=== PATIENT | female | born 1985 | race Caucasian/White ===

== ENCOUNTER → 2022-07-11 | Outpatient (CLI) | payer BC, SELFPAY ==
[2022-07-11 14:26] LABS: Hemoglobin A1c 5.3 % (3.8-5.6)
[2022-07-11 14:28] LABS: Prolactin 8.7 ng/mL; T4 Free Direct 1.02 ng/dL (0.76-1.46); Thyroid Stim Hormone (TSH) 1.12 uIU/mL (0.358-3.74)
[2022-07-17 22:07] LABS: DHEA Sulfate 89.4 ug/dL (57.3-279.2); Dilute Prothrombin Time (dPT) 40.4 sec (0.0-47.6); Dilute Russell Viper Venom 39.5 sec (0.0-47.0); Thrombin Time 16.8 sec (0.0-23.0); dPT Confirm Ratio 1.03 Ratio (0.00-1.34)
[2022-07-17 22:21] LABS: Anti-Cardiolipin Ab, IgA, Qn < 9 APL U/mL (0-11); Anti-Cardiolipin Ab, IgG, Qn < 9 GPL U/mL (0-14); Anti-Cardiolipin Ab, IgM, Qn 20 MPL U/mL (0-12); Beta-2-Glycoprotein I IgA <9 (0-25); Beta-2-Glycoprotein I IgG <9 (0-20); Beta-2-Glycoprotein I IgM <9 (0-32); Interpretation Comment: (.); PTT-LA 39.5 sec (0.0-43.5); Testosterone Free 0.4 pg/mL (0.0-4.2)
[2022-07-26 08:15] LABS: 17-Hydroxyprogesterone 20 ng/dL (.)
== END | disposition home or self-care (01) ==
PROVIDERS: PCP Family Medicine; Referring Provider Obstetrics & Gynecology; Visit Provider Obstetrics & Gynecology
DX: N97.9 Female infertility, unspecified (principal)
CPT/HCPCS: 36415; 82627; 83036; 83498; 84146; 84402; 84439; 84443; 86146; 86147; 82626

== ENCOUNTER → 2022-07-21 | Outpatient (CLI) | payer BC, SELFPAY ==
--- NOTE | 2022-07-21 15:35 | US_ITS ---
STUDY: ULTRASOUND OF THE FEMALE PELVIS - COMPLETE REASON FOR EXAM: Female, 37 years old. Infertility workup LMP: 07/08/22 TECHNIQUE: Transabdominal and Transvaginal TECHNICAL QUALITY: Adequate. COMPARISON: None. FINDINGS: The uterus is anteverted and is in a midline position. The uterus measures 8.5 x 5.3 x 3.7 cm. Normal uterine cervix. The endometrium measures 1.2 mm in thickness, and is hyperechoic. There is no demonstrated endometrial mass. There is no demonstrated myometrial mass. I.U.D. - The patient does not have an I.U.D. The right ovary is visualized. The right ovary measures 3.2 x 3.3 x 2.5 cm. There is no right ovarian cyst or ovarian mass. There is no visualized right adnexal mass or complex lesion. There is normal arterial and normal venous vascularity. The left ovary is visualized. The left ovary measures 3.1 x 2.0 x 2.2 cm. There is no left ovarian cyst or ovarian mass. There is no visualized left adnexal mass or complex lesion. There is normal arterial and normal venous vascularity. There is no fluid in the cul-de-sac. The bladder is sonographically normal US/Pelvic (Non ) IMPRESSION: No suspicious sonographic findings Electronically Signed: Ryan Bowens MD at 9:53 EDT ,
--- NOTE | 2022-07-21 15:36 | US_ITS ---
STUDY: ULTRASOUND OF THE FEMALE PELVIS - COMPLETE REASON FOR EXAM: Female, 37 years old. Infertility workup LMP: 07/08/22 TECHNIQUE: Transabdominal and Transvaginal TECHNICAL QUALITY: Adequate. COMPARISON: None. FINDINGS: The uterus is anteverted and is in a midline position. The uterus measures 8.5 x 5.3 x 3.7 cm. Normal uterine cervix. The endometrium measures 1.2 mm in thickness, and is hyperechoic. There is no demonstrated endometrial mass. There is no demonstrated myometrial mass. I.U.D. - The patient does not have an I.U.D. The right ovary is visualized. The right ovary measures 3.2 x 3.3 x 2.5 cm. There is no right ovarian cyst or ovarian mass. There is no visualized right adnexal mass or complex lesion. There is normal arterial and normal venous vascularity. The left ovary is visualized. The left ovary measures 3.1 x 2.0 x 2.2 cm. There is no left ovarian cyst or ovarian mass. There is no visualized left adnexal mass or complex lesion. There is normal arterial and normal venous vascularity. There is no fluid in the cul-de-sac. The bladder is sonographically normal US/Transvaginal Non- IMPRESSION: No suspicious sonographic findings Electronically Signed: Ryan Bowens MD at 9:53 EDT ,
== END | disposition home or self-care (01) ==
PROVIDERS: PCP Family Medicine; Visit Provider Obstetrics & Gynecology
DX: N97.9 Female infertility, unspecified (principal)
CPT/HCPCS: 76830; 76856

== ENCOUNTER → 2024-05-21 | Outpatient (CLI) | payer BC, SELFPAY ==
[2024-05-21 13:05] LABS: T4 Free Direct 1.21 ng/dL (0.76-1.46); Thyroid Stim Hormone (TSH) 0.572 uIU/mL (0.358-3.740)
[2024-05-21 13:14] LABS: Absolute Lymphocyte Count 1.52 X10^3/uL (0.83-4.51); Absolute Neutrophil Count 6.3 X10^3/uL (2.0-7.7); Basophil# 0.02 X10^3/uL; Basophil% 0.2 % (0-1); Eosinophil# 0.07 X10^3/uL; Eosinophils% 0.8 % (0-5); Hematocrit 39.3 % (37-47); Hemoglobin 12.2 g/dL (12.0-15.0); Lymphocyte # 1.52 X10^3/ul (0.83-4.51); Mean Corpuscular Hgb 27.5 pg (27.0-32.0); Mean Corpuscular Volume 88.5 fL (81-99); Mean Platelet Vol. 11.2 fl (6.2-12.0); Monocyte# 0.46 X10^3/uL; Monocyte% 5.5 % (0-10); NRBC Flagged by Analyzer 0 % (0-5); Neutrophil # 6.32 X10^3/uL (2.7-7.7); Platelet Count 263 K/mm3 (150-450); RBC Distribution Width CV 13.5 % (11.6-14.6); RBC Distribution Width SD 43.6 fl (35.1-43.9); Red Blood Count 4.44 M/mm3 (4.2-5.4); White Blood Count 8.4 K/mm3 (4.4-11.0)
[2024-05-21 13:28] LABS: HIV - WCH Non-Reactive (Nonreactive); Hepatitis B Surface Antigen Non-Reactive (Nonreactive); Hepatitis C Antibody Non-Reactive (Nonreactive); Rubella IgG Reactive (Nonreactive); Syphilis Antibodies Non-reactive
[2024-05-21 16:57] LABS: Hemoglobin A1c 5.4 % (3.8-5.6)
[2024-05-24 04:06] LABS: Chlamydia By Nucleic Acid AMP Negative (Negative); Gonococcus By Nucleic Acid AMP Negative (Negative)
[2024-05-27 11:07] LABS: HPV APTIMA, High Risk Negative (Negative)
== END | disposition home or self-care (01) ==
PROVIDERS: PCP Family Medicine; Referring Provider Obstetrics & Gynecology; Visit Provider Obstetrics & Gynecology
DX: O99.210 Obesity complicating pregnancy, unspecified trimester (principal); Z3A.00 Weeks of gestation of pregnancy not specified
CPT/HCPCS: 36415; 83021; 83036; 84439; 84443; 85025; 85660; 86703; 86762; 86780; 86803; 86850; 86900; 86901; 87086; 87340; 87491; 87591; 87624; 88175; G0145

== ENCOUNTER → 2024-08-21 | Outpatient (CLI) | payer BC, SELFPAY ==
[2024-08-21 10:53] LABS: Absolute Lymphocyte Count 1.85 X10^3/uL (0.83-4.51); Basophil# 0.01 X10^3/uL; Basophil% 0.1 % (0-1); Eosinophil# 0.09 X10^3/uL; Eosinophils% 0.9 % (0-5); Hematocrit 36.7 % (37-47); Hemoglobin 11.9 g/dL (12.0-15.0); Lymphocyte # 1.85 X10^3/ul (0.83-4.51); Lymphocyte % 19.4 % (19-41); Mean Corp Hgb Conc 32.4 g/dL (32-36); Mean Corpuscular Hgb 30.1 pg (27.0-32.0); Mean Corpuscular Volume 92.9 fL (81-99); Mean Platelet Vol. 11.8 fl (6.2-12.0); Monocyte# 0.49 X10^3/uL; Monocyte% 5.1 % (0-10); NRBC Flagged by Analyzer 0 % (0-5); Neutrophil % 73.7 % (47-70); Platelet Count 198 K/mm3 (150-450); RBC Distribution Width CV 14.1 % (11.6-14.6); RBC Distribution Width SD 47.9 fl (35.1-43.9); Red Blood Count 3.95 M/mm3 (4.2-5.4); White Blood Count 9.5 K/mm3 (4.4-11.0)
[2024-08-21 12:26] LABS: Glucose Challenge Gest 1H 50g 108 mg/dL (70-140); HIV Nonreactive (Nonreactive); Syphilis Antibodies Nonreactive (Nonreactive)
== END | disposition home or self-care (01) ==
PROVIDERS: PCP Family Medicine; Referring Provider Obstetrics & Gynecology; Visit Provider Obstetrics & Gynecology
DX: O09.92 Supervision of high risk pregnancy, unspecified, second trimester (principal); Z3A.00 Weeks of gestation of pregnancy not specified; Z13.1 Encounter for screening for diabetes mellitus
CPT/HCPCS: 36415; 82950; 85025; 86703; 86780

== ENCOUNTER → 2024-09-05 | Outpatient (CLI) | payer BC, SELFPAY ==
--- NOTE | 2024-09-05 12:15 | US_ITS ---
PROCEDURE: OB LIMITED WITH BIOMETRICS (USOBGROWTH), 09/05/2024 REASON FOR EXAM: GROWTH EVERY MONTH. Reportedly, 29 weeks 5 days with HILARY 11/16/2024 by previously established dates. TECHNIQUE: Grayscale and color/spectral doppler transabdominal pelvic ultrasound was performed with attention to the uterus and associated gestation. COMPARISON: None FINDINGS: A single intrauterine gestational is identified. Cardiac activity: Present, 135 bpm. position: Breech. Amniotic Fluid Index: 14.7 (normal 5-25), deepest vertical pocket 4 (normal 2-8). Placenta: Posterior without significant calcification. No visualized or definite previa. biometry: Biparietal diameter: 7.4 cm, corresponding to 29 weeks 5 days. Head circumference: 27.7 cm, corresponding to 30 weeks 2 days. Occipitofrontal diameter: 9.8 cm, corresponding to 30 weeks 1 day. Abdominal circumference: 26.3 cm, corresponding to 30 weeks 3 days. Femur length: 5.9 cm, corresponding to 30 weeks 4 days. Composite gestational age: 30 weeks 1 day Estimated Weight (EFW): 1575 g +/-236 g, 63.2 percentile. Estimated delivery date (HILARY): 11/13/2024. Maternal anatomy: Cervix: Closed, 3.5 cm in length.. Right ovary: Nonvisualized likely due to the gravid uterus. Left ovary: Nonvisualized likely due to the gravid uterus. US/OB Limited With Biometrics IMPRESSION: 1. Single live intrauterine at 30 weeks 1 day with HILARY 11/13/2024 by today's measurements, compatible with previously established dates. 2. Estimated weight 1575 g +/-236 g, 63.2 percentile based on provided pr eviously established dates. biometry as above. 3. Additional description as above. Reading Location: [id number]
== END | disposition home or self-care (01) ==
LOC: US 12:13
PROVIDERS: PCP Family Medicine; Referring Provider Obstetrics & Gynecology; Visit Provider Obstetrics & Gynecology
DX: O99.212 Obesity complicating pregnancy, second trimester (principal); Z3A.00 Weeks of gestation of pregnancy not specified
CPT/HCPCS: 76816

== ENCOUNTER → 2024-10-03 | Outpatient (CLI) | payer BC, SELFPAY ==
--- NOTE | 2024-10-03 12:04 | US_ITS ---
PROCEDURE: OB LIMITED WITH BIOMETRICS 10/03/2024 REASON FOR EXAM: GROWTH EVERY MONTH TECHNIQUE: High resolution obstetric ultrasound performed using a 2D transducer. Standard views obtained, including biometry. FINDINGS Transabdominal imaging Single live intrauterine cardiac activity 158 beats per minute. Presentation is cephalic. Cervix not visualized. SHAMAR 12.6 cm, maximum vertical pocket 3.8 cm Posterior grade 1 placenta appears within limits, not low-lying. DIMENSIONS: Biparietal Diameter: 8.3 cm/33 weeks 2 days, 32% Head Circumference: 30.6 cm/34 weeks 0 day, 21% Abdominal Circumference: 29.7 cm/33 weeks 4 days, 50% Femur Length: 6.7 cm/34 weeks 2 days, 54% FL/AC 22%, FL/BPD 81%, FL/HC 22%, CI 76%, HC/AC 1.0 ESTIMATED WEIGHT: 2292 g +/-344 g ESTIMATED WEIGHT PERCENTILE (24+ weeks): 46.9% Estimated age by current ultrasound 34 weeks 0 days, HILARY 11/14/2024 Estimated age by prior ultrasound 34 weeks 1 day, HILARY 11/13/2024 age by LMP 33 weeks 5 days, HILARY 11/16/2024 US/OB Limited With Biometrics IMPRESSION: Single live intrauterine with biometry as above. Reading Location: [id number]
== END | disposition home or self-care (01) ==
LOC: US 12:02
PROVIDERS: PCP Family Medicine; Referring Provider Obstetrics & Gynecology; Visit Provider Obstetrics & Gynecology
DX: O99.212 Obesity complicating pregnancy, second trimester (principal); Z3A.00 Weeks of gestation of pregnancy not specified
CPT/HCPCS: 76816

== ENCOUNTER → 2024-10-24 | Outpatient (CLI) | payer BC, SELFPAY | END | disposition home or self-care (01) | LOC: LABSPEC 16:31 | PROVIDERS: PCP Family Medicine; Referring Provider Obstetrics & Gynecology; Visit Provider Obstetrics & Gynecology | DX: O09.93 Supervision of high risk pregnancy, unspecified, third trimester (principal); Z3A.00 Weeks of gestation of pregnancy not specified | CPT/HCPCS: 87081 ==

== ENCOUNTER → 2024-10-31 | Outpatient (CLI) | payer BC, SELFPAY ==
--- NOTE | 2024-10-31 11:26 | US_ITS ---
PROCEDURE: OB LIMITED WITH BIOMETRICS 10/31/2024 REASON FOR EXAM: GROWTH EVERY MONTH TECHNIQUE: OB LIMITED WITH BIOMETRICS COMPARISON: Ob ultrasound October 03, 2024 FINDINGS Number: [place] Position: Cephalic Placental Position: Posterior, grade 2 Placental Abnormalities: None DIMENSIONS: Biparietal Diameter: 8.9 cm/35 weeks, 6 days Head Circumference: 32.5 cm 36 weeks, 5 days/ Abdominal Circumference: 33.5 cm/37 weeks, 3 days Femur Length: 7.4 cm/38 weeks 0 days ESTIMATED WEIGHT: 3195+/-479 g ESTIMATED WEIGHT PERCENTILE (24+ weeks): 52 % ESTIMATED GESTATIONAL AGE: Baseline: 37 weeks, 5 days By Ultrasound: 37 weeks 2 days ESTIMATED DATE OF DELIVERY: Baseline: November 16, 2024 By Ultrasound: November 19, 2024 4.2 cm largest vertical pocket BIOPHYSICAL ASSESSMENT: Amniotic Fluid Volume: 4.2 cm (largest vertical pocket) Amniotic Fluid Index: 11.3 (8-24 cm normal range) Cardiac Motion: 141 (average) Trunk and Limb Motion: Present. MATERNAL ANATOMY: Adnexa: Neither maternal ovary is successfully identified. Cervical Length (if measured): US/OB Limited With Biometrics IMPRESSION: Single intrauterine fetus with heart rate of 141 beats per minute. Gestational age 37 weeks, 2 days. Estimated due date November 19, 2024. EFW 3190. Percentile rank: 52% Reading Location[facility]
--- OUTSIDE RECORDS SUMMARY | 2024-10-31 17:26 | XMS RPT_ITS | CCD ---
[facility] Organization [facility] Providers Care Hands Assembler Name Role Phone Ingrid Mckinney Unavailable Unavailable Ingrid Mckinney Unavailable Unavailable Ingrid Mckinney Unavailable Unavailable Unavailable Dr. Ingrid Mckinney Primary Care Provider Dr. Ingrid Mckinney Referring Provider [phone] Dr. Alison Guerra Attending Provider [phone] Dr. Ingrid Mckinney Primary Care Provider Dr. Ingrid Mckinney Referring Provider [phone] Dr. Alison Guerra Attending Provider [phone] Ingrid Mckinney MD Primary Care Provider INGRID MCKINNEY Primary Care Unavailable MANISH ROACH Attending Unavailable RAYMOND LARSON Attending Unavailable KAEL MCKINNEY Primary Care Unavailable ALISON GUERRA Referring UnavailDr. Ingrid Tavera MD Primary Care Provider Dr. Ingrid Mckinney MD Referring Provider Dr. Alison Guerra MD Attending Provider [phone] Dr. Alison Guerra MD Referring Provider Chayo Powell Attending Provider Dr. Ingrid Mckinney MD Primary Care Provider [phone] Dr. Ingrid Mckinney MD Referring Provider Dr. Alison Guerra MD Attending Provider Dr. Alison Guerra MD Referring Provider Param Gant DO, Dr. Kearney Attending Provider Param Gant DO, Dr. Kearney Referring Provider Shannon Ingram CNM Attending Provider Hank MIRANDA, Dr. Lira Primary Care Provider Hank MIRANDA, Dr. Lira Referring Provider [phone] Du Quoin [employer] RO[employer]ER HELPER-CChayo Attending Provider Hank, Ingrid Primary Care Unavailable Marcanthony Alison Referring Unavailable Alison Guerra Attending Unavailable Vande Velde Christel Referring Unavailabl e Vande Velde, Christel Attending Unavailabl e Hank, Ingrid Primary Care Unavailable Alison Guerra Attending Unavailable Hank, Ingrid Primary Care Unavailable Smithanthony Alison Referring Unavailable Vande Velde, Christel Referring Unavailabl e Vande Velde, Christel Attending Unavailabl e Hank, Ingrid Primary Care Unavailable Vande VeldeKieshaChristel Referring Unavailabl e Vande Velde, Christel Attending Unavailabl e Hank, Ingrid Primary Care Unavailable Hank, Ingrid Primary Care Unavailable Vande Velde, Christel Attending Unavailabl e Vande Velde, Christel Referring Unavailabl e Hank, Ingrid Referring Unavailable Olamide [employer] BE[employer] ROASTER HELPER, Chayo Attending Unavailable Hank, Ingrid Primary Care Unavailable Hank, Ingrid Referring Unavailable Vande Velde, Christel Attending Unavailabl e Hank, Ingrid Primary Care Unavailable Hank, Ingrid Referring Unavailable Du Quoin [employer] ROASTER HELPER, Chayo Attending Unavailable Hank, Ingrid Primary Care Unavailable Hank, Ingrid Referring Unavailable Du Quoin [employer] BEAN ROASTER HELPER, Chayo Attending Unavailable Hank, Ingrid Primary Care Unavailable Hank, Ingrid Primary Care Unavailable Shannon Ingram Attending Unavailable Hank, Ingrid Referring Unavailable Hank, Ingrid Primary Care Unavailable Vande Velde, Christel Attending Unavailabl e Hank, Ingrid Referring Unavailable Hank, Ingrid Primary Care Unavailable Alison Guerra Attending Unavailable Hank, Ingrid Referring Unavailable Vande Velde, Christel Attending Unavailabl e Hank, Ingrid Primary Care Unavailable Hank, Ingrid Referring Unavailable Hank, Ingrid Referring Unavailable Hank, Ingrid Primary Care Unavailable Marcanthony, Alison Attending Unavailable Ingrid Mckinney Referring Unavailable Chayo Quiñonez NP Attending Unavailable Ingrid Mckinney Primary Care Unavailable Ingrid Mckinney Referring Unavailable Ingrid Mckinney Primary Care Unavailable Alison Guerra Attending Unavailable Allergies Allergy Classification Reported Allergen(s) Allergy Type Date of Onset Reaction(s) Facility (9 sources) Food Allergies: Uncoded; Translations: [Food Allergies: Uncoded] Allergy to substance 08-21-2024 Anaphylaxis [facility] Comment on above: cool whip preservati ve Medications Current Medications Medication Drug Class(es) Dates Sig (Normalized) Sig (Original) ofloxacin 3 mg/ml ophthalmic solution (1 source) Quinolone Antimicrobial Start: 07-03-2023 End: 07-10-2023 take 1 drop(s) into the eye(s) three times daily ofloxacin (Ocuflox) 0.3 % ophthalmic solution Indications: Acute bacterial conjunctivitis of right eye Administer 1 drop into the right eye 3 times a day for 7 days. 5 mL 0 07/03/2023 07/10/2023 Active Pnv No.400-Sx-Nq0-Dha -Epa-Fish 400 mcg-35 mg- 25 mg-5 mg tablet,chewable (8 sources) Start: 05-20-2024 Pnv No.621-Lv-Mg1-Dha-Ep a-Fish 400 mcg-35 mg- 25 mg-5 mg tablet,chewable Active {tbl} PO May 20, 2024 1:00am Completed/Discontinued Medications Medication Drug Class(es) Dates Sig (Normalized) Sig (Original) phentermine hydrochloride 37.5 mg oral tablet (2 sources) Sympathomimetic Amine Anorectic Start: 05-29-2019 take 1 tablet by mouth once daily Phentermine HCl - 37.5 MG Oral Tablet Take 1 tablet daily Quantity: 28 Refills: 0 Ordered: 24-Jul-2019 Ingrid Mckinney MD Start : 29-May-2019 Active topiramate 25 mg oral tablet (2 sources) take 1 tablet by mouth once daily Topiramate 25 MG Oral Tablet Take 1 tablet daily Quantity: 30 Refills: 5 Ordered: 26-Jun-2019 Ingrid Mckinney MD Active Problems Active Problems Problem Classification Problem Date Documented Da te Episodic/Chronic Contraceptive and procreative management (2 sources) Patient encounter status; Translations: [Other procreative management counseling and advice] Episodic Female infertility (12 sources) Female infertility; Translations: [Female infertility, unspecified] 04-21-2020 Chronic Comment on above: OAR good egg supply, borderline egg quality Immunizations and screening for infectious disease (1 source) Encounter for immunization; Translations: [Encounter for immunization] Onset: 09-12-2024 Episodic Inflammation; infection of eye (except that caused by tuberculosis or sexually transmitteddisease) (3 sources) Acute infectious conjunctivitis; Translations: [Unspecified acute conjunctivitis, right eye] Onset: 07-03-2023 07-03-2023 Episodic Malaise and fatigue (2 sources) Fatigue; Translations: [Other malaise and fatigue] Episodic Menstrual disorders (12 sources) Irregular periods; Translations: [Irregular menstruation, unspecified] 07-11-2022 Chronic Comment on above: pcos and inferitlity fisher ordered, reprosource made 4 attempts to contact pt with unsuccess Other complications of (20 sources) Maternal obesity complicating , childbirth and the puerperium, antepartum; Translations: [Obesity complicating , unspecified trimester] 07-23-2024 Chronic Comment on above: HgbA1c bmi 40 weekly nsts 34 on Other complications of (2 sources) Obesity complicating , second trimester; Translations: [Obesity complicating , second trimester] Onset: 10-24-2024 Chronic Other complications of (1 source) Obesity complicating , unspecified trimester; Translations: [Obesity complicating , unspecified trimester] Onset: 05-21-2024 Chronic Other complications of (20 sources) High risk ; Translations: [Supervision of high risk , unspecified, unspecified trimester] 07-23-2024 Episodic Comment on above: [id number], HILARY 11/16/24, girl Juan David GBS negative [id number] , HILARY 11/16/24, girl Juan David Other complications of (20 sources) Advanced maternal age ; Translations: [Elderly multigravida, unspecified as to episode of care or not applicable] 07-23-2024 Episodic Comment on above: NIPT low risk Girl. discussed IOL 39-40 weeks. NIPT low risk Girl. discussed IOL 39-40 weeks. plan for iOL sunday prior to 39 weeks for cervical ripening Other complications of (1 source) Supervision of high risk , unspecified, third trimester; Translations: [Supervision of high risk , unspecified, third trimester] Onset: 10-24-2024 Episodic Other complications of (1 source) Supervision of high risk , unspecified, second trimester; Translations: [Supervision of high risk , unspecified, second trimester] Onset: 08-27-2024 Episodic Other female genital disorders (2 sources) H/O: miscarriage; Translations: [Recurrent loss] 07-11-2022 Episodic Other female genital disorders (20 sources) Recurrent loss; Translations: [Recurrent loss without current ] Onset: 10-24-2024 07-11-2022 Episodic Comment on above: APL panel neg in pas t Other nutritional; endocrine; and metabolic disorders (2 sources) Obesity; Translations: [Obesity, unspecified] Chronic Other nutritional; endocrine; and metabolic disorders (2 sources) Body mass index 40+ - severely obese; Translations: [Body Mass Index 40.0-44.9, adult] Chronic Other and delivery including normal (20 sources) ; Translations: [Encounter for supervision of normal , unspecified, unspecified trimester] 08-21-2024 Episodic Comment on above: low risk NIPT & decl ined Carrier testing Residual codes; unclassified (1 source) 36 weeks gestation of ; Translations: [36 weeks gestation of ] Onset: 10-24-2024 Episodic Syncope (20 sources) Vasovagal syncope; Translations: [Syncope and collapse] Onset: 10-24-2024 10-08-2024 Episodic Comment on above: DO NOT lay flat for NSTs Thyroid disorders (2 sources) Multinodular goiter; Translations: [Nontoxic multinodular goiter] Chronic Past or Other Problems Problem Classification Problem Date Documented Da te Episodic/Chronic Other complications of (1 source) Supervision of high risk , unspecified, unspecified trimester; Translations: [Supervision of high risk , unspecified, unspecified trimester] Onset: 06-19-2024 Episodic Residual codes; unclassified (1 source) 23 weeks gestation of ; Translations: [23 weeks gestation of ] Onset: 03-12-2025 Episodic Unclassified (1 source) Finding of menstrual bleeding; Translations: [Menstruation] Comment on above: Onset age 14 years; NEGATED: Highlighted row has not occurred!Residual codes; unclassified (3 sources) Disease Episodic Results Test Name Value Interpretation Reference Range Facility Rule out Beta Strep (Grp. B) on 10-26-2024 ANT Group B Beta Streptococcus is not isolated. Normal [facility] Comment on above: Performed By: #### M [id number] #### [facility] [address] [place], [address] Laboratory - Chemistry and C hemistry - challengeOrdered By: Christel Gant on 10-24-2024 Glucose Ql (U) Negative [facility] - UrinalysisOrder ed By: Christel Gant on 10-24-2024 Protein Ql (U) Negative [facility] Visit Reporton 10-24-2024 [facility] Visit Report [facility] [address], [address] [place] [address] OFFICE VISIT Date of Service: 10/24/24 MR#: [id number] Acct: [id number] Name: REMEDIOS NEAL Rep #: [id number] : 1985 Provider: Dr. Christel Dang DO Age/Sex: 39/F [place] [facility] [place]: Signed Intake Vital Signs 05/21/24 10:26 10/17/24 13:19 10/24/24 10:28 10/24/24 10:30 Height 5 ft 6.5 in 5 ft 6.5 in 5 ft 6.5 in 5 ft 6.5 in Weight: 245 lb 4 oz BMI 38.9 BP 110/76 Intake Visit Reasons: 36 wk ob/nst Theoretical Physicist Required: No Is patient in pain?: No Allergies Food Allergies: Uncoded Allergy (Severe, Verified 10/24/24 10:27) Anaphylaxis Medications ???Medication ???Instructions ???Recorded ???Confirmed ???Type PNV 153-FA 400 mcg-om3 35 mg-dha tab PO 05/20/24 10/24/24 History 25 mg-epa 5 mg-fish oil chew tablet Last Menstrual Period: 02/10/24 Zika: Zika virus screening: Negative : No PFSH PFSH Medical History Adopted person Seasonal allergies Enlarged thyroid Hypothyroidism Depression Abnormal thyroid blood test Abnormal Pap smear of cervix Surgical History H/O oral surgery Status post colposcopy Social History adopted: Yes household members: spouse and other details: neice part of the time current occupational status: employed 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) pets and animals: Yes (Avoid litterbox) pets and animals: cat(s) and dog(s) history of recent travel: Yes ([place]) out of state: Yes out of country: No sexually active: Yes Smoking Status: Never smoker alcohol intake: current details: occasionally- not while substance use type: does not use well-balanced diet: daily or most days caffeine: No eating out: 4 or more times/week during the past year weight has: increased > 10 lbs what type of physical activity 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 Date Name GA/Weeks Outcome Route Bth Weight Infant Gen Labor Lgth Anesthesia Del Locatn Provider FOB Unknown Delivery Date: Last Updated by: Alison Guerra MD all losses were 9 weeks of less, had 1 d and c all others spontaneous HPI 36 wk ob/nst Details: REMEDIOS CROWE is a 39 year old who presents for routine OB visit. OB Visit HILARY Calculator Estimated Delivery Date Method Current WG Current Estimate 11/16/24 LMP (Certain) 36w 5d Other Estimates 11/12/24 Ultrasound #1 37w 2d Expected Delivery Route/Plan Labor Preferences- CB/BF classes: encouraged labor support person: Juan David labor intervention preferences: [] pain management options preferred: epidural cut cord/dad catch: yes : yes PP control planned: discussed discussed possible routes of delivery and associated risks: [] special requests: [] Specific Issue/Plans Covid status: [] Flu vaccine: [] Tdap vaccine: given Rhogam: na LARC form signed: yes Problem list reviewed and updated with the most current plan of care details and appropriate orders placed. Relevant counseling for the gestational age provided. Continue routine care and follow up unless otherwise noted in visit notes/problem list details Initial Weight: Not Recorded Date -???-???-???-???-???-??? -???-???-???-???-???-??? - EGA Weight BP Urine Prot -???-???-???-???-???-??? -???-???-???-???-???-??? - Glucose FHR FuHt Pres Dilation -???-???-???-???-???-??? -???-???-???-???-???-??? - Effaced St Visit Note 05/21/24 -???-???-???-???-???-??? -???-???-???-???-???-??? - 14w 3d 252 lb 123/87 -???-???-???-???-???-??? -???-???-???-???-???-??? - 150 -???-???-???-???-???-??? -???-???-???-???-???-??? - SM- CRL cons with LMP 06/25/24 -???-???-???-???-???-??? -???-???-???-???-???-??? - 19w 3d 253 lb 8 oz 124/72 Negative -???-???-???-???-???-??? -???-???-???-???-???-??? - Negative 151 -???-???-???-???-???-??? -???-???-???-???-???-??? - No VB. No mo vement yet. Feels well. MFM anatomy tomorrow 07/23/24 -???-???-???-???-???-??? -???-???-???-???-???-??? - 23w 3d 252 lb 8 oz 119/73 Negative -???-???-???-???-???-??? -???-???-???-???-???-??? - Negative 145 -???-???-???-???-???-??? -???-?? (more content not included)... Normal [facility] Screening beta-hemolytic Str eptococcus cultureOrdered By: Christel Gant on 10-24-2024 Beta-hemolytic Streptococcus culture Group B Beta Streptococcus is not isolated. [facility] Laboratory - Chemistry and C hemistry - challengeOrdered By: Shannon Ingram on 10-17-2024 Glucose Ql (U) Negative [facility] Laboratory - UrinalysisOrder ed By: Shannon Ingram on 10-17-2024 Protein Ql (U) Negative [facility] Visit Reporton 10-17-2024 [facility] Visit Report [facility], [address] [place] [address] OFFICE VISIT Date of Service: 10/17/24 MR#: [id number] Acct: [id number] Name: REMEDIOS NEAL Rep #: [id number] : 1985 Provider: MARYCARMEN tolentino Age/Sex: 39/F [place] [facility] [place]: Signed with Addenda ADDENDUM by MARYCARMEN Ingram on 10/17/24 at 1646 Office Procedure Documentation entered by Shannon Ingram CNM 10/17/24 16:46: Non-stress Test Non-Stress Test Heart Rate Baseline: 135 Heart Rate Variability: moderate Movement: Present Heart Rate Accelerations: Present Decelerations: Absent Contractions: Present Impression: Yes Reactive Non-Stress Test 10/17/24 1646 Date Shannon Ingram CNM cc: * Signed ADDENDUM by MARYCARMEN Ingram on 10/17/24 at 1638 Assessment and Plan Assessment and Plan (1) Vasovagal episode: Status: Acute Comment: DO NOT lay flat for NSTs (2) Obesity affecting : Status: Acute Qualifiers: Trimester: second trimester Obesity type affecting : unspecified obesity Qualified Code(s): O99.212 - Obesity complicating , second trimester Comment: HgbA1c bmi 40 weekly nsts 34 on (3) Advanced maternal age (AMA), 40 years or greater: Status: Acute Comment: NIPT low risk Girl. discussed IOL 39-40 weeks. Plan: tentative scheduled 11/09/2024 to send iol paper/consent (4) Supervision of high-risk : Status: Acute Qualifiers: Trimester: third trimester Qualified Code(s): O09.93 - Supervision of high risk , unspecified, third trimester Comment: [id number], HILARY 11/16/24, girl Juan David (5) : Status: Acute Qualifiers: Weeks of gestation: 35 weeks Qualified Code(s): Z3A.35 - 35 weeks gestation of Comment: low risk NIPT declined Carrier testing (6) History of recurrent miscarriages: Status: Acute Comment: APL panel neg in past Orders: Orders POC Urinalysis 2 Dip (Clinic) Today OB NST Today O99.212 - Obesity complicating , second trimester 10/17/24 1638 Date Shannon Ingram CNM cc: * Signed Intake Vital Signs 10/08/24 08:56 10/17/24 13:18 10/17/24 13:19 Height 5 ft 6.5 in 5 ft 6.5 in 5 ft 6.5 in Weight: 245 lb BMI 38.9 BP 120/79 Intake Visit Reasons: 35 wk ob/nst Theoretical Physicist Required: No Is patient in pain?: No Allergies Food Allergies: Uncoded Allergy (Severe, Verified 10/17/24 13:18) Anaphylaxis Medications ???Medication ???Instructions ???Recorded ???Confirmed ???Type PNV 153-FA 400 mcg-om3 35 mg-dha tab PO 05/20/24 10/17/24 History 25 mg-epa 5 mg-fish oil chew tablet Last Menstrual Period: 02/10/24 Zika: Zika virus screening: Negative : No PFSH PFSH Medical History Adopted person Seasonal allergies Enlarged thyroid Hypothyroidism Depression Abnormal thyroid blood test Abnormal Pap smear of cervix Surgical History H/O oral surgery Status post colposcopy Social History adopted: Yes household members: spouse and other details: neice part of the time current occupational status: employed 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) pets and animals: Yes (Avoid litterbox) pets and animals: cat(s) and dog(s) history of recent travel: Yes ([place]) out of state: Yes out of country: No sexually active: Yes Smoking Status: Never smoker alcohol intake: current details: occasionally- not while substance use type: does not use well-balanced diet: daily or most days caffeine: No eating out: 4 or more times/week during the past year weight has: increased > 10 lbs what type of 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 Date Name GA/Weeks Outcome Route Bth Weight Gen Labor Lgth Anesthesia Del [facility] Provider FOB Unknown Delivery Date: Last Updated by: Alison Guerra MD all losses were 9 weeks of less, had 1 d and c all others spontaneous HPI 35 wk ob/nst Details: REMEDIOS CROWE is a 39 year old who presents for routine OB visit. OB Visi (more content not included)... Normal [facility] Laboratory - Chemistry and C hemistry - challengeOrdered By: Chayo Quiñonez on 10-08-2024 Glucose Ql (U) Negative [facility] Laboratory - UrinalysisOrder ed By: Chayo Quiñonez on 10-08-2024 Protein Ql (U) Negative [facility] Visit Reporton 10-08-2024 [facility] Visit Report [facility] [address], [address] [place] [address] OFFICE VISIT Date of Service: 10/08/24 MR#: [id number] Acct: [id number] Name: REMEDIOS NEAL Rep #: [id number] : 1985 Provider: RAMIREZ will Age/Sex: 39/F [place] [facility] [place]: Signed Intake Vital Signs 05/21/24 10:26 09/24/24 08:41 10/08/24 08:56 Height 5 ft 6.5 in 5 ft 6.5 in 5 ft 6.5 in Weight: 244 lb 8 oz BMI 38.8 BP 104/72 Intake Visit Reasons: 34 wk ob/nst Chief Complaint: 34 Week OB/NST Theoretical Physicist Required: No Is patient in pain?: No Allergies Food Allergies: Uncoded Allergy (Severe, Verified 10/08/24 08:57) Anaphylaxis Medications ???Medication ???Instructions ???Recorded ???Confirmed ???Type PNV 153-FA 400 mcg-om3 35 mg-dha tab PO 05/20/24 10/08/24 History 25 mg-epa 5 mg-fish oil chew tablet Last Menstrual Period: 02/10/24 Zika: Zika virus screening: Negative : No PFSH PFSH Medical History Adopted person Seasonal allergies Enlarged thyroid Hypothyroidism Depression Abnormal thyroid blood test Abnormal Pap smear of cervix Surgical History H/O oral surgery Status post colposcopy Social History adopted: Yes household members: spouse and other details: neice part of the time current occupational status: employed 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) pets and animals: Yes (Avoid litterbox) pets and animals: cat(s) and dog(s) history of recent travel: Yes ([place]) out of state: Yes out of country: No sexually active: Yes Smoking Status: Never smoker alcohol intake: current details: occasionally- not while substance use type: does not use well-balanced diet: daily or most days caffeine: No eating out: 4 or more times/week during the past year weight has: increased > 10 lbs what type of physical activity 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 Date Name GA/Weeks Outcome Route Bth Weight Infant Gen Labor Lgth Anesthesia Del Locatn Provider FOB Unknown Delivery Date: Last Updated by: Alison Guerra MD all losses were 9 weeks of less, had 1 d and c all others spontaneous HPI 34 wk ob/nst Details: REMEDIOS CROWE is a 39 year old who presents for routine OB visit. OB Visit HILARY Calculator Estimated Delivery Date Method Current WG Current Estimate 11/16/24 LMP (Certain) 34w 3d Other Estimates 11/12/24 Ultrasound #1 35w 0d Expected Delivery Route/Plan Labor Preferences- CB/BF classes: encouraged labor support person: Juan David labor intervention preferences: [] pain management options preferred: epidural cut cord/dad catch: yes : yes PP control planned: discussed discussed possible routes of delivery and associated risks: [] special requests: [] Specific Issue/Plans Covid status: [] Flu vaccine: [] Tdap vaccine: given Rhogam: na LARC form signed: yes Problem list reviewed and updated with the most current plan of care details and appropriate orders placed. Relevant counseling for the gestational age provided. Continue routine care and follow up unless otherwise noted in visit notes/problem list details Initial Weight: Not Recorded Date -???-???-???-???-???-??? -???-???-???-???-???-??? - EGA Weight BP Urine Prot -???-???-???-???-???-??? -???-???-???-???-???-??? - Glucose FHR FuHt Pres Dilation -???-???-???-???-???-??? -???-???-???-???-???-??? - Effaced St Visit Note 05/21/24 -???-???-???-???-???-??? -???-???-???-???-???-??? - 14w 3d 252 lb 123/87 -???-???-???-???-???-??? -???-???-???-???-???-??? - 150 -???-???-???-???-???-??? -???-???-???-???-???-??? - SM- CRL cons with LMP 06/25/24 -???-???-???-???-???-??? -???-???-???-???-???-??? - 19w 3d 253 lb 8 oz 124/72 Negative -???-???-???-???-???-??? -???-???-???-???-???-??? - Negative 151 -???-???-???-???-???-??? -???-???-???-???-???-??? - No VB. No mo vement yet. Feels well. MFM anatomy tomorrow 07/23/24 -???-???-???-???-???-??? -???-???-???-???-???-??? - 23w 3d 252 lb 8 oz 119/73 Negative -???-???-???-???-???-??? -???-???-???-???-???-??? - Negative 145 -???-???-???-???-???-??? -???-??? (more content not included)... Normal [facility] OB Limited With Biometricson 10-03-2024 OB Limited With Biometrics [facility] Imaging Services [address] [place] [id number] OB Limited With Biometrics MR#: [id number] Acct: [id number] Name: LEOVNDEVORA CROWEREMEDIOS Rep #: [id number] : 1985 F 39 From: Miguel Angel Levy MD PCP: Dr. Ingrid Mckinney MD Status: REG CLI Study: OB Limited With Biometrics Date of Exam: 10/03 Exam# [id number] Ordering Dr: Christel Chen DO PROCEDURE: OB LIMITED WITH BIOMETRICS 10/03/2024 REASON FOR EXAM: GROWTH EVERY MONTH TECHNIQUE: High resolution obstetric ultrasound performed using a 2D transducer. Standard views obtained, including biometry. FINDINGS Transabdominal imaging Single live intrauterine cardiac activity 158 beats per minute. Presentation is cephalic. Cervix not visualized. SHAMAR 12.6 cm, maximum vertical pocket 3.8 cm Posterior grade 1 placenta appears within limits, not low-lying. DIMENSIONS: Biparietal Diameter: 8.3 cm/33 weeks 2 days, 32% Head Circumference: 30.6 cm/34 weeks 0 day, 21% Abdominal Circumference: 29.7 cm/33 weeks 4 days, 50% Femur Length: 6.7 cm/34 weeks 2 days, 54% FL/AC 22%, FL/BPD 81%, FL/HC 22%, CI 76%, HC/AC 1.0 ESTIMATED WEIGHT: 2292 g +/-344 g ESTIMATED WEIGHT PERCENTILE (24+ weeks): 46.9% Estimated age by current ultrasound 34 weeks 0 days, HILARY 11/14/2024 Estimated age by prior ultrasound 34 weeks 1 day, HILARY 11/13/2024 age by LMP 33 weeks 5 days, HILARY 11/16/2024 US/OB Limited With Biometrics IMPRESSION: Single live intrauterine with biometry as above. Reading Location: [id number] CC: Dr. Ingrid Mckinney MD; Dr. Christel Chen DO Manager French: Signed Normal [facility] Laboratory - Chemistry and C hemistry - challengeOrdered By: Chayo Quiñonez on 09-24-2024 Glucose Ql (U) Negative [facility] Laboratory - UrinalysisOrder ed By: Chayo Quiñonez on 09-24-2024 Protein Ql (U) Negative [facility] Visit Reporton 09-24-2024 [facility] Visit Report [facility]'s [address], [address] [place] [address] OFFICE VISIT Date of Service: 09/24/24 MR#: [id number] Acct: [id number] Name: RICHARD CROWEREMEDIOS BARNETT Suman Rep #: [id number] : 1985 Provider: RAMIREZ will Age/Sex: 39/F Location: [facility] Status: Signed Intake Vital Signs 05/21/24 10:26 09/12/24 10:15 09/24/24 08:41 Height 5 ft 6.5 in 5 ft 6.5 in 5 ft 6.5 in Weight: 246 lb 4 oz BMI 39.1 BP 110/72 Intake Visit Reasons: 32 wk ob Chief Complaint: 32 Week OB Theoretical Physicist Required: No Is patient in pain?: No Allergies Food Allergies: Uncoded Allergy (Severe, Verified 09/24/24 08:43) Anaphylaxis Medications ???Medication ???Instructions ???Recorded ???Confirmed ???Type PNV 153-FA 400 mcg-om3 35 mg-dha tab PO 05/20/24 09/24/24 History 25 mg-epa 5 mg-fish oil chew tablet Last Menstrual Period: 02/10/24 Zika: Zika virus screening: Negative : No PFSH PFSH Medical History Adopted person Seasonal allergies Enlarged thyroid Hypothyroidism Depression Abnormal thyroid blood test Abnormal Pap smear of cervix Surgical History H/O oral surgery Status post colposcopy Social History adopted: Yes household members: spouse and other details: neice part of the time current occupational status: employed 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) pets and animals: Yes (Avoid litterbox) pets and animals: cat(s) and dog(s) history of recent travel: Yes ([place]) out of state: Yes out of country: No sexually active: Yes Smoking Status: Never smoker alcohol intake: current details: occasionally- not while substance use type: does not use well-balanced diet: daily or most days caffeine: No eating out: 4 or more times/week during the past year weight has: increased > 10 lbs what type of physical activity do you participate 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 Date Name GA/Weeks Outcome Route Bth Weight Gen Labor Lgth Anesthesia Del Yannickatn Provider FOB Unknown Delivery Date: Last Updated by: Alison Guerra MD all losses were 9 weeks of less, had 1 d and c all others spontaneous HPI 32 wk ob Details: REMEDIOS CROWE is a 39 year old who presents for routine OB visit. OB Visit HILARY Calculator Estimated Delivery Date Method Current WG Current Estimate 11/16/24 LMP (Certain) 32w 3d Other Estimates 11/12/24 Ultrasound #1 33w 0d Expected Delivery Route/Plan Labor Preferences- CB/BF classes: encouraged labor support person: Juan David labor intervention preferences: [] pain management options preferred: epidural cut cord/dad catch: yes : yes PP control planned: discussed discussed possible routes of delivery and associated risks: [] special requests: [] Specific Issue/Plans Covid status: [] Flu vaccine: [] Tdap vaccine: given Rhogam: na LARC form signed: yes Problem list reviewed and updated with the most current plan of care details and appropriate orders placed. Relevant counseling for the gestational age provided. Continue routine care and follow up unless otherwise noted in visit notes/problem list details Initial Weight: Not Recorded Date -???-???-???-???-???-??? -???-???-???-???-???-??? - EGA Weight BP Urine Prot -???-???-???-???-???-??? -???-???-???-???-???-??? - Glucose FHR FuHt Pres Dilation -???-???-???-???-???-??? -???-???-???-???-???-??? - Effaced St Visit Note 05/21/24 -???-???-???-???-???-??? -???-???-???-???-???-??? - 14w 3d 252 lb 123/87 -???-???-???-???-???-??? -???-???-???-???-???-??? - 150 -???-???-???-???-???-??? -???-???-???-???-???-??? - SM- CRL cons with LMP 06/25/24 -???-???-???-???-???-??? -???-???-???-???-???-??? - 19w 3d 253 lb 8 oz 124/72 Negative -???-???-???-???-???-??? -???-???-???-???-???-??? - Negative 151 -???-???-???-???-???-??? -???-???-???-???-???-??? - No VB. No mo vement yet. Feels well. MFM anatomy tomorrow 07/23/24 -???-???-???-???-???-??? -???-???-???-???-???-??? - 23w 3d 252 lb 8 oz 119/73 Negative -???-???-???-???-???-??? -???-???-???-???-???-??? - Negative 145 -???-???-???-???-???-??? -???-???-???-???-??? (more content not included)... Normal [facility] Laboratory - Chemistry and C hemistry - challengeOrdered By: Christel Gant on 09-12-2024 Glucose Ql (U) Negative [facility] Laboratory - UrinalysisOrder ed By: Christel Gant on 09-12-2024 Protein Ql (U) Negative [facility] Visit Reporton 09-12-2024 [facility] Visit Report [facility] [address], [address] [place] [address] OFFICE VISIT Date of Service: 09/12/24 MR#: [id number] Acct: [id number] Name: REMEDIOS NEAL Rep #: [id number] : 1985 Provider: Dr. Christel Dang DO Age/Sex: 39/F [place] [facility]: Signed Intake Vital Signs 05/21/24 10:26 08/21/24 09:59 09/12/24 10:15 Height 5 ft 6.5 in 5 ft 6.5 in 5 ft 6.5 in Weight: 247 lb 2 oz BMI 39.2 BP 113/75 Intake Visit Reasons: 30 wk ob Chief Complaint: 30 Week OB Theoretical Physicist Required: No Is patient in pain?: No Allergies Food Allergies: Uncoded Allergy (Severe, Verified 09/12/24 10:15) Anaphylaxis Medications ???Medication ???Instructions ???Recorded ???Confirmed ???Type PNV 153-FA 400 mcg-om3 35 mg-dha tab PO 05/20/24 09/12/24 History 25 mg-epa 5 mg-fish oil chew tablet Last Menstrual Period: 02/10/24 Zika: Zika virus screening: Negative : No PFSH PFSH Medical History Adopted person Seasonal allergies Enlarged thyroid Hypothyroidism Depression Abnormal thyroid blood test Abnormal Pap smear of cervix Surgical History H/O oral surgery Status post colposcopy Social History adopted: Yes household members: spouse and other details: neice part of the time current occupational status: employed 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) pets and animals: Yes (Avoid litterbox) pets and animals: cat(s) and dog(s) history of recent travel: Yes ([place]) out of state: Yes out of country: No sexually active: Yes Smoking Status: Never smoker alcohol intake: current details: occasionally- not while substance use type: does not use well-balanced diet: daily or most days caffeine: No eating out: 4 or more times/week during the past year weight has: increased > 10 lbs what type of 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 Date Name GA/Weeks Outcome Route Bth Weight Infant Gen Labor Lgth Anesthesia Del Locatn Provider FOB Unknown Delivery Date: Last Updated by: Alison Guerra MD all losses were 9 weeks of less, had 1 d and c all others spontaneous HPI 30 wk ob Details: REMEDIOS CROWE is a 39 year old who presents for routine OB visit. OB Visit HILARY Calculator Estimated Delivery Date Method Current WG Current Estimate 11/16/24 LMP (Certain) 30w 5d Other Estimates 11/12/24 Ultrasound #1 31w 2d Expected Delivery Route/Plan Labor Preferences- CB/BF classes: encouraged labor support person: Juan David labor intervention preferences: [] pain management options preferred: epidural cut cord/dad catch: yes : yes PP control planned: discussed discussed possible routes of delivery and associated risks: [] special requests: [] Specific Issue/Plans Covid status: [] Flu vaccine: [] Tdap vaccine: [] Rhogam: na LARC form signed: yes Problem list reviewed and updated with the most current plan of care details and appropriate orders placed. Relevant counseling for the gestational age provided. Continue routine care and follow up unless otherwise noted in visit notes/problem list details Initial Weight: Not Recorded Date -???-???-???-???-???-??? -???-???-???-???-???-??? - EGA Weight BP Urine Prot -???-???-???-???-???-??? -???-???-???-???-???-??? - Glucose FHR FuHt Pres Dilation -???-???-???-???-???-??? -???-???-???-???-???-??? - Effaced St Visit Note 05/21/24 -???-???-???-???-???-??? -???-???-???-???-???-??? - 14w 3d 252 lb 123/87 -???-???-???-???-???-??? -???-???-???-???-???-??? - 150 -???-???-???-???-???-??? -???-???-???-???-???-??? - SM- CRL cons with LMP 06/25/24 -???-???-???-???-???-??? -???-???-???-???-???-??? - 19w 3d 253 lb 8 oz 124/72 Negative -???-???-???-???-???-??? -???-???-???-???-???-??? - Negative 151 -???-???-???-???-???-??? -???-???-???-???-???-??? - No VB. No mo vement yet. Feels well. [facility] anatomy tomorrow 07/23/24 -???-???-???-???-???-??? -???-???-???-???-???-??? - 23w 3d 252 lb 8 oz 119/73 Negative -???-???-???-???-???-??? -???-???-???-???-???-??? - Negative 145 -???-???-???-???-???-??? -???-???-???-? (more content not included)... Normal [facility] OB Limited With Biometricson 09-05-2024 OB Limited With Biometrics [facility] Imaging Services [address] [place], [place] [address] OB Limited With Biometrics MR#: [id number] Acct: [id number] Name: REMEDIOS NEAL Rep #: [id number] : 1985 F 39 From: Terrence Carreon MD PCP: Dr. Ingrid Mckinney MD Status: REG CLI Study: OB Limited With Biometrics Date of Exam: 09/05 Exam# [id number] Ordering Dr: Christel Chen DO PROCEDURE: OB LIMITED WITH BIOMETRICS (USOBGROWTH), 09/05/2024 REASON FOR EXAM: GROWTH EVERY MONTH. Reportedly, 29 weeks 5 days with HILARY 11/16/2024 by previously established dates. TECHNIQUE: Grayscale and color/spectral doppler transabdominal pelvic ultrasound was performed with attention to the uterus and associated gestation. COMPARISON: None FINDINGS: A single intrauterine gestational is identified. Cardiac activity: Present, 135 bpm. position: Breech. Amniotic Fluid Index: 14.7 (normal 5-25), deepest vertical pocket 4 (normal 2-8). Placenta: Posterior without significant calcification. No visualized or definite previa. biometry: Biparietal diameter: 7.4 cm, corresponding to 29 weeks 5 days. Head circumference: 27.7 cm, corresponding to 30 weeks 2 days. Occipitofrontal diameter: 9.8 cm, corresponding to 30 weeks 1 day. Abdominal circumference: 26.3 cm, corresponding to 30 weeks 3 days. Femur length: 5.9 cm, corresponding to 30 weeks 4 days. Composite gestational age: 30 weeks 1 day Estimated Weight (EFW): 1575 g +/-236 g, 63.2 percentile. Estimated delivery date (HILARY): 11/13/2024. Maternal anatomy: Cervix: Closed, 3.5 cm in length.. Right ovary: Nonvisualized likely due to the gravid uterus. Left ovary: Nonvisualized likely due to the gravid uterus. US/OB Limited With Biometrics IMPRESSION: 1. Single live intrauterine at 30 weeks 1 day with HILARY 11/13/2024 by today's measurements, compatible with previously established dates. 2. Estimated weight 1575 g +/-236 g, 63.2 percentile based on provided previously established dates. biometry as above. 3. Additional description as above. Reading Location: [id number] CC: Dr. Ingrid Mckinney MD; Dr. Christel Chen DO Manager French: Signed Normal [facility] Absolute lymphocyte countOrd ered By: Alison Guerra on 08-21-2024 Lymphocytes Auto (Unsp spec) [#/Vol] 1.85 10*3/uL 0.83-4.51 [facility] Absolute neutrophil countOrd ered By: Alison Guerra on 08-21-2024 Neutrophils (Bld) [#/Vol] 7.0 10*3/uL 2.0-7.7 [facility] Automated lymphocyte count a s percentage of total leukocytesOrdered By: Alison Guerra on 08-21-2024 Lymphocytes/100 WBC Auto (Unsp spec) 19.4 % 19-41 [facility] Basophil percentageOrdered B y: Alison Guerra on 08-21-2024 Basophils/100 WBC (Bld) 0.1 % 0-1 [facility] CBC W/Diff, Automatedon 08-12 Absolute Lymph 1.85 X10 3/uL Normal 0.83-4.51 [facility] Comment on above: Performed By: #### L 3890.6006, L100.0100, L501.0250, L509.8002 ####[facility] [address] [place], [address] Absolute Neut 7.0 X10 3/uL Normal 2.0-7.7 [facility] Comment on above: Performed By: #### L 3890.6006, L100.0100, L501.0250, L509.8002 ####[facility] [address] [place], [address] Basophils/100 WBC (Bld) 0.1 % Normal 0-1 [facility] Comment on above: Performed By: #### L 3890.6006, L100.0100, L501.0250, L509.8002 ####[facility] [address] [place], [address] Eosinophils/100 WBC (Bld) 0.9 % Normal 0-5 [facility] Comment on above: Performed By: #### L 3890.6006, L100.0100, L501.0250, L509.8002 ####[facility] [address] [place], [address] Erythrocyte distribution width (RBC) [Ratio] 14.1 % Normal 11.6-14.6 [facility] Comment on above: Performed By: #### L 3890.6006, L100.0100, L501.0250, L509.8002 ####[facility] [address] [place], [address] Hematocrit (Bld) [Volume fraction] 36.7 % Low 37-47 [facility] Comment on above: Performed By: #### L 3890.6006, L100.0100, L501.0250, L509.8002 ####[facility] [address] [place], [address] Hemoglobin (Bld) [Mass/Vol] 11.9 g/dL Low 12.0-15.0 [facility] Comment on above: Performed By: #### L 3890.6006, L100.0100, L501.0250, L509.8002 ####[facility] [address] [place], [address] IG% 0.800 Normal 0.0-0.9 [facility] Comment on above: Result Comment: IG% - Immature Granulocytes (promyelocytes, myelocytes and metamyelocytes) > 1% indicates that a LEFT SHIFT is Present. Performed By: #### L 3890.6006, L100.0100, L501.0250, L509.8002 ####[facility] [address] [place], [address] Lymphocytes/100 WBC (Bld) 19.4 % Normal 19-41 [facility] Comment on above: Performed By: #### L 3890.6006, L100.0100, L501.0250, L509.8002 ####[facility] [address] [place], [address] MCH (RBC) [Entitic mass] 30.1 pg Normal 27.0-32.0 [facility] Comment on above: Performed By: #### L 3890.6006, L100.0100, L501.0250, L509.8002 ####[facility] [address] [place], [address] MCHC (RBC) [Mass/Vol] 32.4 g/dL Normal 32-36 [facility] Comment on above: Performed By: #### L 3890.6006, L100.0100, L501.0250, L509.8002 ####[facility] [address] [place], [address] MCV (RBC) [Entitic vol] 92.9 fL Normal 81-99 [facility] Comment on above: Performed By: #### L 3890.6006, L100.0100, L501.0250, L509.8002 ####[facility] [address] [place], [address] Monocytes/100 WBC (Bld) 5.1 % Normal 0-10 [facility] Comment on above: Performed By: #### L 3890.6006, L100.0100, L501.0250, L509.8002 ####[facility] [address] [place], [address] Neutrophils/100 WBC (Bld) 73.7 % High 47-70 [facility] Comment on above: Performed By: #### L 3890.6006, L100.0100, L501.0250, L509.8002 ####[facility] [address] [place], [address] Nucleated RBC (Bld) [#/Vol] 0 10*3/uL Normal 0-5 [facility] Comment on above: Performed By: #### L 3890.6006, L100.0100, L501.0250, L509.8002 ####[facility] [address] [place], [address] Platelet mean volume (Bld) [Entitic vol] 11.8 fL Normal 6.2-12.0 [facility] Comment on above: Performed By: #### L 3890.6006, L100.0100, L501.0250, L509.8002 ####[facility] [address] [place], [address] Platelets (Bld) [#/Vol] 198 10*3/uL Normal 150-450 [facility] Comment on above: Performed By: #### L 3890.6006, L100.0100, L501.0250, L509.8002 ####[facility] [address] [place], [address] RBC (Bld) [#/Vol] 3.95 10*6/uL Low 4.2-5.4 [facility] Comment on above: Performed By: #### L 3890.6006, L100.0100, L501.0250, L509.8002 ####[facility] [address] [place], [address] RDW SD 47.9 fl High 35.1-43.9 [facility] Comment on above: Performed By: #### L 3890.6006, L100.0100, L501.0250, L509.8002 ####[facility] [address] [place], [address] WBC (Bld) [#/Vol] 9.5 10*3/uL Normal 4.4-11.0 [facility] Comment on above: Performed By: #### L 3890.6006, L100.0100, L501.0250, L509.8002 ####[facility] [address] [place], [place], [id number] Eosinophil percentageOrdered By: Alison Guerra on 08-21-2024 Eosinophils/100 WBC (Bld) 0.9 % 0-5 [facility] Erythrocyte distribution wid th (RBC) [Ratio]Ordered By: Alison Guerra on 08-21-2024 Erythrocyte distribution width (RBC) [Entitic vol] 47.9 fL High 35.1-43.9 [facility] Erythrocyte distribution wid th ratioOrdered By: Alison Guerra on 08-21-2024 Erythrocyte distribution width (RBC) [Ratio] 14.1 % 11.6-14.6 [facility] Erythrocyte distribution wid th standard deviationOrdered By: Alison Guerra on 08-21-2024 Erythrocyte distribution width (RBC) [Ratio] 47.9 fl High 35.1-43.9 [facility] Glucose Challenge Gest 1H 50 florin 08-21-2024 GLU GEST 50g 1H 108 mg/dL Normal 70-140 [facility] Comment on above: Performed By: #### L 3890.6006, L100.0100, L501.0250, L509.8002 ####[facility] [address] [place], [place], [address] Glucose measurement at 2 selene rs post-dose gestational glucose tolerance testOrdered By: Alison Guerra on 08-21-2024 Glucose [Mass/Vol] 108 mg/dL 70-140 [facility] HIVon 08-21-2024 HIV Non-Reactive Normal Nonreactive [facility] Comment on above: Result Comment: Non- Reactive Reactive Repeatedly reactive samples must be confirmed according to CDC recommended confirmatory algorithms. The subresults for either HIVAG or AHIV can be used as an aid in the selection of the confirmation algorithm for reactive samples. Send out specimens with Reactive results to [facility] for confirmation. Order the HIV antibody detection and differentiation: lc#[id number] Performed By: #### L 3890.6006, L100.0100, L501.0250, L509.8002 ####[facility] [address] [place], [place], [address] Hematocrit Auto (Bld) [Volum e fraction]Ordered By: Alison Guerra on 08-21-2024 Hematocrit (Bld) [Volume fraction] 36.7 % Low 37-47 [facility] Hemoglobin measurementOrdere d By: Alison Guerra on 08-21-2024 Hemoglobin (Bld) [Mass/Vol] 11.9 g/dL Low 12.0-15.0 [facility] Immature granulocytes/100 WB C Auto (Bld)Ordered By: Alison Guerra on 08-21-2024 Immature granulocytes/100 WBC (Bld) 0.800 % 0.0-0.9 [facility] Comment on above: IG% - Immature Granu locytes (promyelocytes, myelocytes and metamyelocytes) > 1% indicates that a LEFT SHIFT is Present. Laboratory - Chemistry and C hemistry - challengeOrdered By: Chayo Quiñonez on 08-21-2024 Glucose Ql (U) Negative [facility] Laboratory - UrinalysisOrder ed By: Chayo Quiñonez on 08-21-2024 Protein Ql (U) Negative [facility] Lymphocytes Auto (Unsp spec) [#/Vol]Ordered By: Alison Guerra on 08-21-2024 Lymphocytes (Bld) [#/Vol] 1.85 10*3/uL 0.83-4.51 [facility] Lymphocytes/100 WBC Auto (Un sp spec)Ordered By: Alison Guerra on 08-21-2024 Lymphocytes/100 WBC (Bld) 19.4 % 19-41 [facility] MCV (mean corpuscular volume ) determinationOrdered By: Alison Guerra on 08-21-2024 MCV (RBC) [Entitic vol] 92.9 fL 81-99 [facility] Mean corpuscular hemoglobin (MCH) determinationOrdered By: Alison Guerra on 08-21-2024 MCH (RBC) [Entitic mass] 30.1 pg 27.0-32.0 [facility] Mean corpuscular hemoglobin concentration (MCHC) determinationOrdered By: Alison Guerra on 08-21-2024 MCHC (RBC) [Mass/Vol] 32.4 g/dL 32-36 [facility] Mean platelet volume determi nationOrdered By: Alison Guerra on 08-21-2024 Platelet mean volume (Bld) [Entitic vol] 11.8 fL 6.2-12.0 [facility] Monocyte percentageOrdered B y: Alison Guerra on 08-21-2024 Monocytes/100 WBC (Bld) 5.1 % 0-10 [facility] Neutrophil percentageOrdered By: Alison Guerra on 08-21-2024 Neutrophils/100 WBC (Bld) 73.7 % High 47-70 [facility] No Panel InformationOrdered By: Alison Guerra on 08-21-2024 HIV (1&2) Antibody Non-Reactive Nonreactive [facility] Comment on above: Non-ReactiveReactive Repeatedly reactive samples must be confirmed according to CDC recommended confirmatory algorithms. The subresults for either HIVAG or AHIV can be used as an aid in the selection of the confirmation algorithm for reactive samples.Send out specimens with Reactive results to [facility] for confirmation.Order the HIV antibody detection and differentiation: #[id number] Nucleated red blood cell per centageOrdered By: Alison Guerra on 08-21-2024 Nucleated RBC/100 WBC (Bld) [Ratio] 0 % 0-5 [facility] Visit Reporton 08-21-2024 [facility] Visit Report [facility] [address], [address] [place] [address] OFFICE VISIT Date of Service: 08/21/24 MR#: [id number] Acct: [id number] Name: REMEDIOS NEAL Rep #: [id number] : 1985 Provider: RAMIREZ will Age/Sex: 39/F [place] [facility] [place]: Signed Intake Vital Signs 05/21/24 10:26 07/23/24 09:58 08/21/24 09:59 Height 5 ft 6.5 in 5 ft 6.5 in 5 ft 6.5 in Weight: 249 lb 8 oz BMI 39.6 BP 117/76 Intake Visit Reasons: 27 wk ob/glucose Theoretical Physicist Required: No Is patient in pain?: No Allergies Food Allergies: Uncoded Allergy (Severe, Verified 08/21/24 09:58) Anaphylaxis Medications ???Medication ???Instructions ???Recorded ???Confirmed ???Type PNV 153-FA 400 mcg-om3 35 mg-dha tab PO 05/20/24 08/21/24 History 25 mg-epa 5 mg-fish oil chew tablet Last Menstrual Period: 02/10/24 Zika: Zika virus screening: Negative : Yes Have you fallen in the past year?: No PFSH PFSH Medical History Adopted person Seasonal allergies Enlarged thyroid Hypothyroidism Depression Abnormal thyroid blood test Abnormal Pap smear of cervix Surgical History H/O oral surgery Status post colposcopy Social History adopted: Yes household members: spouse and other details: neice part of the time current occupational status: employed 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) pets and animals: Yes (Avoid litterbox) pets and animals: cat(s) and dog(s) history of recent travel: Yes ([place]) out of state: Yes out of country: No sexually active: Yes Smoking Status: Never smoker alcohol intake: current details: occasionally- not while substance use type: does not use well-balanced diet: daily or most days caffeine: No eating out: 4 or more times/week during the past year weight has: increased > 10 lbs what type of 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 Date Name GA/Weeks Outcome Route Bth Weight Infant Gen Labor Lgth Anesthesia Del Locatn Provider FOB Unknown Delivery Date: Last Updated by: Alison Guerra MD all losses were 9 weeks of less, had 1 d and c all others spontaneous HPI 27 wk ob/glucose Details: REMEDIOS CROWE is a 39 year old who presents for routine OB visit. OB Visit HILARY Calculator Estimated Delivery Date Method Current WG Current Estimate 11/16/24 LMP (Certain) 27w 4d Other Estimates 11/12/24 Ultrasound #1 28w 1d Expected Delivery Route/Plan Labor Preferences- CB/BF classes: encouraged labor support person: Juan David labor intervention preferences: [] pain management options preferred: epidural cut cord/dad catch: yes : yes PP control planned: discussed discussed possible routes of delivery and associated risks: [] special requests: [] Specific Issue/Plans Covid status: [] Flu vaccine: [] Tdap vaccine: [] Rhogam: na LARC form signed: yes Problem list reviewed and updated with the most current plan of care details and appropriate orders placed. Relevant counseling for the gestational age provided. Continue routine care and follow up unless otherwise noted in visit notes/problem list details Initial Weight: Not Recorded Date -???-???-???-???-???-??? -???-???-???-???-???-??? - EGA Weight BP Urine Prot -???-???-???-???-???-??? -???-???-???-???-???-??? - Glucose FHR FuHt Pres Dilation -???-???-???-???-???-??? -???-???-???-???-???-??? - Effaced St Visit Note 05/21/24 -???-???-???-???-???-??? -???-???-???-???-???-??? - 14w 3d 252 lb 123/87 -???-???-???-???-???-??? -???-???-???-???-???-??? - 150 -???-???-???-???-???-??? -???-???-???-???-???-??? - SM- CRL cons with LMP 06/25/24 -???-???-???-???-???-??? -???-???-???-???-???-??? - 19w 3d 253 lb 8 oz 124/72 Negative -???-???-???-???-???-??? -???-???-???-???-???-??? - Negative 151 -???-???-???-???-???-??? -???-???-???-???-???-??? - No VB. No mo vement yet. Feels well. MFM anatomy tomorrow 07/23/24 -???-???-???-???-???-??? -???-???-???-???-???-??? - 23w 3d 252 lb 8 oz 119/73 Negative -???-???-???-???-???-??? -???-???-???-???-???-??? - Negative 145 -???-???-???-???-???-??? -???-???-?? (more content not included)... Normal [facility] Platelet countOrdered By: Argenis Guerra on 08-21-2024 Platelets (Bld) [#/Vol] 198 10*3/uL 150-450 [facility] RBC Auto (Bld) [#/Vol]Ordere d By: Alison Guerra on 08-21-2024 RBC (Bld) [#/Vol] 3.95 10*6/uL Low 4.2-5.4 [facility] Syphilis Antibodieson 2024 Syphilis Abs Non-Reactive Normal Nonreactive [facility] Comment on above: Performed By: #### L 3890.6006, L100.0100, L501.0250, L509.8002 ####[facility] [address] [place], [address] T. pallidum abOrdered By: Argenis Guerra on 08-21-2024 Syphilis Total Antibody Non-Reactive Nonreactiv e [facility] White blood cell (WBC) count Ordered By: Alison Guerra on 08-21-2024 WBC (Bld) [#/Vol] 9.5 10*3/uL 4.4-11.0 [facility] Laboratory - Chemistry and C hemistry - challengeOrdered By: Alison Guerra on 07-23-2024 Glucose Ql (U) Negative [facility] Laboratory - UrinalysisOrder ed By: Alison Guerra on 07-23-2024 Protein Ql (U) Negative [facility] Visit Reporton 07-23-2024 [facility] Visit Report [facility] [address], [address] [place] [address] OFFICE VISIT Date of Service: 07/23/24 MR#: [id number] Acct: [id number] Name: ARACELI NEAL Rep #: [id number] : 1985 Provider: Dr. Alison wright MD Age/Sex: 39/F [place] [facility] [place]: Signed Intake Vital Signs 07/11/22 12:46 06/25/24 08:37 07/23/24 09:58 Height 5 ft 6.5 in 5 ft 6.5 in 5 ft 6.5 in Weight: 252 lb 8 oz BMI 40.1 BP 119/73 Intake Visit Reasons: 23wk OB Theoretical Physicist Required: No Is patient in pain?: No Allergies Food Allergies: Uncoded Allergy (Severe, Verified 07/23/24 09:58) Anaphylaxis Medications ???Medication ???Instructions ???Recorded ???Confirmed ???Type PNV 153-FA 400 mcg-om3 35 mg-dha tab PO 05/20/24 07/23/24 History 25 mg-epa 5 mg-fish oil chew tablet Last Menstrual Period: 02/10/24 Zika: Zika virus screening: Negative : No PFSH PFSH Medical History Adopted person Seasonal allergies Enlarged thyroid Hypothyroidism Depression Abnormal thyroid blood test Abnormal Pap smear of cervix Surgical History H/O oral surgery Status post colposcopy Social History adopted: Yes household members: spouse and other details: neice part of the time current occupational status: employed 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) pets and animals: Yes (Avoid litterbox) pets and animals: cat(s) and dog(s) history of recent travel: Yes ([place]) out of state: Yes out of country: No sexually active: Yes Smoking Status: Never smoker alcohol intake: current details: occasionally- not while substance use type: does not use well-balanced diet: daily or most days caffeine: No eating out: 4 or more times/week during the past year weight has: increased > 10 lbs what type of 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 Date Name GA/Weeks Outcome Route Bth Weight Gen Labor Lgth Anesthesia Del Locatn Provider FOB Unknown Delivery Date: Last Updated by: Alison Guerra MD all losses were 9 weeks of less, had 1 d and c all others spontaneous HPI 23wk OB Details: ARACELI CROWE is a 39 year old who presents for routine OB visit. OB Visit HILARY Calculator Estimated Delivery Date Method Current WG Current Estimate 11/16/24 LMP (Certain) 23w 3d Other Estimates 11/12/24 Ultrasound #1 24w 0d Expected Delivery Route/Plan Labor Preferences- CB/BF classes: [] labor support person: [] labor intervention preferences: [] pain management options preferred: [] cut cord/dad catch: [] : [] PP control planned: [] discussed possible routes of delivery and associated risks: [] special requests: [] Specific Issue/Plans Covid status: [] Flu vaccine: [] Tdap vaccine: [] Rhogam: [] LARC form signed: [] Problem list reviewed and updated with the most current plan of care details and appropriate orders placed. Relevant counseling for the gestational age provided. Continue routine care and follow up unless otherwise noted in visit notes/problem list details Initial Weight: Not Recorded Date -???-???-???-???-???-??? -???-???-???-???-???-??? - EGA Weight BP Urine Prot -???-???-???-???-???-??? -???-???-???-???-???-??? - Glucose FHR FuHt Pres Dilation -???-???-???-???-???-??? -???-???-???-???-???-??? - Effaced St Visit Note 05/21/24 -???-???-???-???-???-??? -???-???-???-???-???-??? - 14w 3d 252 lb 123/87 -???-???-???-???-???-??? -???-???-???-???-???-??? - 150 -???-???-???-???-???-??? -???-???-???-???-???-??? - SM- CRL cons with LMP 06/25/24 -???-???-???-???-???-??? -???-???-???-???-???-??? - 19w 3d 253 lb 8 oz 124/72 Negative -???-???-???-???-???-??? -???-???-???-???-???-??? - Negative 151 -???-???-???-???-???-??? -???-???-???-???-???-??? - No VB. No mo vement yet. Feels well. MFM anatomy tomorrow 07/23/24 -???-???-???-???-???-??? -???-???-???-???-???-??? - 23w 3d 252 lb 8 oz 119/73 Negative -???-???-???-???-???-??? -???-???-???-???-???-??? - Negative 145 -???-???-???-???-???-??? -???-???-???-???-???-??? - SM- no vb lo f gct next time ACOG First Trimeste (more content not included)... Normal [facility] Laboratory - Chemistry and C hemistry - challengeOrdered By: Chayo Quiñonez on 06-25-2024 Glucose Ql (U) Negative [facility] Laboratory - UrinalysisOrder ed By: Chayo Quiñonez on 06-25-2024 Protein Ql (U) Negative [facility] Visit Reporton 06-25-2024 [facility] Visit Report [facility] [address], [address] [place] [address] OFFICE VISIT Date of Service: 06/25/24 MR#: [id number] Acct: [id number] Name: ARACELI NEAL Rep #: [id number] : 1985 Provider: RAMIREZ will Age/Sex: 39/F [place] [facility] [place]: Signed Intake Vital Signs 07/11/22 12:46 05/21/24 10:26 06/25/24 08:37 Height 5 ft 6.5 in 5 ft 6.5 in 5 ft 6.5 in Weight: 253 lb 8 oz BMI 40.3 BP 124/72 H Intake Visit Reasons: 19wk OB Chief Complaint: 19 Week OB Theoretical Physicist Required: No Is patient in pain?: No Allergies Food Allergies: Uncoded Allergy (Severe, Verified 06/25/24 08:38) Anaphylaxis Medications ???Medication ???Instructions ???Recorded ???Confirmed ???Type PNV 153-FA 400 mcg-om3 35 mg-dha tab PO 05/20/24 06/25/24 History 25 mg-epa 5 mg-fish oil chew tablet Last Menstrual Period: 02/10/24 Zika: Zika virus screening: Negative : Yes PFSH PFSH Medical History Adopted person Seasonal allergies Enlarged thyroid Hypothyroidism Depression Abnormal thyroid blood test Abnormal Pap smear of cervix Surgical History H/O oral surgery Status post colposcopy Social History adopted: Yes household members: spouse and other details: neice part of the time current occupational status: employed 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) pets and animals: Yes (Avoid litterbox) pets and animals: cat(s) and dog(s) history of recent travel: Yes ([place]) out of state: Yes out of country: No sexually active: Yes Smoking Status: Never smoker alcohol intake: current details: occasionally- not while substance use type: does not use well-balanced diet: daily or most days caffeine: No eating out: 4 or more times/week during the past year weight has: increased > 10 lbs 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 Date Name GA/Weeks Outcome Route Bth Weight Gen Labor Lgth Anesthesia Del Locatn Provider FOB Unknown Delivery Date: Last Updated by: Alison Guerra MD all losses were 9 weeks of less, had 1 d and c all others spontaneous HPI 19wk OB Details: ARACELI CROWE is a 39 year old who presents for routine OB visit. OB Visit HILARY Calculator Estimated Delivery Date Method Current WG Current Estimate 11/16/24 LMP (Certain) 19w 3d Other Estimates 11/12/24 Ultrasound #1 20w 0d Expected Delivery Route/Plan Labor Preferences- CB/BF classes: [] labor support person: [] labor intervention preferences: [] pain management options preferred: [] cut cord/dad catch: [] : [] PP control planned: [] discussed possible routes of delivery and associated risks: [] special requests: [] Specific Issue/Plans Covid status: [] Flu vaccine: [] Tdap vaccine: [] Rhogam: [] LARC form signed: [] Problem list reviewed and updated with the most current plan of care details and appropriate orders placed. Relevant counseling for the gestational age provided. Continue routine care and follow up unless otherwise noted in visit notes/problem list details Initial Weight: Not Recorded Date -???-???-???-???-???-??? -???-???-???-???-???-??? - EGA Weight BP Urine Prot -???-???-???-???-???-??? -???-???-???-???-???-??? - Glucose FHR FuHt Pres Dilation -???-???-???-???-???-??? -???-???-???-???-???-??? - Effaced St Visit Note 05/21/24 -???-???-???-???-???-??? -???-???-???-???-???-??? - 14w 3d 252 lb 123/87 -???-???-???-???-???-??? -???-???-???-???-???-??? - 150 -???-???-???-???-???-??? -???-???-???-???-???-??? - SM- CRL cons with LMP 06/25/24 -???-???-???-???-???-??? -???-???-???-???-???-??? - 19w 3d 253 lb 8 oz 124/72 Negative -???-???-???-???-???-??? -???-???-???-???-???-??? - Negative 151 -???-???-???-???-???-??? -???-???-???-???-???-??? - No VB. No mo vement yet. Feels well. MFM anatomy tomorrow ACOG First Trimester First Trimester: Desire for , Alcohol, Tobacco Cessation, Illicit/Recreational Drug/Substance Use, Intimate Partner Violence, Barriers to care, Unstable Housing, Communication Barriers, Environmental/Work (more content not included)... Normal [facility] PAP IG HPV APTIMA 16/18,45on 05-27-2024 ADEQ Comment Normal . [facility] Comment on above: Order Comment: Speci men Comment: [id number] Comment: Source.............Cervix;EndocervixSpecimen Comment: LMP / Prev Treat...[id number] Comment: No. of containers..01 ThinPrep Vial Result Comment: Sati sfactory for evaluation. Endocervical and/or squamous metaplastic cells (endocervical component) are present. Performed By: #### L 3300.2202, BTS, L501.9985, L3890.6300, L3890.6100, L900.0098, L100.0100, L501.9520, L509.4005, L509.8000, L3410.9999, L506.0400, L3890.6005 #### [facility] [address] [place], [place], [id number] COMM . Normal . [facility] Comment on above: Order Comment: Speci men Comment: [id number] Comment: Source.............Cervix;EndocervixSpecimen Comment: LMP / Prev Treat...[id number] Comment: No. of containers..01 ThinPrep Vial Performed By: #### L 3300.2202, BTS, L501.9985, L3890.6300, L3890.6100, L900.0098, L100.0100, L501.9520, L509.4005, L509.8000, L3410.9999, L506.0400, L3890.6005 #### [facility] [address] [place], [place], [id number] COMMENT Comment Normal . [facility] Comment on above: Order Comment: Speci men Comment: [id number] Comment: Source.............Cervix;EndocervixSpecimen Comment: LMP / Prev Treat...[id number] Comment: No. of containers..01 ThinPrep Vial Result Comment: This liquid based ThinPrep(R) pap test was screened with the use of an image guided system. Performed By: #### L 3300.2202, BTS, L501.9985, L3890.6300, L3890.6100, L900.0098, L100.0100, L501.9520, L509.4005, L509.8000, L3410.9999, L506.0400, L3890.6005 #### [facility] [address] [place], [place], [id number] DIAG Comment Normal . [facility] Comment on above: Order Comment: Speci men Comment: [id number] Comment: Source.............Cervix;EndocervixSpecimen Comment: LMP / Prev Treat...[id number] Comment: No. of containers..01 ThinPrep Vial Result Comment: NEGA TIVE FOR INTRAEPITHELIAL LESION OR MALIGNANCY. Performed By: #### L 3300.2202, BTS, L501.9985, L3890.6300, L3890.6100, L900.0098, L100.0100, L501.9520, L509.4005, L509.8000, L3410.9999, L506.0400, L3890.6005 #### [facility] [address] [place], [place], [id number] HPV APTIMA, HR Negative Normal Negative [facility] Comment on above: Order Comment: Speci men Comment: [id number] Comment: Source.............Cervix;EndocervixSpecimen Comment: LMP / Prev Treat...[id number] Comment: No. of containers..01 ThinPrep Vial Result Comment: This nucleic acid amplification test detects fourteen high- risk HPV types (16,18,31,33,35,39,45,51,52,56,58,59,66,68) without differentiation. Performed By: #### L 3300.2202, BTS, L501.9985, L3890.6300, L3890.6100, L900.0098, L100.0100, L501.9520, L509.4005, L509.8000, L3410.9999, L506.0400, L3890.6005 #### [facility] [place], [address] HPV Kiya Rfx Comment Normal . [facility] Comment on above: Order Comment: Speci men Comment: [id number] Comment: Source.............Cervix;EndocervixSpecimen Comment: LMP / Prev Treat...[id number] Comment: No. of containers..01 ThinPrep Vial Result Comment: Crit ergaviota not met, HPV Genotype not performed. Performed at: [facility] [address] [place] [id number] Psychological Examiner: Bry Garcia MD, Phone: [phone] Performed at: [address] [id number] Psychological Examiner: Shana Leon MD, Phone: [phone] Performed at: =[address] [id number] Psychological Examiner: Shana Leon MD, Phone: [phone] Performed By: #### L 3300.2202, BTS, L501.9985, L3890.6300, L3890.6100, L900.0098, L100.0100, L501.9520, L509.4005, L509.8000, L3410.9999, L506.0400, L3890.6005 #### [facility] [address] [place], [place], [id number] PAPSMR Comment Normal . [facility] Comment on above: Order Comment: Speci men Comment: [id number] Comment: Source.............Cervix;EndocervixSpecimen Comment: LMP / Prev Treat...[id number] Comment: No. of containers..01 ThinPrep Vial Result Comment: The Pap smear is a screening test designed to aid in the detection of premalignant and malignant conditions of the uterine cervix. It is not a diagnostic procedure and should not be used as the sole means of detecting cervical cancer. Both false-positive and false-negative reports do occur. Performed By: #### L 3300.2202, BTS, L501.9985, L3890.6300, L3890.6100, L900.0098, L100.0100, L501.9520, L509.4005, L509.8000, L3410.9999, L506.0400, L3890.6005 #### [facility] [address] [place], [place], [id number] PERFORM Comment Normal . [facility] Comment on above: Order Comment: Speci men Comment: [id number] Comment: Source.............Cervix;EndocervixSpecimen Comment: LMP / Prev Treat...[id number] Comment: No. of containers..01 ThinPrep Vial Result Comment: Ashley Dickson Small Business Consultant (ASCP) Performed By: #### L 3300.2202, BTS, L501.9985, L3890.6300, L3890.6100, L900.0098, L100.0100, L501.9520, L509.4005, L509.8000, L3410.9999, L506.0400, L3890.6005 #### [facility] [address] [place], [address] Chlamydia/GC ROMEO aptimaon CHLAMY,NUC ACID Negative Normal Negative [facility] Comment on above: Performed By: #### L 3300.2202, BTS, L501.9985, L3890.6300, L3890.6100, L900.0098, L100.0100, L501.9520, L509.4005, L509.8000, L3410.9999, L506.0400, L3890.6005 #### [facility] [address] [place], [address] GC BY NUC ACID Negative Normal Negative [facility] Comment on above: Result Comment: Perf ormed at: = - [facility] [id number] Psychological Examiner: Shana Leon MD, Phone: [phone] Performed By: #### L 3300.2202, BTS, L501.9985, L3890.6300, L3890.6100, L900.0098, L100.0100, L501.9520, L509.4005, L509.8000, L3410.9999, L506.0400, L3890.6005 #### [facility] [address] [place], [address] L3410.9999on 05-24-2024 [facility] Misc. COMMENT Normal . [facility] Comment on above: Order Comment: [id number] 4TSH RECEPTOR AB Result Comment: Test Ordered: [id number] Thyrotropin Receptor Ab, Serum Thyrotropin Receptor Ab, Serum <1.10 IU/L Reference Range: 0.00-1.75 Performed at: [facility] [address] [id number] Psychological Examiner: Lawrence Amanda MD, Phone: [phone] Performed at: [facility] [address] [id number] Psychological Examiner: Blas Samuel PhD, Phone: [phone] Performed By: #### L 117.2201, BTS, L501.9985, L3890.6300, L3890.6100, L900.0098, L100.0100, L501.9520, L509.4005, L509.8000, L3410.9999, L506.0400, L3890.6005 ####[facility] [address] [place], [address] Hemoglobinopathy Profileon 0 05-23-2024 Hgb Solubility Normal [facility] Comment on above: Result Comment: TEST RESULTS LIMITS Hgb Fractionation [place] Hgb Fractionation by CE: Hgb F 0.0 % 0.0-2.0 Hgb A 97.6 % 96.4-98.8 Hgb A2 2.4 % 1.8-3.2 Hgb S 0.0 % 0.0 Interpretation: Normal hemoglobin present; no hemoglobin variant or beta thalassemia identified. Note: Alpha thalassemia may not be detected by the Hgb Fractionation [place] panel. If alpha thalassemia is suspected, [facility] offers Alpha-Thalassemia DNA Analysis (#[id number]). TESTING PERFORMED AT [facility]. ORIGINAL REPORT ON FILE IN LAB CONTAINS ADDITIONAL TEST SITE INFORMATION. Performed By: #### L 330.2, BTS, L501.9985, L3890.6300, L3890.6100, L900.0098, L100.0100, L501.9520, L509.4005, L509.8000, L3410.9999, L506.0400, L3890.6005 ####[facility] [address] [place], [address] Urine Cultureon 05-22-2024 [facility] Culture exhibits no growth. Normal [facility] Comment on above: Performed By: #### M 100.2200, L7000.1800, L7400.0280 ####[facility] [address] [place], [address] Absolute neutrophil countOrd ered By: Alison Mtzjahaira on 05-21-2024 Neutrophils (Bld) [#/Vol] 6.3 10*3/uL 2.0-7.7 [facility] [facility] Basophil percentageOrdered B y: Alison Guerra on 05-21-2024 Basophils/100 WBC (Bld) 0.2 % 0-1 [facility] C. trachomatis rRNA ORMEO+prob e Ql (Unsp spec)Ordered By: Alison Guerra on 05-21-2024 Chlamydia DNA (ROMEO) Negative Negative [facility] CBC W/Diff, Automatedon Absolute Lymph 1.52 X10 3/uL Normal 0.83-4.51 [facility] Comment on above: Performed By: #### L 330.2201, BTS, L501.9985, L3890.6300, L3890.6100, L900.0098, L100.0100, L501.9520, L509.4005, L509.8000, L3410.9999, L506.0400, L3890.6005 #### [facility] [address] [place], [address] Absolute Neut 6.3 X10 3/uL Normal 2.0-7.7 [facility] Comment on above: Performed By: #### L 330.2202, BTS, L501.9985, L3890.6300, L3890.6100, L900.0098, L100.0100, L501.9520, L509.4005, L509.8000, L3410.9999, L506.0400, L3890.6005 #### [facility] [address] [place], [address] Basophils/100 WBC (Bld) 0.2 % Normal 0-1 [facility] Comment on above: Performed By: #### L 3300.2202, BTS, L501.9985, L3890.6300, L3890.6100, L900.0098, L100.0100, L501.9520, L509.4005, L509.8000, L3410.9999, L506.0400, L3890.6005 #### [facility] [address] [facility] [place], [address] Eosinophils/100 WBC (Bld) 0.8 % Normal 0-5 [facility] Comment on above: Performed By: #### L 3300.2202, BTS, L501.9985, L3890.6300, L3890.6100, L900.0098, L100.0100, L501.9520, L509.4005, L509.8000, L3410.9999, L506.0400, L3890.6005 #### [facility] [address] [facility] [place], [address] Erythrocyte distribution width (RBC) [Ratio] 13.5 % Normal 11.6-14.6 [facility] Comment on above: Performed By: #### L 3300.2202, BTS, L501.9985, L3890.6300, L3890.6100, L900.0098, L100.0100, L501.9520, L509.4005, L509.8000, L3410.9999, L506.0400, L3890.6005 #### [facility] [address] [place], [address] Hematocrit (Bld) [Volume fraction] 39.3 % Normal 37-47 [facility] Comment on above: Performed By: #### L 3300.2202, BTS, L501.9985, L3890.6300, L3890.6100, L900.0098, L100.0100, L501.9520, L509.4005, L509.8000, L3410.9999, L506.0400, L3890.6005 #### [facility] [address] [place], [address] Hemoglobin (Bld) [Mass/Vol] 12.2 g/dL Normal 12.0-15.0 [facility] Comment on above: Performed By: #### L 3300.2202, BTS, L501.9985, L3890.6300, L3890.6100, L900.0098, L100.0100, L501.9520, L509.4005, L509.8000, L3410.9999, L506.0400, L3890.6005 #### [facility] [address] [place], [address] IG% 0.500 Normal 0.0-0.9 [facility] Comment on above: Result Comment: IG% - Immature Granulocytes (promyelocytes, myelocytes and metamyelocytes) > 1% indicates that a LEFT SHIFT is Present. Performed By: #### L 3300.2202, BTS, L501.9985, L3890.6300, L3890.6100, L900.0098, L100.0100, L501.9520, L509.4005, L509.8000, L3410.9999, L506.0400, L3890.6005 #### [facility] [address] [place], [address] Lymphocytes/100 WBC (Bld) 18.0 % Low 19-41 [facility] Comment on above: Performed By: #### L 3300.2202, BTS, L501.9985, L3890.6300, L3890.6100, L900.0098, L100.0100, L501.9520, L509.4005, L509.8000, L3410.9999, L506.0400, L3890.6005 #### [facility] [address] [place], [address] MCH (RBC) [Entitic mass] 27.5 pg Normal 27.0-32.0 [facility] Comment on above: Performed By: #### L 3300.2202, BTS, L501.9985, L3890.6300, L3890.6100, L900.0098, L100.0100, L501.9520, L509.4005, L509.8000, L3410.9999, L506.0400, L3890.6005 #### [facility] [address] [place], [address] MCHC (RBC) [Mass/Vol] 31.0 g/dL Low 32-36 [facility] Comment on above: Performed By: #### L 3300.2202, BTS, L501.9985, L3890.6300, L3890.6100, L900.0098, L100.0100, L501.9520, L509.4005, L509.8000, L3410.9999, L506.0400, L3890.6005 #### [facility] [address] [place], [address] MCV (RBC) [Entitic vol] 88.5 fL Normal 81-99 [facility] Comment on above: Performed By: #### L 3300.2202, BTS, L501.9985, L3890.6300, L3890.6100, L900.0098, L100.0100, L501.9520, L509.4005, L509.8000, L3410.9999, L506.0400, L3890.6005 #### [facility] [address] [place], [address] Monocytes/100 WBC (Bld) 5.5 % Normal 0-10 [facility] Comment on above: Performed By: #### L 3300.2202, BTS, L501.9985, L3890.6300, L3890.6100, L900.0098, L100.0100, L501.9520, L509.4005, L509.8000, L3410.9999, L506.0400, L3890.6005 #### [facility] [address] [place], [address] Neutrophils/100 WBC (Bld) 75.0 % High 47-70 [facility] Comment on above: Performed By: #### L 3300.2202, BTS, L501.9985, L3890.6300, L3890.6100, L900.0098, L100.0100, L501.9520, L509.4005, L509.8000, L3410.9999, L506.0400, L3890.6005 #### [facility] [address] [place], [address] Nucleated RBC (Bld) [#/Vol] 0 10*3/uL Normal 0-5 [facility] Comment on above: Performed By: #### L 3300.2202, BTS, L501.9985, L3890.6300, L3890.6100, L900.0098, L100.0100, L501.9520, L509.4005, L509.8000, L3410.9999, L506.0400, L3890.6005 #### [facility] [address] [place], [address] Platelet mean volume (Bld) [Entitic vol] 11.2 fL Normal 6.2-12.0 [facility] Comment on above: Performed By: #### L 3300.2202, BTS, L501.9985, L3890.6300, L3890.6100, L900.0098, L100.0100, L501.9520, L509.4005, L509.8000, L3410.9999, L506.0400, L3890.6005 #### [facility] [address] [place], [place], [phone] (765) Platelets (Bld) [#/Vol] 263 10*3/uL Normal 150-450 [facility] Comment on above: Performed By: #### L 3300.2202, BTS, L501.9985, L3890.6300, L3890.6100, L900.0098, L100.0100, L501.9520, L509.4005, L509.8000, L3410.9999, L506.0400, L3890.6005 #### [facility] [address] [facility] [place], [place], [phone] (973) RBC (Bld) [#/Vol] 4.44 10*6/uL Normal 4.2-5.4 [facility] Comment on above: Performed By: #### L 3300.2202, BTS, L501.9985, L3890.6300, L3890.6100, L900.0098, L100.0100, L501.9520, L509.4005, L509.8000, L3410.9999, L506.0400, L3890.6005 #### [facility] [address] [place], [place], [phone] (056) RDW SD 43.6 fl Normal 35.1-43.9 [facility] Comment on above: Performed By: #### L 3300.2202, BTS, L501.9985, L3890.6300, L3890.6100, L900.0098, L100.0100, L501.9520, L509.4005, L509.8000, L3410.9999, L506.0400, L3890.6005 #### [facility] [address] [place], [address] WBC (Bld) [#/Vol] 8.4 10*3/uL Normal 4.4-11.0 [facility] Comment on above: Performed By: #### L 3300.2202, BTS, L501.9985, L3890.6300, L3890.6100, L900.0098, L100.0100, L501.9520, L509.4005, L509.8000, L3410.9999, L506.0400, L3890.6005 #### [facility] [address] [place], [place], [address] [employer] Cyto stain Nom (C vx/Vag) [ID]Ordered By: Alison Guerra on 05-21-2024 Pap Smear Performed By Comment . [facility] Comment on above: Joelle Dickson, Godwin otechnologist (ASCP) Cytology report Cyto stain D oc (Cvx/Vag)Ordered By: Alison Guerra on 05-21-2024 Thin Prep Pap Smear Comment . [facility] Comment on above: The Pap smear is a s creening test designed to aid in thedetection of premalignant and malignant conditions of theuterine cervix. It is not a diagnostic procedure andshould not be used as the sole means of detecting cervicalcancer. Both false-positive and false-negative reports dooccur. Cytology report Cyto stain.t hin prep Doc (Cvx/Vag)Ordered By: Alison Guerra on 05-21-2024 HPV Genotype Special Info Comment . [facility] Comment on above: Criteria not met, HP V Genotype not performed.Performed at: [facility] - [facility] Cyto [address] [place], [place] [id number] Director: Bry Garcia MD, Phone: [phone] at: [address] [id number] Director: Shana Leon MD, Phone: [phone] at: =[facility] Lab[address] [id number] Director: Shana Leon MD, Phone: [phone] Direct serum free thyroxine (FT4) measurementOrdered By: Alison Guerra on 05-21-2024 Free T4 [Mass/Vol] 1.21 ng/dL 0.76-1.46 [facility] Eosinophil percentageOrdered By: Alison Guerra on 05-21-2024 Eosinophils/100 WBC (Bld) 0.8 % 0-5 [facility] Erythrocyte distribution wid th (RBC) [Ratio]Ordered By: Alison Guerra on 05-21-2024 Erythrocyte distribution width (RBC) [Entitic vol] 43.6 fL 35.1-43.9 [facility] Erythrocyte distribution wid th ratioOrdered By: Alison Guerra on 05-21-2024 Erythrocyte distribution width (RBC) [Ratio] 13.5 % 11.6-14.6 [facility] HIV - WCHon 05-21-2024 HIV Non-Reactive Normal Nonreactive [facility] Comment on above: Order Comment: Reaso n for Exam: Performed By: #### L 3300.2202, BTS, L501.9985, L3890.6300, L3890.6100, L900.0098, L100.0100, L501.9520, L509.4005, L509.8000, L3410.9999, L506.0400, L3890.6005 ####[facility] [address] [place], [place], [id number] HIV 1+2 Ab+HIV1 p24 Ag IA Ql Ordered By: Alison Guerra on 05-21-2024 HIV (1&2) Antibody Non-Reactive Nonreactive [facility] HPV 16+18+31+33+35+39+45+51+ 52+56+58+59+66+68 DNA Probe+sig amp Ql (Cvx)Ordered By: Alison Guerra on 05-21-2024 Human Papillomavirus High Risk Negative Negative [facility] Comment on above: This nucleic acid am plification test detects fourteen high-risk HPV types (16,18,31,33,35,39,45,51,52,56,58,59,66,68)without differentiation. Hematocrit Auto (Bld) [Volum e fraction]Ordered By: Alison Guerra on 05-21-2024 Hematocrit (Bld) [Volume fraction] 39.3 % 37-47 [facility] Hemoglobin A measurementOrde red By: Alison Guerra on 05-21-2024 Hemoglobin A Not Reportable [facility] Hemoglobin A1con 05-21-2024 HbA1c (Bld) [Mass fraction] 5.4 % Normal 3.8-5.6 [facility] Comment on above: Result Comment: Norm al < 5.7 % Prediabetic 5.7 - 6.4 % Diabetic >or= 6.5 % Please note range changes. Performed By: #### L 3300.2202, BTS, L501.9985, L3890.6300, L3890.6100, L900.0098, L100.0100, L501.9520, L509.4005, L509.8000, L3410.9999, L506.0400, L3890.6005 ####[facility] [address] [place], [address] Hemoglobin A1c percentageOrd ered By: Alison Guerra on 05-21-2024 HbA1c (Bld) [Mass fraction] 5.4 % 3.8-5.6 [facility] Comment on above: Normal < 5.7 % Predi abetic 5.7 - 6.4 % Diabetic >or= 6.5 % Please note range changes. Hemoglobin A2 Chromatography column (Bld) [Mass fraction]Ordered By: Alison Guerra on 05-21-2024 Hemoglobin A2 Not Reportable [facility] Hemoglobin C (Bld) [Mass fra ction]Ordered By: Alison Guerra on 05-21-2024 Hemoglobin C Not Reportable [facility] Hemoglobin F measurementOrde red By: Alison Guerra on 05-21-2024 Hemoglobin F () Not Reportable [facility] Hemoglobin S (Bld) [Mass fra ction]Ordered By: Alison Guerra on 05-21-2024 Hemoglobin S Ql (Bld) Not Reportable [facility] Hemoglobin S Solubility test Ql (Bld)Ordered By: Alison Guerra on 05-21-2024 Hemoglobin Solubility See comment [facility] Comment on above: TEST RESULTS [facility] gb Fractionation [place] Hgb Fractionation by CE: Hgb F 0.0 % 0.0-2.0 Hgb A 97.6 % 96.4-98.8 Hgb A2 2.4 % 1.8-3.2 Hgb S 0.0 % 0.0Interpretation: Normal hemoglobin present; no hemoglobin variant or beta thalassemia identified.Note: Alpha thalassemia may not be detected by the Hgb Fractionation [place] panel. If alpha thalassemia is suspected, [facility] offers Alpha-Thalassemia DNA Analysis (#[id number]). TESTING PERFORMED AT [facility]. ORIGINAL REPORT ON FILE IN LAB CONTAINS ADDITIONAL TEST SITE INFORMATION. Hemoglobin measurementOrdere d By: Alison Guerra on 05-21-2024 Hemoglobin (Bld) [Mass/Vol] 12.2 g/dL 12.0-15.0 [facility] Hepatitis B Surface Antigeno n 05-21-2024 HEP B Surf Ag Non-Reactive Normal Nonreactive [facility] Comment on above: Order Comment: Reaso n for Exam: Performed By: #### L 3300.2202, BTS, L501.9985, L3890.6300, L3890.6100, L900.0098, L100.0100, L501.9520, L509.4005, L509.8000, L3410.9999, L506.0400, L3890.6005 ####[facility] [address] [place], [address] Hepatitis B surface antigen detectionOrdered By: Alison Guerra on 01-08-2025 Hepatitis B Surface Antigen Non-Reactive Nonreactive [facility] Hepatitis C Antibodyon 05-21 Hepatitis C AB Non-Reactive Normal Nonreactive [facility] Comment on above: Order Comment: Reaso n for Exam: Result Comment: Non Reactive: < 0.8 Equivocal: >/= 0.8 to < 1.0 Reactive: >/= 1.0 The [facility] requires that a reactive/equivocal HCV antibody result be sent out for confirmation. HCV Quant by PCR testing. Performed By: #### L 3300.2202, BTS, L501.9985, L3890.6300, L3890.6100, L900.0098, L100.0100, L501.9520, L509.4005, L509.8000, L3410.9999, L506.0400, L3890.6005 ####[facility] [address] [place], [address] Hepatitis C virus antibody a ssayOrdered By: Alison Guerra on 05-21-2024 Hepatitis C Antibody Non-Reactive Nonreactive [facility] Comment on above: Non Reactive: < 0.8 Equivocal: >/= 0.8 to < 1.0 Reactive: >/= 1.0The CDC requires that a reactive/equivocal HCV antibody result be sent out for confirmation. HCV Quant by PCR testing. Hgb variant detection HPLCOr dered By: Alison Guerra on 05-21-2024 Variant Hemoglobin Not Reportable [facility] Image-guided ThinPrep PapOrd ered By: Alison Guerra on 05-21-2024 Pap Smear Note Comment . [facility] Comment on above: This liquid based Th inPrep(R) pap test was screened withthe use of an image guided system. Image-guided liquid-based Pa pOrdered By: Alison Guerra on 05-21-2024 Pap Smear Diagnosis Comment . [facility] Comment on above: NEGATIVE FOR INTRAEP ITHELIAL LESION OR MALIGNANCY. Immature granulocytes/100 WB C Auto (Bld)Ordered By: Alison Guerra on 05-21-2024 Immature granulocytes/100 WBC (Bld) 0.500 % 0.0-0.9 [facility] Comment on above: IG% - Immature Granu locytes (promyelocytes, myelocytes and metamyelocytes) > 1% indicates that a LEFT SHIFT is Present. L509.8000on 05-21-2024 Syphilis Abs Non-Reactive Normal [facility] Comment on above: Order Comment: Reaso n for Exam: Performed By: #### L 3300.2202, BTS, L501.9985, L3890.6300, L3890.6100, L900.0098, L100.0100, L501.9520, L509.4005, L509.8000, L3410.9999, L506.0400, L3890.6005 #### [facility] [address] [place], [place], [address] Lymphocytes Auto (Unsp spec) [#/Vol]Ordered By: Alison Guerra on 05-21-2024 Lymphocytes (Bld) [#/Vol] 1.52 10*3/uL 0.83-4.51 [facility] Lymphocytes/100 WBC Auto (Un sp spec)Ordered By: Alison Guerra on 05-21-2024 Lymphocytes/100 WBC (Bld) 18.0 % Low 19-41 [facility] MCV (mean corpuscular volume ) determinationOrdered By: Alison Guerra on 05-21-2024 MCV (RBC) [Entitic vol] 88.5 fL 81-99 [facility] Mean corpuscular hemoglobin (MCH) determinationOrdered By: Alison Guerra on 05-21-2024 MCH (RBC) [Entitic mass] 27.5 pg 27.0-32.0 [facility] Mean corpuscular hemoglobin concentration (MCHC) determinationOrdered By: Alison Guerra on 05-21-2024 MCHC (RBC) [Mass/Vol] 31.0 g/dL Low 32-36 [facility] Mean platelet volume determi nationOrdered By: Alison Guerra on 05-21-2024 Platelet mean volume (Bld) [Entitic vol] 11.2 fL 6.2-12.0 [facility] Miscellaneous procedureOrder ed By: Alison Guerra on 05-21-2024 Miscellaneous Test Comment SEE SCANNED REPORT [facility] Monocyte percentageOrdered B y: Alison Guerra on 05-21-2024 Monocytes/100 WBC (Bld) 5.5 % 0-10 [facility] NATERAon 05-21-2024 NATURA SEE SCANNED REPORT Normal [facility] Comment on above: Performed By: #### L 3300.2202, BTS, L501.9985, L3890.6300, L3890.6100, L900.0098, L100.0100, L501.9520, L509.4005, L509.8000, L3410.9999, L506.0400, L3890.6005 #### [facility] [address] [place], [address] Neisseria gonorrhoeae nuclei c acid detection by amplified probe techniqueOrdered By: Alison Guerra on 05-21-2024 N. gonorrhoeae DNA ROMEO+probe Ql (Unsp spec) Negative Negative [facility] Comment on above: Performed at: =[address] [id number] Director: Shana Leon MD, Phone: [phone] Neutrophil percentageOrdered By: Alison Guerra on 05-21-2024 Neutrophils/100 WBC (Bld) 75.0 % High 47-70 [facility] No Panel InformationOrdered By: Alison Guerra on 05-21-2024 Miscellaneous Test COMMENT . [facility] Comment on above: Test Ordered: [id number] Thyrotropin Receptor Ab, SerumThyrotropin Receptor Ab, Serum <1.10 IU/L Reference Range: 0.00-1.75Performed at: - [facility] [id number] Director: Lawrence Amanda MD, Phone: [phone] at: - [facility] [address] [place], [place] [id number] Director: Blas Samuel PhD, Phone: [phone] Nucleated red blood cell per centageOrdered By: Alison Guerra on 05-21-2024 Nucleated RBC/100 WBC (Bld) [Ratio] 0 % 0-5 [facility] Visit Reporton 05-21-2024 [facility] Visit Report [facility] [address], [address] [place] [address] OFFICE VISIT Date of Service: 05/21/24 MR#: [id number] Acct: [id number] Name: ARACELI NEAL Rep #: [id number] : 1985 Provider: Dr. Alison wright MD Age/Sex: 38/F [place] [facility] [place]: Signed Intake Vital Signs 07/11/22 12:46 05/21/24 10:26 Height 5 ft 6.5 in 5 ft 6.5 in Weight: 252 lb BMI 40.0 BP 123/87 H Intake Visit Reasons: New OB, LMP 02/09, ED 11/16/24 Theoretical Physicist Required: No Is patient in pain?: No Feel stressed/tense/nervous/a nxious/difficulty sleeping: not at all Allergies Food Allergies: Uncoded Allergy (Severe, Verified 05/21/24 10:40) Anaphylaxis Medications ???Medication ???Instructions ???Recorded ???Confirmed ???Type PNV 153-FA 400 mcg-om3 35 mg-dha tab PO 05/20/24 History 25 mg-epa 5 mg-fish oil chew tablet Last Menstrual Period: 02/10/24 Zika: Zika virus screening: Negative : Yes Have you fallen in the past year?: No PFSH PFSH Medical History Adopted person Seasonal allergies Enlarged thyroid Hypothyroidism Depression Abnormal thyroid blood test Abnormal Pap smear of cervix Surgical History H/O oral surgery Status post colposcopy Social History adopted: Yes household members: spouse and other details: neice part of the time current occupational status: employed 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) pets and animals: Yes (Avoid litterbox) pets and animals: cat(s) and dog(s) history of recent travel: Yes ([place]) out of state: Yes out of country: No sexually active: Yes Smoking Status: Never smoker alcohol intake: current details: occasionally- not while substance use type: does not use well-balanced diet: daily or most days caffeine: No eating out: 4 or more times/week during the past year weight has: increased > 10 lbs 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 Date Name GA/Weeks Outcome Route Bth Weight Gen Labor Lgth Anesthesia Del Locatn Provider FOB Unknown Delivery Date: Last Updated by: Alison Guerra MD all losses were 9 weeks of less, had 1 d and c all others spontaneous HPI New OB, LMP 02/09, ED 11/16/24 Details: ARACELI CROWE is a 38 year old who presents for New OB visit. OB Visit HILARY Calculator Estimated Delivery Date Method Current WG Current Estimate 11/16/24 LMP (Certain) 15w 0d Other Estimates 11/12/24 Ultrasound #1 15w 4d Comments: HIV: Urine Culture: Sequential Screen: NIPT Screen: Estimated Due Date: 11/16/24 Expected Delivery Route/Plan Labor Preferences- CB/BF classes: [] labor support person: [] labor intervention preferences: [] pain management options preferred: [] cut cord/dad catch: [] : [] PP control planned: [] discussed possible routes of delivery and associated risks: [] special requests: [] Specific Issue/Plans Covid status: [] Flu vaccine: [] Tdap vaccine: [] Rhogam: [] LARC form signed: [] Problem list reviewed and updated with the most current plan of care details and appropriate orders placed. Relevant counseling for the gestational age provided. Continue routine care and follow up unless otherwise noted in visit notes/problem list details Initial Weight: Not Recorded Date -???-???-???-???-???-??? -???-???-???-???-???-??? - EGA Weight BP Urine Prot -???-???-???-???-???-??? -???-???-???-???-???-??? - Glucose FHR FuHt Pres Dilation -???-???-???-???-???-??? -???-???-???-???-???-??? - Effaced St Visit Note 05/21/24 -???-???-???-???-???-??? -???-???-???-???-???-??? - 14w 3d 252 lb 123/87 -???-???-???-???-???-??? -???-???-???-???-???-??? - 150 -???-???-???-???-???-??? -???-???-???-???-???-??? - SM- CRL cons with LMP Menstrual History Last Menstrual Period: 02/10/24 Reported LMP: definite Normal amount/duration: Yes Frequency in days: 28 On hormonal BC at conception: No hCG+: 05/03/24 Antepartum Record Genetic Screening: Congenital Heart Defect: Other, Neural Tube Defect: Other, Hemoglobinopathy Or Carrier: Other, Cystic Fibrosis: Other, Chromoso (more content not included)... Normal [facility] Platelet countOrdered By: Argenis Guerra on 05-21-2024 Platelets (Bld) [#/Vol] 263 10*3/uL 150-450 [facility] RBC Auto (Bld) [#/Vol]Ordere d By: Alison Guerra on 05-21-2024 RBC (Bld) [#/Vol] 4.44 10*6/uL 4.2-5.4 [facility] Rubella IgGon 05-21-2024 Rubella IgG Reactive Normal Nonreactive [facility] Comment on above: Order Comment: Reaso n for Exam: Result Comment: Anti body Results Interpretation of Immune Status Non Reactive Presumed Non-Immune Equivocal Equivocal Reactive Presumed Immune Performed By: #### L 3300.2202, BTS, L501.9985, L3890.6300, L3890.6100, L900.0098, L100.0100, L501.9520, L509.4005, L509.8000, L3410.9999, L506.0400, L3890.6005 #### [facility] [address] [place], [address] Rubella immune status IgGOrd ered By: Alison Guerra on 05-21-2024 Rubella IgG Antibody Reactive Nonreactive [facility] Comment on above: Antibody Results Int erpretation of Immune Status Non Reactive Presumed Non-Immune Equivocal Equivocal Reactive Presumed Immune Service comment (Unsp spec) [Interp]Ordered By: Alison Guerra on 05-21-2024 Pap Smear Comment (3) . . [facility] T4 Free Directon 05-21-2024 T4 FREE DIRECT 1.21 ng/dL Normal 0.76-1.46 [facility] Comment on above: Performed By: #### L 3300.2202, BTS, L501.9985, L3890.6300, L3890.6100, L900.0098, L100.0100, L501.9520, L509.4005, L509.8000, L3410.9999, L506.0400, L3890.6005 #### [facility] [address] [place], [address] TSH QnOrdered By: Alison brooks on 05-21-2024 Thyroid Stimulating Hormone (TSH) 0.572 uIU/mL 0.358-3.740 [facility] Thyroid Stim Hormone (TSH)on 05-21-2024 TSH 0.572 uIU/mL Normal 0.358-3.740 [facility] Comment on above: Performed By: #### L 3300.2202, BTS, L501.9985, L3890.6300, L3890.6100, L900.0098, L100.0100, L501.9520, L509.4005, L509.8000, L3410.9999, L506.0400, L3890.6005 #### [facility] [address] [place], [place], [id number] Treponema sp Ab Ql (S)Ordere d By: Alison Guerra on 05-21-2024 Syphilis Total Antibody Non-Reactive [facility] Type AND Screenon 05-21-2024 ABO and Rh group Nom (Bld) Blood group B Rh(D) positive Normal [facility] Comment on above: Order Comment: PN Performed By: #### L 3300.2202, BTS, L501.9985, L3890.6300, L3890.6100, L900.0098, L100.0100, L501.9520, L509.4005, L509.8000, L3410.9999, L506.0400, L3890.6005 #### [facility] [address] [place], [place], [id number] Urine cultureOrdered By: Jose Daniel Guerra on 05-21-2024 Bacteria identified Cx Nom (U) Culture exhibits no growth. [facility] White blood cell (WBC) count Ordered By: Alison Guerra on 05-21-2024 WBC (Bld) [#/Vol] 8.4 10*3/uL 4.4-11.0 [facility] Dilute Rashad's viper venom timeOrdered By: Dr. Guerra on 07-11-2022 dRVVT Coag (PPP) [Time] 39.5 s 0.0-47.0 W [facility] - Chemistry and C hemistry - challengeOrdered By: Dr. Guerra on 07-11-2022 Free T4 [Mass/Vol] 1.02 ng/dL 0.76-1.46 [facility] No Panel InformationOrdered By: Dr. Guerra on 07-11-2022 Anti-Cardiolipin IgM Antibody 20 MPL U/mL 0-12 [facility] Comment on above: Negative: <13 Indete rminate: 13 - 20 Low-Med Positive: >20 - 80 High Positive: >80 Dehydroepiandrosterone Sulfate 89.4 ug/dL 57.3-279.2 [facility] Thyroid Stimulating Hormone (TSH) 1.12 uIU/mL 0.358-3.74 [facility] Serum beta 2 glycoprotein 1 IgA antibody detectionOrdered By: Dr. Guerra on 07-11-2022 Beta 2 glycoprotein 1 IgA Ql (S) <9 0-25 [facility] Comment on above: Result Units: GPI Ig A unitsThe reference interval reflects a 3SD or 99th percentileinterval, which is thought to represent a potentiallyclinically significant result in accordance with theInternational Consensus Statement on the classificationcriteria for definitive antiphospholipid syndrome (APS). JThromb Haem 2006;4:295-306. Serum beta 2 glycoprotein 1 IgG antibody detectionOrdered By: Dr. Guerra on 07-11-2022 Beta 2 glycoprotein 1 IgG Ql (S) <9 0-20 [facility] Comment on above: Result Units: GPI Ig G unitsThe reference interval reflects a 3SD or 99th percentileinterval, which is thought to represent a potentiallyclinically significant result in accordance with theInternational Consensus Statement on the classificationcriteria for definitive antiphospholipid syndrome (APS). JThromb Haem 2006;4:295-306. Serum beta 2 glycoprotein 1 IgM antibody detectionOrdered By: Dr. Guerra on 07-11-2022 Beta 2 glycoprotein 1 IgM Ql (S) <9 0-32 [facility] Comment on above: Result Units: GPI Ig M unitsThe reference interval reflects a 3SD or 99th percentileinterval, which is thought to represent a potentiallyclinically significant result in accordance with theInternational Consensus Statement on the classificationcriteria for definitive antiphospholipid syndrome (APS). JThromb Haem 2006;4:295-306. Serum cardiolipin IgG antibo dy assay by immunoassay (units/volume)Ordered By: Dr. Guerra on 07-11-2022 Cardiolipin IgG IA Qn (S) < 9 GPL U/mL 0-14 [facility] Comment on above: Negative: <15 Indete rminate: 15 - 20 Low-Med Positive: >20 - 80 High Positive: >80 Serum or plasma 17-hydroxypr ogesterone measurement (mass/volume)Ordered By: Dr. Guerra on 07-11-2022 17-Hydroxyprogesterone [Mass/Vol] 20 ng/dL . [facility] Comment on above: Adult Female Follicu lar 15 - 70 Luteal 35 - 290Performed at: [facility] [address] [id number] Director: Lawrence Amanda MD, Phone: [phone] Serum or plasma cardiolipin IgA antibody assay (units/volume)Ordered By: Dr. Guerra on 07-11-2022 Cardiolipin IgA Qn < 9 APL U/mL 0-11 [facility] Comment on above: Negative: <12 Indete rminate: 12 - 20 Low-Med Positive: >20 - 80 High Positive: >80 Serum or plasma prolactin me asurement (mass/volume)Ordered By: Dr. Guerra on 07-11-2022 Prolactin [Mass/Vol] 8.7 ng/mL [facility] Comment on above: NORMAL REFERENCE RAN GES FEMALE NON- 2.2 - 30.3 ng/mL 8.1 - 347.6 ng/mL POST-MENOPAUSAL 0.7 - 31.5 ng/mL MALE 2.5 - 17.4 ng/mL Serum or plasma testosterone free measurement (mass/volume)Ordered By: Dr. Guerra on 07-11-2022 Testosterone Free [Mass/Vol] 0.4 pg/mL 0.0-4.2 [facility] Comment on above: Performed at: [facility] [address] [id number] Director: Lawrence Amanda MD, Phone: [phone] at: [facility] [address] [id number] Director: Blas Samuel PhD, Phone: [phone] Thin prep Papanicolaou smear with manual screeningOrdered By: Dr. Guerra on 07-11-2022 Thin prep Papanicolaou smear with manual screening 40.4 sec 0.0-47.6 [facility] Thin prep Papanicolaou smear with manual screening 1.03 Ratio 0.00-1.34 [facility] Thin prep Papanicolaou smear with manual screening 39.5 sec 0.0-43.5 [facility] Comment on above: Please note refere nce interval change Thin prep Papanicolaou smear with manual screening Comment: . [facility] Comment on above: No lupus anticoagula nt was detected. Thrombin time in platelet po or plasmaOrdered By: Dr. Guerra on 07-11-2022 Thrombin time Coag (PPP) [Time] 16.8 sec 0.0-23.0 [facility] Whole blood hemoglobin A1c/t otal hemoglobin ratio (mass fraction)Ordered By: Dr. Guerra on 07-11-2022 HbA1c (Bld) [Mass fraction] 5.3 % 3.8-5.6 [facility] Comment on above: Normal < 5.7 % Predi abetic 5.7 - 6.4 % Diabetic >or= 6.5 % Please note range changes. 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 Disc. that pt. meets diagnostic criteria for infertility and recc. RE. Pt. desires to f/u at RE. Referral placed. Disc. that imaging that will likely be done as part of RE workup can also visualize fibroids or endometrial abnormalities, but that if pt. desires not to pursue this I recommend following up here to further investigate mid-cycle spotting. Chief Complaint Patient is here today for yearly visit. Her last pap was 12/08/2019 Cotest negative. She has concerns of spotting between periods for the past 3 to 4 months. She states it is bright red blood. They are also trying to conceive for that last 2 years and no luck. LMP:10/24/2021 History of Present IllnessPt. presents for annual exam. Had negative pap and co-testing in 2019, next pap due 2024. Pt. has been trying to conceive x 2 + years. States that she has+ LH predictor tests and has monthly menses. Pt. c/o mid-cycle spotting x 3-4 mos. Pt. denies any other c/o or concerns. Review of Systems Constitutional: no fever and no chills. Respiratory: no shortness of breath. Genitourinary: as noted in HPI. Active Problems Problems Body mass index (BMI) of 40.0 to 44.9 in adult (V85.41) (Z68.41) Encounter for preconception consultation (V26.49) (Z31.69) Encounter for screening for cervical cancer (V76.2) (Z12.4) Fatigue (780.79) (R53.83) Multinodular goiter (241.1) (E04.2) Obesity (278.00) (E66.9) Past Medical History Problems History of Menstruation Onset age 14 years History of Pap test, as part of routine gynecological examination (V76.2) (Z01.419) 12/08/2019; WNL, HPV NEG 10/30/2018: ASC-US, HPV negative Surgical History Problems No history of surgery Family History Mother No pertinent family history Social History Problems Consumes alcohol occasionally (V49.89) (Z78.9) Never a smoker No illicit drug use No recent foreign travel Sexually active Allergies Medication No Known Drug Allergies Recorded By: Saira Nielsen; 05/26/2019 4:31:52 PM Current Meds Medication NameInstruction Phentermine HCl - 37.5 MG Oral TabletTake 1 tablet daily Topiramate 25 MG Oral TabletTake 1 tablet daily Vitals Vital Signs Recorded: 03Nov2021 01:18PM [id number] Gwfdjtzgc55 Height5 ft 6.5 in Nkelrs517 lb BMI Nljbtejxzr95.56 kg/m2 BSA Calculated2.3 [id number] Physical Exam Constitutional: Alert and in no acute distress. Well developed, well nourished Pulmonary: No respiratory distress Chest: Breasts: normal appearance, no nipple discharge and no skin changes, palpation of breasts and axillae: no palpable mass and no axillary lymphadenopathy and sexual maturation normal Genitourinary: external genitalia: normal and sexual maturation: normal Vagina: normal. Cervix: Normal. Psychiatric: alert and oriented x 3., affect normal to patient baseline, mood: appropriate and judgment and insight: intact Signatures Electronically signed by : RUBÉN Johansen; Nov 03 2021 2:01PM EST (Author) Normal [facility] Cytologyon 12-08-2019 [facility] Cytology 16 Date of Procedure: 12/08/2019 Pathologist: [facility], Cytology Date Reported: 12/24/2019 Date Received: 12/09/2019 Submitting Physician: DARIEL ORDONEZ CNM CNP Attending Physician: DARIEL ORDONEZ CNM CNP FINAL CYTOLOGICAL INTERPRETATION A. THINPREP PAP CERVICAL: Specimen adequacy: SATISFACTORY FOR EVALUATION. Quality Indicator: Endocervical/transformat ion zone component is present. General Categorization: NEGATIVE FOR INTRAEPITHELIAL LESION OR MALIGNANCY. HIGH RISK HPV TEST RESULT: HPV GENOTYPE 16 NEGATIVE HPV GENOTYPE 18 NEGATIVE HPV GENOTYPE OTHER NEGATIVE Reference Range: Negative Testing for high-risk (HR) type of human papilloma virus (HPV) is performed by the Jessica yadiel HPV Test. The yadiel HPV Test is a qualitative polymerase chain reaction that amplifies DNA of HPV16, HPV18 and 12 other high-risk HPV types (31, 33, 35, 39, 45, 51, 52, 56, 58, 59, 66, and 68) associated with cervical cancer and its precursor lesions. A positive result indicates the presence of HPV DNA due to one or more of the 14 genotypes: 16, 18, 31, 33, 35, 39, 45, 51, 52, 56, 58, 59, 66, and 68. Negative results indicate HPV DNA concentrations are undetectable or below the pre-set threshold for detection. False negative results may be associated with unoptimized sampling. A negative HR HPV result does not exclude the possibility of future cytologic HSIL or underlying CIN2-3 or cancer. This test is approved for cervical specimens by the [place] Food and Drug Administration. Results of this test should be interpreted in conjunction with the patient?s Pap test results. Please refer to ASCCP current guidelines for the use of HPV DNA testing, result interpretation, and patient management. The performance of this test was verified by the Molecular Diagnostic Laboratory at [facility]. The lab is certified under the Clinical Laboratory Amendments of 1988 (CLIA 88) as qualified to perform high complexity clinical laboratory testing. This specimen has been analyzed by the E-DuctionPrep Imaging System ([employer] an automated imaging and review system, which assists the laboratory in evaluating cells on ThinPrep Pap tests. Following automated imaging, selected silva from every slide were reviewed by a district commercial superintendent and/or pathologist. Electronically Signed Out By [facility], Cytology//ELC/PWM By the signature on this report, the individual or group listed as making the Final Interpretation/Diagnosis certifies that they have reviewed this case. Educational Note: Cervical cytology is a screening procedure primarily for squamous cancers and precursors and has associated false-negative and false-positive results as evidenced by published data. Your patient?s test should be interpreted in this context, together with patient?s history and clinical findings. Regular sampling and follow-up of unexplained clinical signs and symptoms are recommended to minimize false negative results. Clinical History Date of Last Menstrual Period: 12/01/2019 Other Clinical Conditions: COTEST HPV(Genotype) except for ASC-H, HSIL, Carcinoma - Include HPV Genotype testing Annual Clinical Diagnosis History: Encounter for screening for cervical cancer - (Z12.4) Z11.51 Source of Specimen A: THINPREP PAP CERVICAL Normal [facility] Comment on above: Performed By: #### C #### [facility] Cytology [address] [facility] [address] Auto Diffon 09-20-2018 Basophils #/vol (Bld) 0.0 E3/mcL Normal 0.0-0.2 [facility] Comment on above: Order Comment: Order Added by Discern Expert. Performed By: #### 2 [id number] #### [facility] [address] [place] [address] Basophils/100 WBC (Bld) 0.7 % Normal 0.0-2.0 [facility] Comment on above: Order Comment: Order Added by Discern Expert. Performed By: #### 2 [id number] #### [facility] [address] [place] [address] Eos Absolute 0.1 E3/mcL Normal 0.0-0.7 [facility] Comment on above: Order Comment: Order Added by Discern Expert. Performed By: #### 2 [id number] #### [facility] [address] [place] [address] Eosinophils/100 WBC (Bld) 1.4 % Normal 0.0-11.0 [facility] Comment on above: Order Comment: Order Added by Discern Expert. Performed By: #### 2 [id number] #### [facility] [address] [place] [address] Lymphocytes #/vol (Bld) 2.0 E3/mcL Normal 1.2-3.4 [facility] Comment on above: Order Comment: Order Added by Discern Expert. Performed By: #### 2 [id number] #### [facility] [address] [place] [address] Lymphocytes/100 WBC (Bld) 37.0 % Normal 20.0-55.0 [facility] Comment on above: Order Comment: Order Added by Discern Expert. Performed By: #### 2 [id number] #### [facility] [address] [place] [address] [place] Absolute 0.3 E3/mcL Normal 0.0-0.7 [facility] Comment on above: Order Comment: Order Added by Discern Expert. Performed By: #### 2 [id number] #### [facility] [address] [place] [address] Monocytes/100 WBC (Bld) 6.1 % Normal 0.0-10.0 [facility] Comment on above: Order Comment: Order Added by Discern Expert. Performed By: #### 2 [id number] #### [facility] [address] [place] [address] Neutro Absolute 2.9 E3/mcL Normal 1.4-6.5 [facility] Comment on above: Order Comment: Order Added by Discern Expert. Performed By: #### 2 [id number] #### [facility] [address] [place] [address] Neutro Auto 54.8 % Normal 37.0-75.0 [facility] Comment on above: Order Comment: Order Added by Discern Expert. Performed By: #### 2 [id number] #### [facility] [address] [place] [address] BMPon 09-20-2018 Anion gap molar conc 10 mmol/L Normal 10-20 [facility] Comment on above: Performed By: #### 2 198853 #### [facility] [employer] [address] [place] [address] Calcium mass conc 8.9 mg/dL Normal 8.6-10.3 [facility] Comment on above: Performed By: #### 2 780212 #### [facility] [employer] [address] [place] [address] Chloride molar conc 109 mmol/L High 98-107 [facility] Comment on above: Performed By: #### 2 673309 #### [facility] [employer] [address] [place] [address] CO2 molar conc 25.0 mmol/L Normal 21.0-32.0 [facility] Comment on above: Performed By: #### 2 081726 #### [facility] [employer] [address] [place] [address] Creatinine mass conc 0.9 mg/dL Normal 0.5-1.1 [facility] Comment on above: Performed By: #### 2 487188 #### [facility] [address] [place] [address] Glucose mass conc 108 mg/dL High 70-99 [facility] Comment on above: Performed By: #### 2 786406 #### [facility] [employer] [address] [place] [address] Potassium molar conc 4.0 mmol/L Normal 3.5-5.3 [facility] Comment on above: Performed By: #### 2 957757 #### [facility] [employer] [address] [place] [address] Sodium molar conc 140 mmol/L Normal 136-145 [facility] Comment on above: Performed By: #### 2 771989 #### [facility] [address] [place] [address] Urea nitrogen mass conc 8 mg/dL Normal 6-23 [facility] Comment on above: Performed By: #### 2 297376 #### [facility] [address] [place] [address] Urea nitrogen/Creatinine mass ratio 8.9 ratio Normal 5.4-30.0 [facility] Comment on above: Performed By: #### 2 [id number] #### [facility] [employer] [address] [place] [address] CBC w/ Auto Diffon 9 Erythrocyte distribution width Ratio (RBC) 13.7 % Normal 11.5-14.5 [facility] Comment on above: Performed By: #### 2 [id number] #### [facility] [address] [place] [address] Hematocrit Volume Fraction (Bld) 40.3 % Normal 36.0-48.0 [facility] Comment on above: Performed By: #### 2 245315 #### [facility] [address] [place] [id number] Hemoglobin mass conc (Bld) 13.0 g/dL Normal 12.0-16.0 [facility] Comment on above: Performed By: #### 2 687111 #### [facility] [employer] [address] [place] [address] MCH Entitic mass (RBC) 28.8 pg Normal 27.0-31.0 [facility] Comment on above: Performed By: #### 2 475668 #### [facility] [employer] [address] [place] [id number] MCHC mass conc (RBC) 32.2 g/dL Low 33.0-37.0 [facility] Comment on above: Performed By: #### 2 888779 #### [facility] [address] [place] [address] MCV Entitic volume (RBC) 89.5 fL Normal 78.0-100.0 [facility] Comment on above: Performed By: #### 2 [id number] #### [facility] [employer] [address] [place] [address] Platelet mean volume Entitic volume (Bld) 10.5 fL Normal 7.4-11.0 [facility] Comment on above: Performed By: #### 2 633952 #### [facility] [employer] [address] [place] [address] Platelets #/vol (Bld) 236 E3/mcL Normal 130-400 [facility] Comment on above: Performed By: #### 2 090890 #### [facility] [employer] [address] [place] [address] RBC #/vol (Bld) 4.51 E6/mcL Normal 3.90-5.40 [facility] Comment on above: Performed By: #### 2 622854 #### [facility] [employer] [place] [address] WBC #/vol (Bld) 5.3 E3/mcL Normal 3.6-11.0 [facility] Comment on above: Performed By: #### 2 893568 #### [facility] [employer] [facility] [place] [address] TSHon 09-20-2018 Thyrotropin Qn 1.00 mcIU/mL Normal 0.30-5.60 [facility] Comment on above: Performed By: #### 2 464607 #### [facility] [employer] [address] [place] [address] eGFRon 09-20-2018 GFR/1.73 sq M predicted among non-blacks MDRD vol rate/area (S/P/Bld) mL/min/{1.73_m2} Normal [facility] Comment on above: Order Comment: Order added by Discern Expert. Performed By: #### 1 [id number] #### [facility] [employer] [address] [place] [address] IGP W/hpv Rfx [id number] 11-07 Diagnosis: See Ref Lab Report Normal [facility] Comment on above: Order Comment: LMP: 10/21/17 Performed By: #### 1 [id number] #### [facility] [employer] [address] [place] [address] Pathology ([facility])on 10-30-2017 Pathology ([facility]) FINAL GYNECOLOGIC CYTOLOGY [id number] ADEQUACYSatisfactory for Evaluation. Endocervical cells/transformation zone componentpresent.GENERAL CATEGORIZATIONEpithelial Cell AbnormalityDESCRIPTIVE DIAGNOSISAtypical squamous cells of undetermined significance.COMMENTHigh Risk HPV testing was ordered and performed at [facility] Laboratory for thefollowing high risk genotypes: 16/18/31/33/35/39/45/51/ 52/56/58/59/66/68. Anegative result is a normal result. A positive result is an abnormal result.Genotype-specific testing for high risk HPV types 16/18/45 is available uponrequest dependent upon a positive high risk HPV result. RELATED LABORATORY RESULTSOrdered by: Brennen Date: 10/30/2017 Ord Time: 20:57Test Collected Result Abnormal Range Units SpecimenName D&T TypeHPV Negative NA MSCRNA, 8HighRiskThe HPV test detects E6/E7 viral messenger RNA (mRNA) high-risk HPV ,18,31,33,35, 39,45,51,55,58,59,66, and 68 which are associated with cervicalcancer and its precursor lesions. However, cross-reactions with othergenotypes may occur. Results should be correlated with cytologic andhistologic findings. Sensitivity may be affected by cellularity of specimen.CLINICAL HISTORYLMP: 10/21/2017SPECIMEN(A) SCREENING CERVICAL/ENDOCERVICAL THIN PREP VIALPerformed at [facility], [address] [place], [place] [address]Screened by: ADITI MADRIGAL Small Business Consultant Signed Out by: GLORIA TRINH M.D. Reported: 11/06/2017 Normal [facility] Comment on above: Performed By: #### G YN ####[facility] [address] [place] [address] Vital Signs Date Time Vital Sign Value Performing Clinician Facility 10-31-2024 10: Body height 168.[address] Ingrid Mckinney MD Work Phone: [facility] 10-31-2024 10:040 Body mass index (BMI) [Ratio] 38.7 kg/m2 Dr. Ingrid Mckinney MD Work Phone: [facility] 10-31-2024 10: Body weight 110.[address] Ingrid Mckinney MD Work Phone: [facility] 10-31-2024 10: Diastolic blood pressure 84 mm[Hg] Dr. Ingrid Mckinney MD Work Phone: [facility] 10-31-2024 10:21-0400 Systolic blood pressure 120 mm[Hg] Dr. Ingrid Mckinney MD Work Phone: [facility] 10-24-2024 10:30-0400 Body height 168.[address] Ingrid Mckinney MD Work Phone: [phone] [place] [address] 10-24-2024 10:28-0400 Body mass index (BMI) [Ratio] 38.9 kg/m2 Dr. Ingrid Mckinney MD Work Phone: [phone] [place] [address] 10-24-2024 10:28-0400 Body weight 111.[address] Ingrid Mckinney MD Work Phone: 8([phone] [place] [address] 10-24-2024 10:28-0400 Diastolic blood pressure 76 mm[Hg] Dr. Ingrid Mckinney MD Work Phone: [phone] [address] 10-24-2024 10:28-0400 Systolic blood pressure 110 mm[Hg] Dr. Ingrid Mckinney MD Work Phone: [phone])[phone] [place] [address] 10-17-2024 13:19-0400 Body height 168.[address] Ingrid Mckinney MD Work Phone: [facility] 10-17-2024 13:18-0400 Body mass index (BMI) [Ratio] 38.9 kg/m2 Dr. Ingrid Mckinney MD Work Phone: [phone] [place] [address] 10-17-2024 13:18-0400 Body weight 111.[address] Ingrid Mckinney MD Work Phone: [phone] [place] [address] 10-17-2024 13:18-0400 Diastolic blood pressure 79 mm[Hg] Dr. Ingrid Mckinney MD Work Phone: [facility] 10-17-2024 13:18-0400 Systolic blood pressure 120 mm[Hg] Dr. Ingrid Mckinney MD Work Phone: [facility] 10-08-2024 08:56-0400 Body height 168.[address] Ingrid Mckinney MD Work Phone: 2(420)848-341956 [place] [address] 10-08-2024 08:56-0400 Body mass index (BMI) [Ratio] 38.8 kg/m2 Dr. Ingrid Mckinney MD Work Phone: [facility] 10-08-2024 08:56-0400 Body weight 110.[address] Ingrid Mckinney MD Work Phone: 1(028)442-887267 [address] 10-08-2024 08:56-0400 Diastolic blood pressure 72 mm[Hg] Dr. Ingrid Mckinney MD Work Phone: 8(234)942-992656 [place] [address] 10-08-2024 08:56-0400 Systolic blood pressure 104 mm[Hg] Dr. Ingrid Mckinney MD Work Phone: 0(011)733-791281 [place] [address] 09-24-2024 08:41-0400 Body height 168.[address] Ingrid Mckinney MD Work Phone: 3(001)994-806481 [place] [address] 09-24-2024 08:41-0400 Body mass index (BMI) [Ratio] 39.1 kg/m2 Dr. Ingrid Mckinney MD Work Phone: 5(792)302-387267 [address] 09-24-2024 08:41-0400 Body weight 111.[address] Ingrid Mckinney MD Work Phone: 8(905)524-251656 [place] [address] 09-24-2024 08:41-0400 Diastolic blood pressure 72 mm[Hg] Dr. Ingrid Mckinney MD Work Phone: 9(391)444-279056 [place] [address] 09-24-2024 08:41-0400 Systolic blood pressure 110 mm[Hg] Dr. Ingrid Mckinney MD Work Phone: 9(844)900-104167 [address] 09-12-2024 10:15-0400 Body mass index (BMI) [Ratio] 39.2 kg/m2 Dr. Ingrid Mckinney MD Work Phone: 6(008)924-449756 [place] [address] 09-12-2024 10:15-0400 Body weight 112.[address] Ingrid Mckinney MD Work Phone: 0(923)862-006656 [place] [address] 09-12-2024 10:15-0400 Diastolic blood pressure 75 mm[Hg] Dr. Ingrid Mckinney MD Work Phone: [facility] 09-12-2024 10:15-0400 Systolic blood pressure 113 mm[Hg] Dr. Ingrid Mckinney MD Work Phone: 0(632)083-927756 [place] [address] 08-21-2024 09:59-0400 Body height 168.[address] Ingrid Mckinney MD Work Phone: 1(093)825-768581 [place] [address] 08-21-2024 09:59-0400 Body mass index (BMI) [Ratio] 39.6 kg/m2 Dr. Ingrid Mckinney MD Work Phone: 6(768)777-880481 [place] [address] 08-21-2024 09:59-0400 Body weight 113.[address] Ingrid Mckinney MD Work Phone: 9(489)411-205781 [place] [address] 08-21-2024 09:59-0400 Diastolic blood pressure 76 mm[Hg] Dr. Ingrid Mckinney MD Work Phone: 7(900)724-513381 [place] [address] 08-21-2024 09:59-0400 Systolic blood pressure 117 mm[Hg] Dr. Ingrid Mckinney MD Work Phone: 3(511)869-892481 [place] [address] 07-23-2024 09:58-0400 Body mass index (BMI) [Ratio] 40.1 kg/m2 Dr. Ingrid Mckinney MD Work Phone: 0(225)728-840081 [place] [address] 07-23-2024 09:58-0400 Body weight 114.[address] Ingrid Mckinney MD Work Phone: 1(742)454-815481 [place] [address] 07-23-2024 09:58-0400 Diastolic blood pressure 73 mm[Hg] Dr. Ingrid Mckinney MD Work Phone: 8(017)704-719381 [place] [address] 07-23-2024 09:58-0400 Systolic blood pressure 119 mm[Hg] Dr. Ingrid Mckinney MD Work Phone: 0(354)800-812481 [place] [address] 06-25-2024 08:37-0500 Body mass index (BMI) [Ratio] 40.3 kg/m2 Dr. Ingrid Mckinney MD Work Phone: 1(797)194-956881 [place] [address] 06-25-2024 08:37-0500 Body weight 114.[address] Ingrid Mckinney MD Work Phone: [facility] 06-25-2024 08:37-0500 Diastolic blood pressure 72 mm[Hg] Dr. Ingird Mckinney MD Work Phone: [facility] 06-25-2024 08:37-0500 Systolic blood pressure 124 mm[Hg] Dr. Ingrid Mckinney MD Work Phone: [facility] 05-21-2024 10:26-0500 Body mass index (BMI) [Ratio] 40 kg/m2 Dr. Ingrid Mckinney MD Work Phone: [facility] 05-21-2024 10:26-0500 Body weight 114.[address] Ingrid Mckinney MD Work Phone: [facility] 05-21-2024 10:26-0500 Diastolic blood pressure 87 mm[Hg] Dr. Ingrid Mckinney MD Work Phone: [facility] 05-21-2024 10:26-0500 Systolic blood pressure 123 mm[Hg] Dr. Ingrid Mckinney MD Work Phone: [facility] 07-03-2023 12:48-0500 Body height 168.9 cm Manish Roach NETWORK OPERATIONS MANAGER-TITLE I ASSISTANT Work Phone: [facility] 07-03-2023 12:48-0500 Body mass index (BMI) [Ratio] 31 kg/m2 Manish Roach NETWORK OPERATIONS MANAGER-TITLE I ASSISTANT Work Phone: [facility] 07-03-2023 12:48-0500 Body temperature 98.1 [degF] Manish Roach NETWORK OPERATIONS MANAGER-TITLE I ASSISTANT Work Phone: [facility] 07-03-2023 12:48-0500 Body weight 88.45 kg Manish Roach NETWORK OPERATIONS MANAGER-TITLE I ASSISTANT Work Phone: [facility] 07-03-2023 12:48-0500 Diastolic blood pressure 79 mm[Hg] Manish Roach NETWORK OPERATIONS MANAGER-TITLE I ASSISTANT Work Phone: [facility] 07-03-2023 12:48-0500 Heart rate 70 /min Manish Roach NETWORK OPERATIONS MANAGER-TITLE I ASSISTANT Work Phone: [facility] 07-03-2023 12:48-0500 Respiratory rate 16 /min Manish Roach NETWORK OPERATIONS MANAGER-TITLE I ASSISTANT Work Phone: [facility] 07-03-2023 12:48-0500 SaO2% (BldA) [Mass fraction] 100 % Manish Roach NETWORK OPERATIONS MANAGER-TITLE I ASSISTANT Work Phone: [facility] 07-03-2023 12:48-0500 Systolic blood pressure 122 mm[Hg] Manish Roach NETWORK OPERATIONS MANAGER-TITLE I ASSISTANT Work Phone: [facility] 07-11-2022 12:46-0500 Body height 168.[address] Ingrid Mckinney Work Phone: [facility] 07-11-2022 12:45-0500 Body mass index (BMI) [Ratio] 42.5 kg/m2 Dr. Ingrid Mckinney Work Phone: [facility] 07-11-2022 12:45-0500 Body weight 119.[address] Ingrid Mckinney Work Phone: [facility] 07-11-2022 12:45-0500 Diastolic blood pressure 82 mm[Hg] Dr. Ingrid Mckinney Work Phone: [facility] 07-11-2022 12:45-0500 Systolic blood pressure 116 mm[Hg] Dr. Ingrid Mckinney Work Phone: [facility] 11-03-2021 13:18-0400 Body height 168.91 cm Ingrid Mckinney Work Phone: [place] [address] [address] Work Phone: 11-03-2021 13:18-0400 Body mass index (BMI) [Ratio] 43.56 kg/m2 Ingrid Mckinney Work Phone: [address] Work Phone: 11-03-2021 13:18-0400 Body surface area Derived from formula 2.3 m2 Ingrid Mckinney Work Phone: [address] Work Phone: 11-03-2021 13:18-0400 Body weight 124.29 kg Ingrid Mckinney Work Phone: [address] Work Phone: 11-03-2021 13:18-0400 Diastolic blood pressure 72 mm[Hg] Ingrid Kocher Work Phone: [address] Work Phone: 11-03-2021 13:18-0400 Systolic blood pressure 114 mm[Hg] Ingrid Kocher Work Phone: [address] Work Phone: 07-24-2019 10:29-0400 BMI (Body Mass Index) 44.12 kg/m2 Ingrid Kocher -[facility] Work Phone: 07-24-2019 10:29-0400 Body weight 125.87 kg Ingrid Kocher [facility] Work Phone: 07-24-2019 10:29-0400 BP Diastolic 88 mm[Hg] Ingrid Kocher [facility] Work Phone: Comment on above: Location: [facility]; 07-24-2019 10:29-0400 BP Systolic 122 mm[Hg] Ingrid Kocher [facility] Work Phone: Comment on above: Location: [facility]; 07-24-2019 10:29-0400 BSA (Body Surface Area) 2.31 m2 Ingrid Kocher [facility] Work Phone: 07-24-2019 10:29-0400 Height 168.91 cm Ingrid Kocher [facility] Work Phone: 07-24-2019 10:29-0400 Pulse (Heart Rate) 88 /min Ingrid [facility] Work Phone: 06-26-2019 10:38-0500 BMI (Body Mass Index) 44.23 kg/m2 [facility] Work Phone: 06-26-2019 10:38-0500 Body weight 126.19 kg [facility] Work Phone: 06-26-2019 10:38-0500 BP Diastolic 80 mm[Hg] Ingrid [facility]ckinney [facility] Work Phone: 06-26-2019 10:38-0500 BP Systolic 118 mm[Hg] [facility] Work Phone: 06-26-2019 10:38-0500 BSA (Body Surface Area) 2.31 m2 [facility] Work Phone: 06-26-2019 10:38-0500 Height 168.91 cm [facility] Work Phone: 06-26-2019 10:38-0500 Pulse (Heart Rate) 63 /min [facility] Work Phone: Encounters Encounter Date Encounter Type Care Provider Facility Start: 11-07-2024 ambulatory Christel Orellana cility:[facility] Start: 10-31-2024 End: 10-31-2024 ambulatory Christel Chen Facility:[facility] Start: 10-31-2024 End: 10-31-[address] Alison Guerra MD -[facility] Work Phone: Start: 10-24-2024 End: 10-24-[address] Christel Chen DO -Laboratory Specimen Work Phone: Start: 10-24-2024 End: 10-24-2024 ambulatory Ingrid Mckinney Facility:[facility] Start: 10-24-2024 End: 10-24-[address] Christel Chen DO -[facility] Work Phone: Start: 10-24-2024 End: 10-24-[address] Ingrid Mckinney MD Work Phone: [facility] Work Phone: Start: 10-17-2024 End: 10-17-2024 Patient encounter procedure Shannon Ingram LETIM -[facility] Work Phone: Start: 10-17-2024 End: 10-17-[address] Ingrid Mckinney MD Work Phone: [facility] Work Phone: Start: 10-08-2024 End: 10-08-2024 Patient encounter procedure Chayo Quiñonez [employer]-C -[facility] Work Phone: Start: 10-08-2024 End: 10-08-[address] Ingrid Mckinney MD Work Phone: [facility] Work Phone: Start: 10-03-2024 End: 10-03-[address] Ingrid Mckinney MD Work Phone: [facility] Work Phone: Start: 10-03-2024 End: 10-03-[address] Christel Chen DO -[facility] Work Phone: Start: 10-03-2024 End: 10-03-2024 ambulatory Christel Chen Facility:[facility] Start: 09-24-2024 End: 09-24-2024 Patient encounter procedure Chayo Quiñonez [employer] HELPER-C -[facility] Work Phone: Start: 09-24-2024 End: 09-24-[address] Ingrid Mckinney MD Work Phone: [facility] Work Phone: Start: 09-12-2024 End: 09-12-[address] Christel Chen DO -[facility] Work Phone: Start: 09-12-2024 End: 09-12-2024 ambulatory Ingrid Hank Facility:[facility] Start: 09-05-2024 End: 09-05-[address] Christel Chen DO -[facility] Work Phone: Start: 09-05-2024 End: 09-05-2024 ambulatory Christel Chen Facility:[facility] Start: 08-21-2024 End: 08-21-[address] Ignrid Mckinney MD Work Phone: [facility] Work Phone: Start: 08-21-2024 End: 08-21-2024 Patient encounter procedure Chayo GUZMÁN -[facility] Work Phone: Start: 08-21-2024 End: 08-21-2024 ambulatory Alison Guerra Facility:[facility] Start: 07-23-2024 End: 07-23-[address] Alison Guerra MD -[facility] Work Phone: Start: 07-23-2024 End: 07-23-2024 ambulatory Ingrid Hank Facility:[facility] Start: 06-26-2024 End: 06-26-2024 [facility] Start: 06-25-2024 End: 06-25-2024 ambulatory [facility] Facility:[facility] Start: 06-25-2024 End: 06-25-2024 Patient encounter procedure Chayo GUZMÁN -[facility] Work Phone: Start: 05-21-2024 End: 05-21-[address] Alison Guerra MD -Lab, [facility] Start: 05-21-2024 End: 05-21-[address] Alison Guerra MD -[facility] Work Phone: Start: 05-21-2024 End: 05-21-2024 ambulatory Ingrid Mckinney Facility:[facility] Start: 05-21-2024 End: 05-21-2024 ambulatory Ingrid Mckinney Facility:[facility] Start: 07-03-2023 End: 07-03-2023 ambulatory INGRID MCKINNEY [facility] Start: 07-03-2023 End: 07-03-2023 Patient encounter procedure Manish Roach NETWORK OPERATIONS MANAGER-TITLE I ASSISTANT Work Phone: [facility] Comment on above: Acute bacterial conj unctivitis of right eye (Primary Dx) Start: 07-21-2022 End: 07-21-[address] Ingrid Mckinney Work Phone: [facility] Work Phone: Start: 07-21-2022 End: 07-21-[address] Ingrid Mckinney Work Phone: [facility] Start: 07-11-2022 End: 07-11-[address] Ingrid Mckinney Work Phone: [facility] Work Phone: Start: 07-11-2022 End: 07-11-[address] Ingrid Mckinney Work Phone: [facility] Start: 11-03-2021 Periodic preventive med est patient 18-39 yrs Ingrid Mckinney Work Phone: [address] Work Phone: Start: 07-24-2019 Patient encounter procedure Ingrid Mckinney [facility] Work Phone: Start: 06-26-2019 Patient encounter procedure Ingrid Mckinney [facility] Work Phone: Start: 05-29-2019 Patient encounter procedure Ingrid Mckinney [facility] Work Phone: Start: 10-30-2017 Patient encounter Facil [id number] Encounter for gynecological examination (general) (routine) without abnormal findings Ingrid Mckinney Work Phone: [address] Work Phone: Comment on above: 12/08/2019; WNL, HPV NEG10/30/2018: ASC-US, HPV negative; Procedures Date Procedure Procedure Detail Performing Clinician Start: 10-24-2024 Beta-hemolytic Streptococcus culture Dr. Ingrid Mckinney MD Work Phone: Start: 10-03-2024 Ultrasound scan for growth Dr. Ingrid Mckinney MD Work Phone: Start: 09-05-2024 Ultrasound scan for growth Dr. Ingrid Mckinney MD Work Phone: Start: 08-21-2024 Serologic test for syphilis Dr. Ingrid Mckinney MD Work Phone: Start: 05-21-[address] Radha Mckinney MD Work Phone: Start: 07-21-[address] Ingrid Mckinney Work Phone: Start: 07-21-[address] Heydi Mckinney Work Phone: Start: 12-08-2019 Microscopic observat ion [Identifier] in Cervix by Cyto stain Manish OLEARY Work Phone: History of No histor y of surgery Ingrid Mckinney No history of surgery Luis Enrique Mckinney Work Phone: Plan of Treatment Date Care Activity Detail Author Start: 2034 Zoster Vaccines (1 of 2) Zoster Vaccines (1 of 2) [facility] Start: 01-12-2023 Influenza vaccination Influenza Vaccine (#1) [facility] Start: 12-07-2022 Screening for malignant neoplasm of cervix [facility] Start: 07-11-2022 17-Hydroxyprogesterone [Mass/volume] in Serum or Plasma [facility] Start: 07-11-2022 Beta 2 glycoprotein 1 Ab IgA and IgG and IgM panel - Serum [facility] Start: 07-11-2022 Cardiolipin IgA and IgG and IgM panel - Serum [facility] Start: 07-11-2022 Cardiolipin IgG and IgM panel - Serum [facility] Start: 07-11-2022 Dehydroepiandrosterone sulfate (DHEA-S) [Mass/volume] in Serum or Plasma [facility] Start: 07-11-2022 Hemoglobin A1c/Hemoglobin.total in Blood [facility] Start: 07-11-2022 Lupus anticoagulant assay [facility] Start: 07-11-2022 Procedure [facility] Start: 07-11-2022 Prolactin [Mass/volume] in Serum or Plasma [facility] Start: 07-11-2022 T4 free measurement [facility] Start: 07-11-2022 Testosterone Free [Mass/volume] in Serum or Plasma [facility] Start: 07-11-2022 Thyroid stimulating hormone measurement [facility] Start: 2006 DTaP/Tdap/Td Vaccines (1 - Tdap) DTaP/Tdap/Td Vaccines (1 - Tdap) [facility] Start: 2005 Screening for malignant neoplasm of cervix HPV/Cotest [facility] Start: 2002 Diabetes mellitus screening Diabetes Screening [facility] Start: 2002 Hepatitis C screening Hepatitis C Screening [facility] Start: 1985 MMR Vaccines (1 of 1 - Standard series) MMR Vaccines (1 of 1 - Standard series) [facility] Start: 1985 Varicella vaccination Varicella Vaccines (1 of 2 - 2-dose childhood series) [facility] Start: 1984 COVID-19 Vaccine (#1) COVID-19 Vaccine (#1) [facility] Start: 1984 Hepatitis B Vaccines (1 of 3 - 3-dose series) Hepatitis B Vaccines (1 of 3 - 3-dose series) [facility] Start: 1984 HIV screening HIV Screening [facility] Start: 1984 Lipid panel Lipid Panel [facility] Start: 1984 Yearly Adult Physical Yearly Adult Physical [facility] Beta 2 glycoprotein 1 IgA Ab [Presence] in Serum [facility] Beta 2 glycoprotein 1 IgG Ab [Presence] in Serum [facility] Beta 2 glycoprotein 1 IgM Ab [Presence] in Serum [facility] Cardiolipin IgA Ab [Units/volume] in Serum by Immunoassay [facility] Cardiolipin IgG Ab [Units/volume] in Serum or Plasma [facility] Cardiolipin IgM Ab [Units/volume] in Serum or Plasma [facility] Lupus anticoagulant neutralization platelet [Time] in Platelet poor plasma by Coagulation assay [facility] Partial thromboplast in time ratio [facility] Streptococcus agalac tiae [Presence] in Unspecified specimen by Organism specific culture [facility] Thrombin time [facility] US Pel[facility] [place] Pelvis transvaginal [facility] Immunizations Immunization Date Immunization Notes Care Provider Fa cility 09-12-2024 tetanus toxoid, redu sandie diphtheria toxoid, and acellular pertussis vaccine, adsorbed Dr. Ingrid Mckinney MD Work Phone: [facility] Payers Date Payer Category Payer Self-pay [id number] 2023 Unknown 2023 Unknown [id number] 1985 Unknown [id number] 2.16.84 [id number] 1985 Unknown [id number] 2.16. [id number] Unknown [id number] Unknown [id number] 2.16.8 [id number] Unknown [id number] 2.16.8 [id number] Unknown [id number] 2.16.8 [id number] Unknown [id number] 2.16.8 [id number] Unknown [id number] 2.16.8 [id number] Unknown [id number] 2.16.8 [id number] Unknown [id number] 2.16.8 [id number] Unknown [id number] 2.16.8 [id number] Unknown [id number] 2.16.8 [id number] Unknown [id number] 2.16.8 [id number] Unknown [id number] 2.16.8 [id number] Unknown [id number] 2.16.8 [id number] Unknown [id number] 2.16.8 [id number] Unknown [id number] 2.16.8 [id number] Unknown [id number] 2.16.8 [id number] Unknown [id number] 2.16.8 [id number] Unknown [id number] 2.16.8 [id number] Social History Date Type Detail Facility Never a smoker Never a smoker [address] Work Phone: Start: 07-11-2022 End: 07-11-2022 Tobacco smoking status [facility] Unknown if ever smoked [facility] Start: 1985 Sex Assigned At Female [facility] Start: 07-03-2023 End: 05-20-2024 Tobacco smoking status [facility] Never smoked tobacco [facility] Work Phone: Start: 07-03-2023 Tobacco use and exposure Smokeless tobacco non-user [facility] Work Phone: Start: 07-03-2023 Alcohol intake Current drinke r of alcohol (finding) [facility] Work Phone: Start: 1985 Sex Assigned At Not on file [facility] Work Phone: Gender identity Not on file [facility] Work Phone: Start: 06-23-2023 End: 07-03-2023 Exposure to SARS-CoV-2 (event) Not sure [facility] Start: 08-27-2024 Sex Female (finding) [facility] NEGATED: Highlighted row - - [facility] Work Phone: Functional Status Date Assessment Result Facility NEGATED: Highlighted row Functional performance Functional status health issues are not documented Disease [facility] Work Phone: Mental Status Date Assessment Result Facility NEGATED: Highlighted row Cognitive function [Interpretation] Cognitive status health issues are not documented Disease [facility] Work Phone: Clinical Notes 11-03-2021 to 10-24-2024 Note Date & Type Note Facility 10-24-2024 Progress note [facility] 10-04-2024 Radiology Diagnostic study note [facility] Imaging Services [address] [place], [place] [id number] OB Limited With Biometrics MR#: [id number] Acct: [id number] Name: REMEDIOS NEAL Rep #: [id number] : 1985 F 39 From: Ant Levy MD PCP: Dr. Ingrid Mckinney MD Status: REG CLI Study:OB Limited With Biometrics Date of Exam : 10/03/24 Exam# [id number] Ordering Dr: Christel Beltran DO PROCEDURE: OB LIMITED WITH BIOMETRICS 10/03/2024 REASON FOR EXAM: GROWTH EVERY MONTH TECHNIQUE: High resolution obstetric ultrasound performed using a 2D transducer. Standard views obtained, including biometry. FINDINGS Transabdominal imaging Single live intrauterine cardiac activity 158 beats per minute. Presentation is cephalic. Cervix not visualized. SHAMAR 12.6 cm, maximum vertical pocket 3.8 cm Posterior grade 1 placenta appears within limits, not low-lying. DIMENSIONS: Biparietal Diameter: 8.3 cm/33 weeks 2 days, 32% Head Circumference: 30.6 cm/34 weeks 0 day, 21% Abdominal Circumference: 29.7 cm/33 weeks 4 days, 50% Femur Length: 6.7 cm/34 weeks 2 days, 54% FL/AC 22%, FL/BPD 81%, FL/HC 22%, CI 76%, HC/AC 1.0 ESTIMATED WEIGHT: 2292 g +/-344 g ESTIMATED WEIGHT PERCENTILE (24+ weeks): 46.9% Estimated age by current ultrasound 34 weeks 0 days, [facility]ILARY 11/14/2024 Estimated age by prior ultrasound 34 weeks 1 day, [facility]ILARY 11/13/2024 age by LMP 33 weeks 5 days, [facility]IL[facility] 11/16/2024 US/OB Limited With Biometrics IMPRESSION: Single live intrauterine with biometry as above. Reading Location: [id number] CC: Dr. Ingrid Mckinney MD; Dr. Christel Chen DO ~ Manager French: Signed [facility] 07-23-2024 Evaluation note Diagnosis Onset Date Resolution Advanced maternal age (AMA), 40 years or greater acute July 23, 2024 9:48am History of recurrent miscarriages acute July 23, 2024 9:48am Obesity affecting acute July 23, 2024 9:48am acute July 23 9:48am Supervision of high-risk acute July 23, 2024 9:48am Advanced maternal age (AMA), 40 years or greater acute August 21, 2024 9:57am History of recurrent miscarriages acute August 21, 2024 9:57am Obesity affecting acute August 21, 2024 9:57am acute August 21 9:57am Supervision of high-risk acute August 21, 2024 9:57am Advanced maternal age (AMA), 40 years or greater acute September 12, 2024 10 :11am History of recurrent miscarriages acute September 12, 2024 10 :11am Obesity affecting acute September 12, 2024 10 :11am acute September 12, 2024 10:11am Supervision of high-risk acute September 12 10:11am Advanced maternal age (AMA), 40 years or greater acute September 24, 2024 8 :36am History of recurrent miscarriages acute September 24, 2024 8 :36am Obesity affecting acute September 24, 2024 8 :36am acute September 24, 2024 8:36am Supervision of high-risk acute September 24 8:36am Advanced maternal age (AMA), 40 years or greater acute October 08, 2024 8 :46am History of recurrent miscarriages acute October 08, 2024 8 :46am Obesity affecting acute October 08, 2024 8 :46am acute October 08, 2024 8:46am Supervision of high-risk acute October 08 8:46am Vasovagal episode acute September 8:46am Advanced maternal age (AMA), 40 years or greater acute October 17, 2024 1 :13pm History of recurrent miscarriages acute October 17, 2024 1 :13pm Obesity affecting acute October 17, 2024 1 :13pm acute October 17, 2024 1:13pm Supervision of high-risk acute October 17 1:13pm Vasovagal episode acute October 1:13pm Advanced maternal age (AMA), 40 years or greater acute October 24, 2024 10:25am History of recurrent miscarriages acute October 24, 2024 10:25am Obesity affecting acute October 24, 2024 10:25am acute October 24 10:25am Supervision of high-risk acute October 24, 025 10:25am Vasovagal episode acute October 242024 10:25am [facility] Work Phone: 1([phone]) 937-575503-12-2025 Evaluation note* Diagnosis Onset Date Resolution Status Admit Date Advanced maternal age (AMA), 40 years or greater acute July 23 9:48am History of recurrent miscarriages acute July 23, 2024 9:48am Obesity affecting acute July 23, 2024 9:48am acute July 23 9:48am Supervision of high-risk acute July 23, 2024 9:48am Advanced maternal age (AMA), 40 years or greater acute August 21 9:57am History of recurrent miscarriages acute August 21, 2024 9:57am Obesity affecting acute August 21, 2024 9:57am acute August 21 9:57am Supervision of high-risk acute August 21, 2024 9:57am Advanced maternal age (AMA), 40 years or greater acute September 12, 2024 1 0:11am History of recurrent miscarriages acute September 12, 2024 10 :11am Obesity affecting acute September 12, 2024 10:11am acute September 12, 2024 10:11am Supervision of high-risk acute September 12, 2024 10 :11am Advanced maternal age (AMA), 40 years or greater acute September 24, 2024 8:36am History of recurrent miscarriages acute September 24, 2024 8 :36am Obesity affecting acute September 24, 2024 8:36am acute September 24, 2024 8:36am Supervision of high-risk acute September 24, 2024 8 :36am Advanced maternal age (AMA), 40 years or greater acute October 08, 2024 8:46am History of recurrent miscarriages acute October 08, 2024 8 :46am Obesity affecting acute October 08, 2024 8:46am acute October 08, 2024 8:46am Supervision of high-risk acute October 08, 2024 8 :46am Vasovagal episode acute September 8:46am Advanced maternal age (AMA), 40 years or greater acute October 17, 2024 1:13pm History of recurrent miscarriages acute October 17, 2024 1 :13pm Obesity affecting acute October 17, 2024 1:13pm acute October 17, 2024 1:13pm Supervision of high-risk acute October 17, 2024 1 :13pm Vasovagal episode acute October 1:13pm Advanced maternal age (AMA), 40 years or greater acute October 24, 2024 10:25am History of recurrent miscarriages acute October 24, 2024 10:25am Obesity affecting acute October 24, 2024 10:25am acute October 24 10:25am Supervision of high-risk acute October 24, 2024 10:25am Vasovagal episode acute October 242024 10:25am Advanced maternal age (AMA), 40 years or greater acute October 31, 2024 10:18am History of recurrent miscarriages acute October 31, 2024 10:18am Obesity affecting acute October 31, 2024 10:18am acute October 31 10:18am Supervision of high-risk acute October 31, 2024 10:18am Vasovagal episode acute October 312024 10:18am [facility] Work Phone: 1([phone]) 386-556902-12-2025 Evaluation note* Diagnosis Onset Date Resolution Status Admit Date Advanced maternal age (AMA), 40 years or greater acute June 8:33am History of recurrent miscarriages acute June 25 8:33am Obesity affecting acute June 25, 2024 8:33am acute June 25, 2024 8:33am Supervision of high-risk acute June 25 8:33am Advanced maternal age (AMA), 40 years or greater acute July 23, 2024 9:48am History of recurrent miscarriages acute July 23, 2024 9:48am Obesity affecting acute July 23, 2024 9:48am acute July 23 9:48am Supervision of high-risk acute July 23, 2024 9:48am Advanced maternal age (AMA), 40 years or greater acute August 21, 2024 9:57am History of recurrent miscarriages acute August 21, 2024 9:57am Obesity affecting acute August 21, 2024 9:57am acute August 21 9:57am Supervision of high-risk acute August 21, 2024 9:57am Advanced maternal age (AMA), 40 years or greater acute September 12 10:11am History of recurrent miscarriages acute September 12, 2024 10 :11am Obesity affecting acute September 12, 2024 10:11am acute September 12, 2024 10:11am Supervision of high-risk acute September 12, 2024 10 :11am [facility] Work Phone: 1([phone]) 466-680002-12-2025 Evaluation note* Diagnosis Onset Date Resolution Status Admit Date Advanced maternal age (AMA), 40 years or greater acute June 8:33am History of recurrent miscarriages acute June 25 8:33am Obesity affecting acute June 25, 2024 8:33am acute June 25, 2024 8:33am Supervision of high-risk acute June 25 8:33am Advanced maternal age (AMA), 40 years or greater acute July 23, 2024 9:48am History of recurrent miscarriages acute July 23, 2024 9:48am Obesity affecting acute July 23, 2024 9:48am acute July 23 9:48am Supervision of high-risk acute July 23, 2024 9:48am Advanced maternal age (AMA), 40 years or greater acute August 21, 2024 9:57am History of recurrent miscarriages acute August 21, 2024 9:57am Obesity affecting acute August 21, 2024 9:57am acute August 21 9:57am Supervision of high-risk acute August 21, 2024 9:57am Advanced maternal age (AMA), 40 years or greater acute September 12 10:11am History of recurrent miscarriages acute September 12, 2024 10 :11am Obesity affecting acute September 12, 2024 10:11am acute September 12, 2024 10:11am Supervision of high-risk acute September 12, 2024 10 :11am Advanced maternal age (AMA), 40 years or greater acute September 24 8:36am History of recurrent miscarriages acute September 24, 2024 8 :36am Obesity affecting acute September 24, 2024 8:36am acute September 24, 2024 8:36am Supervision of high-risk acute September 24, 2024 8 :36am Advanced maternal age (AMA), 40 years or greater acute October 08 8:46am History of recurrent miscarriages acute October 08, 2024 8 :46am Obesity affecting acute October 08, 2024 8:46am acute October 08, 2024 8:46am Supervision of high-risk acute October 08, 2024 8 :46am Vasovagal episode acute September 8:46am [facility] Work Phone: 1([phone]) 310-878302-12-2025 Evaluation note* Diagnosis Onset Date Resolution Status Admit Date Advanced maternal age (AMA), 40 years or greater acute June 8:33am History of recurrent miscarriages acute June 25 8:33am Obesity affecting acute June 25, 2024 8:33am acute June 25, 2024 8:33am Supervision of high-risk acute June 25 8:33am Advanced maternal age (AMA), 40 years or greater acute July 23, 2024 9:48am History of recurrent miscarriages acute July 23, 2024 9:48am Obesity affecting acute July 23, 2024 9:48am acute July 23 9:48am Supervision of high-risk acute July 23, 2024 9:48am Advanced maternal age (AMA), 40 years or greater acute August 21, 2024 9:57am History of recurrent miscarriages acute August 21, 2024 9:57am Obesity affecting acute August 21, 2024 9:57am acute August 21 9:57am Supervision of high-risk acute August 21, 2024 9:57am Advanced maternal age (AMA), 40 years or greater acute September 12 10:11am History of recurrent miscarriages acute September 12, 2024 10 :11am Obesity affecting acute September 12, 2024 10:11am acute September 12, 2024 10:11am Supervision of high-risk acute September 12, 2024 10 :11am Advanced maternal age (AMA), 40 years or greater acute September 24 8:36am History of recurrent miscarriages acute September 24, 2024 8 :36am Obesity affecting acute September 24, 2024 8:36am acute September 24, 2024 8:36am Supervision of high-risk acute September 24, 2024 8 :36am Advanced maternal age (AMA), 40 years or greater acute October 08 8:46am History of recurrent miscarriages acute October 08, 2024 8 :46am Obesity affecting acute October 08, 2024 8:46am acute October 08, 2024 8:46am Supervision of high-risk acute October 08, 2024 8 :46am Vasovagal episode acute September 8:46am Advanced maternal age (AMA), 40 years or greater acute October 17 1:13pm History of recurrent miscarriages acute October 17, 2024 1 :13pm Obesity affecting acute October 17, 2024 1:13pm acute October 17, 2024 1:13pm Supervision of high-risk acute October 17, 2024 1 :13pm Vasovagal episode acute October 1:13pm [facility] [employer] Work Phone: 1([phone] 266-118501-08-2025 NotePap Smear Specimen AdequacyJanuary 2024 12:59amComment.Satisfactory for evaluation. Endocervical and/or squamous metaplasticcells (endocervical component)are present.[facility] INTER[facility]ACED A#[id number] Health Atrium Medical CenterComment on above:Satisfactory for evaluation. Endocervical and/or squamous metaplasticcells (endocervical component)are present.05-21-2024 Evaluation note* Diagnosis Onset Date Resolution Status Admit Date Advanced maternal age (AMA), 40 years or greater acute May 21, 2024 10:24am History of recurrent miscarriages acute May 21 10:24am Obesity affecting acute May 21, 2024 10:24am acute May 21, 10:24am Supervision of high-risk acute May 21 10:24am Advanced maternal age (AMA), 40 years or greater acute June 8:33am History of recurrent miscarriages acute June 25 8:33am Obesity affecting acute June 25, 2024 8:33am acute June 25, 2024 8:33am Supervision of high-risk acute June 25 025 8:33am Advanced maternal age (AMA), 40 years or greater acute July 23, 2024 9:48am History of recurrent miscarriages acute July 23, 2024 9:48am Obesity affecting acute July 23, 2024 9:48am acute July 23 9:48am Supervision of high-risk acute July 23, 2024 9:48am Advanced maternal age (AMA), 40 years or greater acute August 21, 2024 9:57am History of recurrent miscarriages acute August 21, 2024 9:57am Obesity affecting acute August 21, 2024 9:57am acute August 21 9:57am Supervision of high-risk acute August 21, 2024 9:57am [facility] Work Phone: 1([phone]) 578-509702-20-2024 History of Present illness Narrative* Manish Roach, NETWORK OPERATIONS MANAGER-TITLE I ASSISTANT - 07/03/2023 12:40 PM EST 38 y.o. female presents for evaluation of right eye redness, drainage and irritation that began today. No known exposures. Denies fever, nasal congestion, cough, ear pains, or any other associated symptoms. No otc meds for symptoms. No other complaints. Vitals: 07/03/23 1248 BP: 122/79 Pulse: 70 Resp: 16 Temp: 36.7 C (98.1 F) SpO2: 100% No Known Allergies Medication Documentation Review Audit Reviewed by Mindy Enriquez MA (College Tutor) on 07/03/23 at 1248 Medication Order Taking? Sig Documenting Provider Last Dose Status No Medications to Display Past Medical History: Diagnosis Date Encounter for gynecological examination (general) (routine) without abnormal findings Pap test, as part of routine gynecological examination Other conditions influencing health status Menstruation Past Surgical History: Procedure Laterality Date OTHER SURGICAL HISTORY 05/24/2019 No history of surgery ROS See HPI Physical Exam Vitals and nursing note reviewed. Constitutional: Appearance: Normal appearance. HENT: Head: Normocephalic and atraumatic. Right Ear: Tympanic membrane, ear canal and external ear normal. Left Ear: Tympanic membrane, ear canal and external ear normal. Nose: Nose normal. Eyes: General: Right eye: Discharge (erythematous conjunctiva) present. Pupils: Pupils are equal, round, and reactive to light. Cardiovascular: Rate and Rhythm: Normal rate and regular rhythm. Lymphadenopathy: Cervical: No cervical adenopathy. Skin: General: Skin is warm and dry. Neurological: General: No focal deficit present. Mental Status: She is alert and oriented to person, place, and time. Psychiatric: Mood and Affect: Mood normal. Behavior: Behavior normal. Assessment/Plan/MDM Araceli was seen today for conjunctivitis. Diagnoses and all orders for this visit: Acute bacterial conjunctivitis of right eye (Primary) - ofloxacin (Ocuflox) 0.3 % ophthalmic solution; Administer 1 drop into the right eye 3 times a dayfor 7 days. Patient's clinical presentation is otherwise unremarkable at this time. Patient is discharged with instructions to follow-up with primary care or seek emergency medical attention for worsening symptoms or any new concerns. Manish Roach CNP [facility] [phone] documented [facility] [place] Work Phone: 1(491) 242-970906-23-2022 History of Present illness NarrativePt. presents for annual exam. Had negative pap and co-testing in 2019, next pap due 2024. Pt. has been trying to conceive x 2 + years. States that she has+ LH predictor tests and has monthly menses. Pt. c/o mid-cycle spotting x 3-4 mos. Pt. denies any other c/o or concerns.[place] [address] [employer] Work Phone: Evaluation note* Diagnosis Onset Date Resolution Status History of recurrent miscarriages acute Infertility, female acute Irregular menstrual bleeding acute [facility] Work Phone: Evaluation note* Diagnosis Acute bacterial conjunctivitis of right eye- Primary documented in this encounter [facility] Work Phone: Progress note Author Christel Gant [facility] Note Date/Time October 24, 2024 11:4 5am [facility] [address] [place] [address], [address] [place] [address] OFFICE VISIT Date of Service: 10/24/24 MR#: [id number] Acct: [id number] Name: REMEDIOS NEAL Rep #: [id number] : 1985 Provider: Dr. Annalisa Chen DO Age/Sex: 39/F [place] [facility] [place]: Signed Intake Vital Signs 05/21/24 10:26 10/17/24 13:19 10/24/24 10:28 10/24/24 10:30 Height 5 ft 6.5 in 5 ft 6.5 in 5 ft 6.5 in 5 ft 6.5 in Weight: 245 lb 4 oz BMI 38.9 BP 110/76 Intake Visit Reasons: 36 wk ob/nst Theoretical Physicist Required: No Is patient in pain?: No Allergies Food Allergies: Uncoded Allergy (Severe, Verified 10/24/24 10:27) Anaphylaxis Medications ?Medication ?Instructions ?Recorded ?Confirmed ?Type PNV 153-FA 400 mcg-om3 35 mg-dha tab PO 05/20/2410/24 History 25 mg-epa 5 mg-fish oil chew tablet Last Menstrual Period: 02/10/24 Zika: Zika virus screening: Negative : No PFSH PFSH Medical History Adopted person Seasonal allergies Enlarged thyroid Hypothyroidism Depression Abnormal thyroid blood test Abnormal Pap smear of cervix Surgical History H/O oral surgery Status post colposcopy Social History adopted: Yes household members: spouse and other details: neice part of the time current occupational status: employed 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[employer]) pets and animals: Yes (Avoid litterbox) pets and animals: cat(s) and dog(s) history of recent travel: Yes ([place]) out of state: Yes out of country: No sexually active: Yes Smoking Status: Never smoker alcohol intake: current details: occasionally- not while substance use type: does not use well-balanced diet: daily or most days caffeine: No eating out: 4 or more times/week during the past year weight has: increased > 10 lbs what type of physical activity do you participate in: 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 Date Name GA/Weeks Outcome Route Bth Weight Gen Labor Lgth Anesthesia Del Locatn Provider FOB Unknown Delivery Date: Last Updated by: Alison Guerra MD all losses were 9 weeks of less, had 1 d and c all others spontaneous HPI 36 wk ob/nst Details: REMEDIOS CROWE is a 39 year old who presents for routine OB visit. OB Visit HILARY Calculator Estimated Delivery Date Method Current WG Current Estimate 11/16/24 LMP (Certain) 36w 5d Other Estimates 11/12/24 Ultrasound #1 37w 2d Expected Delivery Route/Plan Labor Preferences- CB/BF classes: encouraged labor support person: Juan David labor intervention preferences: [] pain management options preferred: epidural cut cord/dad catch: yes : yes PP control planned: discussed discussed possible routes of delivery and associated risks: [] special requests: [] Specific Issue/Plans Covid status: [] Flu vaccine: [] Tdap vaccine: given Rhogam: na LARC form signed: yes Problem list reviewed and updated with the most current plan of care details and appropriate orders placed. Relevant counseling for the gestational age provided. Continue routine care and follow up unless otherwise noted in visit notes/problem list details Initial Weight: Not Recorded Date -?-?-?-?-?-?-?-?-?-?-?-?- EGA Weight BP Urine Prot -?-?-?-?-?-?-?-?-?-?-?-?- Glucose FHR FuHt Pres Dilation -?-?-?-?-?-?-?-?-?-?-?-?- Effaced St Visit Note 05/21/24 -?-?-?-?-?-?-?-?-?-?-?-?- 14w 3d 252 lb 123/87 -?-?-?-?-?-?-?-?-?-?-?-?- 150 -?-?-?-?-?-?-?-?-?-?-?-?- SM- CRL cons wit h LMP 06/25/24 -?-?-?-?-?-?-?-?-?-?-?-?- 19w 3d 253 lb 8 oz 124/72 Nega tive -?-?-?-?-?-?-?-?-?-?-?-?- Negative 151 -?-?-?-?-?-?-?-?-?-?-?-?- No VB. No moveme nt yet. Feels well. [facility] anatomy tomorrow 07/23/24 -?-?-?-?-?-?-?-?--?-?-?-?- 23w 3d 252 lb 8 oz 119/73 Nega tive -?-?-?-?-?-?-?-?-?-?-?-?- Negative 145 -?-?-?-?-?-?-?-?-?-?-?-?- SM- no vb lof gc t next time 08/21/24 -?-?-?-?-?-?-?-?-?-?-?-?- 27w 4d 249 lb 8 oz 117/76 Nega tive -?-?-?-?-?-?-?-?-?-?-?-?- Negative 142 27 -?-?-?-?-?-?-?-?-?-?-?-?- -No VB, LOF. [place] FM. [facility]. 28wk labs pending 09/12/24 -?-?-?-?-?-?-?-?-?-?-?-?- 30w 5d 247 lb 2 oz 113/75 Nega tive -?-?-?-?-?-?-?-?-?-?-?-?- Negative 135 32 -?-?-?-?-?-?-?-?-?-?-?-?- JV- no lof, vagi nal bleeding, or dec fm. has some nasal drainage. 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 doing well overall. normal growth scan. nsts start 34 weeks. 09/24/24 -?-?-?-?-?-?-?-?-?-?-?-?- 32w 3d 246 lb 4 oz 110/72 Nega tive -?-?-?-?-?-?-?-?-?-?-?-?- Negative 146 33 -?-?-?-?-?-?-?-?-?-?-?-?- MH-No VB, LOF. G ood FM. Denies concerns. 10/08/24 -?-?-?-?-?-?-?-?-?-?-?-?- 34w 3d 244 lb 8 oz 104/72 Nega tive -?-?-?-?-?-?-?-?-?-?-?-?- Negative 140 35 -?-?-?-?-?-?-?-?-?-?-?-?- MH-No VB, LOF. G ood FM. Reactive NST. [place] nauseous/dizzy laying flat. Resolved with position change/water. 10/17/24 -?-?-?-?-?-?-?-?-?-?-?-?- 35w 5d 245 lb 120/79 Negative -?-?-?-?-?-?-?-?-?-?-?-?- Negative 135 36 -?-?-?-?-?-?-?-?-?-?-?-?- LC- reactive nst . no vb/ctx/lof. good fm. questions answered on labor/. 10/24/24 -?-?-?-?-?-?-?-?-?-?-?-?- 36w 5d 245 lb 4 oz 110/76 Nega tive -?-?-?-?-?-?-?-?-?-?-?-?- Negative 140 3 Cephalic 0 -?-?-?-?-?-?-?-?-?-?-?-?- JV- NST reactive . GBS today. no complaints. JV- NST reactive. GBS today. no complaints. normal growth 2 weeks ago. ACOG First Trimester First Trimester: Desire for , Alcohol, Tobacco Cessation, Illicit/Recreational Drug/Substance Use, Intimate Partner Violence, Barriers to care, Unstable Housing, Communication Barriers, Environmental/Work Hazards, Anticipated Course of Care, Toxoplasmosis Precations, Use of Any medications, Sexual activity, Exercise, Dental Care, Sauna/Hot tub use, Seat Belt use, Childbirth classes/Hospital facilities, Travel, Indications for Ultrasound and Screening for Aneuploidy; Discussed Second Trimester Second Trimester: Signs and Symptoms of Labor, Selecting a care provider, Reproductive Life Planning & Contreception and Intimate Partner Violence; Discussed Tobacco Cessation and Discussed Depression/Anxiety Third Trimester Third Trimester: Pain Management Plans, Labor support person(s), Immediate Larc, Signs and Symptoms of Preeclampsia, Feeding No and Family Medical Leave or Disability Forms; Discussed Circumcision preference Office Procedures Non-stress Test Non-Stress Test Indications for Monitoring: Yes Advanced maternal age Heart Rate Baseline: 140 Heart Rate Variability: moderate Movement: Present Heart Rate Accelerations: Present Decelerations: Absent Contractions: Absent Impression: Yes Reactive Non-Stress Test Results POC Urinalysis 2 Dip (Clinic) Office Urine Glucose Negative Last Edit by Nia Mueller on 10/24/24 10: 42 Office Urine Protein Negative Last Edit by Nia Mueller on 10/24/24 10: 42 Coding Level of Care Code OB Routine Diagnoses Vasovagal episode R55 Obesity affecting in second trimester, unspecified obesity type O99.212 Obesity type affecting : unspecified obesity Trimester: second trimester Advanced maternal age (AMA), 40 years or greater Supervision of high risk in third trimester O09.93 Trimester: third trimester 36 weeks gestation of Z3A.36 Weeks of gestation: 36 weeks History of recurrent miscarriages N96 CPT Codes Non-Stress Test (30956) Assessment and Plan Assessment and Plan (1) Vasovagal episode: Status: Acute Comment: DO NOT lay flat for NSTs (2) Obesity affecting : Status: Acute Qualifiers: Obesity type affecting : unspecified obesity Trimester: second trimester Qualified Code(s): O99.212 - Obesity complicating , second trimester Comment: HgbA1c bmi 40 weekly nsts 34 on (3) Advanced maternal age (AMA), 40 years or greater: Status: Acute Comment: NIPT low risk Girl. discussed IOL 39-40 weeks. (4) Supervision of high-risk : Status: Acute Qualifiers: Trimester: third trimester Qualified Code(s): O09.93 - Supervision of high risk , unspecified, third trimester Comment: [id number], HILARY 11/16/24, girl Juan David (5) : Status: Acute Qualifiers: Weeks of gestation: 36 weeks Qualified Code(s): Z3A.36 - 36 weeks gestation of Comment: low risk NIPT & declined Carrier testing (6) History of recurrent miscarriages: Status: Acute Comment: APL panel neg in past Orders: Orders POC Urinalysis 2 Dip (Clinic) Today OB NST Today O99.212 - Obesity complicating , second trimester Culture, Group B Streptococcus Today O09.93 - Supervision of high risk , unspecified, third trimester 10/24/24 1145 <Electronically signed by Christel Larry DO> Date _ Christel Chen DO Cosigner Signature: Date (if applicable) CC: ~ [facility] Work Phone: Reason for referral (narrative)No reason for referral information availableWThe [facility] System Work Phone: Summary Purpose Family History Mother Name Dates Details No pertinent family history( V49.89, Z78.9) Status:Active Unknown Family Member Name Dates Details No pertinent family history: Mother(V49.89, Z78.9) Status:Active Advance Directives No Advanced Directives Records FoundNo Advanced Directives Records FoundNo Advanced Directives Records FoundNo Advanced Directives Records FoundNo Advanced Directives Records FoundNo Advanced Directives Records FoundNo Advanced Directives Records FoundNo Advanced Directives Records Found Chief Complaint Patient is here today for yearly visit. Her last pap was 12/08/2019 Cotest negative. She has concerns of spotting between periods for the past 3 to 4 months. She states it is bright red blood. They are also trying to conceive for that last 2 years and no luck. LMP:10/24/2021 Chief Complaint and Reason for Visit Chief Complaint Fertility consult Reason for Visit History of recurrent miscarriages Infertility, female Irregular menstrual bleeding Chief Complaint Fertility consult INFERTILITY Reason for Visit History of recurrent miscarriages Infertility, female Irregular menstrual bleeding Chief Complaint Admit Date New OB, LMP 02/09, ED 11/16/24 May 21, 2024 10:24am 19wk OB June 25, 2024 8:33am 23wk OB July 23, 2024 9:4 8am ONE HOUR DRAW AT 9:48AM August 21, 2024 9:42am 27 wk ob/glucose August 21, 2024 9:5 7am Reason for Visit Admit Date Advanced maternal age (AMA), 40 years or greater May 21, 2024 10:24am History of recurrent miscarriages Januar y 2024 10:24am Obesity affecting May 21, 2024 10:24am May 21, 2024 10 :24am Supervision of high-risk Mayua ry 2024 10:24am Advanced maternal age (AMA), 40 years or greater June 25, 2024 8:33am History of recurrent miscarriages 2024 8:33am Obesity affecting June 8:33am June 25, 2024 8:33am Supervision of high-risk u lovely2024 8:33am Advanced maternal age (AMA), 40 years or greater July 23, 2024 9:48am History of recurrent miscarriages July 23, 2024 9:48am Obesity affecting July 23, 2024 9:48am July 23, 2024 9:4 8am Supervision of high-risk July 23, 2024 9:48am Advanced maternal age (AMA), 40 years or greater August 21, 2024 9:57am History of recurrent miscarriages August 21, 2024 9:57am Obesity affecting August 21, 2024 9:57am August 21, 2024 9:5 7am Supervision of high-risk August 21, 2024 9:57am Chief Complaint Admit Date 19wk OB June 25, 2024 8:33am 23wk OB July 23, 2024 9:4 8am ONE HOUR DRAW AT 9:48AM August 21, 2024 9:42am 27 wk ob/glucose August 21, 2024 9:5 7am GROWTH September 05, 2024 12: 12pm 30 wk ob September 12, 2024 10:11a m 32 wk ob September 24, 2024 8:36a m Reason for Visit Admit Date Advanced maternal age (AMA), 40 years or greater June 25, 2024 8:33am History of recurrent miscarriages 2024 8:33am Obesity affecting June 8:33am June 25, 2024 8:33am Supervision of high-risk 2024 8:33am Advanced maternal age (AMA), 40 years or greater July 23, 2024 9:48am History of recurrent miscarriages July 23, 2024 9:48am Obesity affecting July 23, 2024 9:48am July 23, 2024 9:4 8am Supervision of high-risk July 23, 2024 9:48am Advanced maternal age (AMA), 40 years or greater August 21, 2024 9:57am History of recurrent miscarriages August 21, 2024 9:57am Obesity affecting August 21, 2024 9:57am August 21, 2024 9:5 7am Supervision of high-risk August 21, 2024 9:57am Advanced maternal age (AMA), 40 years or greater September 12, 2024 10:11am History of recurrent miscarriages September 10:11am Obesity affecting September 12 10:11am September 12, 2024 10:11a m Supervision of high-risk September 122024 10:11am Chief Complaint Admit Date 19wk OB June 25, 2024 8:33am 23wk OB July 23, 2024 9:4 8am ONE HOUR DRAW AT 9:48AM August 21, 2024 9:42am 27 wk ob/glucose August 21, 2024 9:5 7am GROWTH September 05, 2024 12: 12pm 30 wk ob September 12, 2024 10:11a m 32 wk ob September 24, 2024 8:36a m GROWTH October 03, 2024 12:01 pm 34 wk ob/nst October 08, 2024 8:46a m Reason for Visit Admit Date Advanced maternal age (AMA), 40 years or greater June 25, 2024 8:33am History of recurrent miscarriages 2024 8:33am Obesity affecting June 8:33am June 25, 2024 8:33am Supervision of high-risk 2024 8:33am Advanced maternal age (AMA), 40 years or greater July 23, 2024 9:48am History of recurrent miscarriages July 23, 2024 9:48am Obesity affecting July 23, 2024 9:48am July 23, 2024 9:4 8am Supervision of high-risk July 23, 2024 9:48am Advanced maternal age (AMA), 40 years or greater August 21, 2024 9:57am History of recurrent miscarriages August 21, 2024 9:57am Obesity affecting August 21, 2024 9:57am August 21, 2024 9:5 7am Supervision of high-risk August 21, 2024 9:57am Advanced maternal age (AMA), 40 years or greater September 12, 2024 10:11am History of recurrent miscarriages September 10:11am Obesity affecting September 12 10:11am September 12, 2024 10:11a m Supervision of high-risk September 122024 10:11am Advanced maternal age (AMA), 40 years or greater September 24, 2024 8:36am History of recurrent miscarriages September 242024 8:36am Obesity affecting September 24 8:36am September 24, 2024 8:36a m Supervision of high-risk September 112024 8:36am Advanced maternal age (AMA), 40 years or greater October 08, 2024 8:46am History of recurrent miscarriages October 082024 8:46am Obesity affecting October 08 8:46am October 08, 2024 8:46a m Supervision of high-risk September 122024 8:46am Vasovagal episode October 08, 2024 8:46a m Chief Complaint Admit Date 19wk OB June 25, 2024 8:33am 23wk OB July 23, 2024 9:4 8am ONE HOUR DRAW AT 9:48AM August 21, 2024 9:42am 27 wk ob/glucose August 21, 2024 9:5 7am GROWTH September 05, 2024 12: 12pm 30 wk ob September 12, 2024 10:11a m 32 wk ob September 24, 2024 8:36a m GROWTH October 03, 2024 12:01 pm 34 wk ob/nst October 08, 2024 8:46a m 35 wk ob/nst October 17, 2024 1:13p m Reason for Visit Admit Date Advanced maternal age (AMA), 40 years or greater June 25, 2024 8:33am History of recurrent miscarriages Februa 2024 8:33am Obesity affecting June 8:33am June 25, 2024 8:33am Supervision of high-risk Febru lovely2024 8:33am Advanced maternal age (AMA), 40 years or greater July 23, 2024 9:48am History of recurrent miscarriages July 23, 2024 9:48am Obesity affecting July 23, 2024 9:48am July 23, 2024 9:4 8am Supervision of high-risk July 23, 2024 9:48am Advanced maternal age (AMA), 40 years or greater August 21, 2024 9:57am History of recurrent miscarriages August 21, 2024 9:57am Obesity affecting August 21, 2024 9:57am August 21, 2024 9:5 7am Supervision of high-risk August 21, 2024 9:57am Advanced maternal age (AMA), 40 years or greater September 12, 2024 10:11am History of recurrent miscarriages September 10:11am Obesity affecting September 12 10:11am September 12, 2024 10:11a m Supervision of high-risk September 122024 10:11am Advanced maternal age (AMA), 40 years or greater September 24, 2024 8:36am History of recurrent miscarriages September 242024 8:36am Obesity affecting September 24 8:36am September 24, 2024 8:36a m Supervision of high-risk September 112024 8:36am Advanced maternal age (AMA), 40 years or greater October 08, 2024 8:46am History of recurrent miscarriages October 082024 8:46am Obesity affecting October 08 8:46am October 08, 2024 8:46a m Supervision of high-risk September 122024 8:46am Vasovagal episode October 08, 2024 8:46a m Advanced maternal age (AMA), 40 years or greater October 17, 2024 1:13pm History of recurrent miscarriages October 172024 1:13pm Obesity affecting October 17 1:13pm October 17, 2024 1:13p m Supervision of high-risk October 17, 2024 1:13pm Vasovagal episode October 17, 2024 1:13p m Chief Complaint Admit Date 23wk OB July 23, 2024 9:4 8am ONE HOUR DRAW AT 9:48AM August 21, 2024 9:42am 27 wk ob/glucose August 21, 2024 9:5 7am GROWTH September 05, 2024 12: 12pm 30 wk ob September 12, 2024 10:11a m 32 wk ob September 24, 2024 8:36a m GROWTH October 03, 2024 12:01 pm 34 wk ob/nst October 08, 2024 8:46a m 35 wk ob/nst October 17, 2024 1:13p m 36 wk ob/nst October 24, 2024 10:2 5am Reason for Visit Admit Date Advanced maternal age (AMA), 40 years or greater July 23, 2024 9:48am History of recurrent miscarriages July 23, 2024 9:48am Obesity affecting July 23, 2024 9:48am July 23, 2024 9:4 8am Supervision of high-risk July 23, 2024 9:48am Advanced maternal age (AMA), 40 years or greater August 21, 2024 9:57am History of recurrent miscarriages August 21, 2024 9:57am Obesity affecting August 21, 2024 9:57am August 21, 2024 9:5 7am Supervision of high-risk August 21, 2024 9:57am Advanced maternal age (AMA), 40 years or greater September 12, 2024 10:11am History of recurrent miscarriages September 10:11am Obesity affecting September 12 10:11am September 12, 2024 10:11a m Supervision of high-risk September 122024 10:11am Advanced maternal age (AMA), 40 years or greater September 24, 2024 8:36am History of recurrent miscarriages September 242024 8:36am Obesity affecting September 24 8:36am September 24, 2024 8:36a m Supervision of high-risk September 112024 8:36am Advanced maternal age (AMA), 40 years or greater October 08, 2024 8:46am History of recurrent miscarriages October 082024 8:46am Obesity affecting October 08 8:46am October 08, 2024 8:46a m Supervision of high-risk September 122024 8:46am Vasovagal episode October 08, 2024 8:46a m Advanced maternal age (AMA), 40 years or greater October 17, 2024 1:13pm History of recurrent miscarriages October 172024 1:13pm Obesity affecting October 17 1:13pm October 17, 2024 1:13p m Supervision of high-risk October 17, 2024 1:13pm Vasovagal episode October 17, 2024 1:13p m Advanced maternal age (AMA), 40 years or greater October 24, 2024 10:25am History of recurrent miscarriages October 122024 10:25am Obesity affecting October 24 025 10:25am October 24, 2024 10:2 5am Supervision of high-risk October 24, 2024 10:25am Vasovagal episode October 24, 2024 10:2 5am Chief Complaint Admit Date 23wk OB July 23, 2024 9:4 8am ONE HOUR DRAW AT 9:48AM August 21, 2024 9:42am 27 wk ob/glucose August 21, 2024 9:5 7am GROWTH September 05, 2024 12: 12pm 30 wk ob September 12, 2024 10:11a m 32 wk ob September 24, 2024 8:36a m GROWTH October 03, 2024 12:01 pm 34 wk ob/nst October 08, 2024 8:46a m 35 wk ob/nst October 17, 2024 1:13p m 36 wk ob/nst October 24, 2024 10:2 5am 37 wk ob/nst October 31, 2024 10:1 8am Reason for Visit Admit Date Advanced maternal age (AMA), 40 years or greater July 23, 2024 9:48am History of recurrent miscarriages July 23, 2024 9:48am Obesity affecting July 23, 2024 9:48am July 23, 2024 9:4 8am Supervision of high-risk July 23, 2024 9:48am Advanced maternal age (AMA), 40 years or greater August 21, 2024 9:57am History of recurrent miscarriages August 21, 2024 9:57am Obesity affecting August 21, 2024 9:57am August 21, 2024 9:5 7am Supervision of high-risk August 21, 2024 9:57am Advanced maternal age (AMA), 40 years or greater September 12, 2024 10:11am History of recurrent miscarriages September 10:11am Obesity affecting September 12 10:11am September 12, 2024 10:11a m Supervision of high-risk September 122024 10:11am Advanced maternal age (AMA), 40 years or greater September 24, 2024 8:36am History of recurrent miscarriages September 242024 8:36am Obesity affecting September 24 8:36am September 24, 2024 8:36a m Supervision of high-risk September 112024 8:36am Advanced maternal age (AMA), 40 years or greater October 08, 2024 8:46am History of recurrent miscarriages October 082024 8:46am Obesity affecting October 08 8:46am October 08, 2024 8:46a m Supervision of high-risk September 122024 8:46am Vasovagal episode October 08, 2024 8:46a m Advanced maternal age (AMA), 40 years or greater October 17, 2024 1:13pm History of recurrent miscarriages October 172024 1:13pm Obesity affecting October 17 1:13pm October 17, 2024 1:13p m Supervision of high-risk October 17, 2024 1:13pm Vasovagal episode October 17, 2024 1:13p m Advanced maternal age (AMA), 40 years or greater October 24, 2024 10:25am History of recurrent miscarriages October 122024 10:25am Obesity affecting October 24, 2 025 10:25am October 24, 2024 10:2 5am Supervision of high-risk October 24, 2024 10:25am Vasovagal episode October 24, 2024 10:2 5am Advanced maternal age (AMA), 40 years or greater October 31, 2024 10:18am History of recurrent miscarriages October 132024 10:18am Obesity affecting October 31 10:18am October 31, 2024 10:1 8am Supervision of high-risk October 31, 2024 10:18am Vasovagal episode October 31, 2024 10:1 8am Additional Source Comments INFORMATION SOURCE (unrecogn ized section and content) DATE CREATED AUTHOR 11/06/2017 [facility] DATE CREATED AUTHOR AUTHOR'S ORGANIZ ATION 01/04/2018 [facility] DATE CREATED AUTHOR AUTHOR'S ORGANIZ ATION 10/04/2018 [facility] DATE CREATED AUTHOR AUTHOR'S ORGANIZ ATION 12/25/2019 [facility] DATE CREATED AUTHOR AUTHOR'S ORGANIZ ATION 11/04/2021 [facility] DATE CREATED AUTHOR AUTHOR'S ORGANIZ ATION 07/10/2023 [facility] DATE CREATED AUTHOR AUTHOR'S ORGANIZ ATION 06/28/2024 [facility] DATE CREATED AUTHOR AUTHOR'S ORGANIZ ATION 10/30/2024 [facility] Care Teams (unrecognized sec tion and content) Team Status: Active Member Role Status Dates Dr. Ingrid Mckinney MD Primary Care Provider Active Team Status: Inactive Member Role Status Dates Dr. Ingrid Mckinney MD Primary Care Provider, Referrin g Provider Active Dr. Alison Guerra MD Attending Provider Active Team Status: Inactive Member Role Status Dates Dr. Ingrid Mckinney MD Primary Care Provider Active Dr. Alison Guerra MD Attending Provider, Referr ing Provider Active Team Status: Inactive Member Role Status Dates Dr. Ingrid Mckinney MD Primary Care Provider Active Dr. Alison Guerra MD Attending Provider Active Hands Assembler Relationship Specialty Start Date End Date Ingrid Mckinney MD [address] [facility] [address] [place] [address] PCP - General 05/14/19 Team Status: Inactive Member Role Status Dates Dr. Ingrid Mckinney MD Primary Care Provider Active Start: May 21, 2024 End: May 21, 2024 Dr. Ingrid Mckinney MD Referring Provider Active Start: May 21, 2024 End: May 21, 2024 Dr. Alison Guerra MD Attending Provider Active Start: May 21, 2024 End: May 21, 2024 Team Status: Inactive Member Role Status Dates Dr. Ingrid Mckinney MD Primary Care Provider Active Start: May 21, 2024 End: May 21, 2024 Dr. Alison Guerra MD Attending Provider Active Start: May 21, 2024 End: May 21, 2024 Dr. Alison Guerra MD Referring Provider Active Start: May 21, 2024 End: May 21, 2024 Team Status: Inactive Member Role Status Dates Dr. Ingrid Mckinney MD Primary Care Provider Active Start: June 25, 2024 End: June 25, 2024 Dr. Ingrid Mckinney MD Referring Provider Active Start: June 25, 2024 End: June 25, 2024 Chayo Quiñonez [employer], [employer]-C Attending Provider Active Start: June 25, 2024 End: June 25, 2024 Team Status: Inactive Member Role Status Dates Dr. Ingrid Mckinney MD Primary Care Provider Active Start: July 23, 2024 End: July 23, 2024 Dr. Ingrid Mckinney MD Referring Provider Active Start: July 23, 2024 End: July 23, 2024 Dr. Alison Guerra MD Attending Provider Active Start: July 23, 2024 End: July 23, 2024 Team Status: Inactive Member Role Status Dates Dr. Ingrid Mckinney MD Primary Care Provider Active Start: August 21, 2024 End: August 21, 2024 Dr. Alison Guerra MD Attending Provider Active Start: August 21, 2024 End: August 21, 2024 Dr. Alison Guerra MD Referring Provider Active Start: August 21, 2024 End: August 21, 2024 Team Status: Inactive Member Role Status Dates Dr. Ingrid Mckinney MD Primary Care Provider Active Start: August 21, 2024 End: August 21, 2024 Dr. Ingrid Mckinney MD Referring Provider Active Start: August 21, 2024 End: August 21, 2024 Chayo Quiñonez [employer] HEL[employer], [employer]-C Attending Provider Active Start: August 21, 2024 End: August 21, 2024 Team Status: Inactive Member Role Status Dates Dr. Ingrid Mckinney MD Primary Care Provider Active Start: September 05, 2024 End: September 05, 2024 Dr. Christel Chen , DO Attending Provider Activ e Start: September 05, 2024 End: September 05, 2024 Dr. Christel Chen DO Referring Provider Activ e Start: September 05, 2024 End: September 05, 2024 Team Status: Inactive Member Role Status Dates Dr. Ingrid Mckinney MD Primary Care Provider Active Start: September 12, 2024 End: September 12, 2024 Dr. Ingrid Mckinney MD Referring Provider Active Start: September 12, 2024 End: September 12, 2024 Dr. Christel Chen DO Attending Provider Activ e Start: September 12, 2024 End: September 12, 2024 Team Status: Inactive Member Role Status Dates Dr. Ingrid Mckinney MD Primary Care Provider Active Start: September 24, 2024 End: September 24, 2024 Dr. Ingrid Mckinney MD Referring Provider Active Start: September 24, 2024 End: September 24, 2024 Chayo Quiñonez [employer] HELPER, [employer] HELPER-C Attending Provider Active Start: September 24, 2024 End: September 24, 2024 Team Status: Active Member Role Status Dates Dr. Ingrid Mckinney MD Primary Care Provider Active Start: October 03, 2024 Dr. Christel Chen , DO Attending Provider Activ e Start: October 03, 2024 Dr. Christel Chen , DO Referring Provider Activ e Start: October 03, 2024 Team Status: Inactive Member Role Status Dates Dr. Ingrid Mckinney MD Primary Care Provider Active Start: October 08, 2024 End: October 08, 2024 Dr. 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 Ingrid Mckinney MD Primary Care Provider Active Start: October 03, 2024 End: October 03, 2024 Dr. Christel Chen DO Attending Provider Activ e Start: October 03, 2024 End: October 03, 2024 Dr. Christel Chen DO Referring Provider Activ e Start: October 03, 2024 End: October 03, 2024 Team Status: Inactive Member Role Status Dates Dr. Ingrid Mckinney MD Primary Care Provider Active Start: October 17, 2024 End: October 17, 2024 Dr. Ingrid Mckinney MD Referring Provider Active Start: October 17, 2024 End: October 17, 2024 Shannon Ingram CNM Attending Provider Active Start: October 17, 2024 End: October 17, 2024 Team Status: Inactive Member Role Status Dates Dr. Ingrid Mckinney MD Primary Care Provider Active Start: October 24, 2024 End: October 24, 2024 Dr. Ingrid Mckinney MD Referring Provider Active Start: October 24, 2024 End: October 24, 2024 Dr. Christel Chen DO Attending Provider Activ e Start: October 24, 2024 End: October 24, 2024 Team Status: Inactive Member Role Status Dates Dr. Ingrid Mckinney MD Primary Care Provider Active Start: October 24, 2024 End: October 24, 2024 Dr. Christel Chen DO Attending Provider Activ e Start: October 24, 2024 End: October 24, 2024 Dr. Christel Chen DO Referring Provider Activ e Start: October 24, 2024 End: October 24, 2024 Team Status: Inactive Member Role Status Dates Dr. Ingrid Mckinney MD Primary Care Provider Active Start: October 31, 2024 End: October 31, 2024 Dr. Ingrid Mckinney MD Referring Provider Active Start: October 31, 2024 End: October 31, 2024 Dr. Alison Guerra MD Attending Provider Active Start: October 31, 2024 End: October 31, 2024 Goals (unrecognized section and content) Goals may be documented in a n alternate sectionGoals may be documented in an alternate sectionGoals may be documented in an alternate sectionGoals may be documented in an alternate sectionGoals may be documented in an alternate sectionGoals may be documented in an alternate sectionGoals may be documented in an alternate sectionGoals may be documented in an alternate sectionGoals may be documented in an alternate sectionGoals may be documented in an alternate section Reason for Visit (unrecogniz ed section and content) Reason Comments Conjunctivitis RIGHT EYE IRRITATION X TODAY FOR RECORDS PERTAINING TO PATIENTS WHO ARE OR HAVE BEEN ENROLLED IN A CHEMICAL DEPENDENCY/SUBSTANCEABUSE PROGRAM, SOME INFORMATION MAY BE OMITTED. This clinical summary was aggregated from multiple sources. Caution should be exercised in using it in the provision of clinical care. This summary normalizes information from multiple sources, and as a consequence, information in this document may materially change the coding, format and clinical context of patient data. In addition, data may be omitted in some cases. CLINICAL DECISIONS SHOULD BE BASED ON THE PRIMARY CLINICAL RECORDS. General Specific [facility]. provides no warranty or guarantee of the accuracy or completeness of information in this document.
== END | disposition home or self-care (01) ==
LOC: US 11:20
PROVIDERS: PCP Family Medicine; Referring Provider Obstetrics & Gynecology; Visit Provider Obstetrics & Gynecology
DX: O99.212 Obesity complicating pregnancy, second trimester (principal); Z3A.00 Weeks of gestation of pregnancy not specified
CPT/HCPCS: 76816

== ENCOUNTER 2024-11-07 12:15 | Outpatient (CLI) | payer BC, SELFPAY ==
--- NOTE | 2024-11-07 12:17 | US_ITS ---
PROCEDURE: OB BIOPHYSICAL PROF W/O NST 11/07/2024 REASON FOR EXAM: INDUCTION OF LABOR TECHNIQUE: OB BIOPHYSICAL PROF W/O NST COMPARISON: Prior study dated October 31, 2024. FINDINGS Number: 1 Position: Breech Placental Position: Posterior and not low-lying Placental Abnormalities: No evidence of previa. ESTIMATED GESTATIONAL AGE: Baseline: 38 weeks and 5 days ESTIMATED DATE OF DELIVERY: Baseline: November 16, 2024. BIOPHYSICAL ASSESSMENT: Amniotic Fluid Volume: 4.6 cm x 5 cm Amniotic Fluid Index: 15.9 (8-24 cm normal range) Cardiac Motion: 136 beats per minute (average) Trunk and Limb Motion: Present. Biophysical profile: Breathing movements: 2 Gross body movements: 2 tone: 2 Amniotic fluid volume: 2 Total score: 8/8 US/OB Biophysical Prof W/O NST IMPRESSION: Normal biophysical profile. Reading Location: [id number]
[2024-11-07 12:42] VITALS: BMI 39.4
[2024-11-07 12:53] VITALS: BP 117/59; PULSE 89; PULSE 91; RESP 16; TEMP 37.2; O2SAT 97
--- NOTE | 2024-11-07 21:41 | OB.TRI.HP_ITS ---
HPI - General General Date of Admission: 11/07/24 HPI Narrative REMEDIOS CROWE, is a 39 y/o who presents to L&D for a scheduled nst and bpp. IOL is planned for sunday. Maternal Data Information HILARY Calculator Estimated Delivery Date Method Current WG Current Estimate 11/16/24 LMP (Certain) 38w 6d Other Estimates 11/12/24 Ultrasound #1 39w 3d PFSH PFSH Medical History Adopted person Seasonal allergies Enlarged thyroid Hypothyroidism Depression Abnormal thyroid blood test Abnormal Pap smear of cervix Home Medications ?Medication ?Instructions ?Recorded ?Last Taken ?Type PNV 153-FA 400 mcg-om3 35 mg-dha 1 tab PO DAILY 11/06/24 21:00 History 25 mg-epa 5 mg-fish oil chew tablet 1 TAB valacyclovir 500 mg tablet 500 mg PO DAILY 11/07/24 21:00 History (Valtrex) 500 mg Allergy/AdvReac Type Severity Reaction Status Date / Time Food Allergies: Uncoded Allergy Severe Anaphylaxis Verified 11/07/24 12:45 Surgical History H/O oral surgery Status post colposcopy Social History adopted: Yes household members: spouse and other details: neice part of the time current occupational status: employed 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) pets and animals: Yes (Avoid litterbox) pets and animals: cat(s) and dog(s) history of recent travel: Yes ([place]) out of state: Yes out of country: No sexually active: Yes Smoking Status: Never smoker alcohol intake: current details: occasionally- not while substance use type: does not use well-balanced diet: daily or most days caffeine: No eating out: 4 or more times/week during the past year weight has: increased > 10 lbs what type of physical activity do you participate in: 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 Date Name GA/Weeks Outcome Route Bth Weight Gen Labor Lgth Anesthesia Del Locatn Provider FOB Unknown Delivery Date: Last Updated by: Alison Patton MD all losses were 9 weeks of less, had 1 d and c all others spontaneous Visit Details Expected Delivery Route/Plan labor Preferences- CB/BF classes: encouraged labor support person: Juan David labor intervention preferences: [] pain management options preferred: epidural cut cord/dad catch: yes : yes PP control planned: discussed discussed possible routes of delivery and associated risks: [] special requests: [] Plans Covid status: [] Flu vaccine: [] Tdap vaccine: given Rhogam: na LARC form signed: yes Problem list reviewed and updated with the most current plan of care details and appropriate orders placed. Relevant counseling for the gestational age provided. Continue routine care and follow up unless otherwise noted in visit notes/problem list details OB Flowsheet Initial Weight: Not Recorded Date -?-?-?-?-?-?-?-?-?-?-?-?- EGA Weight BP Urine Prot -?-?-?-?-?-?-?-?-?-?-?-?- Glucose FHR FuHt Pres Dilation -?-?-?-?-?-?-?-?-?-?-?-?- Effaced St Visit Note 05/21/24 -?-?-?-?-?-?-?-?-?-?-?-?- 14w 3d 252 lb 123/87 -?-?-?-?-?-?-?-?-?-?-?-?- 150 -?-?-?-?-?-?-?-?-?-?-?-?- SM- CRL cons wit h LMP 06/25/24 -?-?-?-?-?-?-?-?-?-?-?-?- 19w 3d 253 lb 8 oz 124/72 Nega tive -?-?-?-?-?-?-?-?-?-?-?-?- Negative 151 -?-?--?-?-?-?-?-?-?-?-?-?- No VB. No moveme nt yet. Feels well. MFM anatomy tomorrow 07/23/24 -?-?-?-?-?-?-?-?-?-?-?-?- 23w 3d 252 lb 8 oz 119/73 Nega tive -?-?-?-?-?-?-?-?-?-?-?-?- Negative 145 -?-?-?-?-?-?-?-?-?-?-?-?- SM- no vb lof gc t next time 08/21/24 -?-?-?-?-?-?-?-?-?-?-?-?- 27w 4d 249 lb 8 oz 117/76 Nega tive -?-?-?-?-?-?-?-?-?-?-?-?- Negative 142 27 -?-?-?-?-?-?-?-?-?-?-?-?- MH-No VB, LOF. g ood FM. [facility]. 28wk labs pending 09/12/24 -?-?-?-?-?-?-?-?-?-?-?-?- 30w 5d 247 lb 2 oz 113/75 Nega tive -?-?-?-?-?-?-?-?-?-?-?-?- Negative 135 32 -?-?-?-?-?-?-?-?-?-?-?-?- JV- no lof, vagi nal bleeding, or dec fm. has some nasal drainage. 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 doing well overall. normal growth scan. nsts start 34 weeks. 09/24/24 -?-?-?-?-?-?-?-?-?-?-?-?- 32w 3d 246 lb 4 oz 110/72 Nega tive -?-?-?-?-?-?-?-?-?-?-?-?- Negative 146 33 -?-?-?-?-?-?-?-?-?-?-?-?- MH-No VB, LOF. G ood FM. Denies concerns. 10/08/24 -?-?-?-?-?-?-?-?-?-?-?-?- 34w 3d 244 lb 8 oz 104/72 Nega tive -?-?-?-?-?-?-?-?-?-?-?-?- Negative 140 35 -?-?-?-?-?-?-?-?-?-?-?-?- -No VB, LOF. G ood FM. Reactive NST. [place] nauseous/dizzy laying flat. Resolved with position change/water. 10/17/24 -?-?-?-?-?--?-?-?-?-?-?-?- 35w 5d 245 lb 120/79 Negative -?-?-?-?-?-?-?-?-?-?-?-?- Negative 135 36 -?-?-?-?-?-?-?-?-?-?-?-?- LC- reactive nst . no vb/ctx/lof. good fm. questions answered on labor/. 10/24/24 -?-?-?-?-?-?-?-?-?-?-?-?- 36w 5d 245 lb 4 oz 110/76 Nega tive -?-?-?-?-?-?-?-?-?-?-?-?- Negative 140 3 Cephalic 0 -?-?-?-?-?-?-?-?-?-?-?-?- JV- NST reactive . GBS today. no complaints. JV- NST reactive. GBS today. no complaints. normal growth 2 weeks ago. 10/31/24 -?-?-?-?-?-?-?-?-?-?-?-?- 37w 5d 243 lb 8 oz 120/84 Nega tive -?-?-?-?-?-?-?-?-?-?-?-?- Negative 130 Cephalic 0 -?-?-?-?-?-?-?-?-?-?-?-?- SM- no vb lof go od fm no reuglar ctx ROS Constitutional Constitutional: Reports systems reviewed and no addt'l complaints, except as documented Gastrointestinal Gastrointestinal: Denies bloating, constipation, cramping, diarrhea, nausea or vomiting Genitourinary Genitourinary: Reports other Details: Denies vaginal odor, vaginal bleeding, or vaginal discharge ; Denies difficulty urinating or flank pain NST FHR Rate Baby A Baseline: 140 Variability:: Moderate Accelerations:: 15 x 15 Decelerations:: None NST Reactive:: Yes FHR Category:: Category I Assessment & Plan (1) Vasovagal episode: COMMENT: DO NOT lay flat for NSTs (2) Obesity affecting : QUALIFIERS: Trimester: second trimester Obesity type affecting : unspecified obesity Qualified Code(s): O99.212 - Obesity complicating , second trimester COMMENT: HgbA1c bmi 40 weekly nsts 34 on (3) Advanced maternal age (AMA), 40 years or greater: COMMENT: NIPT low risk Girl. discussed IOL 39-40 weeks. plan for iOL sunday prior to 39 weeks for cervical ripening (4) Supervision of high-risk : QUALIFIERS: Trimester: third trimester Qualified Code(s): O09.93 - Supervision of high risk , unspecified, third trimester COMMENT: GBS negative [id number], HILARY 11/16/24, girl Juan David (5) : QUALIFIERS: Weeks of gestation: 37 weeks Qualified Code(s): Z3A.37 - 37 weeks gestation of COMMENT: low risk NIPT & declined Carrier testing, normal growth 37wks (6) History of recurrent miscarriages: COMMENT: APL panel neg in past PLAN: Plan nst reactive bpp 12/19 ok to dc to home return sunday night for IOL Charges/Coding Multi Select Codes Visit Charges Office Visit/Consults: 56642 OV L3 Est 20min Urinary/Genital Urinary/Genital CPT Codes: 60018-66 non-stress test Interp
== END 2024-11-07 14:25 | disposition home or self-care (01) ==
LOC: WPOUT 12:15 → WP 12:15
PROVIDERS: PCP Family Medicine; Referring Provider Obstetrics & Gynecology; Visit Provider Obstetrics & Gynecology
DX: O99.891 Other specified diseases and conditions complicating pregnancy (principal); O99.213 Obesity complicating pregnancy, third trimester; N96 Recurrent pregnancy loss; Z3A.37 37 weeks gestation of pregnancy; R55 Syncope and collapse
CPT/HCPCS: 59025; 59050; 76819; 99221; G0378

== ENCOUNTER 2024-11-09 19:05 | Inpatient (IN) | payer BC, SELFPAY ==
[2024-11-09 19:18] VITALS: BMI 39.1
--- OUTSIDE RECORDS SUMMARY | 2024-11-09 19:18 | XMS RPT_ITS | CCD ---
Author Organization [facility] Care Team Providers Care Protein Purification Scientist Name Role Phone Ingrid Mckinney Unavailable Unavailable Ingrid Mckinney Unavailable Unavailable Ingrid Mckinney Unavailable Unavailable Unavailable Dr. Ingrid Mckinney Primary Care Provider Dr. Ingrid Mckinney Referring Provider Dr. Alison Guerra Attending Provider Dr. Ingrid Mckinney Primary Care Provider Dr. Ingrid Mckinney Referring Provider Dr. Alison Guerra Attending Provider Ingrid Mckinney MD Primary Care Provider NIGRID MCKINNEY Primary Care Unavailable MANISH ROACH Attending Unavailable RAYMOND LARSON Attending Unavailable KAEL MCKINNEY Primary Care Unavailable ALISON GUERRA Referring UnavailDr. Ingrid Tavera MD Primary Care Provider Dr. Ingrid Mckinney MD Referring Provider Dr. Alison Guerra MD Attending Provider Dr. Alison Guerra MD Referring Provider Chayo Powell Attending Provider [phone] Ingrid Mckinney MD Primary Care Provider [phone] Dr. Ingrid Mckinney MD Referring Provider Dr. Alison Guerra MD Attending Provider Dr. Alison Guerra MD Referring Provider Param Gant DO, Dr. Kearney Attending Provider Dr. Christel Chen DO Referring Provider Shannon Ingram CNM Attending Provider Dr. Ingrid Mckinney MD Primary Care Provider Dr. Ingrid Mckinney MD Referring Provider Olamide PRODUCT DEVELOPMENT DIRECTOR-C, Chayo Attending Provider Alison Guerra Attending Unavailable Hank, Ingrid Primary Care Unavailable Hank, Ingrid Referring Unavailable VandChristel Robert Attending Unavailabl e Vande Velde, Christel Consulting Unavailabl e Hank, Ingrid Primary Care Unavailable Vande Stalin, Christel Referring Unavailabl e Vande Velde, Christel Attending Unavailabl e Hank, Ingrid Primary Care Unavailable Hank, Ingrid Referring Unavailable Shannon Ingram Attending Unavailable Hank, Ingrid Primary Care Unavailable Hank, Ingrid Referring Unavailable Hank, Ingrid Primary Care Unavailable Vande Velde, Christel Attending Unavailabl e Hank, Ingrid Referring Unavailable Hank, Ingrid Referring Unavailable Hank, Ingrid Primary Care Unavailable Alison Guerra Attending Unavailable Hank, Ingrid Primary Care Unavailable Hank, Ingrid Referring Unavailable Chayo Quiñonez NP Attending Unavailable Hank, Ingrid Primary Care Unavailable Hank, Ingrid Referring Unavailable Alison Guerra Attending Unavailable Hank, Ingrid Primary Care Unavailable Alison Guerra Attending Unavailable Alison Guerra Referring Unavailable Hank, Ingrid Primary Care Unavailable Vande Velde, Christel Attending Unavailabl e Vande Velde, Christel Referring Unavailabl e Hank, Ingrid Primary Care Unavailable Alison Guerra Referring Unavailable Alison Guerra Attending Unavailable Vande Velde, Christel Referring Unavailabl e Hank, Ingrid Primary Care Unavailable Vande Velde, Christel Attending Unavailabl e Vande Velde, Christel Referring Unavailabl e Vande Velde, Christel Attending Unavailabl e Hank, Ingrid Primary Care Unavailable Vande Velde, Christel Attending Unavailabl e Hank, Ingrid Primary Care Unavailable Vande Stalin, Christel Referring Unavailabl e Vande Velde, Christel Attending Unavailabl e Vande VeldeChristel Admitting Unavailabl e Hank, Ingrid Primary Care Unavailable Vande Velde, Christel Referring Unavailabl e Vande Velde, Christel Attending Unavailabl e Hank, Ingrid Primary Care Unavailable Hank, Ingrid Primary Care Unavailable Hank, Ingrid Referring Unavailable Olamide PRODUCT DEVELOPMENT DIRECTORChayo Attending Unavailable Hank, Ingrid Primary Care Unavailable Hank, Ingrid Referring Unavailable Vande Velde, Christel Attending Unavailabl e Hank, Ingrid Primary Care Unavailable Hank, Ingrid Referring Unavailable Olamide PRODUCT DEVELOPMENT DIRECTORChayo Attending Unavailable Hank, Ingrid Primary Care Unavailable Hnak, Ingrid Referring Unavailable Bainbridge PRODUCT DEVELOPMENT DIRECTORChayo Attending Unavailable Allergies Allergy Classification Reported Allergen(s) Allergy Type Date of Onset Reaction(s) Facility (11 sources) Food Allergies: Uncoded; Translations: [Food Allergies: Uncoded] Allergy to substance 08-21-2024 Anaphylaxis [facility] Comment on above: cool whip preservati ve [...] 5 mL 0 07/03/2023 07/10/2023 Active Pnv No.116-Nf-St9-Dha -Epa-Fish 400 mcg-35 mg- 25 mg-5 mg tablet,chewable (10 sources) Start: 05-20-2024 Pnv No.906-Cb-Ry9-Dha-Ep a-Fish 400 mcg-35 mg- 25 mg-5 mg tablet,chewable Active 1 {tbl} PO DAILY May 20, 2024 1:00am Start: 05-20-2024 Pnv No.153-Fa- Bv1-Bhu-Jhn-Fish 400 mcg-35 mg- 25 mg-5 mg tablet,chewable Active {tbl} PO May 20, 2024 1:00am valACYclovir 500 mg oral tablet (1 source) Herpesvirus Nucleoside Analog DNA Polymerase Inhibitor, Herpes Simplex Virus Nucleoside Analog DNA Polymerase Inhibitor, Herpes Zoster Virus Nucleoside Analog DNA Polymerase Inhibitor Start: 11-07-2024 take 1 tablet by mouth once daily Valacyclovir (Valtrex) 500 mg tablet Active 500 mg PO DAILY November 07, 2024 12:00am Completed/Discontinued Medications Medication Drug Class(es) Dates Sig [...] management counseling and advice] Episodic Female infertility (14 sources) Female infertility; Translations: [Female infertility, unspecified] [...] [Other malaise and fatigue] Episodic Menstrual disorders (14 sources) Irregular periods; Translations: [Irregular menstruation, unspecified] [...] Translations: [Obesity complicating , second trimester] Onset: 11-08-2024 Chronic Other complications of (1 source) Obesity complicating , unspecified trimester; Translations: [Obesity complicating , unspecified trimester] Onset: 05-21-2024 Chronic Other complications of (20 sources) High risk ; Translations: [Supervision of high risk , unspecified, unspecified trimester] 07-23-2024 Episodic Comment on above: [id number], HILARY 11/16/24, girl Juan David GBS negative [id number] , HILARY 11/16/24, girl Juan David Other complications of (20 sources) Advanced maternal age ; Translations: [Elderly multigravida, unspecified as to episode of care or not applicable] 07-23-2024 Episodic Comment on above: NIPT low risk Girl. discussed IOL 39-40 weeks. NIPT low risk Girl. discussed IOL 39-40 weeks. plan for iOL sunday prior to 39 weeks for cervical ripening Other complications of (2 sources) Supervision of high risk , unspecified, third trimester; Translations: [Supervision of high risk , unspecified, third trimester] Onset: 11-08-2024 Episodic Other complications of (1 source) Supervision of high risk , unspecified, second trimester; Translations: [Supervision of high risk , unspecified, second trimester] Onset: 08-27-2024 Episodic Other female genital disorders (2 sources) H/O: miscarriage; Translations: [Recurrent loss] 07-11-2022 Episodic Other female genital disorders (20 sources) Recurrent loss; Translations: [Recurrent loss without current ] Onset: 11-08-2024 07-11-2022 Episodic Comment on above: APL panel [...] risk NIPT & decl ined Carrier testing low risk NIPT & decl ined Carrier testing, normal growth 37wks Residual codes; unclassified (2 sources) 37 weeks gestation of ; Translations: [37 weeks gestation of ] Onset: 11-08-2024 Episodic Residual codes; unclassified (1 source) 36 weeks gestation of ; Translations: [36 weeks gestation of ] Onset: 10-24-2024 Episodic Syncope (20 sources) Vasovagal syncope; Translations: [Syncope and collapse] Onset: 11-08-2024 10-08-2024 Episodic Comment on above: DO NOT [...] Translations: [23 weeks gestation of ] Onset: 07-23-2024 Episodic Unclassified (1 source) Finding of menstrual bleeding; Translations: [Menstruation] Comment on above: Onset age 14 years; NEGATED: Highlighted row has not occurred!Residual codes; unclassified (3 sources) Disease Episodic Results Test Name Value Interpretation Reference Range Facility OB Biophysical Prof W/O NSTo n 11-07-2024 OB Biophysical Prof W/O NST [facility] Imaging Services [address] [place] [address] OB Biophysical Prof W/O NST MR#: [id number] Acct: [id number] Name: REMEDIOS NEAL Rep #: [id number] : 1985 F 39 From: Hector maynard MD PCP: Dr. Ingrid Mckinney MD Status: DEP CLI Study: OB Biophysical Prof W/O NST Date of Exam: 10/13 12/05 Exam# [id number] Ordering Dr: Christel Chen DO PROCEDURE: OB BIOPHYSICAL PROF W/O NST 11/07/2024 REASON FOR EXAM: INDUCTION OF LABOR TECHNIQUE: OB BIOPHYSICAL PROF W/O NST COMPARISON: Prior study dated October 31, 2024. FINDINGS Number: 1 Position: Breech Placental Position: Posterior and not low-lying Placental Abnormalities: No evidence of previa. ESTIMATED GESTATIONAL AGE: Baseline: 38 weeks and 5 days ESTIMATED DATE OF DELIVERY: Baseline: November 16, 2024. BIOPHYSICAL ASSESSMENT: Amniotic Fluid Volume: 4.6 cm x 5 cm Amniotic Fluid Index: 15.9 (8-24 cm normal range) Cardiac Motion: 136 beats per minute (average) Trunk and Limb Motion: Present. Biophysical profile: Breathing movements: 2 Gross body movements: 2 tone: 2 Amniotic fluid volume: 2 Total score: 8/8 US/OB Biophysical Prof W/O NST IMPRESSION: Normal biophysical profile. Reading Location: [id number] CC: Dr. Ingrid Mckinney MD; Dr. Christel Chen DO Fur Trapper: Signed Normal [facility] OB Triage Physician Noteon 0 11-07-2024 OB Triage Physician Note [facility] Medical Records Department [address] [place] [address] OB Triage Physician Note 11/07/24 2141 MR#: [id number] Acct: [id number] Name: KERIARGENISDEVORA CROWEREMEDIOSDANIELA Suman Rep #: [id number] : 1985 39 From: Christel Chen DO PCP: Dr. Ingrid Mckinney MD Status:DEP CLI Y Location: [facility] HPI - General General Date of Admission: 11/07/24 HPI Narrative REMEDIOS CROWE, is a 39 y/o who presents to [facility] for a scheduled nst and bpp. IOL is planned for sunday. Maternal Data Information HILARY Calculator Estimated Delivery Date Method Current WG Current Estimate 11/16/24 LMP (Certain) 38w 6d Other Estimates 11/12/24 Ultrasound #1 39w 3d PFSH PFSH Medical History Adopted person Seasonal allergies Enlarged thyroid Hypothyroidism Depression Abnormal thyroid blood test Abnormal Pap smear of cervix Home Medications ???Medication ???Instructions ???Recorded ???Last Taken ???Type PNV 153-FA 400 mcg-om3 35 mg-dha 1 tab PO DAILY 05/20/24 11/06/24 2 1:00 History 25 mg-epa 5 mg-fish oil chew tablet 1 TAB valacyclovir 500 mg tablet 500 mg PO DAILY 11/07/24 11/06/24 21:00 History (Valtrex) 500 mg Allergy/AdvReac Type Severity Reaction Status Date / Time Food Allergies: Uncoded Allergy Severe Anaphylaxis Verified 11/07/24 12:45 Surgical History H/O oral surgery Status post colposcopy Social History adopted: Yes household members: spouse and other details: neice part of the time current occupational status: employed 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) pets and animals: Yes (Avoid litterbox) [...] activity do you participate in: other details: gandy dancer nicolle/yazdanism: Lutheran seatbelt use: always do you feel safe at home: Yes additional social history: -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 [employer] History 5 Elective abortions Hx Para 0 [...] 1 d and c all others spontaneous Visit Details Expected Delivery Route/Plan labor Preferences- CB/BF classes: encouraged labor support person: Juan David labor intervention preferences: [] pain management options preferred: epidural cut cord/dad catch: yes : yes PP control planned: discussed discussed possible routes of delivery and associated risks: [] special requests: [] Plans Covid status: [] Flu vaccine: [] Tdap vaccine: given Rhogam: na LARC form signed: yes Problem list reviewed and updated with the most current plan of care details and appropriate orders placed. Relevant counseling for the gestational age provided. Continue routine care and follow up unless otherwise noted in visit notes/problem list details OB Flowsheet Initial Weight: Not Recorded Date -???-???-???-???-???-??? -???-???-???-???-???-??? [...] no vb lo f gct next time 08/21/24 -???-???-???-???-???-??? -???-???-???-???-???-??? - 27w 4d 249 (more content not included)... Normal [facility] Laboratory - Chemistry and C hemistry - challengeOrdered By: Alison Guerra on 10-31-2024 Glucose Ql (U) Negative [facility] Laboratory - UrinalysisOrder ed By: Alison Guerra on 10-31-2024 Protein Ql (U) Negative [facility] OB Limited With Biometricson 10-31-2024 OB Limited With Biometrics [facility] Imaging Services [address] [place], [place] [id number] OB Limited With Biometrics MR#: [id number] Acct: [id number] Name: REMEDIOS NEAL Rep #: [id number] : 1985 F 39 From: Chris Dunn DO PCP: Dr. Ingrid Mckinney MD Status: REG CLI Study: OB Limited With Biometrics Date of Exam: 10/31 Exam# [id number] Ordering Dr: Christel Chen DO PROCEDURE: OB LIMITED WITH BIOMETRICS 10/31/2024 REASON FOR EXAM: GROWTH EVERY MONTH TECHNIQUE: OB LIMITED WITH BIOMETRICS COMPARISON: Ob ultrasound October 03, 2024 FINDINGS Number: Cota Position: Cephalic Placental Position: Posterior, grade 2 Placental Abnormalities: None DIMENSIONS: Biparietal Diameter: 8.9 cm/35 weeks, 6 days Head Circumference: 32.5 cm 36 weeks, 5 days/ Abdominal Circumference: 33.5 cm/37 weeks, 3 days Femur Length: 7.4 cm/38 weeks 0 days ESTIMATED WEIGHT: 3195+/-479 g ESTIMATED WEIGHT PERCENTILE (24+ weeks): 52 % ESTIMATED GESTATIONAL AGE: Baseline: 37 weeks, 5 days By Ultrasound: 37 weeks 2 days ESTIMATED DATE OF DELIVERY: Baseline: November 16, 2024 By Ultrasound: November 19, 2024 4.2 cm largest vertical pocket BIOPHYSICAL ASSESSMENT: Amniotic Fluid Volume: 4.2 cm (largest vertical pocket) Amniotic Fluid Index: 11.3 (8-24 cm normal range) Cardiac Motion: 141 (average) Trunk and Limb Motion: Present. MATERNAL ANATOMY: Adnexa: Neither maternal ovary is successfully identified. Cervical Length (if measured): US/OB Limited With Biometrics IMPRESSION: Single intrauterine fetus with heart rate of 141 beats per minute. Gestational age 37 weeks, 2 days. Estimated due date November 19, 2024. EFW 3190. Percentile rank: 52% Reading Location: [facility] CC: Dr. Ingrid Mckinney MD; Dr. Christel Chen DO Fur Trapper: Signed Normal [facility] Upholstery Bundler Office Visit Reporton 10-31-2024 Upholstery Bundler Office Visit Report [facility] [address], [address] [place] [address] OFFICE VISIT Date of Service: 10/31/24 MR#: [id number] Acct: [id number] Name: REMEDIOS NEAL Rep #: [id number] : 1985 Provider: Dr. Alison wright MD Age/Sex: 39/F [place] [facility] [place]: Signed Intake Vital Signs 05/21/24 10:26 10/24/24 10:30 10/31/24 10:21 Height 5 ft 6.5 in 5 ft 6.5 in 5 ft 6.5 in Weight: 243 lb 8 oz BMI 38.7 BP 120/84 H Intake Visit Reasons: 37 wk ob/nst Security Team Lead Required: No Is patient in pain?: No Allergies Food Allergies: Uncoded Allergy (Severe, Verified 10/31/24 10:22) Anaphylaxis Medications ???Medication ???Instructions ???Recorded ???Confirmed ???Type PNV 153-FA 400 mcg-om3 35 mg-dha tab PO 05/20/24 10/31/24 History 25 mg-epa 5 mg-fish oil chew [...] time current occupational status: employed 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 OB Visit HILARY Calculator Estimated Delivery Date Method Current WG Current Estimate 11/16/24 LMP (Certain) 37w 5d Other Estimates 11/12/24 Ultrasound #1 38w 2d Expected Delivery Route/Plan labor Preferences- CB/BF classes: encouraged labor support person: [...] Negative 145 -???-???-???-???-???-??? -???-???-???-???-???-??? - SM- no v (more content not included)... Normal [facility] Rule out Beta Strep (Grp. B) on 10-26-2024 ANT Group B Beta Streptococcus is not isolated. Normal [facility] Comment on above: Performed By: #### M 100.3400 #### [facility] Laboratory [address] [place], [address] Laboratory - Chemistry and C hemistry - challengeOrdered By: Christel Gant on 10-24-2024 Glucose Ql (U) Negative [facility] Laboratory - UrinalysisOrder ed By: Christel Gant on 10-24-2024 Protein Ql (U) Negative [facility] Upholstery Bundler Office Visit Reporton 10-24-2024 Upholstery Bundler Office Visit Report [facility]'[address], [address] [place] [address] OFFICE VISIT Date of Service: 10/24/24 MR#: [id number] Acct: [id number] Name: REMEDIOS NEAL Rep #: [id number] : 1985 Provider: Dr. 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 No mo vement yet. Feels well. [employer] anatomy tomorrow 07/23/24 -???-???-???-???-???-??? -???-???-???-???-???-??? - 23w 3d 252 lb 8 oz 119/73 Negative -???-???-???-???-???-??? -???-???-???-???-???-??? - Negative 145 -???-???-???-???-???-??? -???-?? (more content not included)... Normal [facility] Screening beta-hemolytic Str eptococcus cultureOrdered By: Christel Gant on 10-24-2024 Beta-hemolytic Streptococcus culture Group B Beta Streptococcus is not isolated. [facility] Laboratory - Chemistry and C hemistry - challengeOrdered By: Shannon Ingram on 10-17-2024 Glucose Ql (U) Negative [facility] Laboratory - UrinalysisOrder ed By: Shannon Ingram on 10-17-2024 Protein Ql (U) Negative [facility] Upholstery Bundler Office Visit Reporton 10-17-2024 Upholstery Bundler Office Visit Report [address], [address] [place] [address] OFFICE VISIT Date of Service: 10/17/24 MR#: [id number] Acct: [id number] Name: REMEDIOS NEAL Rep #: [id number] : 1985 Provider: MARYCARMEN tolentino Age/Sex: 39/F [place] [facility] [place]: Signed with Addenda ADDENDUM by MARYCARMEN [...] high risk , unspecified, third trimester Comment: [id number], HILARY 11/16/24, girl Juan David (5) : [...] complicating , second trimester 10/17/24 1638 Date Ellis Ingramdeana CONROY cc: * Signed Intake Vital Signs 10/08/24 08:56 10/17/24 13:18 10/17/24 13:19 Height 5 ft 6.5 in 5 ft 6.5 in 5 ft 6.5 in Weight: 245 lb BMI 38.9 BP 120/79 Intake Visit Reasons: 35 wk ob/nst Security Team Lead Required: No Is patient in pain?: No [...] time current occupational status: employed 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 Normal [facility] Laboratory - Chemistry and C hemistry - challengeOrdered By: Chayo Quiñonez on 10-08-2024 Glucose Ql (U) Negative [facility] Laboratory - UrinalysisOrder ed By: Chayo Quiñonez on 10-08-2024 Protein Ql (U) Negative [facility] Upholstery Bundler Office Visit Reporton 10-08-2024 Upholstery Bundler Office Visit Report [facility] [address], [address] [place] [address] OFFICE VISIT Date of Service: 10/08/24 MR#: [id number] Acct: [id number] Name: REMEDIOS NEAL Rep #: [id number] : 1985 Provider: RAMIREZ will Age/Sex: 39/F [place] [facility] [place]: Signed Intake Vital Signs 05/21/24 10:26 09/24/24 08:41 10/08/24 08:56 Height 5 ft 6.5 in 5 ft 6.5 in 5 ft 6.5 in Weight: 244 lb 8 oz BMI 38.8 BP 104/72 Intake Visit Reasons: 34 wk ob/nst Chief Complaint: 34 Week OB/NST Security Team Lead Required: No Is patient in pain?: No [...] time current occupational status: employed 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 No mo vement yet. Feels well. M anatomy tomorrow 07/23/24 -???-???-???-???-???-??? -???-???-???-???-???-??? - 23w 3d 252 lb 8 oz 119/73 Negative -???-???-???-???-???-??? -???-???-???-???-???-??? - Negative 145 -???-???-???-???-???-??? -???-??? (more content not included)... Normal [facility] OB Limited With Biometricson 10-03-2024 OB Limited With Biometrics [facility] Imaging Services [address] [place] [address] OB Limited With Biometrics MR#: [id number] Acct: [id number] Name: RICHARD CROWEREMEDIOS Will Rep #: [id number] : 1985 F 39 From: Miguel Angel Levy MD PCP: Dr. Ingrid Mckinney MD Status: [facility] Study: OB Limited With Biometrics Date of Exam: 10/03 Exam# [id number] Ordering Dr: Christel Chen DO PROCEDURE: OB [...] intrauterine with biometry as above. Reading Location: [id number] CC: Dr. Ingrid Mckinney MD; Dr. Christel Chen DO Fur Trapper: Signed Normal [facility] Laboratory - Chemistry and C hemistry - challengeOrdered By: Chayo Quiñonez on 09-24-2024 Glucose Ql (U) Negative [facility] Laboratory - UrinalysisOrder ed By: Chayo Quiñonez on 09-24-2024 Protein Ql (U) Negative [facility] Upholstery Bundler Office Visit Reporton 09-24-2024 Upholstery Bundler Office Visit Report [facility] [address], [address] [place] [address] OFFICE VISIT Date of Service: 09/24/24 MR#: [id number] Acct: [id number] Name: REMEDIOS NEAL Rep #: [id number] : 1985 Provider: RAMIREZ will Age/Sex: 39/F [place] [facility] [place]: Signed Intake Vital Signs 05/21/24 10:26 09/12/24 10:15 09/24/24 08:41 Height 5 ft 6.5 in 5 ft 6.5 in 5 ft 6.5 in Weight: 246 lb 4 oz BMI 39.1 BP 110/72 Intake Visit Reasons: 32 wk ob Chief Complaint: 32 Week OB Security Team Lead Required: No Is patient in pain?: No [...] time current occupational status: employed 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 No mo vement yet. Feels well. M anatomy tomorrow 07/23/24 -???-???-???-???-???-??? -???-???-???-???-???-??? - 23w 3d 252 lb 8 oz 119/73 Negative -???-???-???-???-???-??? -???-???-???-???-???-??? - Negative 145 -???-???-???-???-???-??? -???-???-???-???-??? (more content not included)... Normal [facility] - Chemistry and C hemistry - challengeOrdered By: Christel Gant on 09-12-2024 Glucose Ql (U) Negative [facility] - UrinalysisOrder ed By: Christel Stalin on 09-12-2024 Protein Ql (U) Negative [facility] Upholstery Bundler Office Visit Reporton 09-12-2024 Upholstery Bundler Office Visit Report [facility] [address], [address] [place] [address] OFFICE VISIT Date of Service: 09/12/24 MR#: [id number] Acct: [id number] Name: REMEDIOS NEAL Rep #: [id number] : 1985 Provider: Dr. 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 -???-???-???-? (more content not included)... Normal [facility] OB Limited With Biometricson 09-05-2024 OB Limited With Biometrics [facility] Imaging Services [address] [place] [address] OB Limited With Biometrics MR#: [id number] Acct: [id number] Name: REMEDIOS NEAL Rep #: [id number] : 1985 F 39 From: Terrence Carreon MD PCP: Dr. Ingrid Mckinney MD Status: [facility] Study: OB Limited With Biometrics Date of Exam: 09/05 Exam# [id number] Ordering Dr: Christel Chen DO PROCEDURE: OB [...] 3. Additional description as above. Reading Location: [id number] CC: Dr. Ingrid Mckinney MD; Dr. Christel Chen DO Fur Trapper: Signed Normal [facility] Absolute lymphocyte countOrd ered By: Alison Guerra on 08-21-2024 Lymphocytes Auto (Unsp spec) [#/Vol] 1.85 10*3/uL 0.83-4.51 [facility] Absolute neutrophil countOrd ered By: Alison Guerra on 08-21-2024 Neutrophils (Bld) [#/Vol] 7.0 10*3/uL 2.0-7.7 [facility] Automated lymphocyte count a s percentage of total leukocytesOrdered By: Alison Guerra on 08-21-2024 Lymphocytes/100 WBC Auto (Unsp spec) 19.4 % 19-41 [facility] Basophil percentageOrdered B y: Alison Guerra on 08-21-2024 Basophils/100 WBC (Bld) 0.1 % 0-1 [facility] CBC W/Diff, Automatedon 08-12 Absolute Lymph 1.85 X10 3/uL Normal 0.83-4.51 [facility] Comment on above: Performed By: #### L 3890.6006, L100.0100, L501.0250, L509.8002 #### [facility] [address] [place], [address] Absolute Neut 7.0 X10 3/uL Normal 2.0-7.7 [facility] Comment on above: Performed By: #### L 3890.6006, L100.0100, L501.0250, L509.8002 #### [facility] [address] [place], [address] Basophils/100 WBC (Bld) 0.1 % Normal 0-1 [facility] Comment on above: Performed By: #### L 3890.6006, L100.0100, L501.0250, L509.8002 #### [facility] [address] [place], [address] Eosinophils/100 WBC (Bld) 0.9 % Normal 0-5 [facility] Comment on above: Performed By: #### L 3890.6006, L100.0100, L501.0250, L509.8002 #### [facility] [address] [place], [address] Erythrocyte distribution width (RBC) [Ratio] 14.1 % Normal 11.6-14.6 [facility] Comment on above: Performed By: #### L 3890.6006, L100.0100, L501.0250, L509.8002 #### [facility] [address] [place], [address] Hematocrit (Bld) [Volume fraction] 36.7 % Low 37-47 [facility] Comment on above: Performed By: #### L 3890.6006, L100.0100, L501.0250, L509.8002 #### [facility] [address] [place], [address] Hemoglobin (Bld) [Mass/Vol] 11.9 g/dL Low 12.0-15.0 [facility] Comment on above: Performed By: #### L 3890.6006, L100.0100, L501.0250, L509.8002 #### [facility] [address] [place], [address] IG% 0.800 Normal 0.0-0.9 [facility] Comment on above: Result Comment: IG% - Immature Granulocytes (promyelocytes, myelocytes and metamyelocytes) > 1% indicates that a LEFT SHIFT is Present. Performed By: #### L 3890.6006, L100.0100, L501.0250, L509.8002 #### [facility] [address] [place], [address] Lymphocytes/100 WBC (Bld) 19.4 % Normal 19-41 [facility] Comment on above: Performed By: #### L 3890.6006, L100.0100, L501.0250, L509.8002 #### [facility] [address] [place], [address] MCH (RBC) [Entitic mass] 30.1 pg Normal 27.0-32.0 [facility] Comment on above: Performed By: #### L 3890.6006, L100.0100, L501.0250, L509.8002 #### [facility] [address] [place], [address] MCHC (RBC) [Mass/Vol] 32.4 g/dL Normal 32-36 [facility] Comment on above: Performed By: #### L 3890.6006, L100.0100, L501.0250, L509.8002 #### [facility] [address] [place], [address] MCV (RBC) [Entitic vol] 92.9 fL Normal 81-99 [facility] Comment on above: Performed By: #### L 3890.6006, L100.0100, L501.0250, L509.8002 #### [facility] [address] [place], [address] Monocytes/100 WBC (Bld) 5.1 % Normal 0-10 [facility] Comment on above: Performed By: #### L 3890.6006, L100.0100, L501.0250, L509.8002 #### [facility] [address] [place], [address] Neutrophils/100 WBC (Bld) 73.7 % High 47-70 [facility] Comment on above: Performed By: #### L 3890.6006, L100.0100, L501.0250, L509.8002 #### [facility] [address] [place], [address] Nucleated RBC (Bld) [#/Vol] 0 10*3/uL Normal 0-5 [facility] Comment on above: Performed By: #### L 3890.6006, L100.0100, L501.0250, L509.8002 #### [facility] [address] [place], [address] Platelet mean volume (Bld) [Entitic vol] 11.8 fL Normal 6.2-12.0 [facility] Comment on above: Performed By: #### L 3890.6006, L100.0100, L501.0250, L509.8002 #### [facility] [address] [place], [address] Platelets (Bld) [#/Vol] 198 10*3/uL Normal 150-450 [facility] Comment on above: Performed By: #### L 3890.6006, L100.0100, L501.0250, L509.8002 #### [facility] [address] [place], [address] RBC (Bld) [#/Vol] 3.95 10*6/uL Low 4.2-5.4 [facility] Comment on above: Performed By: #### L 3890.6006, L100.0100, L501.0250, L509.8002 #### [facility] [address] [place], [address] RDW SD 47.9 fl High 35.1-43.9 [facility] Comment on above: Performed By: #### L 3890.6006, L100.0100, L501.0250, L509.8002 #### [facility] [address] [place], [address] WBC (Bld) [#/Vol] 9.5 10*3/uL Normal 4.4-11.0 [facility] Comment on above: Performed By: #### L 3890.6006, L100.0100, L501.0250, L509.8002 #### [facility] [address] [place], [address] Eosinophil percentageOrdered By: Alison Guerra on 08-21-2024 Eosinophils/100 WBC (Bld) 0.9 % 0-5 [facility] Erythrocyte distribution wid th (RBC) [Ratio]Ordered By: Alison Guerra on 08-21-2024 Erythrocyte distribution width (RBC) [Entitic vol] 47.9 fL High 35.1-43.9 [facility] Erythrocyte distribution wid th ratioOrdered By: Alison Guerra on 08-21-2024 Erythrocyte distribution width (RBC) [Ratio] 14.1 % 11.6-14.6 [facility] Erythrocyte distribution wid th standard deviationOrdered By: Alison Guerra on 08-21-2024 Erythrocyte distribution width (RBC) [Ratio] 47.9 fl High 35.1-43.9 [facility] Glucose Challenge Gest 1H 50 florin 08-21-2024 GLU GEST 50g 1H 108 mg/dL Normal 70-140 [facility] Comment on above: Performed By: #### L 3890.6006, L100.0100, L501.0250, L509.8002 ####[facility] [address] [place], [address] Glucose measurement at 2 selene rs post-dose gestational glucose tolerance testOrdered By: Alison Guerra on 08-21-2024 Glucose [Mass/Vol] 108 mg/dL 70-140 [facility] HIVon 08-21-2024 HIV Non-Reactive Normal Nonreactive [facility] Comment on above: Result Comment: Non- Reactive Reactive Repeatedly reactive samples must be confirmed according to CDC recommended confirmatory algorithms. The subresults for either HIVAG or AHIV can be used as an aid in the selection of the confirmation algorithm for reactive samples. Send out specimens with Reactive results to [facility] for confirmation. Order the HIV antibody detection and differentiation: lc#[id number] Performed By: #### L 3890.6006, L100.0100, L501.0250, L509.8002 ####[facility] [address] [place], [place], [address] Hematocrit Auto (Bld) [Volum e fraction]Ordered By: Alison Guerra on 08-21-2024 Hematocrit (Bld) [Volume fraction] 36.7 % Low 37-47 [facility] Hemoglobin measurementOrdere d By: Alison Guerra on 08-21-2024 Hemoglobin (Bld) [Mass/Vol] 11.9 g/dL Low 12.0-15.0 [facility] Immature granulocytes/100 WB C Auto (Bld)Ordered By: Alison Guerra on 08-21-2024 Immature granulocytes/100 WBC (Bld) 0.800 % 0.0-0.9 [facility] Comment on above: IG% - Immature Granu locytes (promyelocytes, myelocytes and metamyelocytes) > 1% indicates that a LEFT SHIFT is Present. Laboratory - Chemistry and C hemistry - challengeOrdered By: Chayo Quiñonez on 08-21-2024 Glucose Ql (U) Negative [facility] - UrinalysisOrder ed By: Chayo Quiñonez on 08-21-2024 Protein Ql (U) Negative [facility] Lymphocytes Auto (Unsp spec) [#/Vol]Ordered By: Alison Guerra on 08-21-2024 Lymphocytes (Bld) [#/Vol] 1.85 10*3/uL 0.83-4.51 [facility] Lymphocytes/100 WBC Auto (Un sp spec)Ordered By: Alison Guerra on 08-21-2024 Lymphocytes/100 WBC (Bld) 19.4 % 19-41 [facility] MCV (mean corpuscular volume ) determinationOrdered By: Alison Guerra on 08-21-2024 MCV (RBC) [Entitic vol] 92.9 fL 81-99 [facility] Mean corpuscular hemoglobin (MCH) determinationOrdered By: Alison Guerra on 08-21-2024 MCH (RBC) [Entitic mass] 30.1 pg 27.0-32.0 [facility] Mean corpuscular hemoglobin concentration (MCHC) determinationOrdered By: Alison Guerra on 08-21-2024 MCHC (RBC) [Mass/Vol] 32.4 g/dL 32-36 [facility] Mean platelet volume determi nationOrdered By: Alison Guerra on 08-21-2024 Platelet mean volume (Bld) [Entitic vol] 11.8 fL 6.2-12.0 [facility] Monocyte percentageOrdered B y: Alison Guerra on 08-21-2024 Monocytes/100 WBC (Bld) 5.1 % 0-10 [facility] Neutrophil percentageOrdered By: Alison Guerra on 08-21-2024 Neutrophils/100 WBC (Bld) 73.7 % High 47-70 [facility] No Panel InformationOrdered By: Alison Guerra on 08-21-2024 HIV (1&2) Antibody Non-Reactive Nonreactive [facility] Comment on above: Non-ReactiveReactive Repeatedly reactive samples must be confirmed according to CDC recommended confirmatory algorithms. The subresults for either HIVAG or AHIV can be used as an aid in the selection of the confirmation algorithm for reactive samples.Send out specimens with Reactive results to [facility] for confirmation.Order the HIV antibody detection and differentiation: #[id number] Nucleated red blood cell per centageOrdered By: Alison Guerra on 08-21-2024 Nucleated RBC/100 WBC (Bld) [Ratio] 0 % 0-5 [facility] Upholstery Bundler Office Visit Reporton 08-21-2024 Upholstery Bundler Office Visit Report [facility] [address], [address] [place] [address] OFFICE VISIT Date of Service: 08/21/24 MR#: [id number] Acct: [id number] Name: REMEDIOS NEAL Rep #: [id number] : 1985 Provider: RAMIREZ will Age/Sex: 39/F [place] [facility] [place]: Signed Intake Vital Signs 05/21/24 10:26 07/23/24 09:58 08/21/24 09:59 Height 5 ft 6.5 in 5 ft 6.5 in 5 ft 6.5 in Weight: 249 lb 8 oz BMI 39.6 BP 117/76 Intake Visit Reasons: 27 wk ob/glucose Security Team Lead Required: No Is patient in pain?: No [...] time current occupational status: employed 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 No mo vement yet. Feels well. [employer] anatomy tomorrow 07/23/24 -???-???-???-???-???-??? -???-???-???-???-???-??? - 23w 3d 252 lb 8 oz 119/73 Negative -???-???-???-???-???-??? -???-???-???-???-???-??? - Negative 145 -???-???-???-???-???-??? -???-???-?? (more content not included)... Normal [facility] Platelet countOrdered By: Argenis Guerra on 08-21-2024 Platelets (Bld) [#/Vol] 198 10*3/uL 150-450 [facility] RBC Auto (Bld) [#/Vol]Ordere d By: Alison Guerra on 08-21-2024 RBC (Bld) [#/Vol] 3.95 10*6/uL Low 4.2-5.4 [facility] Syphilis Antibodieson 2024 Syphilis Abs Non-Reactive Normal Nonreactive [facility] Comment on above: Performed By: #### L 3890.6006, L100.0100, L501.0250, L509.8002 ####[facility] [address] [place], [address] T. pallidum abOrdered By: Argenis Guerra on 08-21-2024 Syphilis Total Antibody Non-Reactive Nonreactiv e [facility] White blood cell (WBC) count Ordered By: Alison Guerra on 08-21-2024 WBC (Bld) [#/Vol] 9.5 10*3/uL 4.4-11.0 [facility] Laboratory - Chemistry and C hemistry - challengeOrdered By: Alison Guerra on 07-23-2024 Glucose Ql (U) Negative [facility] - UrinalysisOrder ed By: Alison Guerra on 07-23-2024 Protein Ql (U) Negative [facility] Upholstery Bundler Office Visit Reporton 07-23-2024 Upholstery Bundler Office Visit Report [facility] [address], [address] [place] [address] OFFICE VISIT Date of Service: 07/23/24 MR#: [id number] Acct: [id number] Name: ARACELI NEAL Rep #: [id number] : 1985 Provider: Dr. 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 No mo vement yet. Feels well. M anatomy tomorrow 07/23/24 -???-???-???-???-???-??? -???-???-???-???-???-??? - 23w 3d 252 lb 8 oz 119/73 Negative -???-???-???-???-???-??? -???-???-???-???-???-??? - Negative 145 -???-???-???-???-???-??? -???-???-???-???-???-??? - SM- no vb lo f gct next time [facility] (more content not included)... Normal [facility] - Chemistry and C hemistry - challengeOrdered By: Chayo Quiñonez on 06-25-2024 Glucose Ql (U) Negative [facility] - UrinalysisOrder ed By: Chayo Quiñonez on 06-25-2024 Protein Ql (U) Negative [facility] Upholstery Bundler Office Visit Reporton 06-25-2024 Upholstery Bundler Office Visit Report [facility] [address], [address] [place] [address] OFFICE VISIT Date of Service: 06/25/24 MR#: [id number] Acct: [id number] Name: ARACELI NEAL Rep #: [id number] : 1985 Provider: RAMIREZ will Age/Sex: 39/F [place] [facility] [place]: Signed Intake Vital Signs 07/11/22 12:46 05/21/24 10:26 06/25/24 08:37 Height 5 ft 6.5 in 5 ft 6.5 in 5 ft 6.5 in Weight: 253 lb 8 oz BMI 40.3 BP 124/72 H Intake Visit Reasons: 19wk OB Chief Complaint: 19 Week OB Security Team Lead Required: No Is patient in pain?: No [...] time current occupational status: employed 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 Normal [facility] PAP IG HPV APTIMA 16/18,45on 05-27-2024 ADEQ Comment Normal . [facility] Comment on above: Order Comment: Speci men Comment: [id number] Comment: Source.............Cervix;EndocervixSpecimen Comment: LMP / Prev Treat...[id number] Comment: No. of containers..01 ThinPrep Vial Result Comment: Sati sfactory for evaluation. Endocervical and/or squamous metaplastic cells (endocervical component) are present. Performed By: #### M 100.2200, L7000.1800, L7400.0280 ####[facility] [address] [place], [place], [id number] COMM . Normal . [facility] Comment on above: Order Comment: Speci men Comment: [id number] Comment: Source.............Cervix;EndocervixSpecimen Comment: LMP / Prev Treat...[id number] Comment: No. of containers..01 ThinPrep Vial Performed By: #### M 100.2200, L7000.1800, L7400.0280 ####[facility] [address] [place], [place], [id number] COMMENT Comment Normal . [facility] Comment on above: Order Comment: Speci men Comment: [id number] Comment: Source.............Cervix;EndocervixSpecimen Comment: LMP / Prev Treat...[id number] Comment: No. of containers..01 ThinPrep Vial Result Comment: This liquid based ThinPrep(R) pap test was screened with the use of an image guided system. Performed By: #### M 100.2200, L7000.1800, L7400.0280 ####[facility] [address] [place], [address] DIAG Comment Normal . [facility] Comment on above: Order Comment: Speci men Comment: [id number] Comment: Source.............Cervix;EndocervixSpecimen Comment: LMP / Prev Treat...[id number] Comment: No. of containers..01 ThinPrep Vial Result Comment: NEGA TIVE FOR INTRAEPITHELIAL LESION OR MALIGNANCY. Performed By: #### M 100.2200, L7000.1800, L7400.0280 ####[facility] [address] [place], [place], [id number] HPV APTIMA, HR Negative Normal Negative [facility] Comment on above: Order Comment: Speci men Comment: [id number] Comment: Source.............Cervix;EndocervixSpecimen Comment: LMP / Prev Treat...[id number] Comment: No. of containers..01 ThinPrep Vial Result Comment: This nucleic acid amplification test detects fourteen high- risk HPV types (16,18,31,33,35,39,45,51,52,56,58,59,66,68) without differentiation. Performed By: #### M 100.2200, L7000.1800, L7400.0280 ####[facility] [address] [place], [address] HPV Kiya Rfx Comment Normal . [facility] Comment on above: Order Comment: Speci men Comment: [id number] Comment: Source.............Cervix;EndocervixSpecimen Comment: LMP / Prev Treat...[id number] Comment: No. of containers..01 ThinPrep Vial Result Comment: Crit alexi not met, HPV Genotype not performed. Performed at: [facility] [address] [address] [place], [place] [id number] Item Processing Clerk: Bry Garcia MD, Phone: [phone] Performed at: - [address] [id number] Item Processing Clerk: Shana Leon MD, Phone: [phone] Performed at: = - [address] [id number] Item Processing Clerk: Shana Leon MD, Phone: [phone] Performed By: #### M 100.2200, L7000.1800, L7400.0280 ####[facility] [address] [place], [place], [id number] PAPSMR Comment Normal . [facility] Comment on above: Order Comment: Speci men Comment: [id number] Comment: Source.............Cervix;EndocervixSpecimen Comment: LMP / Prev Treat...[id number] Comment: No. of containers..01 ThinPrep Vial Result Comment: The Pap smear is a screening test designed to aid in the detection of premalignant and malignant conditions of the uterine cervix. It is not a diagnostic procedure and should not be used as the sole means of detecting cervical cancer. Both false-positive and false-negative reports do occur. Performed By: #### M 100.2200, L7000.1800, L7400.0280 ####[facility] [address] [place], [address] PERFORM Comment Normal . [facility] Comment on above: Order Comment: Speci men Comment: [id number] Comment: Source.............Cervix;EndocervixSpecimen Comment: LMP / Prev Treat...[id number] Comment: No. of containers..01 ThinPrep Vial Result Comment: Ashley Dickson, Assistant Manager/Embalmer (ASCP) Performed By: #### M 100.2200, L7000.1800, L7400.0280 ####[facility] [address] [place], [address] Chlamydia/GC ROMEO aptimaon CHLAMY,NUC ACID Negative Normal Negative [facility] Comment on above: Performed By: #### M 100.2200, L7000.1800, L7400.0280 ####[facility] [address] [place], [address] GC BY NUC ACID Negative Normal Negative [facility] Comment on above: Result Comment: Perf ormed at: = - [facility] [id number] Item Processing Clerk: Shana Leon MD, Phone: [phone] Performed By: #### M 100.2200, L7000.1800, L7400.0280 ####[facility] [address] [place], [address] L3410.9999on 05-24-2024 [facility] Misc. COMMENT Normal . [facility] Comment on above: Order Comment: [id number] 4TSH RECEPTOR AB Result Comment: Test Ordered: [id number] Thyrotropin Receptor Ab, Serum Thyrotropin Receptor Ab, Serum <1.10 IU/L Reference Range: 0.00-1.75 Performed at: [facility] [address] [id number] Item Processing Clerk: Lawrence Amanda MD, Phone: [phone] Performed at: [facility] [address] [id number] Item Processing Clerk: Blas Samuel PhD, Phone: [phone] Performed By: #### L 3300.2202, BTS, L501.9985, L3890.6300, L3890.6100, L900.0098, L100.0100, L501.9520, L509.4005, L509.8000, L3410.9999, L506.0400, L3890.6005 ####[facility] [address] [place], [place], [id number] Hemoglobinopathy Profileon 0 05-23-2024 Hgb Solubility Normal [facility] Comment on above: Result Comment: TEST RESULTS LIMITS Hgb Fractionation [place] Hgb Fractionation by CE: Hgb F 0.0 % 0.0-2.0 Hgb A 97.6 % 96.4-98.8 Hgb A2 2.4 % 1.8-3.2 Hgb S 0.0 % 0.0 Interpretation: Normal hemoglobin present; no hemoglobin variant or beta thalassemia identified. Note: Alpha thalassemia may not be detected by the Hgb Fractionation [place] panel. If alpha thalassemia is suspected, [facility] offers Alpha-Thalassemia DNA Analysis (#[id number]). TESTING PERFORMED AT [facility]. ORIGINAL REPORT ON FILE IN LAB CONTAINS ADDITIONAL TEST SITE INFORMATION. Performed By: #### L 3300.2202, BTS, L501.9985, L3890.6300, L3890.6100, L900.0098, L100.0100, L501.9520, L509.4005, L509.8000, L3410.9999, L506.0400, L3890.6005 ####[facility] [address] [place], [place], [phone] Urine Cultureon 05-22-2024 [facility] Culture exhibits no growth. Normal [facility] Comment on above: Performed By: #### M 100.2200, L7000.1800, L7400.0280 ####[facility] [address] [place], [place], [phone] Absolute neutrophil countOrd ered By: Alison Guerra on 05-21-2024 Neutrophils (Bld) [#/Vol] 6.3 10*3/uL 2.0-7.7 [facility] Basophil percentageOrdered B y: Alison Guerra on 05-21-2024 Basophils/100 WBC (Bld) 0.2 % 0-1 [facility] C. trachomatis rRNA ROMEO+prob e Ql (Unsp spec)Ordered By: Alison Guerra on 05-21-2024 Chlamydia DNA (ROMEO) Negative Negative [facility] CBC W/Diff, Automatedon Absolute Lymph 1.52 X10 3/uL Normal 0.83-4.51 [facility] Comment on above: Performed By: #### L 3300.2202, BTS, L501.9985, L3890.6300, L3890.6100, L900.0098, L100.0100, L501.9520, L509.4005, L509.8000, L3410.9999, L506.0400, L3890.6005 ####[facility] [address] [place], [address] Absolute Neut 6.3 X10 3/uL Normal 2.0-7.7 [facility] Comment on above: Performed By: #### L 3300.2202, BTS, L501.9985, L3890.6300, L3890.6100, L900.0098, L100.0100, L501.9520, L509.4005, L509.8000, L3410.9999, L506.0400, L3890.6005 ####[facility] [address] [place], [place], [phone] Basophils/100 WBC (Bld) 0.2 % Normal 0-1 [facility] Comment on above: Performed By: #### L 3300.2202, BTS, L501.9985, L3890.6300, L3890.6100, L900.0098, L100.0100, L501.9520, L509.4005, L509.8000, L3410.9999, L506.0400, L3890.6005 ####[facility] [address] [place], [place], [phone]) Eosinophils/100 WBC (Bld) 0.8 % Normal 0-5 [facility] Comment on above: Performed By: #### L 3300.2202, BTS, L501.9985, L3890.6300, L3890.6100, L900.0098, L100.0100, L501.9520, L509.4005, L509.8000, L3410.9999, L506.0400, L3890.6005 ####[facility] [address] [place], [address] Erythrocyte distribution width (RBC) [Ratio] 13.5 % Normal 11.6-14.6 [facility] Comment on above: Performed By: #### L 3299.2202, BTS, L501.9985, L3890.6300, L3890.6100, L900.0098, L100.0100, L501.9520, L509.4005, L509.8000, L3410.9999, L506.0400, L3890.6005 ####[facility] [address] [place], [address] Hematocrit (Bld) [Volume fraction] 39.3 % Normal 37-47 [facility] Comment on above: Performed By: #### L 3299.2202, BTS, L501.9985, L3890.6300, L3890.6100, L900.0098, L100.0100, L501.9520, L509.4005, L509.8000, L3410.9999, L506.0400, L3890.6005 ####[facility] [address] [place], [address] Hemoglobin (Bld) [Mass/Vol] 12.2 g/dL Normal 12.0-15.0 [facility] Comment on above: Performed By: #### L 3300.2202, BTS, L501.9985, L3890.6300, L3890.6100, L900.0098, L100.0100, L501.9520, L509.4005, L509.8000, L3410.9999, L506.0400, L3890.6005 ####[facility] [address] [facility] [place], [address] IG% 0.500 Normal 0.0-0.9 [facility] Comment on above: Result Comment: IG% - Immature Granulocytes (promyelocytes, myelocytes and metamyelocytes) > 1% indicates that a LEFT SHIFT is Present. Performed By: #### L 3300.2202, BTS, L501.9985, L3890.6300, L3890.6100, L900.0098, L100.0100, L501.9520, L509.4005, L509.8000, L3410.9999, L506.0400, L3890.6005 ####[facility] [address] [facility] [place], [address] Lymphocytes/100 WBC (Bld) 18.0 % Low 19-41 [facility] Comment on above: Performed By: #### L 3300.2202, BTS, L501.9985, L3890.6300, L3890.6100, L900.0098, L100.0100, L501.9520, L509.4005, L509.8000, L3410.9999, L506.0400, L3890.6005 ####[facility] [address] [place], [address] MCH (RBC) [Entitic mass] 27.5 pg Normal 27.0-32.0 [facility] Comment on above: Performed By: #### L 3300.2202, BTS, L501.9985, L3890.6300, L3890.6100, L900.0098, L100.0100, L501.9520, L509.4005, L509.8000, L3410.9999, L506.0400, L3890.6005 ####[facility] [address] [place], [address] MCHC (RBC) [Mass/Vol] 31.0 g/dL Low 32-36 [facility] Comment on above: Performed By: #### L 3300.2202, BTS, L501.9985, L3890.6300, L3890.6100, L900.0098, L100.0100, L501.9520, L509.4005, L509.8000, L3410.9999, L506.0400, L3890.6005 ####[facility] [address] [place], [address] MCV (RBC) [Entitic vol] 88.5 fL Normal 81-99 [facility] Comment on above: Performed By: #### L 3300.2202, BTS, L501.9985, L3890.6300, L3890.6100, L900.0098, L100.0100, L501.9520, L509.4005, L509.8000, L3410.9999, L506.0400, L3890.6005 ####[facility] [address] [place], [address] Monocytes/100 WBC (Bld) 5.5 % Normal 0-10 [facility] Comment on above: Performed By: #### L 3300.2202, BTS, L501.9985, L3890.6300, L3890.6100, L900.0098, L100.0100, L501.9520, L509.4005, L509.8000, L3410.9999, L506.0400, L3890.6005 ####[facility] [address] [place], [address] Neutrophils/100 WBC (Bld) 75.0 % High 47-70 [facility] Comment on above: Performed By: #### L 3300.2202, BTS, L501.9985, L3890.6300, L3890.6100, L900.0098, L100.0100, L501.9520, L509.4005, L509.8000, L3410.9999, L506.0400, L3890.6005 ####[facility] [address] [place], [place], [phone] Nucleated RBC (Bld) [#/Vol] 0 10*3/uL Normal 0-5 [facility] Comment on above: Performed By: #### L 3300.2202, BTS, L501.9985, L3890.6300, L3890.6100, L900.0098, L100.0100, L501.9520, L509.4005, L509.8000, L3410.9999, L506.0400, L3890.6005 ####[facility] [address] [place], [place], [phone] Platelet mean volume (Bld) [Entitic vol] 11.2 fL Normal 6.2-12.0 [facility] Comment on above: Performed By: #### L 3300.2202, BTS, L501.9985, L3890.6300, L3890.6100, L900.0098, L100.0100, L501.9520, L509.4005, L509.8000, L3410.9999, L506.0400, L3890.6005 ####[facility] [address] [place], [address] Platelets (Bld) [#/Vol] 263 10*3/uL Normal 150-450 [facility] Comment on above: Performed By: #### L 3300.2202, BTS, L501.9985, L3890.6300, L3890.6100, L900.0098, L100.0100, L501.9520, L509.4005, L509.8000, L3410.9999, L506.0400, L3890.6005 ####[facility] [address] [place], [address] RBC (Bld) [#/Vol] 4.44 10*6/uL Normal 4.2-5.4 [facility] Comment on above: Performed By: #### L 0.2202, BTS, L501.9985, L3890.6300, L3890.6100, L900.0098, L100.0100, L501.9520, L509.4005, L509.8000, L3410.9999, L506.0400, L3890.6005 ####[facility] [address] [place], [address] RDW SD 43.6 fl Normal 35.1-43.9 [facility] Comment on above: Performed By: #### L 0.2202, BTS, L501.9985, L3890.6300, L3890.6100, L900.0098, L100.0100, L501.9520, L509.4005, L509.8000, L3410.9999, L506.0400, L3890.6005 ####[facility] [address] [place], [address] WBC (Bld) [#/Vol] 8.4 10*3/uL Normal 4.4-11.0 [facility] Comment on above: Performed By: #### L 3300.2202, BTS, L501.9985, L3890.6300, L3890.6100, L900.0098, L100.0100, L501.9520, L509.4005, L509.8000, L3410.9999, L506.0400, L3890.6005 ####[facility] [address] [place], [place], [address] Ship Joiner Cyto stain Nom (C vx/Vag) [ID]Ordered By: Alison Guerra on 05-21-2024 Pap Smear Performed By Comment . [facility] Comment on above: Joelle Dickson [facility] otechnologist (ASCP) Cytology report Cyto stain D oc (Cvx/Vag)Ordered By: Alison Guerra on 05-21-2024 Thin Prep Pap Smear Comment . [facility] Comment on above: The Pap smear is [...] 05-21-2024 HPV Genotype Special Info Comment . [facility] Comment on above: Criteria not met, HP V Genotype not performed.Performed at: [facility] Cyto [address] [place], [place] [id number] Director: Bry Garcia MD, Phone: [phone] at: [facility] [address] [id number] Director: Shana Leon MD, Phone: [phone] at: [facility] [address] [id number] Director: Shana Leon MD, Phone: [phone] Direct serum free thyroxine (FT4) measurementOrdered By: Alison Guerra on 05-21-2024 Free T4 [Mass/Vol] 1.21 ng/dL 0.76-1.46 [facility] Eosinophil percentageOrdered By: Alison Guerra on 05-21-2024 Eosinophils/100 WBC (Bld) 0.8 % 0-5 [facility] Erythrocyte distribution wid th (RBC) [Ratio]Ordered By: Alison Guerra on 05-21-2024 Erythrocyte distribution width (RBC) [Entitic vol] 43.6 fL 35.1-43.9 [facility] Erythrocyte distribution wid th ratioOrdered By: Alison Guerra on 05-21-2024 Erythrocyte distribution width (RBC) [Ratio] 13.5 % 11.6-14.6 [facility] HIV - WCHon 05-21-2024 HIV Non-Reactive Normal Nonreactive [facility] Comment on above: Order Comment: Reaso n for Exam: Performed By: #### L 3300.2202, BTS, L501.9985, L3890.6300, L3890.6100, L900.0098, L100.0100, L501.9520, L509.4005, L509.8000, L3410.9999, L506.0400, L3890.6005 ####[facility] [address] [place], [address] HIV 1+2 Ab+HIV1 p24 Ag IA Ql Ordered By: Alison Guerra on 05-21-2024 HIV (1&2) Antibody Non-Reactive Nonreactive [facility] HPV 16+18+31+33+35+39+45+51+ 52+56+58+59+66+68 DNA Probe+sig amp Ql (Cvx)Ordered By: Alison Guerra on 05-21-2024 Human Papillomavirus High Risk Negative Negative [facility] Comment on above: This nucleic acid am plification test detects fourteen high-risk HPV types (16,18,31,33,35,39,45,51,52,56,58,59,66,68)without differentiation. Hematocrit Auto (Bld) [Volum e fraction]Ordered By: Alison Guerra on 05-21-2024 Hematocrit (Bld) [Volume fraction] 39.3 % 37-47 [facility] Hemoglobin A measurementOrde red By: Alison Guerra on 05-21-2024 Hemoglobin A Not Reportable [facility] Hemoglobin A1con 05-21-2024 HbA1c (Bld) [Mass fraction] 5.4 % Normal 3.8-5.6 [facility] Comment on above: Result Comment: Norm al < 5.7 % Prediabetic 5.7 - 6.4 % Diabetic >or= 6.5 % Please note range changes. Performed By: #### L 3300.2202, BTS, L501.9985, L3890.6300, L3890.6100, L900.0098, L100.0100, L501.9520, L509.4005, L509.8000, L3410.9999, L506.0400, L3890.6005 ####[facility] [address] [place], [address] Hemoglobin A1c percentageOrd ered By: Alison Guerra on 05-21-2024 HbA1c (Bld) [Mass fraction] 5.4 % 3.8-5.6 [facility] Comment on above: Normal < 5.7 % Predi abetic 5.7 - 6.4 % Diabetic >or= 6.5 % Please note range changes. Hemoglobin A2 Chromatography column (Bld) [Mass fraction]Ordered By: Alison Guerra on 05-21-2024 Hemoglobin A2 Not Reportable [facility] Hemoglobin C (Bld) [Mass fra ction]Ordered By: Alison Guerra on 05-21-2024 Hemoglobin C Not Reportable [facility] Hemoglobin F measurementOrde red By: Alison Guerra on 05-21-2024 Hemoglobin F () Not Reportable [facility] Hemoglobin S (Bld) [Mass fra ction]Ordered By: Alison Guerra on 05-21-2024 Hemoglobin S Ql (Bld) Not Reportable [facility] Hemoglobin S Solubility test Ql (Bld)Ordered By: Alison Guerra on 05-21-2024 Hemoglobin Solubility See comment [facility] Comment on above: TEST RESULTS LIMITSH gb Fractionation [place] Hgb Fractionation by CE: Hgb F 0.0 % 0.0-2.0 Hgb A 97.6 % 96.4-98.8 Hgb A2 2.4 % 1.8-3.2 Hgb S 0.0 % 0.0Interpretation: Normal hemoglobin present; no hemoglobin variant or beta thalassemia identified.Note: Alpha thalassemia may not be detected by the Hgb Fractionation [place] panel. If alpha thalassemia is suspected, [facility] offers Alpha-Thalassemia DNA Analysis (#[id number]). TESTING PERFORMED AT [facility]. ORIGINAL REPORT ON FILE IN LAB CONTAINS ADDITIONAL TEST SITE INFORMATION. Hemoglobin measurementOrdere d By: Alison Guerra on 05-21-2024 Hemoglobin (Bld) [Mass/Vol] 12.2 g/dL 12.0-15.0 [facility] Hepatitis B Surface Antigeno n 05-21-2024 HEP B Surf Ag Non-Reactive Normal Nonreactive [facility] Comment on above: Order Comment: Reaso n for Exam: Performed By: #### L 3300.2202, BTS, L501.9985, L3890.6300, L3890.6100, L900.0098, L100.0100, L501.9520, L509.4005, L509.8000, L3410.9999, L506.0400, L3890.6005 ####[facility] [address] [place], [address] Hepatitis B surface antigen detectionOrdered By: Alison Guerra on 05-21-2024 Hepatitis B Surface Antigen Non-Reactive Nonreactive [facility] Hepatitis C Antibodyon 05-21 Hepatitis C AB Non-Reactive Normal Nonreactive [facility] Comment on above: Order Comment: Reaso n for Exam: Result Comment: Non Reactive: < 0.8 Equivocal: >/= 0.8 to < 1.0 Reactive: >/= 1.0 The CDC requires that a reactive/equivocal HCV antibody result be sent out for confirmation. HCV Quant by PCR testing. Performed By: #### L 3300.2202, BTS, L501.9985, L3890.6300, L3890.6100, L900.0098, L100.0100, L501.9520, L509.4005, L509.8000, L3410.9999, L506.0400, L3890.6005 ####[facility] [address] [place], [address] Hepatitis C virus antibody a ssayOrdered By: Alison Guerra on 05-21-2024 Hepatitis C Antibody Non-Reactive Nonreactive [facility] Comment on above: Non Reactive: < 0.8 Equivocal: >/= 0.8 to < 1.0 Reactive: >/= 1.0The [facility] requires that a reactive/equivocal HCV antibody result be sent out for confirmation. HCV Quant by PCR testing. Hgb variant detection HPLCOr dered By: Alison Guerra on 05-21-2024 Variant Hemoglobin Not Reportable [facility] Image-guided ThinPrep PapOrd ered By: Alison Guerra on 05-21-2024 Pap Smear Note Comment . [facility] Comment on above: This liquid based Th inPrep(R) pap test was screened withthe use of an image guided system. Image-guided liquid-based Pa pOrdered By: Alison Guerra on 05-21-2024 Pap Smear Diagnosis Comment . [facility] Comment on above: NEGATIVE FOR INTRAEP ITHELIAL LESION OR MALIGNANCY. Immature granulocytes/100 WB C Auto (Bld)Ordered By: Alison Guerra on 05-21-2024 Immature granulocytes/100 WBC (Bld) 0.500 % 0.0-0.9 [facility] Comment on above: IG% - Immature Granu locytes (promyelocytes, myelocytes and metamyelocytes) > 1% indicates that a LEFT SHIFT is Present. L509.8000on 05-21-2024 Syphilis Abs Non-Reactive Normal [facility] Comment on above: Order Comment: Reaso n for Exam: Performed By: #### L 3300.2202, BTS, L501.9985, L3890.6300, L3890.6100, L900.0098, L100.0100, L501.9520, L509.4005, L509.8000, L3410.9999, L506.0400, L3890.6005 ####[facility] [address] [place], [address] Lymphocytes Auto (Unsp spec) [#/Vol]Ordered By: Alison Guerra on 05-21-2024 Lymphocytes (Bld) [#/Vol] 1.52 10*3/uL 0.83-4.51 [facility] Lymphocytes/100 WBC Auto (Un sp spec)Ordered By: Alison Guerra on 05-21-2024 Lymphocytes/100 WBC (Bld) 18.0 % Low 19-41 [facility] MCV (mean corpuscular volume ) determinationOrdered By: Alison Guerra on 05-21-2024 MCV (RBC) [Entitic vol] 88.5 fL 81-99 [facility] Mean corpuscular hemoglobin (MCH) determinationOrdered By: Alison Guerra on 05-21-2024 MCH (RBC) [Entitic mass] 27.5 pg 27.0-32.0 [facility] Mean corpuscular hemoglobin concentration (MCHC) determinationOrdered By: Alison Guerra on 05-21-2024 MCHC (RBC) [Mass/Vol] 31.0 g/dL Low 32-36 [facility] Mean platelet volume determi nationOrdered By: Alison Guerra on 05-21-2024 Platelet mean volume (Bld) [Entitic vol] 11.2 fL 6.2-12.0 [facility] Miscellaneous procedureOrder ed By: Alison Guerra on 05-21-2024 Miscellaneous Test Comment SEE SCANNED REPORT [facility] Monocyte percentageOrdered B y: Alison Guerra on 05-21-2024 Monocytes/100 WBC (Bld) 5.5 % 0-10 [facility] NATERAon 05-21-2024 NATURA SEE SCANNED REPORT Normal [facility] Comment on above: Performed By: #### L 3300.2202, BTS, L501.9985, L3890.6300, L3890.6100, L900.0098, L100.0100, L501.9520, L509.4005, L509.8000, L3410.9999, L506.0400, L3890.6005 ####[facility] [address] [place], [address] Neisseria gonorrhoeae nuclei c acid detection by amplified probe techniqueOrdered By: Alison Guerra on 05-21-2024 N. gonorrhoeae DNA ROMEO+probe Ql (Unsp spec) Negative Negative [facility] Comment on above: Performed at: [address] [id number] Director: Shana Leon MD, Phone: [phone] Neutrophil percentageOrdered By: Alison Guerra on 05-21-2024 Neutrophils/100 WBC (Bld) 75.0 % High 47-70 [facility] No Panel InformationOrdered By: Alison Guerra on 05-21-2024 Miscellaneous Test COMMENT . [facility] Comment on above: Test Ordered: [id number] Thyrotropin Receptor Ab, SerumThyrotropin Receptor Ab, Serum <1.10 IU/L Reference Range: 0.00-1.75Performed at: [facility] - [facility] [address] [id number] Director: Lawrence Amanda MD, Phone: [phone] at: [facility] - [facility] [address] [id number] Director: Blas Samuel PhD, Phone: [phone] Nucleated red blood cell per centageOrdered By: Alison Guerra on 05-21-2024 Nucleated RBC/100 WBC (Bld) [Ratio] 0 % 0-5 [facility] Upholstery Bundler Office Visit Reporton 05-21-2024 Upholstery Bundler Office Visit Report [facility]'s [address] [place] [address] OFFICE VISIT Date of Service: 05/21/24 MR#: [id number] Acct: [id number] Name: ARACELI NEAL Rep #: [id number] : 1985 Provider: Dr. 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 Normal [facility] Platelet countOrdered By: Argenis Guerra on 05-21-2024 Platelets (Bld) [#/Vol] 263 10*3/uL 150-450 [facility] RBC Auto (Bld) [#/Vol]Ordere d By: Alison Guerra on 05-21-2024 RBC (Bld) [#/Vol] 4.44 10*6/uL 4.2-5.4 [facility] Rubella IgGon 05-21-2024 Rubella IgG Reactive Normal Nonreactive [facility] Comment on above: Order Comment: Reaso n for Exam: Result Comment: Anti body Results Interpretation of Immune Status Non Reactive Presumed Non-Immune Equivocal Equivocal Reactive Presumed Immune Performed By: #### L 3300.2202, BTS, L501.9985, L3890.6300, L3890.6100, L900.0098, L100.0100, L501.9520, L509.4005, L509.8000, L3410.9999, L506.0400, L3890.6005 ####[facility] [address] [place], [place], [id number] Rubella immune status IgGOrd ered By: Alison Guerra on 05-21-2024 Rubella IgG Antibody Reactive Nonreactive [facility] Comment on above: Antibody Results Int erpretation of Immune Status Non Reactive Presumed Non-Immune Equivocal Equivocal Reactive Presumed Immune Service comment (Unsp spec) [Interp]Ordered By: Alison Guerra on 05-21-2024 Pap Smear Comment (3) . . [facility] T4 Free Directon 05-21-2024 T4 FREE DIRECT 1.21 ng/dL Normal 0.76-1.46 [facility] Comment on above: Performed By: #### L 3300.2202, BTS, L501.9985, L3890.6300, L3890.6100, L900.0098, L100.0100, L501.9520, L509.4005, L509.8000, L3410.9999, L506.0400, L3890.6005 ####[facility] [id number] [place], [place], [phone] TSH QnOrdered By: Alison brooks on 05-21-2024 Thyroid Stimulating Hormone (TSH) 0.572 uIU/mL 0.358-3.740 [facility] Thyroid Stim Hormone (TSH)on 05-21-2024 TSH 0.572 uIU/mL Normal 0.358-3.740 [facility] Comment on above: Performed By: #### L 3300.2202, BTS, L501.9985, L3890.6300, L3890.6100, L900.0098, L100.0100, L501.9520, L509.4005, L509.8000, L3410.9999, L506.0400, L3890.6005 ####[facility] [address] [place], [place], [phone] Treponema sp Ab Ql (S)Ordere d By: Alison Guerra on 05-21-2024 Syphilis Total Antibody Non-Reactive [facility] Type AND Screenon 05-21-2024 ABO and Rh group Nom (Bld) Blood group B Rh(D) positive Normal [facility] Comment on above: Order Comment: PN Performed By: #### L 3300.2202, BTS, L501.9985, L3890.6300, L3890.6100, L900.0098, L100.0100, L501.9520, L509.4005, L509.8000, L3410.9999, L506.0400, L3890.6005 ####[facility] [address] [place], [place], [phone] Urine cultureOrdered By: Jose Daniel Guerra on 05-21-2024 Bacteria identified Cx Nom (U) Culture exhibits no growth. [facility] White blood cell (WBC) count Ordered By: Alison Guerra on 05-21-2024 WBC (Bld) [#/Vol] 8.4 10*3/uL 4.4-11.0 [facility] Dilute Rashad's viper venom timeOrdered By: Dr. Guerra on 07-11-2022 dRVVT Coag (PPP) [Time] 39.5 s 0.0-47.0 [facility] Laboratory - Chemistry and C hemistry - challengeOrdered By: Dr. Guerra on 07-11-2022 Free T4 [Mass/Vol] 1.02 ng/dL 0.76-1.46 [facility] No Panel InformationOrdered By: Dr. Guerra on 07-11-2022 Anti-Cardiolipin IgM Antibody 20 MPL U/mL 0-12 [facility] Comment on above: Negative: <13 Indete rminate: 13 - 20 Low-Med Positive: >20 - 80 High Positive: >80 Dehydroepiandrosterone Sulfate 89.4 ug/dL 57.3-279.2 [facility] Thyroid Stimulating Hormone (TSH) 1.12 uIU/mL 0.358-3.74 [facility] Serum beta 2 glycoprotein 1 IgA antibody detectionOrdered By: Dr. Guerra on 07-11-2022 Beta 2 glycoprotein 1 IgA Ql (S) <9 0-25 [facility] Comment on above: Result Units: GPI Ig [...] glycoprotein 1 IgG Ql (S) <9 0-20 [facility] Comment on above: Result Units: GPI Ig [...] glycoprotein 1 IgM Ql (S) <9 0-32 [facility] Comment on above: Result Units: GPI Ig [...] Qn (S) < 9 GPL U/mL 0-14 [facility] Comment on above: Negative: <15 Indete rminate: 15 - 20 Low-Med Positive: >20 - 80 High Positive: >80 Serum or plasma 17-hydroxypr ogesterone measurement (mass/volume)Ordered By: Dr. Guerra on 07-11-2022 17-Hydroxyprogesterone [Mass/Vol] 20 ng/dL . [facility] Comment on above: Adult Female Follicu lar 15 - 70 Luteal 35 - 290Performed at: [facility] [address] [id number] Director: Lawrence Amanda MD, Phone: [phone] Serum or plasma cardiolipin IgA antibody assay (units/volume)Ordered By: Dr. Guerra on 07-11-2022 Cardiolipin IgA Qn < 9 APL U/mL 0-11 [facility] Comment on above: Negative: <12 Indete rminate: 12 - 20 Low-Med Positive: >20 - 80 High Positive: >80 Serum or plasma prolactin me asurement (mass/volume)Ordered By: Dr. Guerra on 07-11-2022 Prolactin [Mass/Vol] 8.7 ng/mL [facility] Comment on above: NORMAL REFERENCE RAN GES FEMALE NON- 2.2 - 30.3 ng/mL 8.1 - 347.6 ng/mL POST-MENOPAUSAL 0.7 - 31.5 ng/mL MALE 2.5 - 17.4 ng/mL Serum or plasma testosterone free measurement (mass/volume)Ordered By: Dr. Guerra on 07-11-2022 Testosterone Free [Mass/Vol] 0.4 pg/mL 0.0-4.2 [facility] Comment on above: Performed at: [facility] [address] [id number] Director: Lawrence Amanda MD, Phone: [phone] at: [facility] [id number] Director: Blas Samuel PhD, Phone: [phone] Thin prep Papanicolaou smear with manual screeningOrdered By: Dr. Guerra on 07-11-2022 Thin prep Papanicolaou smear with manual screening 40.4 sec 0.0-47.6 [facility] Thin prep Papanicolaou smear with manual screening 1.03 Ratio 0.00-1.34 [facility] Thin prep Papanicolaou smear with manual screening 39.5 sec 0.0-43.5 [facility] Comment on above: Please note refere nce interval change Thin prep Papanicolaou smear with manual screening Comment: . [facility] Comment on above: No lupus anticoagula nt was detected. Thrombin time in platelet po or plasmaOrdered By: Dr. Guerra on 07-11-2022 Thrombin time Coag (PPP) [Time] 16.8 sec 0.0-23.0 [facility] Whole blood hemoglobin A1c/t otal hemoglobin ratio (mass fraction)Ordered By: Dr. Guerra on 07-11-2022 HbA1c (Bld) [Mass fraction] 5.3 % 3.8-5.6 [facility] Comment on above: Normal < 5.7 % Predi abetic 5.7 - 6.4 % Diabetic >or= 6.5 % Please note range changes. 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 Diagnoses/Problems Health Maintenance/Risks Encounter [...] daily Vitals Vital Signs Recorded: 03Nov2021 01:18PM [id number] Fvpdctaoh20 Height5 ft 6.5 in Etddyh360 lb BMI Wxnlecyayw38.56 kg/m2 BSA Calculated2.3 [id number] Physical Exam Constitutional: Alert and in no [...] intact Signatures Electronically signed by : RUBÉN Johansen APRN-STUDENT TEACHER; Nov 03 2021 2:01PM EST (Author) Normal [facility] Cytologyon 12-08-2019 [facility] Cytology 16 Date of Procedure: 12/08/2019 Pathologist: [facility], Cytology Date Reported: 12/24/2019 Date Received: 12/09/2019 [...] verified by the Molecular Diagnostic Laboratory at [facility]. The lab is certified under the Clinical Laboratory Amendments of 1988 (CLIA 88) as qualified to perform high complexity clinical laboratory testing. This specimen has been analyzed by the [employer] Imaging System ([employer] an automated imaging and review system, which assists the laboratory in evaluating cells on ThinPrep Pap tests. Following automated imaging, selected silva from every slide were reviewed by a senior electronics design engineer and/or pathologist. Electronically Signed Out By [facility], Cytology//ELC/PWM By the signature on this report, [...] of Specimen A: THINPREP PAP CERVICAL Normal [facility] Comment on above: Performed By: #### C #### [facility] Cytology [address] [facility] [address] Auto Diffon 09-20-2018 Basophils #/vol (Bld) 0.0 E3/mcL Normal 0.0-0.[address] [facility] Comment on above: Order Comment: Order Added by Discern Expert. Performed By: #### 2 [id number] #### [facility] [address] [place] [address] Basophils/100 WBC (Bld) 0.7 % Normal 0.0-2.0 [facility] Comment on above: Order Comment: Order Added by Discern Expert. Performed By: #### 2 [id number] #### [facility] [address] [place] [address] Eos Absolute 0.1 E3/mcL Normal 0.0-0.7 [facility] Comment on above: Order Comment: Order Added by Discern Expert. Performed By: #### 2 [id number] #### [facility] [employer] [address] [place] [address] Eosinophils/100 WBC (Bld) 1.4 % Normal 0.0-11.0 [facility] Comment on above: Order Comment: Order Added by Discern Expert. Performed By: #### 2 [id number] #### [facility] [address] [place] [address] Lymphocytes #/vol (Bld) 2.0 E3/mcL Normal 1.2-3.4 [facility] Comment on above: Order Comment: Order Added by Discern Expert. Performed By: #### 2 [id number] #### [facility] DavisHemo [address] [place] [address] Lymphocytes/100 WBC (Bld) 37.0 % Normal 20.0-55.0 [facility] Comment on above: Order Comment: Order Added by Discern Expert. Performed By: #### 2 [id number] #### [facility] [employer] [address] [place] [address] Brule Absolute 0.3 E3/mcL Normal 0.0-0.7 [facility] Comment on above: Order Comment: Order Added by Discern Expert. Performed By: #### 2 [id number] #### [facility] Davis[employer]emo [address] [place] [address] Monocytes/100 WBC (Bld) 6.1 % Normal 0.0-10.0 [facility] Comment on above: Order Comment: Order Added by Discern Expert. Performed By: #### 2 [id number] #### [facility] [employer] [address] [place] [address] Neutro Absolute 2.9 E3/mcL Normal 1.4-6.5 [facility] Comment on above: Order Comment: Order Added by Discern Expert. Performed By: #### 2 969714 #### [facility] [employer] [address] [place] [address] Neutro Auto 54.8 % Normal 37.0-75.0 [facility] Comment on above: Order Comment: Order Added by Discern Expert. Performed By: #### 2 [id number] #### [facility] [place] [address] BMPon 09-20-2018 Anion gap molar conc 10 mmol/L Normal 10-20 [facility] Comment on above: Performed By: #### 2 [id number] #### [facility] [employer] [address] [place], [place] [address] Calcium mass conc 8.9 mg/dL Normal 8.6-10.3 [facility] Comment on above: Performed By: #### 2 [id number] #### [facility] [address] [place] [address] Chloride molar conc 109 mmol/L High 98-107 [facility] Comment on above: Performed By: #### 2 668354 #### [facility] [address] [place] [address] CO2 molar conc 25.0 mmol/L Normal 21.0-32.0 [facility] Comment on above: Performed By: #### 2 483800 #### [facility] [address] [place] [address] Creatinine mass conc 0.9 mg/dL Normal 0.5-1.1 [facility] Comment on above: Performed By: #### 2 [id number] #### [facility] [address] [place] [address] Glucose mass conc 108 mg/dL High 70-99 [facility] Comment on above: Performed By: #### 2 885626 #### [facility] [address] [place] [address] Potassium molar conc 4.0 mmol/L Normal 3.5-5.3 [facility] Comment on above: Performed By: #### 2 582460 #### [facility] [address] [place] [address] Sodium molar conc 140 mmol/L Normal 136-145 [facility] Comment on above: Performed By: #### 2 358783 #### [facility] [address] [place] [address] Urea nitrogen mass conc 8 mg/dL Normal 6-23 [facility] Comment on above: Performed By: #### 2 [id number] #### [facility] [address] [place] [address] Urea nitrogen/Creatinine mass ratio 8.9 ratio Normal 5.4-30.0 [facility] Comment on above: Performed By: #### 2 [id number] #### [facility] [employer] [address] [place] [address] CBC w/ Auto Diffon 9 Erythrocyte distribution width Ratio (RBC) 13.7 % Normal 11.5-14.5 [facility] Comment on above: Performed By: #### 2 693642 #### [facility] aDvisHemo [address] [place] [id number] Hematocrit Volume Fraction (Bld) 40.3 % Normal 36.0-48.0 [facility] Comment on above: Performed By: #### 2 885003 #### [facility] [employer] [address] [place] [id number] Hemoglobin mass conc (Bld) 13.0 g/dL Normal 12.0-16.0 [facility] Comment on above: Performed By: #### 2 141465 #### BE[facility] Davis[facility] [place] [id number] MCH Entitic mass (RBC) 28.8 pg Normal 27.0-31.0 [facility] Comment on above: Performed By: #### 2 635894 #### [facility] [facility] [place] [address] MCHC mass conc (RBC) 32.2 g/dL Low 33.0-37.0 [facility] Comment on above: Performed By: #### 2 240788 #### [facility] [place] [id number] MCV Entitic volume (RBC) 89.5 fL Normal 78.0-100.0 [facility] Comment on above: Performed By: #### 2 890328 #### [facility] [address] [place] [id number] Platelet mean volume Entitic volume (Bld) 10.5 fL Normal 7.4-11.0 [facility] Comment on above: Performed By: #### 2 446519 #### [facility] [employer] [address] [place] [address] Platelets #/vol (Bld) 236 E3/mcL Normal 130-[address] [facility] Comment on above: Performed By: #### 2 669322 #### [facility] [employer] [address] [place] [address] RBC #/vol (Bld) 4.51 E6/mcL Normal 3.90-5.40 [facility] Comment on above: Performed By: #### 2 091950 #### [facility] [employer] [address] [place] [address] WBC #/vol (Bld) 5.3 E3/mcL Normal 3.6-11.0 [facility] Comment on above: Performed By: #### 2 508919 #### [facility] [address] [address] [place] [address] TSHon 09-20-2018 Thyrotropin Qn 1.00 mcIU/mL Normal 0.30-5.60 [facility] Comment on above: Performed By: #### 2 013654 #### [facility] [employer] [facility] [place] [id number] eGFRon 09-20-2018 GFR/1.73 sq M predicted among non-blacks MDRD vol rate/area (S/P/Bld) mL/min/{1.73_m2} Normal [facility] Comment on above: Order Comment: Order added by Discern Expert. Performed By: #### 1 [id number] #### [facility] [employer] [facility] [place] [address] IGP W/hpv Rfx [id number] 11-07 Diagnosis: See Ref Lab Report Normal [facility] Comment on above: Order Comment: LMP: 10/21/17 Performed By: #### 1 [id number] #### BEBETO Send Outs Subsection [facility] [place] [address] Pathology ([facility])on 10-30-2017 Pathology ([facility]) FINAL GYNECOLOGIC CYTOLOGY [id number] ADEQUACYSatisfactory for Evaluation. Endocervical cells/transformation zone componentpresent.GENERAL CATEGORIZATIONEpithelial Cell AbnormalityDESCRIPTIVE DIAGNOSISAtypical squamous cells of undetermined significance.COMMENTHigh Risk HPV testing was ordered and performed at [facility] Laboratory for thefollowing high risk genotypes: 16/18/31/33/35/39/45/51/ 52/56/58/59/66/68. Anegative result is a normal result. A positive result is an abnormal result.Genotype-specific testing for high risk HPV types 16/18/45 is available uponrequest dependent upon a positive high risk HPV result. RELATED LABORATORY RESULTSOrdered by: MEDROOrd Date: 10/30/2017 Ord Time: 20:57Test Collected Result Abnormal Range Units SpecimenName D&T TypeHPV Negative NA MSCRNA, 8HighRiskThe HPV test detects E6/E7 viral messenger RNA (mRNA) high-risk HPV pkpgwxlti45,18,31,33,35, 39,45,51,55,58,59,66, and 68 which are associated with cervicalcancer and its precursor lesions. However, cross-reactions with othergenotypes may occur. Results should be correlated with cytologic andhistologic findings. Sensitivity may be affected by cellularity of specimen.CLINICAL HISTORYLMP: 10/21/2017SPECIMEN(A) SCREENING CERVICAL/ENDOCERVICAL THIN PREP VIALPerformed at [facility], [address] [place], [place] [address]Screened by: ADITI MADRIGAL Assistant Manager/Embalmer Signed Out by: GLORIA TRINH M.D. Reported: 11/06/2017 Normal [facility] Comment on above: Performed By: #### G YN ####[facility] [address] [place] [address] Vital Signs Date Time Vital Sign Value Performing Clinician Facility 11-07-2024 12:53-0400 Body temperature 98.9 [degF] Dr. Ingrid Mckinney MD Work Phone: [facility] 11-07-2024 12:53-0400 Diastolic blood pressure 59 mm[Hg] Dr. Ingrid Mckinney MD Work Phone: [facility] 11-07-2024 12:53-0400 Heart rate 91 /min Dr. Ingrid Mckinney MD Work Phone: [facility] 11-07-2024 12:53-0400 Respiratory rate 16 /min Dr. Ingrid Mckinney MD Work Phone: [facility] 11-07-2024 12:53-0400 SaO2% (BldA) [Mass fraction] 97 % Dr. Ingrid Mckinney MD Work Phone: [facility] 11-07-2024 12:53-0400 Systolic blood pressure 117 mm[Hg] Dr. Ingrid Mckinney MD Work Phone: [facility] 11-07-2024 12:42-0400 Body height 167.[address] Ingrid Mckinney MD Work Phone: [facility] 11-07-2024 12:42-0400 Body mass index (BMI) [Ratio] 39.4 kg/m2 Dr. Ingrid Mckinney MD Work Phone: [facility] 11-07-2024 12:42-0400 Body weight [address] Ingrid Mckinney MD Work Phone: 0(590)958-678947 [address] 10-31-2024 10:21-0400 Body height 168.[address] Ingrid Mckinney MD Work Phone: 9(404)716-361087 [place] [address] 10-31-2024 10:21-0400 Body mass index (BMI) [Ratio] 38.7 kg/m2 Dr. Ingrid Mckinney MD Work Phone: 4(030)772-395573 [place] [address] 10-31-2024 10:21-0400 Body weight 110.[address] Ingrid Mckinney MD Work Phone: 8(959)493-436173 [place] [address] 10-31-2024 10:21-0400 Diastolic blood pressure 84 mm[Hg] Dr. Ingrid Mckinney MD Work Phone: 2(310)206-755173 [place] [address] 10-31-2024 10:21-0400 Systolic blood pressure 120 mm[Hg] Dr. Ingrid Mckinney MD Work Phone: 5(615)405-887873 [place] [address] 10-24-2024 10:30-0400 Body height 168.[address] Ingrid Mckinney MD Work Phone: 7(275)967-277147 [address] 10-24-2024 10:28-0400 Body mass index (BMI) [Ratio] 38.9 kg/m2 Dr. Ingrid Mckinney MD Work Phone: 4(503)405-576973 [place] [address] 10-24-2024 10:28-0400 Body weight 111.[address] Ingrid Mckinney MD Work Phone: [facility] 10-24-2024 10:28-0400 Diastolic blood pressure 76 mm[Hg] Dr. Ingrid Mckinney MD Work Phone: [facility] 10-24-2024 10:28-0400 Systolic blood pressure 110 mm[Hg] Dr. Ingrid Mckinney MD Work Phone: 2(686)546-299984 [place] [address] 10-17-2024 13:19-0400 Body height 168.[address] Ingrid Mckinney MD Work Phone: 5(689)625-593073 [place] [address] 10-17-2024 13:18-0400 Body mass index (BMI) [Ratio] 38.9 kg/m2 Dr. Ingrid Mckinney MD Work Phone: 5(651)727-377047 [address] 10-17-2024 13:18-0400 Body weight 111.[address] Ingrid Mckinney MD Work Phone: 7(526)376-432447 [address] 10-17-2024 13:18-0400 Diastolic blood pressure 79 mm[Hg] Dr. Ingrid Mckinney MD Work Phone: 5(318)394-284247 [address] 10-17-2024 13:18-0400 Systolic blood pressure 120 mm[Hg] Dr. Ingrid Mckinney MD Work Phone: 8(371)616-891873 [place] [address] 10-08-2024 08:56-0400 Body height 168.[address] Ingrid Mckinney MD Work Phone: 1(561)042-830273 [place] [address] 10-08-2024 08:56-0400 Body mass index (BMI) [Ratio] 38.8 kg/m2 Dr. Ingrid Mckinney MD Work Phone: [facility] 10-08-2024 08:56-0400 Body weight 110.[address] Ingrid Mckinney MD Work Phone: 9(175)262-383873 [place] [address] 10-08-2024 08:56-0400 Diastolic blood pressure 72 mm[Hg] Dr. Ingrid Mckinney MD Work Phone: 1(908)496-507773 [place] [address] 10-08-2024 08:56-0400 Systolic blood pressure 104 mm[Hg] Dr. Ingrid Mckinney MD Work Phone: 5(785)780-276373 [place] [address] 09-24-2024 08:41-0400 Body height 168.[address] Ingrid Mckinney MD Work Phone: 9(635)276-680173 [place] [address] 09-24-2024 08:41-0400 Body mass index (BMI) [Ratio] 39.1 kg/m2 Dr. Ingrid Mckinney MD Work Phone: 3(357)249-426647 [address] 09-24-2024 08:41-0400 Body weight 111.[address] Ingrid Mckinney MD Work Phone: 4(230)068-884887 [place] [address] 09-24-2024 08:41-0400 Diastolic blood pressure 72 mm[Hg] Dr. Ingrid Mckinney MD Work Phone: 7(563)619-996087 [place] [address] 09-24-2024 08:41-0400 Systolic blood pressure 110 mm[Hg] Dr. Ingrid Mckinney MD Work Phone: 0(143)889-340187 [place] [address] 09-12-2024 10:15-0400 Body mass index (BMI) [Ratio] 39.2 kg/m2 Dr. Ingrid Mciknney MD Work Phone: 4(292)983-056147 [address] 09-12-2024 10:15-0400 Body weight 112.[address] Ingrid Mckinney MD Work Phone: 7(971)561-731273 [place] [address] 09-12-2024 10:15-0400 Diastolic blood pressure 75 mm[Hg] Dr. Ingrid Mckinney MD Work Phone: 5(094)783-478684 [place] [address] 09-12-2024 10:15-0400 Systolic blood pressure 113 mm[Hg] Dr. Ingrid Mckinney MD Work Phone: 7(062)423-105073 [place] [address] 08-21-2024 09:59-0400 Body height 168.[address] Ingrid Mckinney MD Work Phone: 2(047)442-386087 [place] [address] 08-21-2024 09:59-0400 Body mass index (BMI) [Ratio] 39.6 kg/m2 Dr. Ingrid Mckinney MD Work Phone: 1(155)880-802773 [place] [address] 08-21-2024 09:59-0400 Body weight 113.[address] Ingrid Mckinney MD Work Phone: [facility] 08-21-2024 09:59-0400 Diastolic blood pressure 76 mm[Hg] Dr. Ingrid Mckinney MD Work Phone: 7(379)622-673873 [place] [address] 08-21-2024 09:59-0400 Systolic blood pressure 117 mm[Hg] Dr. Ingrid Mckinney MD Work Phone: 6(926)932-191787 [place] [address] 07-23-2024 09:58-0400 Body mass index (BMI) [Ratio] 40.1 kg/m2 Dr. Ingrid Mckinney MD Work Phone: 4(779)318-071047 [address] 07-23-2024 09:58-0400 Body weight 114.[address] Ingrid Mckinney MD Work Phone: 3(434)579-379587 [place] [address] 07-23-2024 09:58-0400 Diastolic blood pressure 73 mm[Hg] Dr. Ingrid Mckinney MD Work Phone: 3(404)203-178987 [place] [address] 07-23-2024 09:58-0400 Systolic blood pressure 119 mm[Hg] Dr. Ingrid Mckinney MD Work Phone: 7(366)180-102987 [place] [address] 06-25-2024 08:37-0500 Body mass index (BMI) [Ratio] 40.3 kg/m2 Dr. Ingrid Mckinney MD Work Phone: 3(902)548-084847 [address] 06-25-2024 08:37-0500 Body weight 114.[address] Ingrid Mckinney MD Work Phone: 5(791)407-912673 [place] [address] 06-25-2024 08:37-0500 Diastolic blood pressure 72 mm[Hg] Dr. Ingrid Mckinney MD Work Phone: 6(295)571-907787 [place] [address] 06-25-2024 08:37-0500 Systolic blood pressure 124 mm[Hg] Dr. Ingrid Mckinney MD Work Phone: 3(831)814-525987 [place] [address] 05-21-2024 10:26-0500 Body mass index (BMI) [Ratio] 40 kg/m2 Dr. Ingrid Mckinney MD Work Phone: 4(155)014-917573 [place] [address] 05-21-2024 10:26-0500 Body weight 114.[address] Ingrid Mckinney MD Work Phone: [facility] 05-21-2024 10:26-0500 Diastolic blood pressure 87 mm[Hg] Dr. Ingrid Mckinney MD Work Phone: [facility] 05-21-2024 10:26-0500 Systolic blood pressure 123 mm[Hg] Dr. Ingrid Mckinney MD Work Phone: [facility] 07-03-2023 12:48-0500 Body height 168.9 cm Manish Roach BIOINFORMATICS PROGRAMMER-STUDENT TEACHER Work Phone: 8(645)546-667876 [place] [address] 07-03-2023 12:48-0500 Body mass index (BMI) [Ratio] 31 kg/m2 Manish Kamenik BIOINFORMATICS PROGRAMMER-STUDENT TEACHER Work Phone: 1(969)331-500240 [address] 07-03-2023 12:48-0500 Body temperature 98.1 [degF] Manish Salasenik BIOINFORMATICS PROGRAMMER-STUDENT TEACHER Work Phone: 8(589)980-957176 [place] [address] 07-03-2023 12:48-0500 Body weight 88.45 kg Manish Salaseniearlene BIOINFORMATICS PROGRAMMER-STUDENT TEACHER Work Phone: 6(848)602-553276 [place] [address] 07-03-2023 12:48-0500 Diastolic blood pressure 79 mm[Hg] Manish Saalseniearlene BIOINFORMATICS PROGRAMMER-STUDENT TEACHER Work Phone: [facility] 07-03-2023 12:48-0500 Heart rate 70 /min Manish Salaseniearlene BIOINFORMATICS PROGRAMMER-STUDENT TEACHER Work Phone: [facility] 07-03-2023 12:48-0500 Respiratory rate 16 /min Manish Salaseniearlene BIOINFORMATICS PROGRAMMER-STUDENT TEACHER Work Phone: 1(944)410-629476 [place] [address] 07-03-2023 12:48-0500 SaO2% (BldA) [Mass fraction] 100 % Manish Salaseniearlene BIOINFORMATICS PROGRAMMER-STUDENT TEACHER Work Phone: 0(790)252-724976 [place] [address] 07-03-2023 12:48-0500 Systolic blood pressure 122 mm[Hg] Manish Salaseniearlene BIOINFORMATICS PROGRAMMER-STUDENT TEACHER Work Phone: [facility] 07-11-2022 12:46-0500 Body height 168.[address] Ingrid Mckinney Work Phone: [facility] 07-11-2022 12:45-0500 Body mass index (BMI) [Ratio] 42.5 kg/m2 Dr. Ingrid Mckinney Work Phone: [facility] 07-11-2022 12:45-0500 Body weight 119.[address] Ingrid Mckinney Work Phone: [facility] 07-11-2022 12:45-0500 Diastolic blood pressure 82 mm[Hg] Dr. Ingrid Mckinney Work Phone: [facility] 07-11-2022 12:45-0500 Systolic blood pressure 116 mm[Hg] Dr. Ingrid Mckinney Work Phone: [facility] 11-03-2021 13:18-0400 Body height 168.91 cm Ingrid Mckinney Work Phone: [address] Work Phone: 11-03-2021 13:18-0400 Body mass index (BMI) [Ratio] 43.56 kg/m2 Ingrid Marty Kocher Work Phone: [address] Work Phone: 11-03-2021 13:18-0400 Body surface area Derived from formula 2.3 m2 Ingrid Kocher Work Phone: [place] [address] [address] Work Phone: 11-03-2021 13:18-0400 Body weight 124.29 kg Ingrid Mckinney Work Phone: [place] [address] [address] Work Phone: 11-03-2021 13:18-0400 Diastolic blood pressure 72 mm[Hg] Ingrid Mckinney Work Phone: [place] [address] [address] Work Phone: 11-03-2021 13:18-0400 Systolic blood pressure 114 mm[Hg] Ingrid Mckinney Work Phone: [address] Work Phone: 07-24-2019 10:29-0400 BMI (Body Mass Index) 44.12 kg/m2 Ingrid Kocher [facility] Work Phone: 07-24-2019 10:29-0400 Body weight 125.87 kg Ingrid Kocher [facility] Work Phone: 07-24-2019 10:29-0400 BP Diastolic 88 mm[Hg] Ingrid Kocher [facility] Work Phone: Comment on above: Location: E; 07-24-2019 10:29-0400 BP Systolic 122 mm[Hg] Ingrid Kocher [facility] Work Phone: Comment on above: Location: E; 07-24-2019 10:29-0400 BSA (Body Surface Area) 2.31 m2 Ingrid Kocher [facility] Work Phone: 07-24-2019 10:29-0400 Height 168.91 cm Ingrid Mckinney [facility] Work Phone: 07-24-2019 10:29-0400 Pulse (Heart Rate) 88 /min Ingrid Mckinney [facility] Work Phone: 06-26-2019 10:38-0500 BMI (Body Mass Index) 44.23 kg/m2 Ingrid Kocher [facility] Work Phone: 06-26-2019 10:38-0500 Body weight 126.19 kg Ingrid Kocher [facility] Work Phone: 06-26-2019 10:38-0500 BP Diastolic 80 mm[Hg] Ingrid Kocher [facility] Work Phone: 06-26-2019 10:38-0500 BP Systolic 118 mm[Hg] Ingrid [facility] Work Phone: 06-26-2019 10:38-0500 BSA (Body Surface Area) 2.31 m2 [facility]grid [facility] Work Phone: 06-26-2019 10:38-0500 Height 168.91 cm [facility] Work Phone: 06-26-2019 10:38-0500 Pulse (Heart Rate) 63 /min Ingrid [facility] Work Phone: Encounters Encounter Date Encounter Type Care Provider Facility Start: 11-08-2024 ambulatory Christel Orellana cility:[facility] Start: 11-07-2024 End: 11-07-[address] Ingrid Mckinney MD Work Phone: [facility] Start: 11-07-2024 End: 11-07-[address] Christel Chen DO -[facility] Work Phone: Start: 11-07-2024 ambulatory Christel Stocktonty:[facility] Start: 10-31-2024 End: 10-31-[address] Ingrid Mckinney MD Work Phone: [facility] Work Phone: Start: 10-31-2024 End: 10-31-[address] Christel Chen DO -Ultrasound [facility] Work Phone: Start: 10-31-2024 End: 10-31-[address] Alison Guerra MD -[facility] Work Phone: Start: 10-31-2024 End: 10-31-[address] Ingrid Mckinney MD Work Phone: [facility] Work Phone: Start: 10-31-2024 End: 10-31-2024 ambulatory Christel Chen Facility:[facility] Start: 10-24-2024 End: 10-24-[address] Ingrid Mckinney MD Work Phone: [facility] Work Phone: Start: 10-24-2024 End: 10-24-[address] Christel Chen DO -Laboratory Specimen Work Phone: Start: 10-24-2024 End: 10-24-[address] Christel Chen DO -[facility] Work Phone: Start: 10-24-2024 End: 10-24-[address] Ingrid Mckinney MD Work Phone: [facility] Work Phone: Start: 10-24-2024 End: 10-24-2024 ambulatory Christel Chen Facility:[facility] Start: 10-17-2024 End: 10-17-2024 Patient encounter procedure Shannon Juan Jose CONROY -[facility] Work Phone: Start: 10-17-2024 End: 10-17-[address] Ingrid Mckinney MD Work Phone: [facility] Work Phone: Start: 10-08-2024 End: 10-08-2024 Patient encounter procedure Chayo GUZMÁN -[facility] Work Phone: Start: 10-08-2024 End: 10-08-[address] Ingrid Mckinney MD Work Phone: [facility] Work Phone: Start: 10-03-2024 End: 10-03-[address] Ingrid Mckinney MD Work Phone: [facility] Work Phone: Start: 10-03-2024 End: 10-03-[address] Christel Chen DO -Ultrasound [facility] Work Phone: Start: 10-03-2024 End: 10-03-2024 ambulatory Christel Chen Facility:[facility] Start: 09-24-2024 End: 09-24-2024 Patient encounter procedure Chayo GUZMÁN -[facility] Work Phone: Start: 09-24-2024 End: 09-24-[address] Ingrid Mckinney MD Work Phone: [facility] Work Phone: Start: 09-12-2024 End: 09-12-[address] Christel Chen DO -[facility] Work Phone: Start: 09-12-2024 End: 09-12-2024 ambulatory [facility] Start: 09-05-2024 End: 09-05-[address] Christel Ocampo, [facility] Work Phone: Start: 09-05-2024 End: 09-05-2024 ambulatory [facility] Facility:[facility] Start: 08-21-2024 End: 08-21-[address] Ingrid Mckinney MD Work Phone: [facility] Work Phone: Start: 08-21-2024 End: 08-21-2024 Patient encounter procedure Chayo GUZMÁN -[facility] Work Phone: Start: 08-21-2024 End: 08-21-2024 ambulatory [facility] Facility:[facility] Start: 07-23-2024 End: 07-23-[address] Alison Guerra MD -[facility] Work Phone: Start: 07-23-2024 End: 07-23-2024 ambulatory [facility] Facility[facility] Start: 06-26-2024 End: 06-26-2024 ambulatory RAYMOND LARSON [facility] Start: 06-25-2024 End: 06-25-2024 ambulatory Ingrid [facility] Facility:[facility] Start: 06-25-2024 End: 06-25-2024 Patient encounter procedure Chaoy GUZMÁN -[facility] Work Phone: Start: 05-21-2024 End: 05-21-[address] Alison Guerra MD -Lab, [facility] Start: 05-21-2024 End: 05-21-[address] Alison Guerra MD -[facility] Work Phone: Start: 05-21-2024 End: 05-21-2024 ambulatory Ingrid [facility] Facility[facility] Start: 05-21-2024 End: 05-21-2024 ambulatory Ingrid [facility] Facility:[facility] Start: 07-03-2023 End: 07-03-2023 ambulatory INGRID Ferguson [facility] Start: 07-03-2023 End: 07-03-2023 Patient encounter procedure Manish Roach BIOINFORMATICS PROGRAMMER-STUDENT TEACHER Work Phone: [facility] Comment on above: Acute bacterial conj unctivitis of right eye (Primary Dx) Start: 07-21-2022 End: 07-21-[address] Ingrid Mckinney Work Phone: [facility] Work Phone: Start: 07-21-2022 End: 07-21-[address] Ingrid Mckinney Work Phone: [facility] Start: 07-11-2022 End: 07-11-[address] Ingrid Mckinney Work Phone: [facility] Work Phone: Start: 07-11-2022 End: 07-11-[address] Ingrid Mckinney Work Phone: [facility] Start: 11-03-2021 Periodic preventive med est patient 18-39 yrs Ingrid Marty Hank Work Phone: [facility] [employer] Work Phone: Start: 07-24-2019 Patient encounter procedure Ingrid Mckinney [facility] Work Phone: Start: 06-26-2019 Patient encounter procedure Ingrid Mckinney [facility] Work Phone: Start: 05-29-2019 Patient encounter procedure Ingrid Mckinney [facility] Work Phone: Start: 10-30-2017 Patient encounter Facil [id number] Encounter for gynecological examination (general) (routine) without abnormal findings Ingrid Mckinney Work Phone: [place] [address] [employer] Work Phone: Comment on above: 12/08/2019; WNL, HPV NEG10/30/2018: ASC-US, HPV negative; Procedures Date Procedure Procedure Detail Performing Clinician Start: 10-31-2024 Ultrasound scan for growth Dr. Ingrid Mckinney MD Work Phone: Start: 10-24-2024 Beta-hemolytic Streptococcus culture Dr. Ingrid [...] observat ion [Identifier] in Cervix by Cyto jazmine Roach BIOINFORMATICS PROGRAMMER-STUDENT TEACHER Work Phone: History of No histor y of surgery Ingrid Mckinney No history of surgery Luis Enrique Mckinney Work Phone: Plan of Treatment Date Care Activity Detail Author Start: 2034 Zoster Vaccines (1 of 2) Zoster Vaccines (1 of 2) [facility] Start: 11-07-2024 Nonstress test [facility] Start: 11-07-2024 Obstetric monitoring [facility] Start: 11-07-2024 [facility] Start: 11-07-2024 Biophysical profile panel US [facility] Start: 11-07-2024 Ultrasonography for biophysical profile without non-stress testing OB Biophysical Prof W/O NST [facility] Start: 11-07-2024 Vital signs measurements [facility] Start: 11-07-2024 Patient discharge [facility] Start: 01-12-2023 Influenza vaccination Influenza Vaccine (#1) [facility] Start: 12-07-2022 Screening for malignant neoplasm of cervix [facility] Start: 07-11-2022 17-Hydroxyprogesterone [Mass/volume] in Serum or Plasma [facility] Start: 07-11-2022 Beta 2 glycoprotein 1 Ab IgA and IgG and IgM panel - Serum [facility] Start: 07-11-2022 Cardiolipin IgA and IgG and IgM panel - Serum [facility] Start: 07-11-2022 Cardiolipin IgG and IgM panel - Serum [facility] Start: 07-11-2022 Dehydroepiandrosterone sulfate (DHEA-S) [Mass/volume] in Serum or Plasma [facility] Start: 07-11-2022 Hemoglobin A1c/Hemoglobin.total in Blood [facility] Start: 07-11-2022 Lupus anticoagulant assay [facility] Start: 07-11-2022 Procedure [facility] Start: 07-11-2022 Prolactin [Mass/volume] in Serum or Plasma [facility] Start: 07-11-2022 T4 free measurement [facility] Start: 07-11-2022 Testosterone Free [Mass/volume] in Serum or Plasma [facility] Start: 07-11-2022 Thyroid stimulating hormone measurement [facility] Start: 2006 DTaP/Tdap/Td Vaccines (1 - Tdap) DTaP/Tdap/Td Vaccines (1 - Tdap) [facility] Start: 2005 Screening for malignant neoplasm of cervix HPV/Cotest [facility] Start: 2002 Diabetes mellitus screening Diabetes Screening [facility] Start: 2002 Hepatitis C screening Hepatitis C Screening [facility] Start: 1985 MMR Vaccines (1 of 1 - Standard series) MMR Vaccines (1 of 1 - Standard series) [facility] Start: 1985 Varicella vaccination Varicella Vaccines (1 of 2 - 2-dose childhood series) [facility] Start: 1984 COVID-19 Vaccine (#1) COVID-19 Vaccine (#1) [facility] Start: 1984 Hepatitis B Vaccines (1 of 3 - 3-dose series) Hepatitis B Vaccines (1 of 3 - 3-dose series) [facility] Start: 1984 HIV screening HIV Screening [facility] Start: 1984 Lipid panel Lipid Panel [facility] Start: 1984 Yearly Adult Physical Yearly Adult Physical [facility] Beta 2 glycoprotein 1 IgA Ab [Presence] in Serum [facility] Beta 2 glycoprotein 1 IgG Ab [Presence] in Serum [facility] Beta 2 glycoprotein 1 IgM Ab [Presence] in Serum [facility] Cardiolipin IgA Ab [Units/volume] in Serum by Immunoassay [facility] Cardiolipin IgG Ab [Units/volume] in Serum or Plasma [facility] Cardiolipin IgM Ab [Units/volume] in Serum or Plasma [facility] Lupus anticoagulant neutralization platelet [Time] in Platelet poor plasma by Coagulation assay [facility] Partial thromboplast in time ratio [facility] Streptococcus agalac tiae [Presence] in Unspecified specimen by Organism specific culture [facility] Thrombin time [facility] US Pelvis [facility] US Pelvis transvaginal [facility] Immunizations Immunization Date Immunization Notes Care Provider Fa cility 09-12-2024 tetanus toxoid, redu sandie diphtheria toxoid, and acellular pertussis vaccine, adsorbed Dr. Ingrid Mckinney MD Work Phone: [facility] Payers Date Payer Category Payer Self-pay [id number] 2023 Unknown 2023 Unknown [id number] 1985 Unknown [id number] 2.16.84 [id number] 1984 Unknown [id number] 2.16. [id number] Unknown [id number] Unknown [id number] 2.16.8 [id number] Unknown [id number] 2.16.8 40.1.786641.3.579.2.462 Unknown [id number] 2.16.8 40.1.051715.3.579.2.462 Unknown [id number] 2.16.8 40.1.483389.3.579.2.462 Unknown [id number] 2.16.8 40.1.106344.3.579.2.462 Unknown [id number] 2.16.8 40.1.254767.3.579.2.462 Unknown [id number] 2.16.8 40.1.901630.3.579.2.462 Unknown [id number] 2.16.8 40.1.444493.3.579.2.462 Unknown [id number] 2.16.8 40.1.889819.3.579.2.462 Unknown [id number] 2.16.8 40.1.358922.3.579.2.462 Unknown [id number] 2.16.8 40.1.866552.3.579.2.462 Unknown [id number] 2.16.8 40.1.817643.3.579.2.462 Unknown [id number] 2.16.8 40.1.912597.3.579.2.462 Unknown [id number] 2.16.8 40.1.506729.3.579.2.462 Unknown [id number] 2.16.8 40.1.609299.3.579.2.462 Unknown [id number] 2.16.8 40.1.360535.3.579.2.462 Unknown [id number] 2.16.8 40.1.088157.3.579.2.462 Unknown [id number] 2.16.8 40.1.565176.3.579.2.462 Unknown [id number] 2.16.8 40.1.360833.3.579.2.462 Unknown [id number] 2.16.8 40.1.158240.3.579.2.462 Social History Date Type Detail Facility Never a smoker Never a smoker [address] Work Phone: Start: 07-11-2022 End: 07-11-2022 Tobacco smoking status NHIS Unknown if ever smoked [facility] Start: 1985 Sex Assigned At Female [facility] Start: 07-03-2023 End: 05-20-2024 Tobacco smoking status NHIS Never smoked tobacco [facility] Work Phone: Start: 07-03-2023 Tobacco use and exposure Smokeless tobacco non-user [facility] Work Phone: Start: 07-03-2023 Alcohol intake Current drinke r of alcohol (finding) [facility] Work Phone: Start: 1985 Sex Assigned At Not on file [facility] Work Phone: Gender identity Not on file [facility] Work Phone: Start: 06-23-2023 End: 07-03-2023 Exposure to SARS-CoV-2 (event) Not sure [facility] Start: 08-27-2024 Sex Female (finding) [facility] NEGATED: Highlighted row - - [facility] Work Phone: Functional Status Date Assessment Result Facility NEGATED: Highlighted row Functional performance Functional status health issues are not documented Disease [facility] Work Phone: Mental Status Date Assessment Result Facility NEGATED: Highlighted row Cognitive function [Interpretation] Cognitive status health issues are not documented Disease [facility] Work Phone: Clinical Notes 11-03-2021 to 11-01-2024 Note Date & Type Note Facility 11-01-2024 Radiology Diagnostic study note [facility] Imaging Services [address] [place], [place] [id number] OB Limited With Biometrics MR#: [id number] Acct: [id number] Name: REMEDIOS NEAL Rep #: [id number] : 1985 F 39 From: Pet er Peer DO PCP: Dr. Ingrid Mckinney MD Status: REG CLI Study:OB Limited With Biometrics Date of Exam : 10/31/24 Exam# [id number] Ordering Dr: Christel Beltran DO PROCEDURE: OB LIMITED WITH BIOMETRICS 10/31/2024 REASON FOR EXAM: GROWTH EVERY MONTH TECHNIQUE: OB LIMITED WITH BIOMETRICS COMPARISON: Ob ultrasound October 03, 2024 FINDINGS Number: Cota Position: Cephalic Placental Position: Posterior, grade 2 Placental Abnormalities: None DIMENSIONS: Biparietal Diameter: 8.9 cm/35 weeks, 6 days Head Circumference: 32.5 cm 36 weeks, 5 days/ Abdominal Circumference: 33.5 cm/37 weeks, 3 days Femur Length: 7.4 cm/38 weeks 0 days ESTIMATED WEIGHT: 3195+/-479 g ESTIMATED WEIGHT PERCENTILE (24+ weeks): 52 % ESTIMATED GESTATIONAL AGE: Baseline: 37 weeks, 5 days By Ultrasound: 37 weeks 2 days ESTIMATED DATE OF DELIVERY: Baseline: November 16, 2024 By Ultrasound: November 19, 2024 4.2 cm largest vertical pocket BIOPHYSICAL ASSESSMENT: Amniotic Fluid Volume: 4.2 cm (largest vertical pocket) Amniotic Fluid Index: 11.3 (8-24 cm normal range) Cardiac Motion: 141 (average) Trunk and Limb Motion: Present. MATERNAL ANATOMY: Adnexa: Neither maternal ovary is successfully identified. Cervical Length (if measured): US/OB Limited With Biometrics IMPRESSION: Single intrauterine fetus with heart rate of 141 beats per minute. Gestational age 37 weeks, 2 days. Estimated due date November 19, 2024. EFW 3190. Percentile rank: 52% Reading Location: [facility] CC: Dr. Ingrid Mckinney MD; Dr. Christel Chen DO ~ Fur Trapper: Signed [facility] 10-24-2024 Progress note [facility] 10-04-2024 Radiology Diagnostic study note [facility] Imaging Services [address] [place], [place] [id number] OB Limited With Biometrics MR#: [id number] Acct: [id number] Name: REMEDIOS NEAL Rep #: [id number] : 1985 F 39 From: Ant Levy MD PCP: Dr. Ingrid Mckinney MD Status: REG CLI Study:OB Limited With Biometrics Date of Exam : 10/03/24 Exam# [id number] Ordering Dr: Christel Beltran DO PROCEDURE: OB [...] intrauterine with biometry as above. Reading Location: [id number] CC: Dr. Ingrid Mckinney MD; Dr. Christel Chen, DO ~ Fur Trapper: Signed [facility] 07-23-2024 Evaluation note Diagnosis Onset Date Resolution [...] 10:25am Vasovagal episode acute October 242024 10:25am [facility] Work Phone: 1(163) 766-397603-12-2025 Evaluation note* Diagnosis Onset Date Resolution Status [...] 10:18am Vasovagal episode acute October 312024 10:18am [facility] Work Phone: 1(536) 841-562702-12-2025 Evaluation note* Diagnosis Onset Date Resolution Status [...] high-risk acute September 12, 2024 10 :11am [facility] Work Phone: 1(544) 216-997902-12-2025 Evaluation note* Diagnosis Onset Date Resolution Status [...] 8 :46am Vasovagal episode acute September 8:46am [facility] Work Phone: 1(850) 579-807502-12-2025 Evaluation note* Diagnosis Onset Date Resolution Status [...] 1 :13pm Vasovagal episode acute October 1:13pm [facility] Work Phone: 1(736) 613-802201-08-2025 NotePap Smear Specimen AdequacyJanuary 2024 12:59amComment.Satisfactory for evaluation. Endocervical and/or squamous metaplasticcells (endocervical component)are present.[facility] INTER[facility]ACED A#[id number] System [facility] HospitalComment on above:Satisfactory for evaluation. 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 [...] Review Audit Reviewed by Mindy Enriquez MA (Wellness Instructor) on 07/03/23 at 1248 Medication Order Taking? [...] or any new concerns. Manish Roach CNP [facility] [phone] [facility] Work Phone: 1(825) 982-242406-23-2022 History of Present illness NarrativePt. presents for annual exam. Had negative pap and co-testing in 2019, next pap due 2024. Pt. has been trying to conceive x 2 + years. States that she has+ LH predictor tests and has monthly menses. Pt. c/o mid-cycle spotting x 3-4 mos. Pt. denies any other c/o or concerns.[address] Work Phone: Evaluation note* Diagnosis Onset Date Resolution Status History of recurrent miscarriages acute Infertility, female acute Irregular menstrual bleeding acute [facility] Work Phone: Evaluation note* Diagnosis Acute bacterial conjunctivitis of right eye- Primary documented in this encounter [facility] Work Phone: Progress note Author Christel Gant [facility] Note Date/Time October 24, 2024 11:4 5am [facility] [address], [address] [place] [address] OFFICE VISIT Date of Service: 10/24/24 MR#: [id number] Acct: [id number] Name: REMEDIOS NEAL Rep #: [id number] : 1985 Provider: Dr. 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 No moveme nt yet. Feels well. MFM anatomy tomorrow 07/23/24 -?-?-?-?-?-?-?-?--?-?-?-?- 23w 3d 252 lb 8 oz 119/73 Nega tive -?-?-?-?-?-?-?-?-?-?-?-?- Negative 145 -?-?-?-?-?-?-?-?-?-?-?-?- SM- no vb lof gc t next time 08/21/24 -?-?-?-?-?-?-?-?-?-?-?-?- 27w 4d 249 lb 8 oz 117/76 Nega tive -?-?-?-?-?-?-?-?-?-?-?-?- Negative 142 27 -?-?-?-?-?-?-?-?-?-?-?-?- MH-No VB, LOF. g ood FM. Larc. 28wk labs pending 09/12/24 -?-?-?-?-?-?-?-?-?-?-?-?- 30w 5d 247 lb 2 oz 113/75 Nega tive -?-?-?-?-?-?-?-?-?-?-?-?- Negative 135 32 -?-?-?-?-?-?-?-?-?-?-?-?- JV- no lof, vagi nal bleeding, or dec fm. has some nasal drainage. 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 G ood FM. Reactive NST. Apison nauseous/dizzy laying flat. Resolved with position change/water. [...] Immediate Larc, Signs and Symptoms of Preeclampsia, Infant Feeding No and Family Medical Leave or [...] recurrent miscarriages N96 CPT Codes Non-Stress Test (12818) Assessment and Plan Assessment and Plan (1) [...] high risk , unspecified, third trimester Comment: [id number], HILARY 11/16/24, girl Juan David (5) : [...] Larry DO> Date _ Christel Chen DO [facility] Signature: Date (if applicable) CC: ~ [facility] Work Phone: Reason for referral (narrative)No reason for referral information availableWOhioHealth [facility] Work Phone: Summary Purpose Family History No Family History Records Found Mother Name Dates Details No pertinent family [...] 21, 2024 10:24am History of recurrent miscarriages Ayesha leblanc 2024 10:24am Obesity affecting May 21, 2024 10:24am May 21, 2024 10 :24am Supervision of high-risk Janua 2024 10:24am Advanced maternal age (AMA), 40 [...] 2024 8:33am History of recurrent miscarriages Februa ry 2024 8:33am Obesity affecting June 8:33am June 25, 2024 8:33am Supervision of high-risk Febr lovely2024 8:33am Advanced maternal age (AMA), 40 [...] 2024 8:33am History of recurrent miscarriages Februa ry 2024 8:33am Obesity affecting June 8:33am June [...] October 122024 10:25am Obesity affecting October 24 10:25am October 24, 2024 10:2 5am Supervision of high-risk October 24, 2024 10:25am Vasovagal episode October 24, 2024 10:2 5am Advanced maternal age (AMA), 40 years or greater October 31, 2024 10:18am History of recurrent miscarriages October 132024 10:18am Obesity affecting October 31 10:18am October 31, 2024 10:1 8am Supervision of high-risk October 31, 2024 10:18am Vasovagal episode October 31, 2024 10:1 8am Chief Complaint Admit Date wk OB July 23, 2024 9:4 8am ONE [...] wk ob/nst October 31, 2024 10:1 8am GROWTH October 31, 2024 11:1 8am Chief Complaint Admit Date k OB July 23, 2024 9:4 8am ONE [...] wk ob/nst October 31, 2024 10:1 8am GROWTH October 31, 2024 11:1 8am BPP November 07, 2024 12:1 5pm Additional Source Comments INFORMATION SOURCE (unrecogn ized section and content) DATE CREATED AUTHOR 11/06/2017 [facility] DATE CREATED AUTHOR AUTHOR'S ORGANIZ ATION 01/04/2018 [facility] DATE CREATED AUTHOR AUTHOR'S ORGANIZ ATION 10/04/2018 [facility] DATE CREATED AUTHOR AUTHOR'S ORGANIZ ATION 12/25/2019 [facility] DATE CREATED AUTHOR AUTHOR'S ORGANIZ ATION 11/04/2021 [facility] DATE CREATED AUTHOR AUTHOR'S ORGANIZ ATION 07/10/2023 [facility] DATE CREATED AUTHOR AUTHOR'S ORGANIZ ATION 06/28/2024 [facility] DATE CREATED AUTHOR AUTHOR'S ORGANIZ ATION 11/09/2024 [facility] Care Teams (unrecognized sec tion and [...] Dr. Alison Guerra MD Attending Provider Active Protein Purification Scientist Relationship Specialty Start Date End Date Ingrid Mckinney MD [address] [facility], [place] [address] PCP - General 05/14/19 Team Status: Inactive [...] 2024 End: June 25, 2024 Chayo Quiñonez PRODUCT DEVELOPMENT DIRECTOR, PRODUCT DEVELOPMENT DIRECTOR-C Attending Provider Active Start: June 25, 2024 [...] 2024 End: August 21, 2024 Chayo Quiñonez PRODUCT DEVELOPMENT DIRECTOR, PRODUCT DEVELOPMENT DIRECTOR-C Attending Provider Active Start: August 21, 2024 End: August 21, 2024 Team Status: Inactive Member Role Status Dates Dr. Ingrid Mckinney MD Primary Care Provider Active Start: September 05, 2024 End: September 05, 2024 Dr. Christel Chen DO Attending Provider [...] 2024 End: September 24, 2024 Chayo Quiñonez PRODUCT DEVELOPMENT DIRECTOR, PRODUCT DEVELOPMENT DIRECTOR-C Attending Provider Active Start: September 24, 2024 [...] 2024 End: October 08, 2024 Chayo Quiñonez PRODUCT DEVELOPMENT DIRECTOR, PRODUCT DEVELOPMENT DIRECTOR-C Attending Provider Active Start: October 08, 2024 End: October 08, 2024 Team Status: Inactive Member Role Status Dates Dr. Ingrid Mckinney MD Primary Care Provider Active Start: October 03, 2024 End: October 03, 2024 Dr. Christel Chen , Attending Provider Activ e Start: October 03, [...] Inactive Member Role Status Dates Dr. Ingrid Mckniney MD Primary Care Provider Active Start: October [...] October 31, 2024 End: October 31, 2024 Team Status: Inactive Member Role Status Dates Dr. Ingrid Mckinney MD Primary Care Provider Active Start: October 31, 2024 End: October 31, 2024 Dr. Christel Chen DO Attending Provider Activ e Start: October 31, 2024 End: October 31, 2024 Dr. Christel Chen DO Referring Provider Activ e Start: October 31, 2024 End: October 31, 2024 Team Status: Active Member Role/Relationship Status Dates Dr. Ingrid Mckinney MD Primary Care Provider Active Team Status: Inactive Member Role/Relationship Status Dates Dr. Ingrid Mckinney MD Primary Care Provider Active Start: July 23, 2024 End: July 23, 2024 Dr. Ingrid Mckinney MD Referring Provider Active Start: July 23, 2024 End: July 23, 2024 Dr. Alison Guerra MD Attending Provider Active Start: July 23, 2024 End: July 23, 2024 Team Status: Inactive Member Role/Relationship Status Dates Dr. Ingrid Mckinney MD Primary Care Provider Active Start: August 21, 2024 End: August 21, 2024 Dr. Alison Guerra MD Attending Provider Active Start: August 21, 2024 End: August 21, 2024 Dr. Alison Guerra MD Referring Provider Active Start: August 21, 2024 End: August 21, 2024 Team Status: Inactive Member Role/Relationship Status Dates Dr. Ingrid Mckinney MD Primary Care Provider Active Start: August 21, 2024 End: August 21, 2024 Dr. Ingrid Mckinney MD Referring Provider Active Start: August 21, 2024 End: August 21, 2024 Chayo Quiñonez PRODUCT DEVELOPMENT DIRECTOR, PRODUCT DEVELOPMENT DIRECTOR-C Attending Provider Active Start: August 21, 2024 End: August 21, 2024 Team Status: Inactive Member Role/Relationship Status Dates Dr. Ingrid Mckinney MD Primary Care Provider Active Start: September 05, 2024 End: September 05, 2024 Dr. Christel Chen DO Attending Provider Activ e Start: September 05, 2024 End: September 05, 2024 Dr. Christel Chen DO Referring Provider Activ e Start: September 05, 2024 End: September 05, 2024 Team Status: Inactive Member Role/Relationship Status Dates Dr. Ingrid Mckinney MD Primary Care Provider Active Start: September 12, 2024 End: September 12, 2024 Dr. Ingrid Mckinney MD Referring Provider Active Start: September 12, 2024 End: September 12, 2024 Dr. Christel Chen DO Attending Provider Activ e Start: September 12, 2024 End: September 12, 2024 Team Status: Inactive Member Role/Relationship Status Dates Dr. Ingrid Mckinney MD Primary Care Provider Active Start: September 24, 2024 End: September 24, 2024 Dr. Ingrid Mckinney MD Referring Provider Active Start: September 24, 2024 End: September 24, 2024 Chayo Quiñonez NP, PRODUCT DEVELOPMENT DIRECTOR-C Attending Provider Active Start: September 24, 2024 End: September 24, 2024 Team Status: Inactive Member Role/Relationship Status Dates Dr. Ingrid Mckinney MD Primary Care Provider Active Start: October 03, 2024 End: October 03, 2024 Dr. Christel Chen DO Attending Provider Activ e Start: October 03, 2024 End: October 03, 2024 Dr. Christel Chen DO Referring Provider Activ e Start: October 03, 2024 End: October 03, 2024 Team Status: Inactive Member Role/Relationship Status Dates Dr. Ingrid Mckinney MD Primary Care Provider Active Start: October 08, 2024 End: October 08, 2024 Dr. Ingrid Mckinney MD Referring Provider Active Start: October 08, 2024 End: October 08, 2024 Chayo Quiñonez PRODUCT DEVELOPMENT DIRECTOR, PRODUCT DEVELOPMENT DIRECTOR-C Attending Provider Active Start: October 08, 2024 End: October 08, 2024 Team Status: Inactive Member Role/Relationship Status Dates Dr. Ingrid Mckinney MD Primary Care Provider Active Start: October 17, 2024 End: October 17, 2024 Dr. Ingrid Mckinney MD Referring Provider Active Start: October 17, 2024 End: October 17, 2024 Shannon Ingram CNM Attending Provider Active Start: October 17, 2024 End: October 17, 2024 Team Status: Inactive Member Role/Relationship Status Dates Dr. Ingrid Mckinney MD Primary Care Provider Active Start: October 24, 2024 End: October 24, 2024 Dr. Ingrid Mckinney MD Referring Provider Active Start: October 24, 2024 End: October 24, 2024 Dr. Christel Chen DO Attending Provider Activ e Start: October 24, 2024 End: October 24, 2024 Team Status: Inactive Member Role/Relationship Status Dates Dr. Ingrid Mckinney MD Primary Care Provider Active Start: October 24, 2024 End: October 24, 2024 Dr. Christel Chen DO Attending Provider Activ e Start: October 24, 2024 End: October 24, 2024 Dr. Christel Chen DO Referring Provider Activ e Start: October 24, 2024 End: October 24, 2024 Team Status: Inactive Member Role/Relationship Status Dates Dr. Ingrid Mckinney MD Primary Care Provider Active Start: October 31, 2024 End: October 31, 2024 Dr. Ingrid Mckinney MD Referring Provider Active Start: October 31, 2024 End: October 31, 2024 Dr. Alison Guerra MD Attending Provider Active Start: October 31, 2024 End: October 31, 2024 Team Status: Inactive Member Role/Relationship Status Dates Dr. Ingrid Mckinney MD Primary Care Provider Active Start: October 31, 2024 End: October 31, 2024 Dr. Christel Chen DO Attending Provider Activ e Start: October 31, 2024 End: October 31, 2024 Dr. Christel Chen DO Referring Provider Activ e Start: October 31, 2024 End: October 31, 2024 Team Status: Inactive Member Role/Relationship Status Dates Dr. Ingrid Mckinney MD Primary Care Provider Active Start: November 07, 2024 End: November 07, 2024 Dr. Christel Chen DO Attending Provider Activ e Start: November 07, 2024 End: November 07, 2024 Dr. Christel Chen DO Referring Provider Activ e Start: November 07, 2024 End: November 07, 2024 Goals (unrecognized section and content) Goals [...] BE BASED ON THE PRIMARY CLINICAL RECORDS. [employer] [facility]. provides no warranty or guarantee of the accuracy or completeness of information in this document.
--- OUTSIDE RECORDS SUMMARY | 2024-11-09 19:18 | XMS RPT_ITS | CCD ---
Author Organization [facility] Care Team Providers Care Storage Management Consultant Name Role Phone Ingrid Mckinney Unavailable Unavailable Ingrid Mckinney Unavailable Unavailable Ingrid Mckinney Unavailable Unavailable Unavailable Dr. Ingrid Mckinney Primary Care Provider Dr. Ingrid Mckinney Referring Provider Dr. Alison Guerra Attending Provider Dr. Ingrid Mckinney Primary Care Provider Dr. Ingrid Mckinney Referring Provider Dr. Alison Guerra Attending Provider [phone] Ingrid Mckinney MD Primary Care Provider INGRID MCKINNEY Primary Care Unavailable MANISH ROACH Attending Unavailable RAYMOND LARSON Attending Unavailable KAEL MCKINNEY Primary Care Unavailable ALISON GUERRA Referring UnavailDr. Ingrid Tavera MD Primary Care Provider Dr. Ingrid Mckinney MD Referring Provider Dr. Alison Guerra MD Attending Provider Dr. Alison Guerra MD Referring Provider Chayo Powell Attending Provider [phone] Ingrid Mckinney MD Primary Care Provider [phone] Dr. Ingrid Mckinney MD Referring Provider Dr. Alison Guerra MD Attending Provider Dr. Alison Guerra MD Referring Provider Param Gant DO, Dr. Kearney Attending Provider Dr. Christel Chen DO Referring Provider Shannon Ingram CNM Attending Provider Dr. Ingrid Mckinney MD Primary Care Provider Dr. Ingrid Mckinney MD Referring Provider Olamide NURSING MANAGER-C, Chayo Attending Provider Alison Guerra Attending Unavailable [...] Unavailable Vande Velde, Christel Referring Unavailabl e Ahnk, Ingrid Primary Care Unavailable Vande Velde, Christel [...] Care Unavailable Hank, Ingrid Referring Unavailable Olamide NURSING MANAGERChayo Attending Unavailable Hank, Ingrid Primary Care Unavailable Hank, Ingrid Referring Unavailable Vande Velde, Christel Attending Unavailabl e Hank, Ingrid Primary Care Unavailable Hank, Ingrid Referring Unavailable Olamide NURSING MANAGERChayo Attending Unavailable Hank, Ingrid Primary Care Unavailable Hank, Ingrid Referring Unavailable [place] NURSING MANAGERChayo Attending Unavailable Allergies Allergy Classification Reported Allergen(s) Allergy Type Date of Onset Reaction(s) Facility (11 sources) Food Allergies: Uncoded; Translations: [Food Allergies: Uncoded] Allergy to substance 08-21-2024 Anaphylaxis [facility] Comment on above: cool whip preservati ve [...] 5 mL 0 07/03/2023 07/10/2023 Active Pnv No.341-Xh-Xw9-Dha -Epa-Fish 400 mcg-35 mg- 25 mg-5 mg tablet,chewable (10 sources) Start: 05-20-2024 Pnv No.283-Rt-Xy4-Dha-Ep a-Fish 400 mcg-35 mg- 25 mg-5 mg tablet,chewable Active 1 {tbl} PO DAILY May 20, 2024 1:00am Start: 05-20-2024 Pnv No.153-Fa- Tm1-Lqa-Xnw-Fish 400 mcg-35 mg- 25 mg-5 mg tablet,chewable [...] unspecified trimester] 07-23-2024 Episodic Comment on above: [id number], HILARY 11/16/24, girl Juan David GBS negative [id number] , HILARY 11/16/24, girl Juan David Other [...] n 11-07-2024 OB Biophysical Prof W/O NST [facility] Imaging Services [address] [place] [address] OB Biophysical Prof W/O NST MR#: [id number] Acct: [id number] Name: REMEDIOS NEAL Rep #: [id number] : 1985 F 39 From: Hector maynard MD PCP: Dr. Ingrid Mckinney MD Status: DEP CLI Study: OB Biophysical Prof W/O NST Date of Exam: 10/13 12/05 Exam# [id number] Ordering Dr: Christel Chen DO PROCEDURE: OB [...] NST IMPRESSION: Normal biophysical profile. Reading Location: [id number] CC: Dr. Ingrid Mckinney MD; Dr. Christel Chen DO Vp Analytics: Signed Normal [facility] OB Triage Physician Noteon 0 11-07-2024 OB Triage Physician Note [facility] Medical Records Department [address] [place] [address] OB Triage Physician Note 11/07/24 2141 MR#: [id number] Acct: [id number] Name: KERIARGENISDEVORA CROWEREMEDIOSDANIELA Suman Rep #: [id number] : 1985 39 From: Christel Chen DO PCP: Dr. Ingrid Mckinney MD Status:DEP CLI Y Location: [facility] HPI - General General Date of Admission: 11/07/24 HPI Narrative REMEDIOS CROWE, is a 39 y/o who presents to [facility] for a scheduled nst and bpp. 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 Normal [facility] Laboratory - Chemistry and C hemistry - challengeOrdered By: Alison Guerra on 10-31-2024 Glucose Ql (U) Negative [facility] Laboratory - UrinalysisOrder ed By: Alison Guerra on 10-31-2024 Protein Ql (U) Negative [facility] OB Limited With Biometricson 10-31-2024 OB Limited With Biometrics [facility] Imaging Services [address] [place], [place] [id number] OB Limited With Biometrics MR#: [id number] Acct: [id number] Name: REMEDIOS NEAL Rep #: [id number] : 1985 F 39 From: Chris Dunn DO PCP: Dr. Ingrid Mckinney MD Status: REG CLI Study: OB Limited With Biometrics Date of Exam: 10/31 Exam# [id number] Ordering Dr: Christel Chen DO PROCEDURE: OB [...] EFW 3190. Percentile rank: 52% Reading Location: [facility] CC: Dr. Ingrid Mckinney MD; Dr. Christel Chen DO Vp Analytics: Signed Normal [facility] Practice Coordinator Office Visit Reporton 10-31-2024 Practice Coordinator Office Visit Report [facility] [address], [address] [place] [address] OFFICE VISIT Date of Service: 10/31/24 MR#: [id number] Acct: [id number] Name: REMEDIOS NEAL Rep #: [id number] : 1985 Provider: Dr. 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 Normal [facility] Rule out Beta Strep (Grp. B) on 10-26-2024 ANT Group B Beta Streptococcus is not isolated. Normal [facility] Comment on above: Performed By: #### M 100.3400 #### [facility] Laboratory [address] [place], [address] Laboratory - Chemistry and C hemistry - challengeOrdered By: Christel Gant on 10-24-2024 Glucose Ql (U) Negative [facility] Laboratory - UrinalysisOrder ed By: Christel Gant on 10-24-2024 Protein Ql (U) Negative [facility] Practice Coordinator Office Visit Reporton 10-24-2024 Practice Coordinator Office Visit Report [facility], [address] [place] [address] OFFICE VISIT Date of Service: 10/24/24 MR#: [id number] Acct: [id number] Name: REMEDIOS NEAL Rep #: [id number] : 1985 Provider: Dr. 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 No mo vement yet. Feels well. [facility] anatomy tomorrow 07/23/24 -???-???-???-???-???-??? -???-???-???-???-???-??? - 23w 3d 252 lb 8 oz 119/73 Negative -???-???-???-???-???-??? -???-???-???-???-???-??? - Negative 145 -???-???-???-???-???-??? -???-?? (more content not included)... Normal [facility] Screening beta-hemolytic Str eptococcus cultureOrdered By: Christel Gant on 10-24-2024 Beta-hemolytic Streptococcus culture Group B Beta Streptococcus is not isolated. [facility] Laboratory - Chemistry and C hemistry - challengeOrdered By: Shannon Ingram on 10-17-2024 Glucose Ql (U) Negative [facility] Laboratory - UrinalysisOrder ed By: Shannon Ingram on 10-17-2024 Protein Ql (U) Negative [facility] Practice Coordinator Office Visit Reporton 10-17-2024 Practice Coordinator Office Visit Report [address], [address] [place] [address] OFFICE VISIT Date of Service: 10/17/24 MR#: [id number] Acct: [id number] Name: REMEDIOS NEAL Rep #: [id number] : 1985 Provider: MARYCARMEN tolentino Age/Sex: 39/F Location[place] [facility] Status: Signed with Addenda ADDENDUM by MARYCARMEN [...] high risk , unspecified, third trimester Comment: [id number], HILARY 11/16/24, girl Juan David (5) : [...] 120/79 Intake Visit Reasons: 35 wk ob/nst Recruiting Coordinator Required: No Is patient in pain?: No [...] time current occupational status: employed 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 Normal [facility] Laboratory - Chemistry and C hemistry - challengeOrdered By: Chayo Quiñonez on 10-08-2024 Glucose Ql (U) Negative [facility] Laboratory - UrinalysisOrder ed By: Chayo Quiñonez on 10-08-2024 Protein Ql (U) Negative [facility] Practice Coordinator Office Visit Reporton 10-08-2024 Practice Coordinator Office Visit Report [facility] [address], [address] [place] [address] OFFICE VISIT Date of Service: 10/08/24 MR#: [id number] Acct: [id number] Name: REMEDIOS NEAL Rep #: [id number] : 1985 Provider: RAMIREZ will Age/Sex: 39/F Location[place] [facility] Status: Signed Intake Vital Signs 05/21/24 10:26 09/24/24 08:41 10/08/24 08:56 Height 5 ft 6.5 in 5 ft 6.5 in 5 ft 6.5 in Weight: 244 lb 8 oz BMI 38.8 BP 104/72 Intake Visit Reasons: 34 wk ob/nst Chief Complaint: 34 Week OB/NST Recruiting Coordinator Required: No Is patient in pain?: No [...] time current occupational status: employed 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 -???-??? (more content not included)... Normal [facility] OB Limited With Biometricson 10-03-2024 OB Limited With Biometrics [facility] Imaging Services [address] [place] [address] OB Limited With Biometrics MR#: [id number] Acct: [id number] Name: RICHARD CROWEREMEDIOS Will Rep #: [id number] : 1985 F 39 From: Miguel Angel Levy MD PCP: Dr. Ingrid Mckinney MD Status: [facility] Study: OB Limited With Biometrics Date of Exam: 10/03 Exam# [id number] Ordering Dr: Christel Chen DO PROCEDURE: OB [...] intrauterine with biometry as above. Reading Location: [id number] CC: Dr. Ingrid Mckinney MD; Dr. Christel Chen DO Vp Analytics: Signed Normal [facility] Laboratory - Chemistry and C hemistry - challengeOrdered By: Chayo Quiñonez on 09-24-2024 Glucose Ql (U) Negative [facility] Laboratory - UrinalysisOrder ed By: Chayo Quiñonez on 09-24-2024 Protein Ql (U) Negative [facility] Practice Coordinator Office Visit Reporton 09-24-2024 Practice Coordinator Office Visit Report [facility] [address], [address] [place] [address] OFFICE VISIT Date of Service: 09/24/24 MR#: [id number] Acct: [id number] Name: REMEDIOS NEAL Rep #: [id number] : 1985 Provider: RAMIREZ will Age/Sex: 39/F Location[place] [facility] Status: Signed Intake Vital Signs 05/21/24 10:26 09/12/24 10:15 09/24/24 08:41 Height 5 ft 6.5 in 5 ft 6.5 in 5 ft 6.5 in Weight: 246 lb 4 oz BMI 39.1 BP 110/72 Intake Visit Reasons: 32 wk ob Chief Complaint: 32 Week OB Recruiting Coordinator Required: No Is patient in pain?: No [...] time current occupational status: employed 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 -???-???-???-???-??? (more content not included)... Normal [facility] Laboratory - Chemistry and C hemistry - challengeOrdered By: Christel Gant on 09-12-2024 Glucose Ql (U) Negative [facility] Laboratory - UrinalysisOrder ed By: Christel Stalin on 09-12-2024 Protein Ql (U) Negative [facility] Practice Coordinator Office Visit Reporton 09-12-2024 Practice Coordinator Office Visit Report [facility] [address], [address] [place] [address] OFFICE VISIT Date of Service: 09/12/24 MR#: [id number] Acct: [id number] Name: REMEDIOS NEAL Rep #: [id number] : 1985 Provider: Dr. 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 -???-???-???-? (more content not included)... Normal [facility] OB Limited With Biometricson 09-05-2024 OB Limited With Biometrics [facility] Imaging Services [address] [place] [address] OB Limited With Biometrics MR#: [id number] Acct: [id number] Name: REMEDIOS NEAL Rep #: [id number] : 1985 F 39 From: Terrence Carreon MD PCP: Dr. Ingrid Mckinney MD Status: [facility] Study: OB Limited With Biometrics Date of Exam: 09/05 Exam# [id number] Ordering Dr: Christel Chen DO PROCEDURE: OB [...] 3. Additional description as above. Reading Location: [id number] CC: Dr. Ingrid Mckinney MD; Dr. Christel Chen DO Vp Analytics: Signed Normal [facility] Absolute lymphocyte countOrd ered By: Alison Guerra on 08-21-2024 Lymphocytes Auto (Unsp spec) [#/Vol] 1.85 10*3/uL 0.83-4.51 [facility] Absolute neutrophil countOrd ered By: Alison Guerra on 08-21-2024 Neutrophils (Bld) [#/Vol] 7.0 10*3/uL 2.0-7.7 [facility] Automated lymphocyte count a s percentage of total leukocytesOrdered By: Alison Guerra on 08-21-2024 Lymphocytes/100 WBC Auto (Unsp spec) 19.4 % 19-41 [facility] Basophil percentageOrdered B y: Alison Guerra on 08-21-2024 Basophils/100 WBC (Bld) 0.1 % 0-1 [facility] CBC W/Diff, Automatedon 08-12 Absolute Lymph 1.85 X10 3/uL Normal 0.83-4.51 [facility] Comment on above: Performed By: #### L 3890.6006, L100.0100, L501.0250, L509.8002 #### [facility] Laboratory [address] [place], [address] Absolute Neut 7.0 X10 3/uL Normal 2.0-7.7 [facility] Comment on above: Performed By: #### L 3890.6006, L100.0100, L501.0250, L509.8002 #### [facility] [address] [place], [address] Basophils/100 WBC (Bld) 0.1 % Normal 0-1 [facility] Comment on above: Performed By: #### L 3890.6006, L100.0100, L501.0250, L509.8002 #### [facility] [address] [place], [address] Eosinophils/100 WBC (Bld) 0.9 % Normal 0-5 [facility] Comment on above: Performed By: #### L 3890.6006, L100.0100, L501.0250, L509.8002 #### [facility] Laboratory [address] [place], [address] Erythrocyte distribution width (RBC) [Ratio] 14.1 % Normal 11.6-14.6 [facility] Comment on above: Performed By: #### L 3890.6006, L100.0100, L501.0250, L509.8002 #### [facility] [address] [place], [address] Hematocrit (Bld) [Volume fraction] 36.7 % Low 37-47 [facility] Comment on above: Performed By: #### L 3890.6006, L100.0100, L501.0250, L509.8002 #### [facility] [address] [place], [address] Hemoglobin (Bld) [Mass/Vol] 11.9 g/dL Low 12.0-15.0 [facility] Comment on above: Performed By: #### L 3890.6006, L100.0100, L501.0250, L509.8002 #### [facility] [address] [place], [address] IG% 0.800 Normal 0.0-0.9 [facility] Comment on above: Result Comment: IG% - Immature Granulocytes (promyelocytes, myelocytes and metamyelocytes) > 1% indicates that a LEFT SHIFT is Present. Performed By: #### L 3890.6006, L100.0100, L501.0250, L509.8002 #### [facility] [address] [place], [address] Lymphocytes/100 WBC (Bld) 19.4 % Normal 19-41 [facility] Comment on above: Performed By: #### L 3890.6006, L100.0100, L501.0250, L509.8002 #### [facility] [address] [place], [address] MCH (RBC) [Entitic mass] 30.1 pg Normal 27.0-32.0 [facility] Comment on above: Performed By: #### L 3890.6006, L100.0100, L501.0250, L509.8002 #### [facility] [address] [place], [address] MCHC (RBC) [Mass/Vol] 32.4 g/dL Normal 32-36 [facility] Comment on above: Performed By: #### L 3890.6006, L100.0100, L501.0250, L509.8002 #### [facility] [address] [place], [address] MCV (RBC) [Entitic vol] 92.9 fL Normal 81-99 [facility] Comment on above: Performed By: #### L 3890.6006, L100.0100, L501.0250, L509.8002 #### [facility] [address] [place], [address] Monocytes/100 WBC (Bld) 5.1 % Normal 0-10 [facility] Comment on above: Performed By: #### L 3890.6006, L100.0100, L501.0250, L509.8002 #### [facility] [address] [place], [address] Neutrophils/100 WBC (Bld) 73.7 % High 47-70 [facility] Comment on above: Performed By: #### L 3890.6006, L100.0100, L501.0250, L509.8002 #### [facility] [address] [place], [address] Nucleated RBC (Bld) [#/Vol] 0 10*3/uL Normal 0-5 [facility] Comment on above: Performed By: #### L 3890.6006, L100.0100, L501.0250, L509.8002 #### [facility] [address] [place], [address] Platelet mean volume (Bld) [Entitic vol] 11.8 fL Normal 6.2-12.0 [facility] Comment on above: Performed By: #### L 3890.6006, L100.0100, L501.0250, L509.8002 #### [facility] [address] [place], [address] Platelets (Bld) [#/Vol] 198 10*3/uL Normal 150-450 [facility] Comment on above: Performed By: #### L 3890.6006, L100.0100, L501.0250, L509.8002 #### [facility] [address] [place], [address] RBC (Bld) [#/Vol] 3.95 10*6/uL Low 4.2-5.4 [facility] Comment on above: Performed By: #### L 3890.6006, L100.0100, L501.0250, L509.8002 #### [facility] [address] [place], [address] RDW SD 47.9 fl High 35.1-43.9 [facility] Comment on above: Performed By: #### L 3890.6006, L100.0100, L501.0250, L509.8002 #### [facility] [address] [place], [address] WBC (Bld) [#/Vol] 9.5 10*3/uL Normal 4.4-11.0 [facility] Comment on above: Performed By: #### L 3890.6006, L100.0100, L501.0250, L509.8002 #### [facility] [address] [place], [address] Eosinophil percentageOrdered By: Alison Guerra on 08-21-2024 Eosinophils/100 WBC (Bld) 0.9 % 0-5 [facility] Erythrocyte distribution wid th (RBC) [Ratio]Ordered By: Alison Guerra on 08-21-2024 Erythrocyte distribution width (RBC) [Entitic vol] 47.9 fL High 35.1-43.9 [facility] Erythrocyte distribution wid th ratioOrdered By: Alison Guerra on 08-21-2024 Erythrocyte distribution width (RBC) [Ratio] 14.1 % 11.6-14.6 [facility] Erythrocyte distribution wid th standard deviationOrdered By: Alison Guerra on 08-21-2024 Erythrocyte distribution width (RBC) [Ratio] 47.9 fl High 35.1-43.9 [facility] Glucose Challenge Gest 1H 50 florin 08-21-2024 GLU GEST 50g 1H 108 mg/dL Normal 70-140 [facility] Comment on above: Performed By: #### L 3890.6006, L100.0100, L501.0250, L509.8002 ####[facility] [id number] [place], [address] Glucose measurement at 2 selene rs post-dose gestational glucose tolerance testOrdered By: Alison Guerra on 08-21-2024 Glucose [Mass/Vol] 108 mg/dL 70-140 [facility] HIVon 08-21-2024 HIV Non-Reactive Normal Nonreactive [facility] Comment on above: Result Comment: Non- Reactive Reactive Repeatedly reactive samples must be confirmed according to CDC recommended confirmatory algorithms. The subresults for either HIVAG or AHIV can be used as an aid in the selection of the confirmation algorithm for reactive samples. Send out specimens with Reactive results to [facility] for confirmation. Order the HIV antibody detection and differentiation: lc#[id number] Performed By: #### L 3890.6006, L100.0100, L501.0250, L509.8002 ####[facility] [id number] [place], [place], [address] Hematocrit Auto (Bld) [Volum e fraction]Ordered By: Alison Guerra on 08-21-2024 Hematocrit (Bld) [Volume fraction] 36.7 % Low 37-47 [facility] Hemoglobin measurementOrdere d By: Alison Guerra on 08-21-2024 Hemoglobin (Bld) [Mass/Vol] 11.9 g/dL Low 12.0-15.0 [facility] Immature granulocytes/100 WB C Auto (Bld)Ordered By: Alison Guerra on 08-21-2024 Immature granulocytes/100 WBC (Bld) 0.800 % 0.0-0.9 [facility] Comment on above: IG% - Immature Granu locytes (promyelocytes, myelocytes and metamyelocytes) > 1% indicates that a LEFT SHIFT is Present. Laboratory - Chemistry and C hemistry - challengeOrdered By: Chayo Quiñonez on 08-21-2024 Glucose Ql (U) Negative [facility] Laboratory - UrinalysisOrder ed By: Chayo Quiñonez on 08-21-2024 Protein Ql (U) Negative [facility] [facility] Lymphocytes Auto (Unsp spec) [#/Vol]Ordered By: Alison Guerra on 08-21-2024 Lymphocytes (Bld) [#/Vol] 1.85 10*3/uL 0.83-4.51 [facility] Lymphocytes/100 WBC Auto (Un sp spec)Ordered By: Alison Guerra on 08-21-2024 Lymphocytes/100 WBC (Bld) 19.4 % 19-41 [facility] MCV (mean corpuscular volume ) determinationOrdered By: Alison Guerra on 08-21-2024 MCV (RBC) [Entitic vol] 92.9 fL 81-99 [facility] Mean corpuscular hemoglobin (MCH) determinationOrdered By: Alison Guerra on 08-21-2024 MCH (RBC) [Entitic mass] 30.1 pg 27.0-32.0 [facility] Mean corpuscular hemoglobin concentration (MCHC) determinationOrdered By: Alison Guerra on 08-21-2024 MCHC (RBC) [Mass/Vol] 32.4 g/dL 32-36 [facility] Mean platelet volume determi nationOrdered By: Alison Guerra on 08-21-2024 Platelet mean volume (Bld) [Entitic vol] 11.8 fL 6.2-12.0 [facility] Monocyte percentageOrdered B y: Alison Guerra on 08-21-2024 Monocytes/100 WBC (Bld) 5.1 % 0-10 [facility] Neutrophil percentageOrdered By: Alison Guerra on 08-21-2024 Neutrophils/100 WBC (Bld) 73.7 % High 47-70 [facility] No Panel InformationOrdered By: Alison Guerra on 08-21-2024 HIV (1&2) Antibody Non-Reactive Nonreactive [facility] Comment on above: Non-ReactiveReactive Repeatedly reactive samples must be confirmed according to CDC recommended confirmatory algorithms. The subresults for either HIVAG or AHIV can be used as an aid in the selection of the confirmation algorithm for reactive samples.Send out specimens with Reactive results to [facility] for confirmation.Order the HIV antibody detection and differentiation: #[id number] Nucleated red blood cell per centageOrdered By: Alison Guerra on 08-21-2024 Nucleated RBC/100 WBC (Bld) [Ratio] 0 % 0-5 [facility] Practice Coordinator Office Visit Reporton 08-21-2024 Practice Coordinator Office Visit Report [facility] [address], [address] [place] [address] OFFICE VISIT Date of Service: 08/21/24 MR#: [id number] Acct: [id number] Name: REMEDIOS NEAL Rep #: [id number] : 1985 Provider: RAMIREZ will Age/Sex: 39/F [place] [facility] [place]: Signed Intake Vital Signs 05/21/24 10:26 07/23/24 09:58 08/21/24 09:59 Height 5 ft 6.5 in 5 ft 6.5 in 5 ft 6.5 in Weight: 249 lb 8 oz BMI 39.6 BP 117/76 Intake Visit Reasons: 27 wk ob/glucose Recruiting Coordinator Required: No Is patient in pain?: No [...] time current occupational status: employed 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 No mo vement yet. Feels well. [facility] anatomy tomorrow 07/23/24 -???-???-???-???-???-??? -???-???-???-???-???-??? - 23w 3d 252 lb 8 oz 119/73 Negative -???-???-???-???-???-??? -???-???-???-???-???-??? - Negative 145 -???-???-???-???-???-??? -???-???-?? (more content not included)... Normal [facility] Platelet countOrdered By: Argenis Guerra on 08-21-2024 Platelets (Bld) [#/Vol] 198 10*3/uL 150-450 [facility] RBC Auto (Bld) [#/Vol]Ordere d By: Alison Guerra on 08-21-2024 RBC (Bld) [#/Vol] 3.95 10*6/uL Low 4.2-5.4 [facility] Syphilis Antibodieson 2024 Syphilis Abs Non-Reactive Normal Nonreactive [facility] Comment on above: Performed By: #### L 3890.6006, L100.0100, L501.0250, L509.8002 ####[facility] [address] [place], [address] T. pallidum abOrdered By: Argenis Guerra on 08-21-2024 Syphilis Total Antibody Non-Reactive Nonreactiv e [facility] White blood cell (WBC) count Ordered By: Alison Guerra on 08-21-2024 WBC (Bld) [#/Vol] 9.5 10*3/uL 4.4-11.0 [facility] - Chemistry and C hemistry - challengeOrdered By: Alison Guerra on 07-23-2024 Glucose Ql (U) Negative [facility] Laboratory - UrinalysisOrder ed By: Alison Guerra on 07-23-2024 Protein Ql (U) Negative [facility] Practice Coordinator Office Visit Reporton 07-23-2024 Practice Coordinator Office Visit Report [facility] [address], [address] [place] [address] OFFICE VISIT Date of Service: 07/23/24 MR#: [id number] Acct: [id number] Name: ARACELI NEAL Rep #: [id number] : 1985 Provider: Dr. 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 Normal [facility] Laboratory - Chemistry and C hemistry - challengeOrdered By: Chayo Quiñonez on 06-25-2024 Glucose Ql (U) Negative [facility] Laboratory - UrinalysisOrder ed By: Chayo Quiñonez on 06-25-2024 Protein Ql (U) Negative [facility] Practice Coordinator Office Visit Reporton 06-25-2024 Practice Coordinator Office Visit Report [facility] [address], [address] [place] [address] OFFICE VISIT Date of Service: 06/25/24 MR#: [id number] Acct: [id number] Name: ARACELI NEAL Rep #: [id number] : 1985 Provider: RAMIREZ will Age/Sex: 39/F [place] [facility] [place] Status: Signed Intake Vital Signs 07/11/22 12:46 05/21/24 10:26 06/25/24 08:37 Height 5 ft 6.5 in 5 ft 6.5 in 5 ft 6.5 in Weight: 253 lb 8 oz BMI 40.3 BP 124/72 H Intake Visit Reasons: 19wk OB Chief Complaint: 19 Week OB Recruiting Coordinator Required: No Is patient in pain?: No [...] time current occupational status: employed 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 Normal [facility] PAP IG HPV APTIMA 16/18,45on 05-27-2024 ADEQ Comment Normal . [facility] Comment on above: Order Comment: Speci men Comment: [id number] Comment: Source.............Cervix;EndocervixSpecimen Comment: LMP / Prev Treat...[id number] Comment: No. of containers..01 ThinPrep Vial Result Comment: Sati sfactory for evaluation. Endocervical and/or squamous metaplastic cells (endocervical component) are present. Performed By: #### M 100.2200, L7000.1800, L7400.0280 ####[facility] [address] [place], [place], [address] COMM . Normal . [facility] Comment on above: Order Comment: Speci men Comment: [id number] Comment: Source.............Cervix;EndocervixSpecimen Comment: LMP / Prev Treat...[id number]=[id number] Comment: No. of containers..01 ThinPrep Vial Performed By: #### M 100.2200, L7000.1800, L7400.0280 ####[facility] [address] [place], [place], [address] COMMENT Comment Normal . [facility] Comment on above: Order Comment: Speci men Comment: [id number] Comment: Source.............Cervix;EndocervixSpecimen Comment: LMP / Prev Treat...[id number]=[id number] Comment: No. of containers..01 ThinPrep Vial Result Comment: This liquid based ThinPrep(R) pap test was screened with the use of an image guided system. Performed By: #### M 100.2200, L7000.1800, L7400.0280 ####[facility] [address] [place], [address] DIAG Comment Normal . [facility] Comment on above: Order Comment: Speci men Comment: [id number] Comment: Source.............Cervix;EndocervixSpecimen Comment: LMP / Prev Treat...[id number] Comment: No. of containers..01 ThinPrep Vial Result Comment: NEGA TIVE FOR INTRAEPITHELIAL LESION OR MALIGNANCY. Performed By: #### M 100.2200, L7000.1800, L7400.0280 ####[facility] [address] [place], [place], [address] HPV APTIMA, HR Negative Normal Negative [facility] Comment on above: Order Comment: Speci men Comment: [id number] Comment: Source.............Cervix;EndocervixSpecimen Comment: LMP / Prev Treat...[id number]=[id number] Comment: No. of containers..01 ThinPrep Vial Result Comment: This nucleic acid amplification test detects fourteen high- risk HPV types (16,18,31,33,35,39,45,51,52,56,58,59,66,68) without differentiation. Performed By: #### M 100.2200, L7000.1800, L7400.0280 ####[facility] [address] [place], [address] HPV Kiya Rfx Comment Normal . [facility] Comment on above: Order Comment: Speci men Comment: [id number] Comment: Source.............Cervix;EndocervixSpecimen Comment: LMP / Prev Treat...YON=[id number] Comment: No. of containers..01 ThinPrep Vial Result Comment: Crit alexi not met, HPV Genotype not performed. Performed at: [facility] [address] [place], [place] [id number] Manager Landscape: Bry Garcia MD, Phone: [phone] Performed at: - [address] [id number] Manager Landscape: Shana Leon MD, Phone: [phone] Performed at: = - [address] [id number] Manager Landscape: Shana Leon MD, Phone: [phone] Performed By: #### M 100.2200, L7000.1800, L7400.0280 ####[facility] [address] [place], [place], [address] PAPSMR Comment Normal . [facility] Comment on above: Order Comment: Speci men Comment: [id number] Comment: Source.............Cervix;EndocervixSpecimen Comment: LMP / Prev Treat...QZD=[id number] Comment: No. of containers..01 ThinPrep Vial Result Comment: The Pap smear is a screening test designed to aid in the detection of premalignant and malignant conditions of the uterine cervix. It is not a diagnostic procedure and should not be used as the sole means of detecting cervical cancer. Both false-positive and false-negative reports do occur. Performed By: #### M 100.2200, L7000.1800, L7400.0280 ####[facility] [address] [place], [address] PERFORM Comment Normal . [facility] Comment on above: Order Comment: Speci men Comment: [id number] Comment: Source.............Cervix;EndocervixSpecimen Comment: LMP / Prev Treat...[id number]=[id number] Comment: No. of containers..01 ThinPrep Vial Result Comment: Ashley Dickson, Screw Machine Setter (ASCP) Performed By: #### M 100.2200, L7000.1800, L7400.0280 ####[facility] [address] [place], [address] Chlamydia/GC ROMEO aptimaon CHLAMY,NUC ACID Negative Normal Negative [facility] Comment on above: Performed By: #### M 100.2200, L7000.1800, L7400.0280 ####[facility] [address] [place], [address] GC BY NUC ACID Negative Normal Negative [facility] Comment on above: Result Comment: Perf ormed at: = - [facility] [id number] Manager Landscape: Shana Leon MD, Phone: [phone] Performed By: #### M 100.2200, L7000.1800, L7400.0280 ####[facility] [address] [place], [address] L3410.9999on 05-24-2024 [facility] Misc. COMMENT Normal . [facility] Comment on above: Order Comment: [id number] 4TSH RECEPTOR AB Result Comment: Test Ordered: [id number] Thyrotropin Receptor Ab, Serum Thyrotropin Receptor Ab, Serum <1.10 IU/L Reference Range: 0.00-1.75 Performed at: [facility] [address] [id number] Manager Landscape: Lawrence Amanda MD, Phone: [phone] Performed at: [facility] [address] [id number] Manager Landscape: Blas Samuel PhD, Phone: [phone] Performed By: #### L 3300.2202, BTS, L501.9985, L3890.6300, L3890.6100, L900.0098, L100.0100, L501.9520, L509.4005, L509.8000, L3410.9999, L506.0400, L3890.6005 ####[facility] [address] [place], [place], [address] Hemoglobinopathy Profileon 0 05-23-2024 Hgb Solubility Normal [facility] Comment on above: Result Comment: TEST RESULTS LIMITS Hgb Fractionation Ridgeley Hgb Fractionation by CE: Hgb F 0.0 % 0.0-2.0 Hgb A 97.6 % 96.4-98.8 Hgb A2 2.4 % 1.8-3.2 Hgb S 0.0 % 0.0 Interpretation: Normal hemoglobin present; no hemoglobin variant or beta thalassemia identified. Note: Alpha thalassemia may not be detected by the Hgb Fractionation Ridgeley panel. If alpha thalassemia is suspected, [facility] offers Alpha-Thalassemia DNA Analysis (#[id number]). TESTING PERFORMED AT [facility]. ORIGINAL REPORT ON FILE IN LAB CONTAINS ADDITIONAL TEST SITE INFORMATION. Performed By: #### L 3300.2202, BTS, L501.9985, L3890.6300, L3890.6100, L900.0098, L100.0100, L501.9520, L509.4005, L509.8000, L3410.9999, L506.0400, L3890.6005 ####[facility] [address] [place], [place], [address] Urine Cultureon 05-22-2024 [facility] Culture exhibits no growth. Normal [facility] Comment on above: Performed By: #### M 100.2200, L7000.1800, L7400.0280 ####[facility] [address] [place], [place], [address] Absolute neutrophil countOrd ered By: Alison Guerra on 05-21-2024 Neutrophils (Bld) [#/Vol] 6.3 10*3/uL 2.0-7.7 [facility] Basophil percentageOrdered B y: Alison Guerra on 05-21-2024 Basophils/100 WBC (Bld) 0.2 % 0-1 [facility] C. trachomatis rRNA ROMEO+prob e Ql (Unsp spec)Ordered By: Alison Guerra on 05-21-2024 Chlamydia DNA (ROMEO) Negative Negative [facility] CBC W/Diff, Automatedon Absolute Lymph 1.52 X10 3/uL Normal 0.83-4.51 [facility] Comment on above: Performed By: #### L 3300.2202, BTS, L501.9985, L3890.6300, L3890.6100, L900.0098, L100.0100, L501.9520, L509.4005, L509.8000, L3410.9999, L506.0400, L3890.6005 ####[facility] [address] [place], [address] Absolute Neut 6.3 X10 3/uL Normal 2.0-7.7 [facility] Comment on above: Performed By: #### L 3300.2202, BTS, L501.9985, L3890.6300, L3890.6100, L900.0098, L100.0100, L501.9520, L509.4005, L509.8000, L3410.9999, L506.0400, L3890.6005 ####[facility] [address] [place], [place], [id number] Basophils/100 WBC (Bld) 0.2 % Normal 0-1 [facility] Comment on above: Performed By: #### L 3300.2202, BTS, L501.9985, L3890.6300, L3890.6100, L900.0098, L100.0100, L501.9520, L509.4005, L509.8000, L3410.9999, L506.0400, L3890.6005 ####[facility] [address] [place], [place], [phone]) Eosinophils/100 WBC (Bld) 0.8 % Normal 0-5 [facility] Comment on above: Performed By: #### L 3300.2202, BTS, L501.9985, L3890.6300, L3890.6100, L900.0098, L100.0100, L501.9520, L509.4005, L509.8000, L3410.9999, L506.0400, L3890.6005 ####[facility] [address] [place], [address] Erythrocyte distribution width (RBC) [Ratio] 13.5 % Normal 11.6-14.6 [facility] Comment on above: Performed By: #### L 3299.2202, BTS, L501.9985, L3890.6300, L3890.6100, L900.0098, L100.0100, L501.9520, L509.4005, L509.8000, L3410.9999, L506.0400, L3890.6005 ####[facility] [address] [place], [address] Hematocrit (Bld) [Volume fraction] 39.3 % Normal 37-47 [facility] Comment on above: Performed By: #### L 3299.2202, BTS, L501.9985, L3890.6300, L3890.6100, L900.0098, L100.0100, L501.9520, L509.4005, L509.8000, L3410.9999, L506.0400, L3890.6005 ####[facility] [address] [place], [address] Hemoglobin (Bld) [Mass/Vol] 12.2 g/dL Normal 12.0-15.0 [facility] Comment on above: Performed By: #### L 3300.2202, BTS, L501.9985, L3890.6300, L3890.6100, L900.0098, L100.0100, L501.9520, L509.4005, L509.8000, L3410.9999, L506.0400, L3890.6005 ####[facility] [address] [place], [address] IG% 0.500 Normal 0.0-0.9 [facility] Comment on above: Result Comment: IG% - Immature Granulocytes (promyelocytes, myelocytes and metamyelocytes) > 1% indicates that a LEFT SHIFT is Present. Performed By: #### L 3300.2202, BTS, L501.9985, L3890.6300, L3890.6100, L900.0098, L100.0100, L501.9520, L509.4005, L509.8000, L3410.9999, L506.0400, L3890.6005 ####[facility] [address] [place], [address] Lymphocytes/100 WBC (Bld) 18.0 % Low 19-41 [facility] Comment on above: Performed By: #### L 3300.2202, BTS, L501.9985, L3890.6300, L3890.6100, L900.0098, L100.0100, L501.9520, L509.4005, L509.8000, L3410.9999, L506.0400, L3890.6005 ####[facility] [address] [place], [address] MCH (RBC) [Entitic mass] 27.5 pg Normal 27.0-32.0 [facility] Comment on above: Performed By: #### L 3300.2202, BTS, L501.9985, L3890.6300, L3890.6100, L900.0098, L100.0100, L501.9520, L509.4005, L509.8000, L3410.9999, L506.0400, L3890.6005 ####[facility] [address] [place], [address] MCHC (RBC) [Mass/Vol] 31.0 g/dL Low 32-36 [facility] Comment on above: Performed By: #### L 3300.2202, BTS, L501.9985, L3890.6300, L3890.6100, L900.0098, L100.0100, L501.9520, L509.4005, L509.8000, L3410.9999, L506.0400, L3890.6005 ####[facility] [address] [place], [address] MCV (RBC) [Entitic vol] 88.5 fL Normal 81-99 [facility] Comment on above: Performed By: #### L 3300.2202, BTS, L501.9985, L3890.6300, L3890.6100, L900.0098, L100.0100, L501.9520, L509.4005, L509.8000, L3410.9999, L506.0400, L3890.6005 ####[facility] [address] [place], [address] Monocytes/100 WBC (Bld) 5.5 % Normal 0-10 [facility] Comment on above: Performed By: #### L 3300.2202, BTS, L501.9985, L3890.6300, L3890.6100, L900.0098, L100.0100, L501.9520, L509.4005, L509.8000, L3410.9999, L506.0400, L3890.6005 ####[facility] [address] [place], [address] Neutrophils/100 WBC (Bld) 75.0 % High 47-70 [facility] Comment on above: Performed By: #### L 3300.2202, BTS, L501.9985, L3890.6300, L3890.6100, L900.0098, L100.0100, L501.9520, L509.4005, L509.8000, L3410.9999, L506.0400, L3890.6005 ####[facility] [address] [place], [place], [address] Nucleated RBC (Bld) [#/Vol] 0 10*3/uL Normal 0-5 [facility] Comment on above: Performed By: #### L 3300.2202, BTS, L501.9985, L3890.6300, L3890.6100, L900.0098, L100.0100, L501.9520, L509.4005, L509.8000, L3410.9999, L506.0400, L3890.6005 ####[facility] [address] [place], [place], [address] Platelet mean volume (Bld) [Entitic vol] 11.2 fL Normal 6.2-12.0 [facility] Comment on above: Performed By: #### L 3300.2202, BTS, L501.9985, L3890.6300, L3890.6100, L900.0098, L100.0100, L501.9520, L509.4005, L509.8000, L3410.9999, L506.0400, L3890.6005 ####[facility] [address] [place], [address] Platelets (Bld) [#/Vol] 263 10*3/uL Normal 150-450 [facility] Comment on above: Performed By: #### L 3300.2202, BTS, L501.9985, L3890.6300, L3890.6100, L900.0098, L100.0100, L501.9520, L509.4005, L509.8000, L3410.9999, L506.0400, L3890.6005 ####[facility] [address] [place], [address] RBC (Bld) [#/Vol] 4.44 10*6/uL Normal 4.2-5.4 [facility] Comment on above: Performed By: #### L 0.2202, BTS, L501.9985, L3890.6300, L3890.6100, L900.0098, L100.0100, L501.9520, L509.4005, L509.8000, L3410.9999, L506.0400, L3890.6005 ####[facility] [address] [place], [address] RDW SD 43.6 fl Normal 35.1-43.9 [facility] Comment on above: Performed By: #### L 0.2202, BTS, L501.9985, L3890.6300, L3890.6100, L900.0098, L100.0100, L501.9520, L509.4005, L509.8000, L3410.9999, L506.0400, L3890.6005 ####[facility] [address] [place], [address] WBC (Bld) [#/Vol] 8.4 10*3/uL Normal 4.4-11.0 [facility] Comment on above: Performed By: #### L 3300.2202, BTS, L501.9985, L3890.6300, L3890.6100, L900.0098, L100.0100, L501.9520, L509.4005, L509.8000, L3410.9999, L506.0400, L3890.6005 ####[facility] [address] [place], [place], [address] Acid Conditioning Worker Cyto stain Nom (C vx/Vag) [ID]Ordered By: Alison Guerra on 05-21-2024 Pap Smear Performed By Comment . [facility] Comment on above: Joelle Dickson [facility] otechnologist (ASCP) Cytology report Cyto stain D oc (Cvx/Vag)Ordered By: Alison Guerra on 05-21-2024 Thin Prep Pap Smear Comment . [facility] Comment on above: The Pap smear is [...] 05-21-2024 HPV Genotype Special Info Comment . [facility] Comment on above: Criteria not met, HP V Genotype not performed.Performed at: [facility] [address] [place], [place] [id number] Director: Bry Garcia MD, Phone: [phone] at: [facility] [address] [id number] Director: Shana Leon MD, Phone: [phone] at: [facility] [address] [id number] Director: Shana Leon MD, Phone: [phone] Direct serum free thyroxine (FT4) measurementOrdered By: Alison Guerra on 05-21-2024 Free T4 [Mass/Vol] 1.21 ng/dL 0.76-1.46 [facility] Eosinophil percentageOrdered By: Alison Guerra on 05-21-2024 Eosinophils/100 WBC (Bld) 0.8 % 0-5 [facility] Erythrocyte distribution wid th (RBC) [Ratio]Ordered By: Alison Guerra on 05-21-2024 Erythrocyte distribution width (RBC) [Entitic vol] 43.6 fL 35.1-43.9 [facility] Erythrocyte distribution wid th ratioOrdered By: Alison Guerra on 05-21-2024 Erythrocyte distribution width (RBC) [Ratio] 13.5 % 11.6-14.6 [facility] HIV - WCHon 05-21-2024 HIV Non-Reactive Normal Nonreactive [facility] Comment on above: Order Comment: Reaso n for Exam: Performed By: #### L 3300.2202, BTS, L501.9985, L3890.6300, L3890.6100, L900.0098, L100.0100, L501.9520, L509.4005, L509.8000, L3410.9999, L506.0400, L3890.6005 ####[facility] [address] [place], [address] HIV 1+2 Ab+HIV1 p24 Ag IA Ql Ordered By: Alison Guerra on 05-21-2024 HIV (1&2) Antibody Non-Reactive Nonreactive [facility] HPV 16+18+31+33+35+39+45+51+ 52+56+58+59+66+68 DNA Probe+sig amp Ql (Cvx)Ordered By: Alison Guerra on 05-21-2024 Human Papillomavirus High Risk Negative Negative [facility] Comment on above: This nucleic acid am plification test detects fourteen high-risk HPV types (16,18,31,33,35,39,45,51,52,56,58,59,66,68)without differentiation. Hematocrit Auto (Bld) [Volum e fraction]Ordered By: Alison Guerra on 05-21-2024 Hematocrit (Bld) [Volume fraction] 39.3 % 37-47 [facility] Hemoglobin A measurementOrde red By: Alison Guerra on 05-21-2024 Hemoglobin A Not Reportable [facility] Hemoglobin A1con 05-21-2024 HbA1c (Bld) [Mass fraction] 5.4 % Normal 3.8-5.6 [facility] Comment on above: Result Comment: Norm al < 5.7 % Prediabetic 5.7 - 6.4 % Diabetic >or= 6.5 % Please note range changes. Performed By: #### L 3300.2202, BTS, L501.9985, L3890.6300, L3890.6100, L900.0098, L100.0100, L501.9520, L509.4005, L509.8000, L3410.9999, L506.0400, L3890.6005 ####[facility] [id number] [place], [address] Hemoglobin A1c percentageOrd ered By: Alison Guerra on 05-21-2024 HbA1c (Bld) [Mass fraction] 5.4 % 3.8-5.6 [facility] Comment on above: Normal < 5.7 % Predi abetic 5.7 - 6.4 % Diabetic >or= 6.5 % Please note range changes. Hemoglobin A2 Chromatography column (Bld) [Mass fraction]Ordered By: Alison Guerra on 05-21-2024 Hemoglobin A2 Not Reportable [facility] Hemoglobin C (Bld) [Mass fra ction]Ordered By: Alison Guerra on 05-21-2024 Hemoglobin C Not Reportable [facility] Hemoglobin F measurementOrde red By: Alison Guerra on 05-21-2024 Hemoglobin F () Not Reportable [facility] Hemoglobin S (Bld) [Mass fra ction]Ordered By: Alison Guerra on 05-21-2024 Hemoglobin S Ql (Bld) Not Reportable [facility] Hemoglobin S Solubility test Ql (Bld)Ordered By: Alison Guerra on 05-21-2024 Hemoglobin Solubility See comment [facility] Comment on above: TEST RESULTS LIMITSH gb Fractionation Ridgeley Hgb Fractionation by CE: Hgb F 0.0 % 0.0-2.0 Hgb A 97.6 % 96.4-98.8 Hgb A2 2.4 % 1.8-3.2 Hgb S 0.0 % 0.0Interpretation: Normal hemoglobin present; no hemoglobin variant or beta thalassemia identified.Note: Alpha thalassemia may not be detected by the Hgb Fractionation [place] panel. If alpha thalassemia is suspected, [facility] offers Alpha-Thalassemia DNA Analysis (#[id number]). TESTING PERFORMED AT [facility]. ORIGINAL REPORT ON FILE IN LAB CONTAINS ADDITIONAL TEST SITE INFORMATION. Hemoglobin measurementOrdere d By: Alison Guerra on 05-21-2024 Hemoglobin (Bld) [Mass/Vol] 12.2 g/dL 12.0-15.0 [facility] Hepatitis B Surface Antigeno n 05-21-2024 HEP B Surf Ag Non-Reactive Normal Nonreactive [facility] Comment on above: Order Comment: Reaso n for Exam: Performed By: #### L 3300.2202, BTS, L501.9985, L3890.6300, L3890.6100, L900.0098, L100.0100, L501.9520, L509.4005, L509.8000, L3410.9999, L506.0400, L3890.6005 ####[facility] [address] [place], [address] Hepatitis B surface antigen detectionOrdered By: Alison Guerra on 05-21-2024 Hepatitis B Surface Antigen Non-Reactive Nonreactive [facility] Hepatitis C Antibodyon 05-21 Hepatitis C AB Non-Reactive Normal Nonreactive [facility] Comment on above: Order Comment: Reaso n for Exam: Result Comment: Non Reactive: < 0.8 Equivocal: >/= 0.8 to < 1.0 Reactive: >/= 1.0 The CDC requires that a reactive/equivocal HCV antibody result be sent out for confirmation. HCV Quant by PCR testing. Performed By: #### L 3300.2202, BTS, L501.9985, L3890.6300, L3890.6100, L900.0098, L100.0100, L501.9520, L509.4005, L509.8000, L3410.9999, L506.0400, L3890.6005 ####[facility] [id number] [place], [address] Hepatitis C virus antibody a ssayOrdered By: Alison Guerra on 05-21-2024 Hepatitis C Antibody Non-Reactive Nonreactive [facility] Comment on above: Non Reactive: < 0.8 Equivocal: >/= 0.8 to < 1.0 Reactive: >/= 1.0The [facility] requires that a reactive/equivocal HCV antibody result be sent out for confirmation. HCV Quant by PCR testing. Hgb variant detection HPLCOr dered By: Alison Guerra on 05-21-2024 Variant Hemoglobin Not Reportable [facility] Image-guided ThinPrep PapOrd ered By: Alison Guerra on 05-21-2024 Pap Smear Note Comment . [facility] Comment on above: This liquid based Th inPrep(R) pap test was screened withthe use of an image guided system. Image-guided liquid-based Pa pOrdered By: Alison Guerra on 05-21-2024 Pap Smear Diagnosis Comment . [facility] Comment on above: NEGATIVE FOR INTRAEP ITHELIAL LESION OR MALIGNANCY. Immature granulocytes/100 WB C Auto (Bld)Ordered By: Alison Guerra on 05-21-2024 Immature granulocytes/100 WBC (Bld) 0.500 % 0.0-0.9 [facility] Comment on above: IG% - Immature Granu locytes (promyelocytes, myelocytes and metamyelocytes) > 1% indicates that a LEFT SHIFT is Present. L509.8000on 05-21-2024 Syphilis Abs Non-Reactive Normal [facility] Comment on above: Order Comment: Reaso n for Exam: Performed By: #### L 3300.2202, BTS, L501.9985, L3890.6300, L3890.6100, L900.0098, L100.0100, L501.9520, L509.4005, L509.8000, L3410.9999, L506.0400, L3890.6005 ####[facility] [id number] [place], [address] Lymphocytes Auto (Unsp spec) [#/Vol]Ordered By: Alison Guerra on 05-21-2024 Lymphocytes (Bld) [#/Vol] 1.52 10*3/uL 0.83-4.51 [facility] Lymphocytes/100 WBC Auto (Un sp spec)Ordered By: Alison Guerra on 05-21-2024 Lymphocytes/100 WBC (Bld) 18.0 % Low 19-41 [facility] MCV (mean corpuscular volume ) determinationOrdered By: Alison Guerra on 05-21-2024 MCV (RBC) [Entitic vol] 88.5 fL 81-99 [facility] Mean corpuscular hemoglobin (MCH) determinationOrdered By: Alison Guerra on 05-21-2024 MCH (RBC) [Entitic mass] 27.5 pg 27.0-32.0 [facility] Mean corpuscular hemoglobin concentration (MCHC) determinationOrdered By: Alison Guerra on 05-21-2024 MCHC (RBC) [Mass/Vol] 31.0 g/dL Low 32-36 [facility] Mean platelet volume determi nationOrdered By: Alison Guerra on 05-21-2024 Platelet mean volume (Bld) [Entitic vol] 11.2 fL 6.2-12.0 [facility] Miscellaneous procedureOrder ed By: Alison Guerra on 05-21-2024 Miscellaneous Test Comment SEE SCANNED REPORT [facility] Monocyte percentageOrdered B y: Alison Guerra on 05-21-2024 Monocytes/100 WBC (Bld) 5.5 % 0-10 [facility] NATERAon 05-21-2024 NATURA SEE SCANNED REPORT Normal [facility] Comment on above: Performed By: #### L 3300.2202, BTS, L501.9985, L3890.6300, L3890.6100, L900.0098, L100.0100, L501.9520, L509.4005, L509.8000, L3410.9999, L506.0400, L3890.6005 ####[facility] [id number] [place], [address] Neisseria gonorrhoeae nuclei c acid detection by amplified probe techniqueOrdered By: Alison Guerra on 05-21-2024 N. gonorrhoeae DNA ROMEO+probe Ql (Unsp spec) Negative Negative [facility] Comment on above: Performed at: [address] [id number] Director: Shana Leon MD, Phone: [phone] Neutrophil percentageOrdered By: Alison Guerra on 05-21-2024 Neutrophils/100 WBC (Bld) 75.0 % High 47-70 [facility] No Panel InformationOrdered By: Alison Guerra on 05-21-2024 Miscellaneous Test COMMENT . [facility] Comment on above: Test Ordered: [id number] Thyrotropin Receptor Ab, SerumThyrotropin Receptor Ab, Serum <1.10 IU/L Reference Range: 0.00-1.75Performed at: [facility] - [facility] [address] [id number] Director: Lawrence Amanda MD, Phone: [phone] at: [facility] - [facility] [address] [id number] Director: Blas Samuel PhD, Phone: [phone] Nucleated red blood cell per centageOrdered By: Alison Guerra on 05-21-2024 Nucleated RBC/100 WBC (Bld) [Ratio] 0 % 0-5 [facility] Practice Coordinator Office Visit Reporton 05-21-2024 Practice Coordinator Office Visit Report [facility] [address] [place] [address] OFFICE VISIT Date of Service: 05/21/24 MR#: [id number] Acct: [id number] Name: ARACELI NEAL Rep #: [id number] : 1985 Provider: Dr. 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 Normal [facility] Platelet countOrdered By: Argenis Guerra on 05-21-2024 Platelets (Bld) [#/Vol] 263 10*3/uL 150-450 [facility] RBC Auto (Bld) [#/Vol]Ordere d By: Alison Guerra on 05-21-2024 RBC (Bld) [#/Vol] 4.44 10*6/uL 4.2-5.4 [facility] Rubella IgGon 05-21-2024 Rubella IgG Reactive Normal Nonreactive [facility] Comment on above: Order Comment: Reaso n for Exam: Result Comment: Anti body Results Interpretation of Immune Status Non Reactive Presumed Non-Immune Equivocal Equivocal Reactive Presumed Immune Performed By: #### L 3300.2202, BTS, L501.9985, L3890.6300, L3890.6100, L900.0098, L100.0100, L501.9520, L509.4005, L509.8000, L3410.9999, L506.0400, L3890.6005 ####[facility] [address] [place], [place], [id number] Rubella immune status IgGOrd ered By: Alison Guerra on 05-21-2024 Rubella IgG Antibody Reactive Nonreactive [facility] Comment on above: Antibody Results Int erpretation of Immune Status Non Reactive Presumed Non-Immune Equivocal Equivocal Reactive Presumed Immune Service comment (Unsp spec) [Interp]Ordered By: Alison Guerra on 05-21-2024 Pap Smear Comment (3) . . [facility] T4 Free Directon 05-21-2024 T4 FREE DIRECT 1.21 ng/dL Normal 0.76-1.46 [facility] Comment on above: Performed By: #### L 3300.2202, BTS, L501.9985, L3890.6300, L3890.6100, L900.0098, L100.0100, L501.9520, L509.4005, L509.8000, L3410.9999, L506.0400, L3890.6005 ####[facility] [address] [place], [place], [phone] TSH QnOrdered By: Alison brooks on 05-21-2024 Thyroid Stimulating Hormone (TSH) 0.572 uIU/mL 0.358-3.740 [facility] Thyroid Stim Hormone (TSH)on 05-21-2024 TSH 0.572 uIU/mL Normal 0.358-3.740 [facility] Comment on above: Performed By: #### L 3300.2202, BTS, L501.9985, L3890.6300, L3890.6100, L900.0098, L100.0100, L501.9520, L509.4005, L509.8000, L3410.9999, L506.0400, L3890.6005 ####[facility] [address] [place], [place], [phone] Treponema sp Ab Ql (S)Ordere d By: Alison Guerra on 05-21-2024 Syphilis Total Antibody Non-Reactive [facility] Type AND Screenon 05-21-2024 ABO and Rh group Nom (Bld) Blood group B Rh(D) positive Normal [facility] Comment on above: Order Comment: PN Performed By: #### L 3300.2202, BTS, L501.9985, L3890.6300, L3890.6100, L900.0098, L100.0100, L501.9520, L509.4005, L509.8000, L3410.9999, L506.0400, L3890.6005 ####[facility] [address] [place], [place], [phone] Urine cultureOrdered By: Jose Daniel Geurra on 05-21-2024 Bacteria identified Cx Nom (U) Culture exhibits no growth. [facility] White blood cell (WBC) count Ordered By: Alison Guerra on 05-21-2024 WBC (Bld) [#/Vol] 8.4 10*3/uL 4.4-11.0 [facility] Dilute Rashad's viper venom timeOrdered By: Dr. Guerra on 07-11-2022 dRVVT Coag (PPP) [Time] 39.5 s 0.0-47.0 [facility] Laboratory - Chemistry and C hemistry - challengeOrdered By: Dr. Guerra on 07-11-2022 Free T4 [Mass/Vol] 1.02 ng/dL 0.76-1.46 [facility] No Panel InformationOrdered By: Dr. Guerra on 07-11-2022 Anti-Cardiolipin IgM Antibody 20 MPL U/mL 0-12 [facility] Comment on above: Negative: <13 Indete rminate: 13 - 20 Low-Med Positive: >20 - 80 High Positive: >80 Dehydroepiandrosterone Sulfate 89.4 ug/dL 57.3-279.2 [facility] Thyroid Stimulating Hormone (TSH) 1.12 uIU/mL 0.358-3.74 [facility] Serum beta 2 glycoprotein 1 IgA antibody detectionOrdered By: Dr. Guerra on 07-11-2022 Beta 2 glycoprotein 1 IgA Ql (S) <9 0-25 [facility] Comment on above: Result Units: GPI Ig [...] glycoprotein 1 IgG Ql (S) <9 0-20 [facility] Comment on above: Result Units: GPI Ig [...] glycoprotein 1 IgM Ql (S) <9 0-32 [facility] Comment on above: Result Units: GPI Ig [...] Qn (S) < 9 GPL U/mL 0-14 [facility] Comment on above: Negative: <15 Indete rminate: 15 - 20 Low-Med Positive: >20 - 80 High Positive: >80 Serum or plasma 17-hydroxypr ogesterone measurement (mass/volume)Ordered By: Dr. Guerra on 07-11-2022 17-Hydroxyprogesterone [Mass/Vol] 20 ng/dL . [facility] Comment on above: Adult Female Follicu lar 15 - 70 Luteal 35 - 290Performed at: [facility] [address] [id number] Director: Lawrence Amanda MD, Phone: [phone] Serum or plasma cardiolipin IgA antibody assay (units/volume)Ordered By: Dr. Guerra on 07-11-2022 Cardiolipin IgA Qn < 9 APL U/mL 0-11 [facility] Comment on above: Negative: <12 Indete rminate: 12 - 20 Low-Med Positive: >20 - 80 High Positive: >80 Serum or plasma prolactin me asurement (mass/volume)Ordered By: Dr. Guerra on 07-11-2022 Prolactin [Mass/Vol] 8.7 ng/mL [facility] Comment on above: NORMAL REFERENCE RAN GES FEMALE NON- 2.2 - 30.3 ng/mL 8.1 - 347.6 ng/mL POST-MENOPAUSAL 0.7 - 31.5 ng/mL MALE 2.5 - 17.4 ng/mL Serum or plasma testosterone free measurement (mass/volume)Ordered By: Dr. Guerra on 07-11-2022 Testosterone Free [Mass/Vol] 0.4 pg/mL 0.0-4.2 [facility] Comment on above: Performed at: [facility] [employer] [facility] [address] [id number] Director: Lawrence Amanda MD, Phone: [phone] at: [facility] [id number] Director: Blas Samuel PhD, Phone: [phone] Thin prep Papanicolaou smear with manual screeningOrdered By: Dr. Guerra on 07-11-2022 Thin prep Papanicolaou smear with manual screening 40.4 sec 0.0-47.6 [facility] Thin prep Papanicolaou smear with manual screening 1.03 Ratio 0.00-1.34 [facility] Thin prep Papanicolaou smear with manual screening 39.5 sec 0.0-43.5 [facility] Comment on above: Please note refere nce interval change Thin prep Papanicolaou smear with manual screening Comment: . [facility] Comment on above: No lupus anticoagula nt was detected. Thrombin time in platelet po or plasmaOrdered By: Dr. Guerra on 07-11-2022 Thrombin time Coag (PPP) [Time] 16.8 sec 0.0-23.0 [facility] Whole blood hemoglobin A1c/t otal hemoglobin ratio (mass fraction)Ordered By: Dr. Guerra on 07-11-2022 HbA1c (Bld) [Mass fraction] 5.3 % 3.8-5.6 [facility] Comment on above: Normal < 5.7 % Predi abetic 5.7 - 6.4 % Diabetic >or= 6.5 % Please note range changes. 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 Diagnoses/Problems Health Maintenance/Risks Encounter [...] daily Vitals Vital Signs Recorded: 03Nov2021 01:18PM [id number] Jjiqcwmgf12 Height5 ft 6.5 in Hbsmzb781 lb BMI Daywrgcrka71.56 kg/m2 BSA Calculated2.3 [id number] Physical Exam Constitutional: Alert and in no [...] Signatures Electronically signed by : RUBÉN Johansen APRN-BUSINESS INSIGHT AND ANALYTICS MANAGER; Nov 03 2021 2:01PM EST (Author) Normal [facility] Cytologyon 12-08-2019 [facility] Cytology 16 Date of Procedure: 12/08/2019 Pathologist: [facility], Cytology Date Reported: 12/24/2019 Date Received: 12/09/2019 [...] verified by the Molecular Diagnostic Laboratory at [facility]. The lab is certified under the Clinical Laboratory Amendments of 1988 (CLIA 88) as qualified to perform high complexity clinical laboratory testing. This specimen has been analyzed by the MagTag Imaging System ([employer] an automated imaging and review system, which assists the laboratory in evaluating cells on ThinPrep Pap tests. Following automated imaging, selected silva from every slide were reviewed by a transport tank technician and/or pathologist. Electronically Signed Out By [facility], Cytology//ELC/PWM By the signature on this report, [...] of Specimen A: THINPREP PAP CERVICAL Normal [facility] Comment on above: Performed By: #### C #### [facility] Cytology [address] [facility] [address] Auto Diffon 09-20-2018 Basophils #/vol (Bld) 0.0 E3/mcL Normal 0.0-0.2 [facility] Comment on above: Order Comment: Order Added by Discern Expert. Performed By: #### 2 [id number] #### [facility] [address] [place] [address] Basophils/100 WBC (Bld) 0.7 % Normal 0.0-2.0 [facility] Comment on above: Order Comment: Order Added by Discern Expert. Performed By: #### 2 [id number] #### [facility] [address] [place] [address] Eos Absolute 0.1 E3/mcL Normal 0.0-0.7 [facility] Comment on above: Order Comment: Order Added by Discern Expert. Performed By: #### 2 [id number] #### [facility] [address] [place] [address] Eosinophils/100 WBC (Bld) 1.4 % Normal 0.0-11.0 [facility] Comment on above: Order Comment: Order Added by Discern Expert. Performed By: #### 2 688111 #### [facility] [address] [place] [address] Lymphocytes #/vol (Bld) 2.0 E3/mcL Normal 1.2-3.4 [facility] Comment on above: Order Comment: Order Added by Discern Expert. Performed By: #### 2 128428 #### [facility] [address] [place] [address] Lymphocytes/100 WBC (Bld) 37.0 % Normal 20.0-55.0 [facility] Comment on above: Order Comment: Order Added by Discern Expert. Performed By: #### 2 [id number] #### [facility] [employer] [address] [place] [address] [place] Absolute 0.3 E3/mcL Normal 0.0-0.7 [facility] Comment on above: Order Comment: Order Added by Discern Expert. Performed By: #### 2 [id number] #### [facility] Davis[facility] [address] [place] [address] Monocytes/100 WBC (Bld) 6.1 % Normal 0.0-10.0 [facility] Comment on above: Order Comment: Order Added by Discern Expert. Performed By: #### 2 [id number] #### [facility] [employer] [address] [place] [address] Neutro Absolute 2.9 E3/mcL Normal 1.4-6.5 [facility] Comment on above: Order Comment: Order Added by Discern Expert. Performed By: #### 2 [id number] #### [facility] [employer] [address] [place] [address] Neutro Auto 54.8 % Normal 37.0-75.0 [facility] Comment on above: Order Comment: Order Added by Discern Expert. Performed By: #### 2 [id number] #### [facility] Rem[employer] [facility] [place] [address] BMPon 09-20-2018 Anion gap molar conc 10 mmol/L Normal 10-20 [facility] Comment on above: Performed By: #### 2 [id number] #### [facility] [employer] [address] [place], [place] [id number] Calcium mass conc 8.9 mg/dL Normal 8.6-10.3 [facility] Comment on above: Performed By: #### 2 771195 #### [facility] [address] [place] [address] Chloride molar conc 109 mmol/L High 98-107 [facility] Comment on above: Performed By: #### 2 [id number] #### [facility] [address] [place] [address] CO2 molar conc 25.0 mmol/L Normal 21.0-32.0 [facility] Comment on above: Performed By: #### 2 [id number] #### [facility] [address] [place] [address] Creatinine mass conc 0.9 mg/dL Normal 0.5-1.1 [facility] Comment on above: Performed By: #### 2 471306 #### [facility] [address] [place] [address] Glucose mass conc 108 mg/dL High 70-99 [facility] Comment on above: Performed By: #### 2 653482 #### [facility] [address] [place] [address] Potassium molar conc 4.0 mmol/L Normal 3.5-5.3 [facility] Comment on above: Performed By: #### 2 [id number] #### [facility] [address] [place] [address] Sodium molar conc 140 mmol/L Normal 136-145 [facility] Comment on above: Performed By: #### 2 280423 #### [facility] [address] [place] [address] Urea nitrogen mass conc 8 mg/dL Normal 6-23 [facility] Comment on above: Performed By: #### 2 587222 #### [facility] [address] [place] [address] Urea nitrogen/Creatinine mass ratio 8.9 ratio Normal 5.4-30.0 [facility] Comment on above: Performed By: #### 2 [id number] #### [facility] [employer] [address] [place] [address] CBC w/ Auto Diffon 9 Erythrocyte distribution width Ratio (RBC) 13.7 % Normal 11.5-14.5 [facility] Comment on above: Performed By: #### 2 632735 #### [facility] [address] [place] [id number] Hematocrit Volume Fraction (Bld) 40.3 % Normal 36.0-48.0 [facility] Comment on above: Performed By: #### 2 754404 #### [facility] [address] [address] [place] [address] Hemoglobin mass conc (Bld) 13.0 g/dL Normal 12.0-16.0 [facility] Comment on above: Performed By: #### 2 035171 #### [facility] Davis[employer]emo [facility] [place] [address] MCH Entitic mass (RBC) 28.8 pg Normal 27.0-31.[address] [facility] Comment on above: Performed By: #### 2 323182 #### BEB[facility]O DavisHemo [facility] [place] [address] MCHC mass conc (RBC) 32.2 g/dL Low 33.0-37.0 [facility] Comment on above: Performed By: #### 2 [id number] #### [facility] DavisHemo [facility] [place] [id number] MCV Entitic volume (RBC) 89.5 fL Normal 78.0-100.0 [facility] Comment on above: Performed By: #### 2 396298 #### [facility] [address] [address] [place] [id number] Platelet mean volume Entitic volume (Bld) 10.5 fL Normal 7.4-11.0 [facility] Comment on above: Performed By: #### 2 918666 #### [facility] [address] [address] [place] [address] Platelets #/vol (Bld) 236 E3/mcL Normal 130-400 [facility] Comment on above: Performed By: #### 2 439054 #### [facility] [address] [place] [address] RBC #/vol (Bld) 4.51 E6/mcL Normal 3.90-5.40 [facility] Comment on above: Performed By: #### 2 589747 #### [facility] [employer] [address] [place] [address] WBC #/vol (Bld) 5.3 E3/mcL Normal 3.6-11.0 [facility] Comment on above: Performed By: #### 2 845300 #### [facility] [employer] [address] [place] [address] TSHon 09-20-2018 Thyrotropin Qn 1.00 mcIU/mL Normal 0.30-5.60 [facility] Comment on above: Performed By: #### 2 405416 #### [facility] [employer] [facility] [place] [address] eGFRon 09-20-2018 GFR/1.73 sq M predicted among non-blacks MDRD vol rate/area (S/P/Bld) mL/min/{1.73_m2} Normal [facility] Comment on above: Order Comment: Order added by Discern Expert. Performed By: #### 1 [id number] #### [facility] [employer] [facility] [place] [address] IGP W/hpv Rfx [id number] 11-07 Diagnosis: See Ref Lab Report Normal [facility] Comment on above: Order Comment: LMP: 10/21/17 Performed By: #### 1 [id number] #### BEBETO Send Outs Subsection [facility] [place] [address] Pathology ([facility])on 10-30-2017 Pathology ([facility]) FINAL GYNECOLOGIC CYTOLOGY [id number] ADEQUACYSatisfactory for Evaluation. Endocervical cells/transformation zone componentpresent.GENERAL CATEGORIZATIONEpithelial Cell AbnormalityDESCRIPTIVE DIAGNOSISAtypical squamous cells of undetermined significance.COMMENTHigh Risk HPV testing was ordered and performed at [facility] Laboratory for thefollowing high risk genotypes: [...] E6/E7 viral messenger RNA (mRNA) high-risk HPV bwartupcj66,18,31,33,35, 39,45,51,55,58,59,66, and 68 which are associated with cervicalcancer and its precursor lesions. However, cross-reactions with othergenotypes may occur. Results should be correlated with cytologic andhistologic findings. Sensitivity may be affected by cellularity of specimen.CLINICAL HISTORYLMP: 10/21/2017SPECIMEN(A) SCREENING CERVICAL/ENDOCERVICAL THIN PREP VIALPerformed at [facility], [address] [place], [place] [address]Screened by: ADITI MADRIGAL Screw Machine Setter Signed Out by: GLORIA TRINH M.D. Reported: 11/06/2017 Normal [facility] Comment on above: Performed By: #### G YN ####[facility] [address] [place] [address] Vital Signs Date Time Vital Sign Value Performing Clinician Facility 11-07-2024 12:53-0400 Body temperature 98.9 [degF] Dr. Ingrid Mckinney MD Work Phone: [facility] 11-07-2024 12:53-0400 Diastolic blood pressure 59 mm[Hg] Dr. Ingrid Mckinney MD Work Phone: [facility] 11-07-2024 12:53-0400 Heart rate 91 /min Dr. Ingrid Mckinney MD Work Phone: [facility] 11-07-2024 12:53-0400 Respiratory rate 16 /min Dr. Ingrid Mckinney MD Work Phone: [facility] 11-07-2024 12:53-0400 SaO2% (BldA) [Mass fraction] 97 % Dr. Ingrid Mckinney MD Work Phone: [facility] 11-07-2024 12:53-0400 Systolic blood pressure 117 mm[Hg] Dr. Ingrid Mckinney MD Work Phone: [facility] 11-07-2024 12:42-0400 Body height 167.[address] Ingrid Mckinney MD Work Phone: [facility] 11-07-2024 12:42-0400 Body mass index (BMI) [Ratio] 39.4 kg/m2 Dr. Ingrid Mckinney MD Work Phone: [facility] 11-07-2024 12:42-0400 Body weight [address] Ingrid Mckinney MD Work Phone: 6(973)269-018672 [address] 10-31-2024 10:21-0400 Body height 168.[address] Ingrid Mckinney MD Work Phone: 9(851)186-452735 [place] [address] 10-31-2024 10:21-0400 Body mass index (BMI) [Ratio] 38.7 kg/m2 Dr. Ingrid Mckinney MD Work Phone: 0(420)710-835789 [place] [address] 10-31-2024 10:21-0400 Body weight 110.[address] Ingrid Mckinney MD Work Phone: 2(494)731-469189 [place] [address] 10-31-2024 10:21-0400 Diastolic blood pressure 84 mm[Hg] Dr. Ingrid Mckinney MD Work Phone: 0(160)427-830089 [place] [address] 10-31-2024 10:21-0400 Systolic blood pressure 120 mm[Hg] Dr. Ingrid Mckinney MD Work Phone: 7(071)993-168889 [place] [address] 10-24-2024 10:30-0400 Body height 168.[address] Ingrid Mckinney MD Work Phone: 8(342)302-615472 [address] 10-24-2024 10:28-0400 Body mass index (BMI) [Ratio] 38.9 kg/m2 Dr. Ingrid Mckinney MD Work Phone: 0(940)557-242989 [place] [address] 10-24-2024 10:28-0400 Body weight 111.[address] Ingrid Mckinney MD Work Phone: [facility] 10-24-2024 10:28-0400 Diastolic blood pressure 76 mm[Hg] Dr. Ingrid Mckinney MD Work Phone: [facility] 10-24-2024 10:28-0400 Systolic blood pressure 110 mm[Hg] Dr. Ingrid Mckinney MD Work Phone: 7(065)616-175218 [place] [address] 10-17-2024 13:19-0400 Body height 168.[address] Ingrid Mckinney MD Work Phone: 3(818)734-891889 [place] [address] 10-17-2024 13:18-0400 Body mass index (BMI) [Ratio] 38.9 kg/m2 Dr. Ingrid Mckinney MD Work Phone: 4(393)108-075772 [address] 10-17-2024 13:18-0400 Body weight 111.[address] Ingrid Mckinney MD Work Phone: 9(774)705-273972 [address] 10-17-2024 13:18-0400 Diastolic blood pressure 79 mm[Hg] Dr. Ingrid Mckinney MD Work Phone: 0(800)722-724272 [address] 10-17-2024 13:18-0400 Systolic blood pressure 120 mm[Hg] Dr. Ingrid Mckinney MD Work Phone: 0(679)040-419789 [place] [address] 10-08-2024 08:56-0400 Body height 168.[address] Ingrid Mckinney MD Work Phone: 3(924)722-058389 [place] [address] 10-08-2024 08:56-0400 Body mass index (BMI) [Ratio] 38.8 kg/m2 Dr. Ingrid Mckinney MD Work Phone: [facility] 10-08-2024 08:56-0400 Body weight 110.[address] Ingrid Mckinney MD Work Phone: 7(494)395-499089 [place] [address] 10-08-2024 08:56-0400 Diastolic blood pressure 72 mm[Hg] Dr. Ingrid Mckinney MD Work Phone: 0(315)322-670689 [place] [address] 10-08-2024 08:56-0400 Systolic blood pressure 104 mm[Hg] Dr. Ingrid Mckinney MD Work Phone: 6(994)780-142689 [place] [address] 09-24-2024 08:41-0400 Body height 168.[address] Ingrid Mckinney MD Work Phone: 7(491)712-660489 [place] [address] 09-24-2024 08:41-0400 Body mass index (BMI) [Ratio] 39.1 kg/m2 Dr. Ingrid Mckinney MD Work Phone: 7(787)651-678572 [address] 09-24-2024 08:41-0400 Body weight 111.[address] Ingrid Mckinney MD Work Phone: 1(716)893-050935 [place] [address] 09-24-2024 08:41-0400 Diastolic blood pressure 72 mm[Hg] Dr. Ingrid Mckinney MD Work Phone: 0(893)841-158335 [place] [address] 09-24-2024 08:41-0400 Systolic blood pressure 110 mm[Hg] Dr. Ingrid Mckinney MD Work Phone: 2(289)674-819135 [place] [address] 09-12-2024 10:15-0400 Body mass index (BMI) [Ratio] 39.2 kg/m2 Dr. Ingrid Mckinney MD Work Phone: 2(406)528-418872 [address] 09-12-2024 10:15-0400 Body weight 112.[address] Ingrid Mckinney MD Work Phone: 4(852)584-405489 [place] [address] 09-12-2024 10:15-0400 Diastolic blood pressure 75 mm[Hg] Dr. Ingrid Mckinney MD Work Phone: 5(752)187-494918 [place] [address] 09-12-2024 10:15-0400 Systolic blood pressure 113 mm[Hg] Dr. Ingrid Mckinney MD Work Phone: 7(345)649-324289 [place] [address] 08-21-2024 09:59-0400 Body height 168.[address] Ingrid Mckinney MD Work Phone: 7(626)032-630635 [place] [address] 08-21-2024 09:59-0400 Body mass index (BMI) [Ratio] 39.6 kg/m2 Dr. Ingrid Mckinney MD Work Phone: 7(002)386-017289 [place] [address] 08-21-2024 09:59-0400 Body weight 113.[address] Ingrid Mckinney MD Work Phone: [facility] 08-21-2024 09:59-0400 Diastolic blood pressure 76 mm[Hg] Dr. Ingrid Mckinney MD Work Phone: 2(087)719-780289 [place] [address] 08-21-2024 09:59-0400 Systolic blood pressure 117 mm[Hg] Dr. Ingrid Mckinney MD Work Phone: 9(227)980-507035 [place] [address] 07-23-2024 09:58-0400 Body mass index (BMI) [Ratio] 40.1 kg/m2 Dr. Ingrid Mckinney MD Work Phone: 8(896)398-477572 [address] 07-23-2024 09:58-0400 Body weight 114.[address] Ingrid Mckinney MD Work Phone: 0(265)980-886035 [place] [address] 07-23-2024 09:58-0400 Diastolic blood pressure 73 mm[Hg] Dr. Ingrid Mckinney MD Work Phone: 6(493)447-758835 [place] [address] 07-23-2024 09:58-0400 Systolic blood pressure 119 mm[Hg] Dr. Ingrid Mckinney MD Work Phone: 2(075)458-523435 [place] [address] 06-25-2024 08:37-0500 Body mass index (BMI) [Ratio] 40.3 kg/m2 Dr. Ingrid Mckinney MD Work Phone: 8(649)136-643172 [address] 06-25-2024 08:37-0500 Body weight 114.[address] Ingrid Mckinney MD Work Phone: 6(607)250-536689 [place] [address] 06-25-2024 08:37-0500 Diastolic blood pressure 72 mm[Hg] Dr. Ingrid Mckinney MD Work Phone: 6(635)702-693035 [place] [address] 06-25-2024 08:37-0500 Systolic blood pressure 124 mm[Hg] Dr. Ingrid Mckinney MD Work Phone: 0(149)007-738435 [place] [address] 05-21-2024 10:26-0500 Body mass index (BMI) [Ratio] 40 kg/m2 Dr. Ingrid Mckinney MD Work Phone: 4(482)294-211189 [place] [address] 05-21-2024 10:26-0500 Body weight 114.[address] Ingrid Mckinney MD Work Phone: [facility] 05-21-2024 10:26-0500 Diastolic blood pressure 87 mm[Hg] Dr. Ingrid Mckinney MD Work Phone: [facility] 05-21-2024 10:26-0500 Systolic blood pressure 123 mm[Hg] Dr. Ingrid Mckinney MD Work Phone: [facility] 07-03-2023 12:48-0500 Body height 168.9 cm Manish Roach D[employer]ITAL [employer]S TECHNICAL OFFICER-BUSINESS INSIGHT AND ANALYTICS MANAGER Work Phone: 8(665)221-919729 [place] [address] 07-03-2023 12:48-0500 Body mass index (BMI) [Ratio] 31 kg/m2 Manish Kamenik [employer] TECHNICAL OFFICER-BUSINESS INSIGHT AND ANALYTICS MANAGER Work Phone: 9(787)612-322210 [address] 07-03-2023 12:48-0500 Body temperature 98.1 [degF] Manish Salasenik D[employer] CONTR[employer]S TECHNICAL OFFICER-BUSINESS INSIGHT AND ANALYTICS MANAGER Work Phone: 3(742)008-103129 [place] [address] 07-03-2023 12:48-0500 Body weight 88.45 kg Manish Salaseniearlene DIGITAL CONTROLS TECHNICAL OFFICER-BUSINESS INSIGHT AND ANALYTICS MANAGER Work Phone: 0(692)508-881029 [place] [address] 07-03-2023 12:48-0500 Diastolic blood pressure 79 mm[Hg] Manish Salaseniearlene DIGITAL CONTROLS TECHNICAL OFFICER-BUSINESS INSIGHT AND ANALYTICS MANAGER Work Phone: [facility] 07-03-2023 12:48-0500 Heart rate 70 /min Manish Salaseniearlene D[employer]ITAL [employer]S TECHNICAL OFFICER-BUSINESS INSIGHT AND ANALYTICS MANAGER Work Phone: [facility] 07-03-2023 12:48-0500 Respiratory rate 16 /min Manish Salaseniearlene D[employer]S TECHNICAL OFFICER-BUSINESS INSIGHT AND ANALYTICS MANAGER Work Phone: 2(762)640-911129 [place] [address] 07-03-2023 12:48-0500 SaO2% (BldA) [Mass fraction] 100 % Manish Salaseniearlene [employer]S TECHNICAL OFFICER-BUSINESS INSIGHT AND ANALYTICS MANAGER Work Phone: 8(149)139-828729 [place] [address] 07-03-2023 12:48-0500 Systolic blood pressure 122 mm[Hg] Manish Salaseniearlene D[employer] CONTR[employer]S TECHNICAL OFFICER-BUSINESS INSIGHT AND ANALYTICS MANAGER Work Phone: [facility] 07-11-2022 12:46-0500 Body height 168.[address] Ingrid Mckinney Work Phone: [facility] 07-11-2022 12:45-0500 Body mass index (BMI) [Ratio] 42.5 kg/m2 Dr. Ingrid Mckinney Work Phone: [facility] 07-11-2022 12:45-0500 Body weight 119.[address] Ingrid Mckinney Work Phone: [facility] 07-11-2022 12:45-0500 Diastolic blood pressure 82 mm[Hg] Dr. Ingrid Mckinney Work Phone: [facility] 07-11-2022 12:45-0500 Systolic blood pressure 116 mm[Hg] Dr. Ingrid Mckinney Work Phone: [facility] 11-03-2021 13:18-0400 Body height 168.91 cm Ingrid Mckinney Work Phone: [address] Work Phone: 11-03-2021 13:18-0400 Body mass index (BMI) [Ratio] 43.56 kg/m2 Ingrid Marty Kocher Work Phone: [address] Work Phone: 11-03-2021 13:18-0400 Body surface area Derived from formula 2.3 m2 Ingrid Kocher Work Phone: [place] [address] [place] Work Phone: 11-03-2021 13:18-0400 Body weight 124.29 kg Ingrid Mckinney Work Phone: [place] [address] [place] Work Phone: 11-03-2021 13:18-0400 Diastolic blood pressure 72 mm[Hg] Ingrid Mckinney Work Phone: [place] [address] [place] Work Phone: 11-03-2021 13:18-0400 Systolic blood pressure 114 mm[Hg] Ingrid Mckinney Work Phone: [address] Work Phone: 07-24-2019 10:29-0400 BMI (Body Mass Index) 44.12 kg/m2 Ingrid Kocher [facility] Work Phone: 07-24-2019 10:29-0400 Body weight 125.87 kg Ingrid [facility]ocher [facility] Work Phone: 07-24-2019 10:29-0400 BP Diastolic 88 mm[Hg] Ingrid Kocher [facility] Work Phone: Comment on above: Location: E; 07-24-2019 10:29-0400 BP Systolic 122 mm[Hg] Ingrid Kocher [facility] Work Phone: Comment on above: Location: E; 07-24-2019 10:29-0400 BSA (Body Surface Area) 2.31 m2 Ingrid Kocher [facility] Work Phone: 07-24-2019 10:29-0400 Height 168.91 cm Ingrid Mckinney [facility] Work Phone: 07-24-2019 10:29-0400 Pulse (Heart Rate) 88 /min Ingrid Mckinney [facility] Work Phone: 06-26-2019 10:38-0500 BMI (Body Mass Index) 44.23 kg/m2 Ingrid Kocher [facility] Work Phone: 06-26-2019 10:38-0500 Body weight 126.19 kg Ingrid Kocher [facility] Work Phone: 06-26-2019 10:38-0500 BP Diastolic 80 mm[Hg] Ingrid Kocher [facility] Work Phone: 06-26-2019 10:38-0500 BP Systolic 118 mm[Hg] Ingrid [facility]ocher [facility] Work Phone: 06-26-2019 10:38-0500 BSA (Body Surface Area) 2.31 m2 [facility]grid [facility] Work Phone: 06-26-2019 10:38-0500 Height 168.91 cm [facility]grid [facility] Work Phone: 06-26-2019 10:38-0500 Pulse (Heart Rate) 63 /min Ingrid [facility] Work Phone: Encounters Encounter Date Encounter Type Care Provider Facility Start: 11-08-2024 ambulatory Christel Orellana cility:[facility] Start: 11-07-2024 End: 11-07-[address] Ingrid Mckinney MD Work Phone: -[facility] Start: 11-07-2024 End: 11-07-[address] Christel Chen DO -[facility] Work Phone: Start: 11-07-2024 ambulatory Christel Stocktonty:[facility] Start: 10-31-2024 End: 10-31-[address] Ingrid Mckinney MD Work Phone: [facility] Work Phone: Start: 10-31-2024 End: 10-31-[address] Christel Chen DO -Ultrasound [facility] Work Phone: Start: 10-31-2024 End: 10-31-[address] Alison Guerra MD -[facility] Work Phone: Start: 10-31-2024 End: 10-31-[address] Ingrid Mckinney MD Work Phone: [facility] Work Phone: Start: 10-31-2024 End: 10-31-2024 ambulatory Christel Chen Facility:[facility] Start: 10-24-2024 End: 10-24-[address] Ingrid Mckinney MD Work Phone: [facility] Work Phone: Start: 10-24-2024 End: 10-24-[address] Christel Chen DO -Laboratory Specimen Work Phone: Start: 10-24-2024 End: 10-24-[address] Christel Chen DO -[facility] Work Phone: Start: 10-24-2024 End: 10-24-[address] Ingrid Mckinney MD Work Phone: [facility] Work Phone: Start: 10-24-2024 End: 10-24-2024 ambulatory Christel Chen Facility:[facility] Start: 10-17-2024 End: 10-17-2024 Patient encounter procedure Shannon Juan Jose CONROY -[facility] Work Phone: Start: 10-17-2024 End: 10-17-[address] Ingrid Mckinney MD Work Phone: [facility] Work Phone: Start: 10-08-2024 End: 10-08-2024 Patient encounter procedure Chayo GUZMÁN -[facility] Work Phone: Start: 10-08-2024 End: 10-08-[address] Ingrid Mckinney MD Work Phone: [facility] Work Phone: Start: 10-03-2024 End: 10-03-[address] Ingrid Mckinney MD Work Phone: [facility] Work Phone: Start: 10-03-2024 End: 10-03-[address] Christel Chen DO -Ultrasound [facility] Work Phone: Start: 10-03-2024 End: 10-03-2024 ambulatory Christel Chen Facility:[facility] Start: 09-24-2024 End: 09-24-2024 Patient encounter procedure Chayo GUZMÁN -[facility] Work Phone: Start: 09-24-2024 End: 09-24-[address] Ingrid Mckinney MD Work Phone: [facility] Work Phone: Start: 09-12-2024 End: 09-12-[address] Christel Chen DO -[facility] Work Phone: Start: 09-12-2024 End: 09-12-2024 ambulatory [facility] Facility:[facility] Start: 09-05-2024 End: 09-05-[address] Christel Ocampo, [facility] Work Phone: Start: 09-05-2024 End: 09-05-2024 ambulatory [facility] Facility:[facility] Start: 08-21-2024 End: 08-21-[address] Ingrid Mckinney MD Work Phone: [facility] Work Phone: Start: 08-21-2024 End: 08-21-2024 Patient encounter procedure Chayo GUZMÁN -[facility] Work Phone: Start: 08-21-2024 End: 08-21-2024 ambulatory [facility] Facility:[facility] Start: 07-23-2024 End: 07-23-[address] Alison Guerra MD -[facility] Work Phone: Start: 07-23-2024 End: 07-23-2024 ambulatory [facility] Facility:[facility] Start: 06-26-2024 End: 06-26-2024 ambulatory RAYMOND LARSON [facility] Start: 06-25-2024 End: 06-25-2024 ambulatory Ingrid [facility] Facility:[facility] Start: 06-25-2024 End: 06-25-2024 Patient encounter procedure Chayo GUZMÁN -[facility] Work Phone: Start: 05-21-2024 End: 05-21-[address] Alison Guerra MD -Lab, [facility] Start: 05-21-2024 End: 05-21-[address] Alison Guerra MD -[facility] Work Phone: Start: 05-21-2024 End: 05-21-2024 ambulatory Ingrid [facility] Facility:[facility] Start: 05-21-2024 End: 05-21-2024 ambulatory Ingrid [facility] Facility:[facility] Start: 07-03-2023 End: 07-03-2023 ambulatory INGRID Ferguson [facility] Start: 07-03-2023 End: 07-03-2023 Patient encounter procedure Manish Roach D[employer]S TECHNICAL OFFICER-BUSINESS INSIGHT AND ANALYTICS MANAGER Work Phone: [facility] Comment on above: Acute bacterial conj unctivitis of right eye (Primary Dx) Start: 07-21-2022 End: 07-21-[address] Ingrid Mckinney Work Phone: [facility] Work Phone: Start: 07-21-2022 End: 07-21-[address] Ingrid Mckinney Work Phone: [facility] Start: 07-11-2022 End: 07-11-[address] Ingrid Mckinney Work Phone: [facility] Work Phone: Start: 07-11-2022 End: 07-11-[address] Ingrid Mckinney Work Phone: [facility] Start: 11-03-2021 Periodic preventive med est patient 18-39 yrs Ingrid Marty Hank Work Phone: [facility] [employer] Work Phone: Start: 07-24-2019 Patient encounter procedure Ingrid Mckinney [facility] Work Phone: Start: 06-26-2019 Patient encounter procedure Ingrid Mckinney [facility] Work Phone: Start: 05-29-2019 Patient encounter procedure Ingrid Mckinney [facility] Work Phone: Start: 10-30-2017 Patient encounter Facil [id number] Encounter for gynecological examination (general) (routine) without abnormal findings Ingrid Mckinney Work Phone: [place] [address] [employer] Work Phone: Comment on above: 12/08/2019; WNL, [...] [Identifier] in Cervix by Cyto jazmine Roach DIGITAL CONTROLS TECHNICAL OFFICER-BUSINESS INSIGHT AND ANALYTICS MANAGER Work Phone: History of No histor y of surgery Ingrid Mckinney No history of surgery Luis Enrique Mckinney Work Phone: Plan of Treatment Date Care Activity Detail Author Start: 2034 Zoster Vaccines (1 of 2) Zoster Vaccines (1 of 2) [facility] Start: 11-07-2024 Nonstress test [facility] Start: 11-07-2024 Obstetric monitoring [facility] Start: 11-07-2024 [facility] Start: 11-07-2024 Biophysical profile panel US [facility] Start: 11-07-2024 Ultrasonography for biophysical profile without non-stress testing OB Biophysical Prof W/O NST [facility] Start: 11-07-2024 Vital signs [facility] Start: 11-07-2024 Patient discharge [facility] Start: 01-12-2023 Influenza vaccination Influenza Vaccine (#1) [facility] Start: 12-07-2022 Screening for malignant neoplasm of cervix [facility] Start: 07-11-2022 17-Hydroxyprogesterone [Mass/volume] in Serum or Plasma [facility] Start: 07-11-2022 Beta 2 glycoprotein 1 Ab IgA and IgG and IgM panel - Serum [facility] Start: 07-11-2022 Cardiolipin IgA and IgG and IgM panel - Serum [facility] Start: 07-11-2022 Cardiolipin IgG and IgM panel - Serum [facility] Start: 07-11-2022 Dehydroepiandrosterone sulfate (DHEA-S) [Mass/volume] in Serum or Plasma [facility] Start: 07-11-2022 Hemoglobin A1c/Hemoglobin.total in Blood [facility] Start: 07-11-2022 Lupus anticoagulant assay [facility] Start: 07-11-2022 Procedure [facility] Start: 07-11-2022 Prolactin [Mass/volume] in Serum or Plasma [facility] Start: 07-11-2022 T4 free measurement [facility] Start: 07-11-2022 Testosterone Free [Mass/volume] in Serum or Plasma [facility] Start: 07-11-2022 Thyroid stimulating hormone measurement [facility] Start: 2006 DTaP/Tdap/Td Vaccines (1 - Tdap) DTaP/Tdap/Td Vaccines (1 - Tdap) [facility] Start: 2005 Screening for malignant neoplasm of cervix HPV/Cotest [facility] Start: 2002 Diabetes mellitus screening Diabetes Screening [facility] Start: 2002 Hepatitis C screening Hepatitis C Screening [facility] Start: 1985 MMR Vaccines (1 of 1 - Standard series) MMR Vaccines (1 of 1 - Standard series) [facility] Start: 1985 Varicella vaccination Varicella Vaccines (1 of 2 - 2-dose childhood series) [facility] Start: 1984 COVID-19 Vaccine (#1) COVID-19 Vaccine (#1) [facility] Start: 1984 Hepatitis B Vaccines (1 of 3 - 3-dose series) Hepatitis B Vaccines (1 of 3 - 3-dose series) [facility] Start: 1984 HIV screening HIV Screening [facility] Start: 1984 Lipid panel Lipid Panel [facility] Start: 1984 Yearly Adult Physical Yearly Adult Physical [facility] Beta 2 glycoprotein 1 IgA Ab [Presence] in Serum [facility] Beta 2 glycoprotein 1 IgG Ab [Presence] in Serum [facility] Beta 2 glycoprotein 1 IgM Ab [Presence] in Serum [facility] Cardiolipin IgA Ab [Units/volume] in Serum by Immunoassay [facility] Cardiolipin IgG Ab [Units/volume] in Serum or Plasma [facility] Cardiolipin IgM Ab [Units/volume] in Serum or Plasma [facility] Lupus anticoagulant neutralization platelet [Time] in Platelet poor plasma by Coagulation assay [facility] Partial thromboplast in time ratio [facility] Streptococcus agalac tiae [Presence] in Unspecified specimen by Organism specific culture [facility] Thrombin time [facility]inal [facility] Immun[facility] Immunization Date Immunization Notes Care Provider Fa cility 09-12-2024 tetanus toxoid, redu sandie diphtheria toxoid, and acellular pertussis vaccine, adsorbed Dr. Ingrid Mckinney MD Work Phone: [facility] Payers Date Payer Category Payer Self-pay [id number] 2023 Unknown 2023 Unknown [id number] 1984 Unknown [id number] 2.16.84 [id number] 1984 Unknown [id number] 2.16. [id number] Unknown [id number] Unknown [id number] 2.16.8 [id number] Unknown [id number] 2.16.8 [id number] Unknown [id number] 2.16.8 [id number] Unknown [id number] 2.16.8 [id number] Unknown [id number] 2.16.8 [id number] Unknown [id number] 2.16.8 [id number] Unknown [id number] 2.16.8 [id number] Unknown [id number] 2.16.8 [id number] Unknown [id number] 2.16.8 [id number] Unknown [id number] 2.16.8 [id number] Unknown [id number] 2.16.8 [id number] Unknown [id number] 2.16.8 [id number] Unknown [id number] 2.16.8 [id number] Unknown [id number] 2.16.8 [id number] Unknown [id number] 2.16.8 [id number] Unknown [id number] 2.16.8 [id number] Unknown [id number] 2.16.8 [id number] Unknown [id number] 2.16.8 [id number] Unknown [id number] 2.16.8 [id number] Unknown [id number] 2.16.8 [id number] Social History Date Type Detail Facility Never a smoker Never a smoker [address] Work Phone: Start: 07-11-2022 End: 07-11-2022 Tobacco smoking status NHIS Unknown if ever smoked [facility] Start: 1985 Sex Assigned At Female [facility] Start: 07-03-2023 End: 05-20-2024 Tobacco smoking status NHIS Never smoked tobacco [facility] Work Phone: Start: 07-03-2023 Tobacco use and exposure Smokeless tobacco non-user [facility] Work Phone: Start: 07-03-2023 Alcohol intake Current drinke r of alcohol (finding) [facility] Work Phone: Start: 1985 Sex Assigned At Not on file [facility] Work Phone: Gender identity Not on file [facility] ospiCount includes the [facility] Work Phone: Start: 06-23-2023 End: 07-03-2023 Exposure to SARS-CoV-2 (event) Not sure [facility] Start: 08-27-2024 Sex Female (finding) [facility] NEGATED: Highlighted row - - [facility] Work Phone: Functional Status Date Assessment Result Facility NEGATED: Highlighted row Functional performance Functional status health issues are not documented [facility] Work Phone: Mental Status Date Assessment Result Facility NEGATED: Highlighted row Cognitive function [Interpretation] Cognitive status health issues are not documented [facility] Work Phone: Clinical Notes 11-03-2021 to 11-01-2024 Note Date & Type Note Facility 11-01-2024 Radiology Diagnostic study note [facility] Imaging Services [address] [place], [place] [id number] OB Limited With Biometrics MR#: [id number] Acct: [id number] Name: REMEDIOS NEAL Rep #: [id number] : 1985 F 39 From: Pet er Peer DO PCP: Dr. Ingrid Mckinney MD Status: REG CLI Study:OB Limited With Biometrics Date of Exam : 10/31/24 Exam# [id number] Ordering Dr: Christel Beltran DO PROCEDURE: OB [...] EFW 3190. Percentile rank: 52% Reading Location: [facility] CC: Dr. Ingrid Mckinney MD; Dr. Christel Cehn DO ~ Vp Analytics: Signed [facility] 10-24-2024 Progress note [facility] 10-04-2024 Radiology Diagnostic study note [facility] Imaging Services [address] [place], [place] [id number] OB Limited With Biometrics MR#: [id number] Acct: [id number] Name: REMEDIOS NEAL Rep #: [id number] : 1985 F 39 From: Ant Levy MD PCP: Dr. Ingrid Mckinney MD Status: REG CLI Study:OB Limited With Biometrics Date of Exam : 10/03/24 Exam# [id number] Ordering Dr: Christel Beltran DO PROCEDURE: OB [...] intrauterine with biometry as above. Reading Location: [id number] CC: Dr. Ingrid Mckinney MD; Dr. Christel Chen, DO ~ Vp Analytics: Signed [facility] 07-23-2024 Evaluation note Diagnosis Onset Date Resolution [...] 10:25am Vasovagal episode acute October 242024 10:25am [facility] Work Phone: 1(147) 594-219103-12-2025 Evaluation note* Diagnosis Onset Date Resolution Status [...] 10:18am Vasovagal episode acute October 312024 10:18am [facility] Work Phone: 1([phone]) 584-215502-12-2025 Evaluation note* Diagnosis Onset Date Resolution Status [...] high-risk acute September 12, 2024 10 :11am [facility] Work Phone: 1(396) 251-577802-12-2025 Evaluation note* Diagnosis Onset Date Resolution Status [...] 8 :46am Vasovagal episode acute September 8:46am [facility] Work Phone: 1(310) 936-153802-12-2025 Evaluation note* Diagnosis Onset Date Resolution Status [...] 1 :13pm Vasovagal episode acute October 1:13pm [facility] Work Phone: 1(422) 771-832101-08-2025 NotePap Smear Specimen AdequacyJanuary 2024 12:59amComment.Satisfactory for evaluation. Endocervical and/or squamous metaplasticcells (endocervical component)are present.[facility] INTERFACED A#[id number] Health [facility] CampusComment on above:Satisfactory for evaluation. Endocervical and/or squamous [...] of high-risk acute August 21, 2024 9:57am [facility] Work Phone: 1(665) 364-744702-20-2024 History of Present illness Narrative* Manish Roach APRN-BUSINESS INSIGHT AND ANALYTICS MANAGER - 07/03/2023 12:40 PM EST 38 y.o. [...] Review Audit Reviewed by Mindy Enriquez MA ([place] Waiter/Waitress) on 07/03/23 at 1248 Medication Order Taking? [...] or any new concerns. Manish Roach CNP [facility] [phone] [facility] Work Phone: 1(374) 211-771006-23-2022 History of Present illness NarrativePt. presents for annual exam. Had negative pap and co-testing in 2019, next pap due 2024. Pt. has been trying to conceive x 2 + years. States that she has+ LH predictor tests and has monthly menses. Pt. c/o mid-cycle spotting x 3-4 mos. Pt. denies any other c/o or concerns.[address] Work Phone: Evaluation note* Diagnosis Onset Date Resolution Status History of recurrent miscarriages acute Infertility, female acute Irregular menstrual bleeding acute [facility] Work Phone: Evaluation note* Diagnosis Acute bacterial conjunctivitis of right eye- Primary documented in this encounter [facility] Work Phone: Progress note Author Christel Gant [facility] Note Date/Time October 24, 2024 11:4 5am [facility] [address], [address] [place] [address] OFFICE VISIT Date of Service: 10/24/24 MR#: [id number] Acct: [id number] Name: REMEDIOS NEAL Rep #: [id number] : 1985 Provider: Dr. 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 [...] VB, LOF. G ood FM. Reactive NST. [place] nauseous/dizzy laying flat. Resolved with position change/water. [...] recurrent miscarriages N96 CPT Codes Non-Stress Test (20857) Assessment and Plan Assessment and Plan (1) [...] high risk , unspecified, third trimester Comment: [id number], HILARY 11/16/24, girl Juan David (5) : [...] Larry DO> Date _ Christel Chen DO [facility] Signature: Date (if applicable) CC: ~ [facility] Work Phone: Reason for referral (narrative)No reason for referral information availableWCleveland Clinic [facility] Work Phone: Summary Purpose Family History No [...] section and content) DATE CREATED AUTHOR 11/06/2017 [facility] DATE CREATED AUTHOR AUTHOR'S ORGANIZ ATION 01/04/2018 [facility] DATE CREATED AUTHOR AUTHOR'S ORGANIZ ATION 10/04/2018 [facility] DATE CREATED AUTHOR AUTHOR'S ORGANIZ ATION 12/25/2019 [facility] DATE CREATED AUTHOR AUTHOR'S ORGANIZ ATION 11/04/2021 [facility] DATE CREATED AUTHOR AUTHOR'S ORGANIZ ATION 07/10/2023 [facility] DATE CREATED AUTHOR AUTHOR'S ORGANIZ ATION 06/28/2024 [facility] DATE CREATED AUTHOR AUTHOR'S ORGANIZ ATION 11/09/2024 [facility] Care Teams (unrecognized sec tion and [...] Dr. Alison Guerra MD Attending Provider Active Storage Management Consultant Relationship Specialty Start Date End Date Ingrid Mckinney MD [address] [facility], [place] [address] PCP - General 05/14/19 Team Status: Inactive [...] 2024 End: June 25, 2024 Chayo Quiñonez NURSING MANAGER, NURSING MANAGER-C Attending Provider Active Start: June 25, 2024 [...] 2024 End: August 21, 2024 Chayo Quiñonez NURSING MANAGER, NURSING MANAGER-C Attending Provider Active Start: August 21, 2024 [...] 2024 End: September 24, 2024 Chayo Quiñonez NURSING MANAGER, NURSING MANAGER-C Attending Provider Active Start: September 24, 2024 [...] 2024 End: October 08, 2024 Chayo Quiñonez NURSING MANAGER, NURSING MANAGER-C Attending Provider Active Start: October 08, 2024 [...] 2024 End: August 21, 2024 Chayo Quiñonez NURSING MANAGER, NURSING MANAGER-C Attending Provider Active Start: August 21, 2024 [...] End: September 24, 2024 Chayo Quiñonez NP, NURSING MANAGER-C Attending Provider Active Start: September 24, 2024 [...] 2024 End: October 08, 2024 Chayo Quiñonez NURSING MANAGER, NURSING MANAGER-C Attending Provider Active Start: October 08, 2024 [...] BE BASED ON THE PRIMARY CLINICAL RECORDS. [employer] [facility]. provides no warranty or guarantee of the accuracy or completeness of information in this document.
[2024-11-09 19:36] VITALS: BP 133/83; PULSE 101; RESP 18; TEMP 36.4
[2024-11-09 20:42] LABS: Hematocrit 37.5 % (37-47); Hemoglobin 12.3 g/dL (12.0-15.0); Immature Granulocytes Count 0.040 X10^3/uL (0.0-0.0); Mean Corp Hgb Conc 32.8 g/dL (32-36); Mean Corpuscular Volume 92.6 fL (81-99); Mean Platelet Vol. 12.5 fl (6.2-12.0); NRBC Flagged by Analyzer 0 % (0-5); Platelet Count 196 K/mm3 (150-450); RBC Distribution Width CV 14.2 % (11.6-14.6); RBC Distribution Width SD 48.1 fl (35.1-43.9); Red Blood Count 4.05 M/mm3 (4.2-5.4); White Blood Count 9.9 K/mm3 (4.4-11.0)
[2024-11-09 20:53] VITALS: BP 129/77; PULSE 88; O2SAT 97
[2024-11-09 20:54] VITALS: RESP 17; TEMP 36.5
[2024-11-09 21:05] LABS: Syphilis Antibodies Nonreactive (Nonreactive)
[2024-11-09] MEDS: Lactated Ringers 1,000 ML 999 ML IV (22:08)
[2024-11-10] VITALS (37 sets, daily range): BP systolic 95–131; BP diastolic 52–78; PULSE 57–116; RESP 15–20; TEMP 36–37; O2SAT 80–98
--- NOTE | 2024-11-10 07:57 | HP.PCM.OB_ITS ---
HPI - General General Date of Admission: 11/09/24 Date of Service: 11/10/24 HPI Narrative REMEDIOS CROWE, is a 39 F 39.1 weeks who presents to unit for IOL for AMA and obesity. Had 3 doses of cytotec overnight and is now 1.5/60/-3. will reassess cervvix around [address] jesus bulb. Maternal Data Information HILARY Calculator Estimated Delivery Date Method Current WG Current Estimate 11/16/24 LMP (Certain) 39w 1d Other Estimates 11/12/24 Ultrasound #1 39w 5d Final HILARY: 11/16/24 Final HILARY Source: US >20 weeks Gestational age: 39.[facility] Medical History (Updated 11/10/24 @ 08:03 by Cammie Hobbs CNM) Infertility Thyroid disorder Adopted person Seasonal allergies Enlarged thyroid Hypothyroidism Depression Abnormal thyroid blood test Abnormal Pap smear of cervix Home Medications ?Medication ?Instructions ?Recorded ?Last Taken ?Type PNV 153-FA 400 mcg-om3 35 mg-dha 1 tab PO DAILY pregna ncy 05/20/24 11/08/24 History 25 mg-epa 5 mg-fish oil chew tablet valacyclovir 500 mg tablet 500 mg PO DAILY hsv 5 11/08/24 History (Valtrex) Allergy/AdvReac Type Severity Reaction Status Date / Time Food Allergies: Uncoded Allergy Severe Anaphylaxis Verified 11/09/24 19:37 Surgical History H/O oral surgery Status post colposcopy Social History adopted: Yes household members: spouse and other details: neice part of the time current occupational status: employed 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) pets and animals: Yes (Avoid litterbox) pets and animals: cat(s) and dog(s) history of recent travel: Yes ([place]) out of state: Yes out of country: No sexually active: Yes Smoking Status: Never smoker alcohol intake: current details: occasionally- not while substance use type: does not use well-balanced diet: daily or most days caffeine: No eating out: 4 or more times/week during the past year weight has: increased > 10 lbs what type of physical activity do you participate in: 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 Date Name GA/Weeks Outcome Route Bth Weight Infant Gen Labor Lgth Anesthesia Del Locatn Provider FOB Unknown Delivery Date: Last Updated by: Alison aPtton MD all losses were 9 weeks of less, had 1 d and c all others spontaneous Visit Details Expected Delivery Route/Plan labor Preferences- CB/BF classes: encouraged labor support person: Juan David labor intervention preferences: [] pain management options preferred: epidural cut cord/dad catch: yes : yes PP control planned: discussed discussed possible routes of delivery and associated risks: [] special requests: [] Plans Covid status: [] Flu vaccine: [] Tdap vaccine: given Rhogam: na LARC form signed: yes Problem list reviewed and updated with the most current plan of care details and appropriate orders placed. Relevant counseling for the gestational age provided. Continue routine care and follow up unless otherwise noted in visit notes/problem list details OB Flowsheet Initial Weight: Not Recorded Date -?-?-?-?-?-?-?-?-?-?-?-?- EGA Weight BP Urine Prot -?-?-?-?-?-?-?-?-?-?-?-?- Glucose FHR FuHt Pres Dilation -?-?-?-?-?-?-?-?-?-?-?-?- Effaced St Visit Note 05/21/24 -?-?-?-?-?-?-?-?-?-?-?-?- 14w 3d 252 lb 123/87 -?-?-?-?-?-?-?-?-?-?-?-?- 150 -?-?-?-?-?-?-?-?-?-?-?-?- SM- CRL cons wit h LMP 06/25/24 -?-?-?-?-?-?-?-?-?-?-?-?- 19w 3d 253 lb 8 oz 124/72 Nega tive -?-?-?-?-?-?-?-?-?-?-?-?- Negative 151 -?-?-?-?-?-?-?-?-?-?-?-?- No VB. No moveme nt yet. Feels well. MFM anatomy tomorrow 07/23/24 -?-?-?-?-?-?-?-?-?-?-?-?- 23w 3d 252 lb 8 oz 119/73 Nega tive -?-?-?-?-?-?-?-?-?-?-?-?- Negative 145 -?-?-?-?-?-?-?-?-?-?-?-?- SM- no vb lof gc t next time 08/21/24 -?-?-?-?-?-?-?-?-?-?-?-?- 27w 4d 249 lb 8 oz 117/76 Nega tive -?-?-?-?-?-?-?-?-?-?-?-?- Negative 142 27 -?-?-?-?-?-?-?-?-?-?-?-?- MH-No VB, LOF. g ood FM. Larc. 28wk labs pending 09/12/24 -?-?-?-?-?-?-?-?-?-?-?-?- 30w 5d 247 lb 2 oz 113/75 Nega tive -?-?-?-?-?-?-?-?-?-?-?-?- Negative 135 32 -?-?-?-?-?-?-?-?-?-?-?-?- JV- no lof, vagi nal bleeding, or dec fm. has some nasal drainage. 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 doing well overall. normal growth scan. nsts start 34 weeks. 09/24/24 -?-?-?-?-?-?-?-?-?-?-?-?- 32w 3d 246 lb 4 oz 110/72 Nega tive -?-?-?-?-?-?-?-?-?-?-?-?- Negative 146 33 -?-?-?-?-?-?-?-?-?-?-?-?- MH-No VB, LOF. G ood FM. Denies concerns. 10/08/24 -?-?-?-?-?-?--?-?-?-?-?-?- 34w 3d 244 lb 8 oz 104/72 Nega tive -?-?-?-?-?-?-?-?-?-?-?-?- Negative 140 35 -?-?-?-?-?-?-?-?-?-?-?-?- MH-No VB, LOF. G ood FM. Reactive NST. [place] nauseous/dizzy laying flat. Resolved with position change/water. 10/17/24 -?-?-?-?-?-?-?-?-?-?-?-?- 35w 5d 245 lb 120/79 Negative -?-?-?-?-?--?-?-?-?-?-?-?- Negative 135 36 -?-?-?-?-?-?-?-?-?-?-?-?- LC- reactive nst . no vb/ctx/lof. good fm. questions answered on labor/. 10/24/24 -?-?-?-?-?-?-?-?-?-?-?-?- 36w 5d 245 lb 4 oz 110/76 Nega tive -?-?-?-?-?-?-?-?-?-?-?-?- Negative 140 3 Cephalic 0 -?-?-?-?-?-?-?-?-?-?-?-?- JV- NST reactive . GBS today. no complaints. JV- NST reactive. GBS today. no complaints. normal growth 2 weeks ago. 10/31/24 -?-?-?-?-?-?-?-?-?-?-?-?- 37w 5d 243 lb 8 oz 120/84 Nega tive -?-?-?-?-?-?-?-?-?-?-?-?- Negative 130 Cephalic 0 -?-?-?-?-?-?-?-?-?-?-?-?- SM- no vb lof go od fm no reuglar ctx NST FHR Rate Baby A Baseline: 130 Variability:: Moderate Accelerations:: 15 x 15 Decelerations:: None NST Reactive:: Yes FHR Category:: Category I Uterine Activity:: irregular ROS Constitutional Constitutional: Denies change in weight, fatigue, fever(s), headache(s), poor appetite or weakness Eyes Eyes: Denies blurry vision, change in vision, floaters, seeing flashes or spots in vision ENT HEENT: Denies dizziness, headache(s), loss taste/smell or sore throat Cardiovascular Cardiovascular: Denies chest pain, dizziness, dyspnea, irregular heart rhythm, lightheadedness, palpitations or rapid heart rate Respiratory/Chest Respiratory/Chest: Denies change in mental status, chest tightness, cough, dyspnea or breast pain Gastrointestinal Gastrointestinal: Denies anorexia, chewing difficulty, constipation, diarrhea or weight changes Genitourinary Genitourinary: Denies difficulty urinating, dysuria, flank pain, genital pain, urinary frequency or urinary urgency Musculoskeletal Musculoskeletal: Denies back pain, difficulty walking, extremity pain, joint pain, muscle cramps or muscle weakness Integumentary Integumentary: Denies lesions or unusual bruising Neurologic Neurologic: Denies abnormal movements, abnormal speech, dizziness, numbness, seizure-like activity, syncope or weakness Psychiatric Psychiatric: Denies behavioral changes, change in appetite, confusion, depression, homicidal ideation, suicidal ideation or suicidal thoughts Endocrine Endocrinology: Denies excessive sweating, polydipsia or polyuria Hematologic/Lymphatic Hematologic/Lymphatic: Denies anemia Allergic/Immunologic Allergic/Immunologic: Denies itchy eyes, lip swelling, throat swelling, tongue swelling or wheezing Vital Signs Vital Signs Vital Signs: 11/09/24 19:36 11/09/24 19:36 11/09/24 19:36 Temperature Temperature Source Temporal Pulse Rate 101 H Respiratory Rate Blood Pressure 133/83 H BP Systolic 133 BP Diastolic 83 Pulse Ox 11/09/24 19:36 11/09/24 19:36 11/09/24 20:53 Temperature 97.5 F L Temperature Source Pulse Rate Respiratory Rate 18 Blood Pressure 129/77 H BP Systolic 129 BP Diastolic 77 Pulse Ox 11/09/24 20:53 11/09/24 20:53 11/09/24 20:54 Temperature Temperature Source Temporal Pulse Rate 88 Respiratory Rate Blood Pressure BP Systolic BP Diastolic Pulse Ox 97 11/09/24 20:54 11/09/24 20:54 11/10/24 01:00 Temperature 97.7 F L Temperature Source Pulse Rate 68 Respiratory Rate 17 Blood Pressure BP Systolic BP Diastolic Pulse Ox 11/10/24 01:00 11/10/24 01:01 11/10/24 01:01 Temperature Temperature Source Pulse Rate 70 Respiratory Rate Blood Pressure 130/68 H BP Systolic 130 BP Diastolic 68 Pulse Ox 97 11/10/24 01:01 11/10/24 01:01 11/10/24 01:01 Temperature 97.5 F L Temperature Source Temporal Pulse Rate Respiratory Rate 15 Blood Pressure BP Systolic BP Diastolic Pulse Ox 11/10/24 05:59 11/10/24 05:59 11/10/24 06:00 Temperature Temperature Source Pulse Rate 78 Respiratory Rate Blood Pressure 114/77 BP Systolic 114 BP Diastolic 77 Pulse Ox 97 11/10/24 06:00 11/10/24 06:00 11/10/24 06:00 Temperature Temperature Source Temporal Pulse Rate 76 Respiratory Rate 19 H Blood Pressure BP Systolic BP Diastolic Pulse Ox 11/10/24 06:00 11/10/24 07:11 11/10/24 07:11 Temperature 97.8 F Temperature Source Temporal Pulse Rate Respiratory Rate 16 Blood Pressure BP Systolic BP Diastolic Pulse Ox 11/10/24 07:11 11/10/24 07:12 11/10/24 07:12 Temperature 97.7 F L Temperature Source Pulse Rate 73 Respiratory Rate Blood Pressure 120/76 BP Systolic 120 BP Diastolic 76 Pulse Ox Weight Weight: 242 lb 6.4 oz Body Mass Index (BMI) 39.1 Physical Exam Const alert, oriented x3 and no apparent distress General Appearance: cooperative Orientation / Consciousness: awake HEENT normocephalic Neck full ROM Lymph Lymphatic: no lymphadenopathy noted Chest inspection of chest normal Resp normal respiratory effort and normal air movement Effort and Inspection: able to speak in complete sentences and symmetric chest movement GI soft to palpation and non-tender Inspection: gravid Palpation: soft; Negative for tender external exam normal Manual OB Exam: dilated 1.5, effaced 60 and station -3 Back/Spine normal to inspection Extremity normal to inspection and full ROM Skin no rashes or lesions noted Psych mental status grossly normal Appearance: grossly normal Speech: normal speech Labs Labs Labs: Blood Type B POSITIVE Antibody Screen NEGATIVE Hct 37.5 % (37-47) Hgb 12.3 g/dL (12.0-15.0) Pap Smear Negative Obstetrics Ultrasound Syphilis Total Ab Nonreactive (Nonreactive) Rubella IgG Antibody Reactive (Nonreactive) Hep Bs Antigen Non-Reactive (Nonreactive) Hepatitis C Antibody Non-Reactive (Nonreactive) Chlamydia DNA ([place]) Negative (Negative) N.gonorrhoeae DNA ([place]) Negative (Negative) HIV 1&2 Antibody Nonreactive (Nonreactive) Glucose 1 Hr 50 gm 108 mg/dL (70-140) Miscellaneous Test COMMENT (.) Assessment & Plan (1) Vasovagal episode: COMMENT: DO NOT lay flat for NSTs (2) Encounter for induction of labor: PLAN: Patient presents IOL, plan management for with cytotec/jesus bulb/ pitocin/AROM. Pain management: plans epidural. GBS negative. Management of any complications: none I have reviewed the [facility] and made any clinically relevant updates. Dr Patton aware of assessment, plan and admission. agrees with plan (3) Obesity affecting : QUALIFIERS: Trimester: second trimester Obesity type affecting : unspecified obesity Qualified Code(s): O99.212 - Obesity complicating , second trimester COMMENT: HgbA1c bmi 40 weekly nsts 34 on (4) Advanced maternal age (AMA), 40 years or greater: COMMENT: NIPT low risk Girl. discussed IOL 39-40 weeks. plan for iOL sunday prior to 39 weeks for cervical ripening (5) Supervision of high-risk : QUALIFIERS: Trimester: third trimester Qualified Code(s): O09.93 - Supervision of high risk , unspecified, third trimester COMMENT: GBS negative [id number], HILARY 11/16/24, girl Juan David (6) : QUALIFIERS: Weeks of gestation: 37 weeks Qualified Code(s): Z3A.37 - 37 weeks gestation of COMMENT: low risk NIPT & declined Carrier testing, normal growth 37wks (7) History of recurrent miscarriages: COMMENT: APL panel neg in past Charges/Coding Multi Select Codes Urinary/Genital Urinary/Genital CPT Codes: No Charge
[2024-11-10] MEDS: 0.9% Normal Saline Single 100 ML IV.SOLN. INTRA-UTER (12:00)
--- NOTE | 2024-11-10 12:14 | PN_ITS ---
Progress Note Coping well with contractions current tracing: FHT: 140 Moderate variability reactive no decelerations category I tracing [employer]: 2-4 Contractions Membranes:intact SVE:2/60/-2, jesus bulb placed A/P: Continue with position changes Titrate pitocin per protocol Epidural per anesthesia Gbs neg Anticipate Dr Patton aware of above assessment and agrees with plan of care Assessment & Plan Assessment/Plan (1) Encounter for induction of labor: (2) Vasovagal episode: (3) Obesity affecting : QUALIFIERS: Trimester: second trimester Obesity type affecting : unspecified obesity Qualified Code(s): O99.212 - Obesity complicating , second trimester (4) Advanced maternal age (AMA), 40 years or greater: (5) Supervision of high-risk : QUALIFIERS: Trimester: third trimester Qualified Code(s): O09.93 - Supervision of high risk , unspecified, third trimester (6) : QUALIFIERS: Weeks of gestation: 37 weeks Qualified Code(s): Z3A.37 - 37 weeks gestation of (7) History of recurrent miscarriages: Multi Select Codes Urinary/Genital Urinary/Genital CPT Codes: No Charge
[2024-11-10] MEDS: Lactated Ringers 1,000 ML 999 ML IV (15:20)
[2024-11-10] MEDS: Oxytocin 15 Units/NS 250ml 15 UNITS/250 ML IV.SOLN 2 UNITS IV (16:05)
[2024-11-10] MEDS: fentaNYL-bupivacaine (epidural) 100 ML BAG EPIDURAL ×3 (16:08→23:57)
--- NOTE | 2024-11-10 17:00 | PCM.PN.BLA ---
Progress Note comfortable with epidural current tracing: FHT: 135 Moderate variability reactive no decelerations category I tracing [place]: 3-5 minutes Contractions Membranes: arom for clear fluid, IUPC placed SVE: 4/70/-2 A/P: Continue with position changes Titrate pitocin per protocol Epidural per anesthesia GBS neg Anticipate Dr Patton aware of above assessment and agrees with plan of care Assessment & Plan Assessment/Plan (1) Encounter for induction of labor: (2) Vasovagal episode: (3) Obesity affecting : QUALIFIERS: Trimester: second trimester Obesity type affecting : unspecified obesity Qualified Code(s): O99.212 - Obesity complicating , second trimester (4) Advanced maternal age (AMA), 40 years or greater: (5) Supervision of high-risk : QUALIFIERS: Trimester: third trimester Qualified Code(s): O09.93 - Supervision of high risk , unspecified, third trimester (6) : QUALIFIERS: Weeks of gestation: 37 weeks Qualified Code(s): Z3A.37 - 37 weeks gestation of (7) History of recurrent miscarriages: Multi Select Codes Urinary/Genital Urinary/Genital CPT Codes: No Charge
[2024-11-10] MEDS: Lactated Ringers 1,000 ML 200 ML IV ×2 (18:56→23:56)
[2024-11-11] VITALS (36 sets, daily range): BP systolic 90–136; BP diastolic 50–80; PULSE 57–87; RESP 13–20; TEMP 36–36.8; O2SAT 92–100
[2024-11-11] MEDS: LACTATED RINGERS 500 ML 999 ML IV (03:33)
[2024-11-11] MEDS: Lactated Ringers 1,000 ML 200 ML IV ×3 (03:33→14:31)
[2024-11-11] MEDS: fentaNYL-bupivacaine (epidural) 100 ML BAG EPIDURAL ×2 (05:26→10:10)
--- NOTE | 2024-11-11 07:19 | PCM.PN.BLA ---
Progress Note /-2 MVUs borderline inadequate/adequate on now 26 mU pitocin. been on 14 hours of pitocin ROM 13 hours. plan pitocin washout, position changes. cat I tracing. reviewed plan with patient. EFW 8 1/2 lbs but pelvis feels adequate. continue trial of labor.
[2024-11-11] MEDS: Oxytocin 15 Units/NS 250ml 15 UNITS/250 ML IV.SOLN 14 UNITS IV (07:36)
--- NOTE | 2024-11-11 16:50 | PCM.PN.BLA ---
Progress Note cat I tracing no cervical change in over 24 hours, pitocin for over 24 hours and SROM 24 hours. decision for proceeding with primary section.
--- NOTE | 2024-11-11 16:51 | EX.PCM.OBRPT ---
Assessment & Plan (1) Arrest of dilation, delivered, current hospitalization: (2) Encounter for induction of labor: (3) Vasovagal episode: COMMENT: DO NOT lay flat for NSTs (4) Obesity affecting : QUALIFIERS: Obesity type affecting : unspecified obesity Trimester: second trimester Qualified Code(s): O99.212 - Obesity complicating , second trimester COMMENT: HgbA1c bmi 40 weekly nsts 34 on (5) Advanced maternal age (AMA), 40 years or greater: COMMENT: NIPT low risk Girl. discussed IOL 39-40 weeks. plan for iOL sunday prior to 39 weeks for cervical ripening (6) Supervision of high-risk : QUALIFIERS: Trimester: third trimester Qualified Code(s): O09.93 - Supervision of high risk , unspecified, third trimester COMMENT: GBS negative [id number], HILARY 11/16/24, girl Juan David (7) : QUALIFIERS: Weeks of gestation: 37 weeks Qualified Code(s): Z3A.37 - 37 weeks gestation of COMMENT: low risk NIPT & declined Carrier testing, normal growth 37wks (8) History of recurrent miscarriages: COMMENT: APL panel neg in past (9) Endometriosis: COMMENT: stage IV seen at time of severe adhesions tubes ovaries and bowel obliterated cul de sac (10) delivery delivered: COMMENT: LTCS AOD 5 cm girl Glory 39 IOL ama Maternal Data Information HILARY Calculator Estimated Delivery Date Method Current WG Current Estimate 11/16/24 LMP (Certain) 39w 3d Other Estimates 11/12/24 Ultrasound #1 40w 0d Final HILARY Source: LMP Gestational age: 39 Operative Report (OB) Details Procedure Type: low transverse Date of Procedure: 11/11/24 Procedure Start Time: 17:32 Procedure Stop Time: 18:16 Pre-Operative Diagnosis: Other Other Pre-Operative diagnosis: see a/p comments Post-Operative Diagnosis: Same as Pre-operative diagnosis (plus stage IV endometriosis) Classification: LUCILA Type of Anesthesia: Epidural Special Medications: none Antibiotic Given: Ancef 2 grams IV x1 Drain: Jesus to straight drain Estimated Blood Loss: 600 Fluids Replaced: crystalloid Findings Description of surgery: patient underwent IOL for AMA. she had cytotec then a jesus bulb, AROM and pitocin. after over 24 hours of pitocin maxed out twice at 26 MU and over 24 hours of ROM she experienced and AOD at 5 cm for 24 hours. the deicion was made for primary . The patient was placed in the dorsal supine position with leftward tilt. Patient was prepped and draped in the normal sterile fashion. Pfannenstiel skin incision was made with the scalpel and carried through to the underlying layer of fascia with the scalpel. Fascia was nicked in the midline and the incision extended laterally. The rectus bellies were dissected off superiorly and inferiorly with out complication both sharply and bluntly. The peritoneum was entered digitally. The incision was stretched and a low transverse uterine incision was made with the scalpel. The infant's head was delivered atraumatically followed by the anterior and posterior shoulders without complication the rest of the delivered. The cord was clamped and cut and the was handed off to awaiting nurse. The placenta was delivered spontaneously immediately following and was noted to be intact and have a three-vessel cord. The uterus was exteriorized cleared of all clots and debris, and the incision was closed in a single layer closure using #1 Monocryl. The ovaries and fallopian tubes were inspected and noted to have severe scarring and abnormal adhesions to the bowel and cul de sac. bilateral tubes and ovaries were severely scarred and very friable, easily bleeding and very limited visualization to be able to normalize the adhesions. heomblast applied to the area and pressure applied for 2 minutes. hemostasis noted and no further dissection performed. The uterus was returned to the maternal abdomen and gutters were cleared of all clots and debris. The peritoneum was closed with 3-0 Monocryl in a running fashion. Gloves were changed prior to fascial closure. Fascia was closed with 0 PDS in a running fashion. Subcutaneous tissue was copiously irrigated and the skin was closed with 3-0 Monocryl in a subcuticular fashion. Mepilex dressing was applied without complication. Patient was taken to recovery in stable condition. It was discussed with the patient that based on the clinical information obtained during this encounter, combined with her history, at this time I would recommend cesareans for future deliveries if further pregnancies are desired. Surgical findings: stage IV endometriosis obliterated cul de sace Presentation: Vertex Amniotic Membrane Rupture Type: Artificial Amniotic Fluid Description: Clear Placental Delivery Description: Spontaneous Specimen collected: Yes Description of specimen(s) removed: placenta and baby Cord Vessel Description: 3 Vessels Delayed Cord Clamping: Yes Dowel Pin Man tester electronic scale: Yes Video Photographer: Ha Miles Tasks completed by assistant manager quality management: Opening & closing, Retracting and Other (assisting in delivery of the infant) Additional assistant pressman?: No Complications Complications: No Admit VTE Documentation VTE Present on Admission: No VTE Mechan Device Prophylaxis: SCD's Procedures Urinary/Genital 52xxx-59xxx: 97834 Delivery [facility]
--- NOTE | 2024-11-11 16:51 | EX.PCM.OBRPT ---
Assessment & Plan (1) Arrest of dilation, delivered, current hospitalization: (2) Encounter for induction of labor: (3) Vasovagal episode: COMMENT: DO NOT lay flat for NSTs (4) Obesity affecting : QUALIFIERS: Obesity type affecting : unspecified obesity Trimester: second trimester Qualified Code(s): O99.212 - Obesity complicating , second trimester COMMENT: HgbA1c bmi 40 weekly nsts 34 on (5) Advanced maternal age (AMA), 40 years or greater: COMMENT: NIPT low risk Girl. discussed IOL 39-40 weeks. plan for iOL sunday prior to 39 weeks for cervical ripening (6) Supervision of high-risk : QUALIFIERS: Trimester: third trimester Qualified Code(s): O09.93 - Supervision of high risk , unspecified, third trimester COMMENT: GBS negative [id number], HILARY 11/16/24, girl Juan David (7) : QUALIFIERS: Weeks of gestation: 37 weeks Qualified Code(s): Z3A.37 - 37 weeks gestation of COMMENT: low risk NIPT & declined Carrier testing, normal growth 37wks (8) History of recurrent miscarriages: COMMENT: APL panel neg in past (9) Endometriosis: COMMENT: stage IV seen at time of severe adhesions tubes ovaries and bowel obliterated cul de sac (10) delivery delivered: COMMENT: LTCS AOD 5 cm girl Glory 39 IOL ama Maternal Data Information HILARY Calculator Estimated Delivery Date Method Current WG Current Estimate 11/16/24 LMP (Certain) 39w 3d Other Estimates 11/12/24 Ultrasound #1 40w 0d Final HILARY Source: LMP Gestational age: 39 Operative Report (OB) Details Procedure Type: low transverse Date of Procedure: 11/11/24 Procedure Start Time: 17:32 Procedure Stop Time: 18:16 Pre-Operative Diagnosis: Other Other Pre-Operative diagnosis: see a/p comments Post-Operative Diagnosis: Same as Pre-operative diagnosis (plus stage IV endometriosis) Classification: LUCILA Type of Anesthesia: Epidural Special Medications: none Antibiotic Given: Ancef 2 grams IV x1 Drain: Jesus to straight drain Estimated Blood Loss: 600 Fluids Replaced: crystalloid Findings Description of surgery: patient underwent IOL for AMA. she had cytotec then a jesus bulb, AROM and pitocin. after over 24 hours of pitocin maxed out twice at 26 MU and over 24 hours of ROM she experienced and AOD at 5 cm for 24 hours. the deicion was made for primary . The patient was placed in the dorsal supine position with leftward tilt. Patient was prepped and draped in the normal sterile fashion. Pfannenstiel skin incision was made with the scalpel and carried through to the underlying layer of fascia with the scalpel. Fascia was nicked in the midline and the incision extended laterally. The rectus bellies were dissected off superiorly and inferiorly with out complication both sharply and bluntly. The peritoneum was entered digitally. The incision was stretched and a low transverse uterine incision was made with the scalpel. The infant's head was delivered atraumatically followed by the anterior and posterior shoulders without complication the rest of the delivered. The cord was clamped and cut and the was handed off to awaiting nurse. The placenta was delivered spontaneously immediately following and was noted to be intact and have a three-vessel cord. The uterus was exteriorized cleared of all clots and debris, and the incision was closed in a single layer closure using #1 Monocryl. The ovaries and fallopian tubes were inspected and noted to have severe scarring and abnormal adhesions to the bowel and cul de sac. bilateral tubes and ovaries were severely scarred and very friable, easily bleeding and very limited visualization to be able to normalize the adhesions. heomblast applied to the area and pressure applied for 2 minutes. hemostasis noted and no further dissection performed. The uterus was returned to the maternal abdomen and gutters were cleared of all clots and debris. The peritoneum was closed with 3-0 Monocryl in a running fashion. Gloves were changed prior to fascial closure. Fascia was closed with 0 PDS in a running fashion. Subcutaneous tissue was copiously irrigated and the skin was closed with 3-0 Monocryl in a subcuticular fashion. Mepilex dressing was applied without complication. Patient was taken to recovery in stable condition. It was discussed with the patient that based on the clinical information obtained during this encounter, combined with her history, at this time I would recommend cesareans for future deliveries if further pregnancies are desired. Surgical findings: stage IV endometriosis obliterated cul de sace Presentation: Vertex Amniotic Membrane Rupture Type: Artificial Amniotic Fluid Description: Clear Placental Delivery Description: Spontaneous Specimen collected: Yes Description of specimen(s) removed: placenta and baby Cord Vessel Description: 3 Vessels Delayed Cord Clamping: Yes Librarian Helper deboner: Yes Fire Safety Inspector: Ha Miles Tasks completed by senior care assistant: Opening & closing, Retracting and Other (assisting in delivery of the infant) Additional patient observation assistant?: No Complications Complications: No Admit VTE Documentation VTE Present on Admission: No VTE Mechan Device Prophylaxis: SCD's Procedures Urinary/Genital 52xxx-59xxx: 66326 Delivery [facility]
--- NOTE | 2024-11-11 16:53 | DCINST_ITS ---
Discharge Instructions Diet Discharge Diet: No restrictions DC O2, CPAP, BIPAP needs Home O2 Discharge instructions: No Dressing / Incision Discharge Activity: May Not Drive (for 2 weeks or while taking narcotic pain medications.), May Shower and May Take a Tub Bath (in 7 days) May shower in (days): 0 May resume sexual activity in: 4-6 weeks Weight Bearing Status: Full weight bearing Lifting Restrictions: 20 pounds Dressing / Incision Call your doctor if your incision/area has: Continuous Slow Oozing, Sudden Increased Bleeding, Increased Pain/ Swelling, Increased Redness and Foul Smelling Discharge Call your doctor if you observe: Fever of 101 or Higher and Using more than 1 pad per hour (for 2 hours) Suture Line Care: Avoid Pulling/Pushing and Avoid Pinching/Bending Cleanse incision/area with: Soap & Water and Keep Dressing Clean & Dry Follow Up Care Please Follow Up With: Alison Patton MD When: Call [phone] to make an appointment for an incision check in 1-2 weeks. Test Results: Test results from this visit will be discussed in further detail at your follow- up appointment, if applicable. Discharge Plan Admission Admit Date/Time: 11/09/24 19:05 Attending Provider: Christel Chen Primary Care Provider: Pankaj Mckinney Discharge Orders/Prescriptions Prescriptions: No Action PNV no.[id number] 400 mcg-35 mg- 25 mg-5 mg tablet,chewable 1 tab PO DAILY valacyclovir [Valtrex] 500 mg tablet 500 mg PO DAILY Referrals / Follow Up: Pankaj Mckinney MD [Primary Care Provider] -
--- NOTE | 2024-11-11 16:53 | DCINST_ITS ---
Discharge Instructions Diet Discharge Diet: No restrictions DC O2, CPAP, BIPAP needs Home O2 Discharge instructions: No Dressing / Incision Discharge Activity: May Not Drive (for 2 weeks or while taking narcotic pain medications.), May Shower and May Take a Tub Bath (in 7 days) May shower in (days): 0 May resume sexual activity in: 4-6 weeks Weight Bearing Status: Full weight bearing Lifting Restrictions: 20 pounds Dressing / Incision Call your doctor if your incision/area has: Continuous Slow Oozing, Sudden Increased Bleeding, Increased Pain/ Swelling, Increased Redness and Foul Smelling Discharge Call your doctor if you observe: Fever of 101 or Higher and Using more than 1 pad per hour (for 2 hours) Suture Line Care: Avoid Pulling/Pushing and Avoid Pinching/Bending Cleanse incision/area with: Soap & Water and Keep Dressing Clean & Dry Follow Up Care Please Follow Up With: Alison Patton MD When: Call [phone] to make an appointment for an incision check in 1-2 weeks. Test Results: Test results from this visit will be discussed in further detail at your follow- up appointment, if applicable. Discharge Plan Admission Admit Date/Time: 11/09/24 19:05 Attending Provider: Christel Chen Primary Care Provider: Pankaj Mckinney Discharge Orders/Prescriptions Prescriptions: No Action PNV no.[id number] 400 mcg-35 mg- 25 mg-5 mg tablet,chewable 1 tab PO DAILY valacyclovir [Valtrex] 500 mg tablet 500 mg PO DAILY Referrals / Follow Up: Pankaj Mckinney MD [Primary Care Provider] -
[2024-11-11] MEDS: Cefazolin 2 GM in 0.9% Normal Saline (100mL Bag) 100 ML IV (17:13)
[2024-11-11] MEDS: TRANEXAMIC ACID 1,000 MG in 0.9% Normal Saline (100mL Bag) 100 ML 440 MG IV (17:32)
[2024-11-11] MEDS: Azithromycin 500 MG in 0.9% Normal Saline (250mL Bag) 250 ML 250 MG IV (18:04)
[2024-11-11] MEDS: Ketorolac 30 MG/ML Syringe IV (18:56)
[2024-11-11] MEDS: Oxytocin 15 Units/NS 250ml 15 UNITS/250 ML IV.SOLN 83 UNITS IV (18:57)
[2024-11-11] MEDS: Lactated Ringers 1,000 ML 100 ML IV (22:30)
[2024-11-12] VITALS (8 sets, daily range): BP systolic 104–126; BP diastolic 66–89; PULSE 52–104; RESP 16–18; TEMP 36.1–36.6; O2SAT 98–100
[2024-11-12] MEDS: 0.9% Saline Lock 10 ML Syringe IV ×3 (01:00→13:48)
[2024-11-12] MEDS: Ketorolac 30 MG/ML Syringe IV ×3 (01:01→13:48)
[2024-11-12 07:11] LABS: Hematocrit 32.9 % (37-47); Hemoglobin 10.8 g/dL (12.0-15.0); Mean Corp Hgb Conc 32.8 g/dL (32-36); Mean Corpuscular Volume 95.1 fL (81-99); Mean Platelet Vol. 12.3 fl (6.2-12.0); Platelet Count 164 K/mm3 (150-450); RBC Distribution Width CV 14.6 % (11.6-14.6); RBC Distribution Width SD 50.4 fl (35.1-43.9); Red Blood Count 3.46 M/mm3 (4.2-5.4); White Blood Count 17.5 K/mm3 (4.4-11.0)
--- NOTE | 2024-11-12 07:36 | PCM.PN.OB ---
Subjective Subjective Patient doing well without complaints. Tolerating PO. Ambulating and voiding without difficulty. feeding well. Denies chest pain, shortness of breath, calf pain/swelling, fevers, chills, lightheadedness. Objective Data Objective Data Vital Signs: Vital Signs Temp Pulse Resp BP Pulse Ox O2 Del Method 97.4 F L 52 L 16 104/74 100 Room Air 11/12/24 02:44 11/12/24 05:24 11/12/24 05:24 11/12/24 03:14 11/12/24 05:24 11/12/24 05:24 Oxygen Delivery Method Room Air Weight: 242 lb 6.4 oz Body Mass Index (BMI) 39.1 Intake & Output: Intake and Output for Last 24 Hours 11/10/24 11/11/24 11/12/24 23:59 23:59 23:59 Intake Total 2554.81 / 2554.81 4926.39 / 4926.39 725 / 725 Output Total 700 / 700 4000 / 4000 650 / 650 Balance 1854.81 / 1854.81 926.39 / 926.39 75 / 75 Lab / Micro Data 11/12/24 06:50 Labs: Laboratory Results - last 24 hr 11/12/24 06:50: WBC 17.5 H, RBC 3.46 L, Hgb 10.8 L, Hct 32.9 L, MCV 95.1, MCH 31.2, MCHC 32.8, RDW Std Deviation 50.4 H, RDW Coeff of Roscoe 14.6, Plt Count 164, MPV 12.3 H ROS Constitutional Constitutional: Reports systems reviewed and no addt'l complaints, except as documented Cardiovascular Cardiovascular: Reports systems reviewed and no addt'l complaints, except as documented Respiratory/Chest Respiratory/Chest: Reports systems reviewed and no addt'l complaints, except as documented Gastrointestinal Gastrointestinal: Reports systems reviewed and no addt'l complaints, except as documented Physical Exam Const alert, oriented x3 and no apparent distress HEENT Head and Scalp: atraumatic Resp normal respiratory effort GI soft to palpation and non-tender Inspection: incision intact, healing well and drainage (none) Bimanual Exam - Vag & Uterus: uterus non-tender Uterus Palpation: uterus fundus firm (below Umbilicus) Assessment & Plan (1) delivery delivered: COMMENT: LTCS AOD 5 cm girl Joyonna 39 IOL ama (2) Endometriosis: COMMENT: stage IV seen at time of severe adhesions tubes ovaries and bowel obliterated cul de sac PLAN: Plan s/p LTCS PPD # 1 1. routine post care 2. breast feeding- support given 3. rh positive 4. rubella immune
[2024-11-12] MEDS: Senna/Docusate Sodium 1 Tablet PO (09:58)
[2024-11-13 02:39] VITALS: BP 121/64; PULSE 63; RESP 16; TEMP 36.4; O2SAT 98
--- NOTE | 2024-11-13 06:45 | PCM.PN.OB ---
Subjective Subjective Patient doing well without complaints. Tolerating PO. Ambulating and voiding without difficulty. feeding well. Denies chest pain, shortness of breath, calf pain/swelling, fevers, chills, lightheadedness. Objective Data Objective Data Vital Signs: Vital Signs Temp Pulse Resp BP Pulse Ox O2 Del Method 97.5 F L 63 16 121/64 H 98 Room Air 11/13/24 02:39 11/13/24 02:39 11/13/24 02:39 11/13/24 02:39 11/13/24 02:39 11/13/24 02:39 Oxygen Delivery Method Room Air Weight: 242 lb 6.4 oz Body Mass Index (BMI) 39.1 Intake & Output: Intake and Output for Last 24 Hours 11/11/24 11/12/24 11/13/24 23:59 23:59 23:59 Intake Total 4926.39 / 4926.39 725 / 725 Output Total 4000 / 4000 1275 / 1275 Balance 926.39 / 926.39 -550 / -550 Lab / Micro Data 11/12/24 06:50 Labs: Laboratory Results - last 24 hr 11/12/24 06:50: WBC 17.5 H, RBC 3.46 L, Hgb 10.8 L, Hct 32.9 L, MCV 95.1, MCH 31.2, MCHC 32.8, RDW Std Deviation 50.4 H, RDW Coeff of [place]coe 14.6, Plt Count 164, MPV 12.3 H ROS Constitutional Constitutional: Reports systems reviewed and no addt'l complaints, except as documented; Denies change in weight, fatigue, fever(s), headache(s), poor appetite or weakness Eyes Eyes: Denies blurry vision, change in vision, floaters, seeing flashes or spots in vision ENT HEENT: Denies dizziness, headache(s), loss taste/smell or sore throat Cardiovascular Cardiovascular: Reports systems reviewed and no addt'l complaints, except as documented; Denies chest pain, dizziness, dyspnea, irregular heart rhythm, lightheadedness, palpitations or rapid heart rate Respiratory/Chest Respiratory/Chest: Reports systems reviewed and no addt'l complaints, except as documented; Denies change in mental status, chest tightness, cough, dyspnea or breast pain Gastrointestinal Gastrointestinal: Reports systems reviewed and no addt'l complaints, except as documented; Denies anorexia, chewing difficulty, constipation, diarrhea or weight changes Genitourinary Genitourinary: Denies difficulty urinating, dysuria, flank pain, genital pain, urinary frequency or urinary urgency Musculoskeletal Musculoskeletal: Denies back pain, difficulty walking, extremity pain, joint pain, muscle cramps or muscle weakness Integumentary Integumentary: Denies lesions or unusual bruising Neurologic Neurologic: Denies abnormal movements, abnormal speech, dizziness, numbness, seizure-like activity, syncope or weakness Psychiatric Psychiatric: Denies behavioral changes, change in appetite, confusion, depression, homicidal ideation, suicidal ideation or suicidal thoughts Endocrine Endocrinology: Denies excessive sweating, polydipsia or polyuria Hematologic/Lymphatic Hematologic/Lymphatic: Denies anemia Allergic/Immunologic Allergic/Immunologic: Denies itchy eyes, lip swelling, throat swelling, tongue swelling or wheezing Physical Exam Const alert, oriented x3 and no apparent distress General Appearance: cooperative Orientation / Consciousness: awake HEENT normocephalic Head and Scalp: atraumatic Neck full ROM Lymph Lymphatic: no lymphadenopathy noted Chest inspection of chest normal Resp normal respiratory effort and normal air movement Effort and Inspection: able to speak in complete sentences and symmetric chest movement GI soft to palpation and non-tender Inspection: incision intact, healing well and drainage (none) and gravid Palpation: soft; Negative for tender external exam normal Bimanual Exam - Vag & Uterus: uterus non-tender Manual OB Exam: dilated 1.5, effaced 60 and station -3 Uterus Palpation: uterus fundus firm (below Umbilicus) Back/Spine normal to inspection Extremity normal to inspection and full ROM Skin no rashes or lesions noted Psych mental status grossly normal Appearance: grossly normal Speech: normal speech Assessment & Plan (1) delivery delivered: COMMENT: LTCS AOD 5 cm girl Joyonna 39 IOL ama (2) Endometriosis: COMMENT: stage IV seen at time of severe adhesions tubes ovaries and bowel obliterated cul de sac PLAN: Plan s/p LTCS PPD # 2 1. routine post care 2. breast feeding- support given 3. rh positive 4. rubella immune
[2024-11-13] MEDS: Senna/Docusate Sodium 1 Tablet PO (08:13)
[2024-11-13 08:55] VITALS: BP 101/59; PULSE 80; RESP 16; TEMP 36.1; O2SAT 98
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
--- NOTE | 2024-11-17 14:11 | NURSING ---
Called [employer] pump company on behalf of patient for update on pump status. [employer], states patient is on schedule to be called and that they will reach out to her about pump.
--- NOTE | 2024-11-17 20:00 | NURSING ---
F/Up Phone call questions asked today in person at IBCLC visit. Pt. milk is in, and feeling well overall. Having some pedal edema, soreness in c/s incision, and has not had a bowel movement since delivery-- but stopping by [facility] after visit while at hospital to address these things. Denies headache, blurred vision, or issues with lochia.
--- NOTE | 2024-11-17 20:00 | NURSING ---
F/Up Phone call questions asked today in person at IBCLC visit. Pt. milk is in, and feeling well overall. Having some pedal edema, soreness in c/s incision, and has not had a bowel movement since delivery-- but stopping by [facility] after visit while at hospital to address these things. Denies headache, blurred vision, or issues with lochia.
--- NOTE | 2024-11-25 16:09 | PCM.DC.SUM ---
Providers Date of Admission: 11/09/24 Primary Care Physician: Dr. Pankaj Mckinney MD Reason For Visit: PRIMARY Diagnosis Discharge Diagnosis (1) delivery delivered: Status: Acute Code(s): O82 - Encounter for delivery without indication (2) Endometriosis: Status: Acute Code(s): N80.9 - Endometriosis, unspecified Plan s/p LTCS PPD # 2 1. routine post care 2. breast feeding- support given 3. rh positive 4. rubella immune Medications at Discharge Home Medications PNV 153-[id number] 400 mcg-om3 35 mg-dha 25 mg-epa 5 mg-fish oil chew tablet 1 tab PO DAILY 05/20/24 valacyclovir 500 mg tablet (Valtrex) 500 mg PO DAILY hsv 11/07/24 naproxen 500 mg tablet 500 mg PO BID PRN PRN Pain #30 tabs 11/13/24 oxycodone-acetaminophen 5 mg-325 mg tablet (Percocet) 1 tab PO Q4H PRN pain 7 days #20 tabs 11/13/24 bisacodyl 10 mg rectal suppository (Dulcolax (bisacodyl)) 10 mg MA ONCE PRN constipation #12 ea 11/17/24 Hospital Course Summary of Care Provided Hospital Course: patient presented for IOL secondary to ama. underwent cytotec then fb and was on pitocin for 24 hours, ruptured for over 18, and was maxed out on pitocin twice and made no cervical change past 5 cm for 24 hours. decision made for primary for AOD. Postoperatively patient had return of bowel and bladder function and was ambulating well, tolerating adequate p.o., and was stable for discharge to home on postop day #2. Discharge medications naproxen and Percocet. Follow-up in office in 2 weeks for incision check in 6 weeks for visit. Routine post section diet and activity instructions. Weight / BMI Weight Weight: 242 lb 6.4 oz Body Mass Index (BMI) 39.1 ABG / Lab / Microbiology Data 11/12/24 06:50 D/C Instructions Discharge Activity: May Not Drive (for 2 weeks or while taking narcotic pain medications.), May Shower and May Take a Tub Bath (in 7 days) May shower in (days): 0 May resume sexual activity in: 4-6 weeks Weight Bearing Status: Full weight bearing Call your doctor if your incision/area has: Continuous Slow Oozing, Sudden Increased Bleeding, Increased Pain/ Swelling, Increased Redness and Foul Smelling Discharge Call your doctor if you observe: Fever of 101 or Higher and Using more than 1 pad per hour (for 2 hours) Suture Line Care: Avoid Pulling/Pushing and Avoid Pinching/Bending Cleanse incision/area with: Soap & Water and Keep Dressing Clean & Dry DC O2, CPAP, BIPAP Needs Home O2 Discharge instructions: No Please Follow Up With: Alison Patton MD When: Call [phone] to make an appointment for an incision check in 1-2 weeks. Meaningful Use Info Meaningful Use Meaningful Use Diagnoses (Choose all that apply): None applicable Discharge Plan Admission Admit Date/Time: 11/09/24 19:05 Attending Provider: Alison Patton Primary Care Provider: Pankaj Mckinney Instructions Patient Instructions: Care ... Discharge Orders/Prescriptions Prescriptions: New oxycodone-acetaminophen [Percocet] 5-325 mg tablet 1 tab PO Q4H PRN (Reason: pain) 7 Days Qty: 20 0RF naproxen 500 mg tablet 500 mg PO BID PRN PRN (Reason: Pain) Qty: 30 1RF No Action PNV no.[id number] 400 mcg-35 mg- 25 mg-5 mg tablet,chewable 1 tab PO DAILY valacyclovir [Valtrex] 500 mg tablet 500 mg PO DAILY bisacodyl [Dulcolax (bisacodyl)] 10 mg suppository 10 mg MA ONCE PRN (Reason: constipation) Qty: 12 0RF Referrals / Follow Up: Pankaj Mckinney MD [Primary Care Provider] - Disposition Disposition (needs filled in before D/C Order can be placed): Home, Self Care
--- NOTE | 2024-11-25 16:09 | PCM.DC.SUM ---
Providers Date of Admission: 11/09/24 Primary Care Physician: Dr. Pankaj Mckinney MD Reason For Visit: PRIMARY Diagnosis Discharge Diagnosis (1) delivery delivered: Status: Acute Code(s): O82 - Encounter for delivery without indication (2) Endometriosis: Status: Acute Code(s): N80.9 - Endometriosis, unspecified Plan s/p LTCS PPD # 2 1. routine post care 2. breast feeding- support given 3. rh positive 4. rubella immune Medications at Discharge Home Medications PNV [id number] 400 mcg-om3 35 mg-dha 25 mg-epa 5 mg-fish oil chew tablet 1 tab PO DAILY 05/20/24 valacyclovir 500 mg tablet (Valtrex) 500 mg PO DAILY hsv 11/07/24 naproxen 500 mg tablet 500 mg PO BID PRN PRN Pain #30 tabs 11/13/24 oxycodone-acetaminophen 5 mg-325 mg tablet (Percocet) 1 tab PO Q4H PRN pain 7 days #20 tabs 11/13/24 bisacodyl 10 mg rectal suppository (Dulcolax (bisacodyl)) 10 mg WI ONCE PRN constipation #12 ea 11/17/24 Hospital Course Summary of Care Provided Hospital Course: patient presented for IOL secondary to ama. underwent cytotec then fb and was on pitocin for 24 hours, ruptured for over 18, and was maxed out on pitocin twice and made no cervical change past 5 cm for 24 hours. decision made for primary for AOD. Postoperatively patient had return of bowel and bladder function and was ambulating well, tolerating adequate p.o., and was stable for discharge to home on postop day #2. Discharge medications naproxen and Percocet. Follow-up in office in 2 weeks for incision check in 6 weeks for visit. Routine post section diet and activity instructions. Weight / BMI Weight Weight: 242 lb 6.4 oz Body Mass Index (BMI) 39.1 ABG / Lab / Microbiology Data 11/12/24 06:50 D/C Instructions Discharge Activity: May Not Drive (for 2 weeks or while taking narcotic pain medications.), May Shower and May Take a Tub Bath (in 7 days) May shower in (days): 0 May resume sexual activity in: 4-6 weeks Weight Bearing Status: Full weight bearing Call your doctor if your incision/area has: Continuous Slow Oozing, Sudden Increased Bleeding, Increased Pain/ Swelling, Increased Redness and Foul Smelling Discharge Call your doctor if you observe: Fever of 101 or Higher and Using more than 1 pad per hour (for 2 hours) Suture Line Care: Avoid Pulling/Pushing and Avoid Pinching/Bending Cleanse incision/area with: Soap & Water and Keep Dressing Clean & Dry DC O2, CPAP, BIPAP Needs Home O2 Discharge instructions: No Please Follow Up With: Alison Patton MD When: Call [phone] to make an appointment for an incision check in 1-2 weeks. Meaningful Use Info Meaningful Use Meaningful Use Diagnoses (Choose all that apply): None applicable Discharge Plan Admission Admit Date/Time: 11/09/24 19:05 Attending Provider: Alison Patton Primary Care Provider: Pankaj Mckinney Instructions Patient Instructions: Care ... Discharge Orders/Prescriptions Prescriptions: New oxycodone-acetaminophen [Percocet] 5-325 mg tablet 1 tab PO Q4H PRN (Reason: pain) 7 Days Qty: 20 0RF naproxen 500 mg tablet 500 mg PO BID PRN PRN (Reason: Pain) Qty: 30 1RF No Action PNV [id number] 400 mcg-35 mg- 25 mg-5 mg tablet,chewable 1 tab PO DAILY valacyclovir [Valtrex] 500 mg tablet 500 mg PO DAILY bisacodyl [Dulcolax (bisacodyl)] 10 mg suppository 10 mg WI ONCE PRN (Reason: constipation) Qty: 12 0RF Referrals / Follow Up: Pankaj Mckinney MD [Primary Care Provider] - Disposition Disposition (needs filled in before D/C Order can be placed): Home, Self Care
== END 2024-11-13 14:20 | disposition home or self-care (01) | DRG 788 ==
PROVIDERS: Obstetrics & Gynecology; Admitting Provider Obstetrics & Gynecology; PCP Family Medicine; Referring Provider Obstetrics & Gynecology; Visit Provider Obstetrics & Gynecology
DX: O99.214 Obesity complicating childbirth (principal); O26.23 Pregnancy care for patient with recurrent pregnancy loss, third trimester; N80.123 Deep endometriosis of bilateral ovaries; O99.892 Other specified diseases and conditions complicating childbirth; O34.83 Maternal care for other abnormalities of pelvic organs, third trimester; N80.2 Endometriosis of fallopian tube; N80.50 Endometriosis of intestine, unspecified; O62.0 Primary inadequate contractions; Z37.0 Single live birth; Z3A.37 37 weeks gestation of pregnancy
CPT/HCPCS: 59025; 59050; 76815; 85025; 85027; 86780; 86850; 86900; 86901; 99221; A4216; G0378; J2405

== ENCOUNTER → 2024-12-02 | Outpatient (CLI) | payer BC, SELFPAY ==
[2024-12-02 12:24] LABS: Hematocrit 40.5 % (37-47); Hemoglobin 12.5 g/dL (12.0-15.0); Immature Granulocytes Count 0.010 X10^3/uL (0.0-0.0); Mean Corp Hgb Conc 30.9 g/dL (32-36); Mean Corpuscular Volume 96.7 fL (81-99); Mean Platelet Vol. 11.8 fl (6.2-12.0); NRBC Flagged by Analyzer 0 % (0-5); Platelet Count 274 K/mm3 (150-450); RBC Distribution Width CV 13.4 % (11.6-14.6); RBC Distribution Width SD 48.3 fl (35.1-43.9); Red Blood Count 4.19 M/mm3 (4.2-5.4); White Blood Count 5.4 K/mm3 (4.4-11.0)
[2024-12-02 13:21] LABS: AST(SGOT) 15 U/L (<=31); Alanine Aminotransfer ALT/SGPT 9 U/L (<=34); Albumin, Serum 3.9 g/dL (3.5-5.0); Alkaline Phosphatase 74 U/L (35-104); Anion Gap 9 (5-15); BUN 7 mg/dL (4-19); BUN/Creat Ratio 8.8 RATIO (10-20); Calcium,Total 9.3 mg/dL (7.6-11.0); Carbon Dioxide 24.2 mmol/L (21.0-32.0); Chloride 109 mmol/L (98-108); Globulin 3.0 g/dL (2.2-4.2); Glucose 75 mg/dL (70-99); Potassium 4.0 mmol/L (3.3-5.1)
== END | disposition home or self-care (01) ==
PROVIDERS: PCP Family Medicine; Visit Provider Nurse Practitioner Women's Health
DX: R30.0 Dysuria (principal); N39.0 Urinary tract infection, site not specified
CPT/HCPCS: 36415; 80053; 85025; 87086; 87088